=== PATIENT | female | born 1955 | race African-American/Black ===

== ENCOUNTER → 2017-01-09 | Outpatient (CLI) | payer BC | LOC: WI 11:18 | PROVIDERS: ATTEND Registered Nurse General Practice | DX: Z12.31 Encounter for screening mammogram for malignant neoplasm of breast (principal) | CPT/HCPCS: 77067; G0202 ==

== ENCOUNTER → 2018-01-10 | Outpatient (CLI) | payer BC ==
--- NOTE | 2018-01-10 10:39 | WOMENS IMAGING REPORT ---
EXAM DESCRIPTION: BILAT SCREENING MAMMO W/CAD COMPLETED DATE/TIME: 01/10/2018 10:03 am REASON FOR STUDY: ROUTINE SCREENING;Z12.31 Z12.31 ENCNTR SCREEN MAMMOGRAM FOR MALIGNANT NEOPLASM OF HENRIQUE COMPARISON: 01/09/2017 and 01/06/2016. TECHNIQUE: Standard craniocaudal and mediolateral oblique views of each breast recorded using digita l acquisition. LIMITATIONS: None. FINDINGS: Findings present which are benign by mammographic criteria. No suspicious masses, calcifi cations or architectural distortion. Pertinent benign findings: Stable benign calcifications. Read with the assistance of CAD. .[facility] - R2 Cenova Version 1.3 .[facility] Imaging - R2 Cenova Version 1.3 .[facility] Imaging - R2 Cenova Version 2.4 .[facility] [place] R2 Cenova Version 2.4 .[facility] - R2 Shipfitter Apprentice Version 9.2 Benign mammographic findings may include one or more of the following: Smooth masses, popcorn/rim/co arse calcifications, asymmetries, post-procedure changes, and lesions with long-standing stability. IMPRESSION: BENIGN MAMMOGRAPHIC FINDINGS. BIRADS 2 BREAST DENSITY: b. There are scattered areas of fibroglandular density. BIRAD: 2 BENIGN FINDING(S) RECOMMENDATION: ROUTINE SCREENING COMMENT: The patient has been notified of the results by letter per SA requirements. Additional no tification policies are in place for contacting patient with suspicious or incomplete findings. Quality ID #[id number]: The [employer] recommends an annual screening mammogram for women aged 40 years or over. This facility utilizes a reminder system to ensure that all patients receive reminder letters, and/or direct phone calls for appointments. This includes reminders for routine scr eening mammograms, diagnostic mammograms, or other Breast Imaging Interventions when appropriate. Th is patient will be placed in the appropriate reminder system. The [employer] (ACR) has developed recommendations for screening MRI of the breast s in certain patient populations, to be used in conjunction with mammography. Breast MRI surveillanc e may be appropriate for women with more than 20% lifetime risk of developing breast cancer as deter mined by genetic testing, significant family history of the disease, or history of mantle radiation f or Hodgkins Disease. ACR Practice Guidelines 2008. TECHNICAL DOCUMENTATION: FINDING NUMBER: (1) ASSESSMENT: (1) JOB ID: [id number] [employer]- All Rights Reserved Reading location - IP/workstation name: [email or web address]
== END ==
LOC: WI 09:20
PROVIDERS: ATTEND Physician Assistant Medical
DX: Z12.31 Encounter for screening mammogram for malignant neoplasm of breast (principal)
CPT/HCPCS: 77067

== ENCOUNTER 2018-04-24 21:16 | Emergency (ER) | payer BC ==
[2018-04-24] MEDS ORDERED: HYDROCODONE/ACETAMINOPHEN 5-325 MG TABLET PO ONE (22:30)
--- NOTE | 2018-04-24 22:31 | ER Document Report ---
ED Medical Screen (RME) - General Chief Complaint: Low Back Pain Stated Complaint: LOWER BACK PAIN Time Seen by Provider: 04/24/18 22:29 Mode of Arrival: Ambulatory Information source: Patient Notes: Patient presents complaining of left flank pain that started yesterday. Patient denies any injury to her back. Patient denies any cough, urinary symptoms or fever. Patient does complain of some generalized abdominal soreness that started today. hx: Hypertension, hyperlipidemia, prediabetic, cholecystectomy I have greeted and performed a rapid initial assessment of this patient. A comprehensive ED assessment and evaluation of the patient, analysis of test results and completion of the medical decision making process will be conducted by additional ED providers. TRAVEL OUTSIDE OF THE [place] IN LAST 30 DAYS: No - Related Data Allergies/Adverse Reactions: No Known Allergies Allergy (Verified 01/17/13 18:45) Past Medical History - Past Medical History Cardiac Medical History: Reports: Hx Hypertension Renal/ Medical History: Denies: Hx Peritoneal Dialysis Past Surgical History: Reports: Hx Cholecystectomy - Immunizations Hx Diphtheria, Pertussis, Tetanus Vaccination: Yes Physical Exam - Vital signs Vitals: Temp Pulse Resp BP Pulse Ox 98.9 F 93 20 137/85 H 97 04/24/18 21:29 04/24/18 21:29 04/24/18 21:29 04/24/18 21:29 04/24/18 21:29 - Back Back: CVA tenderness - Left Course - Vital Signs Vital signs: Temp Pulse Resp BP Pulse Ox 98.9 F 93 20 137/85 H 97 04/24/18 21:29 04/24/18 21:29 04/24/18 21:29 04/24/18 21:29 04/24/18 21:29 Doctor's Discharge - Discharge Referrals: SERGIO HAYNES PA-C [Primary Care Provider] - Follow up as needed
[2018-04-24 23:06] LABS: ABSOLUTE EOSINOPHILS # (AUTO) 0.1 10^3/uL (0.0-0.6); ABSOLUTE MONOCYTES (AUTO) 0.6 10^3/uL (0.1-1.4); ABSOLUTE NEUT (AUTO) 3.7 10^3/uL (1.7-8.2); APPEARANCE,URINE CLEAR; BASOPHILS % (AUTO) 0.4 % (0-2); BILIRUBIN,URINE NEGATIVE (NEGATIVE); COLOR,URINE STRAW; EOSINOPHILS % (AUTO) 1.9 % (0-6); GLUCOSE, URINE NEGATIVE (NEGATIVE); HEMATOCRIT 35.7 % (36.0-47.0); HEMOGLOBIN 11.8 g/dL (12.0-15.5); KETONES,URINE NEGATIVE (NEGATIVE); LEUKOCYTE ESTERASE,URINE NEGATIVE (NEGATIVE); LYMPHOCYTES % (AUTO) 31.1 % (13-45); MEAN CORPUSCULAR HEMOGLOBIN 26.7 pg (27.0-33.4); MEAN CORPUSCULAR HGB CONC 32.9 g/dL (32.0-36.0); MEAN CORPUSCULAR VOLUME 81 fl (80-97); NITRITE,URINE NEGATIVE (NEGATIVE); PLATELET COUNT 276 10^3/uL (150-450); PROTEIN,URINE NEGATIVE (NEGATIVE); RED BLOOD COUNT 4.41 10^6/uL (3.72-5.28); RED CELL DISTRIBUTION WIDTH 15.9 % (11.5-14.0); SEGMENTED NEUTROPHILS % (AUTO) 57.6 % (42-78); TOTAL CELLS COUNTED % (AUTO) 100 %; URINE SPECIFIC GRAVITY 1.003; UROBILINOGEN,URINE NEGATIVE mg/dL (<2.0); WHITE BLOOD COUNT 6.4 10^3/uL (4.0-10.5)
--- NOTE | 2018-04-24 23:09 | ER Document Report ---
ED General - General Chief Complaint: Low Back Pain Stated Complaint: LOWER BACK PAIN Time Seen by Provider: 04/24/18 22:29 Mode of Arrival: Ambulatory Information source: Patient Notes: Patient is a 62-year-old female who presents with chief complaint of left flank pain that started yesterday. Patient denies any fever, chills, nausea, vomiting or diarrhea. Patient denies any urinary symptoms such as frequency, urgency or dysuria. Patient reports past medical history of hypertension, hyperlipidemia and states that she was prediabetic. Patient reports that she did have a urinary tract infection in November and that she was asymptomatic, it was found during a routine health exam. TRAVEL OUTSIDE OF THE [place] IN LAST 30 DAYS: No - Related Data Allergies/Adverse Reactions: No Known Allergies Allergy (Verified 01/17/13 18:45) Past Medical History - General Information source: Patient - Social History Smoking Status: Never Smoker Frequency of alcohol use: None Drug Abuse: None Lives with: Family Family History: Reviewed & Not Pertinent Patient has suicidal ideation: No Patient has homicidal ideation: No - Past Medical History Cardiac Medical History: Reports: Hx Hypercholesterolemia, Hx Hypertension Renal/ Medical History: Denies: Hx Peritoneal Dialysis Past Surgical History: Reports: Hx Cholecystectomy - Immunizations Hx Diphtheria, Pertussis, Tetanus Vaccination: Yes Review of Systems - Review of Systems Constitutional: No symptoms reported EENT: No symptoms reported Cardiovascular: No symptoms reported Respiratory: No symptoms reported Gastrointestinal: No symptoms reported Genitourinary: No symptoms reported Female Genitourinary: No symptoms reported Musculoskeletal: Back pain Skin: No symptoms reported Hematologic/Lymphatic: No symptoms reported Neurological/Psychological: No symptoms reported Physical Exam - Vital signs Vitals: Temp Pulse Resp BP Pulse Ox 98.9 F 93 20 137/85 H 97 04/24/18 21:29 04/24/18 21:29 04/24/18 21:29 04/24/18 21:29 04/24/18 21:29 - Notes Notes: PHYSICAL EXAMINATION: GENERAL: Well-appearing, well-nourished and in no acute distress. HEAD: Atraumatic, normocephalic. EYES: Pupils equal round and reactive to light, extraocular movements intact, conjunctiva are normal. ENT: Nares patent, oropharynx clear without exudates. Moist mucous membranes. NECK: Normal range of motion, supple without lymphadenopathy LUNGS: Breath sounds clear to auscultation bilaterally and equal. No wheezes rales or rhonchi. HEART: Regular rate and rhythm without murmurs ABDOMEN: Soft, nontender, nondistended abdomen. No guarding, no rebound. No masses appreciated. Female : +Left CVA tenderness. Musculoskeletal: Normal range of motion, no pitting or edema. No cyanosis. NEUROLOGICAL: Cranial nerves grossly intact. Normal speech, normal gait. Normal sensory, motor exams PSYCH: Normal mood, normal affect. SKIN: Warm, Dry, normal turgor, no rashes or lesions noted. Course - Re-evaluation Re-evalutation: 62-year-old female patient presenting with complaints of left flank pain 1 day. Patient reports that she does not have any other associated symptoms nor does she remember injuring herself. But patient does report that she does water aerobics almost daily. We will draw CBC, comprehensive and perform urinalysis to evaluate for pyelonephritis. Patient is without tachycardia and is normotensive. CBC, comprehensive metabolic panel and urinalysis are all unremarkable. There is no rash noted to the area of pain on patient's left flank. Patient reports a reduction of pain after administration of hydrocodone. I feel that this is likely a muscle strain, patient states she has had a history of muscle strain in the past and this does feel similar. Will treat with pain medication as well as anti-inflammatories. Did discuss with patient the possibility of development of shingles as the pain is on the left flank and does not cross the midline however there is no rash at this time. Patient will present to her primary care provider if she develops a rash with the pain. Patient understands the plan of care and is agreeable to same. - Vital Signs Vital signs: Temp Pulse Resp BP Pulse Ox 98.9 F 93 20 137/85 H 97 04/24/18 21:29 04/24/18 21:29 04/24/18 21:29 04/24/18 21:29 04/24/18 21:29 - Laboratory Result Diagrams: 04/24/18 22:40 04/24/18 22:40 Laboratory results interpreted by me: 04/24/18 04/24/18 22:40 22:40 Hgb 11.8 L Hct 35.7 L MCH 26.7 L RDW 15.9 H Calcium 10.5 H Discharge - Discharge Clinical Impression: Musculoskeletal strain Back pain Qualifiers: Back pain location: thoracic back pain Chronicity: acute Back pain laterality: left Qualified Code(s): M54.6 - Pain in thoracic spine Condition: Stable Disposition: HOME, SELF-CARE Additional Instructions: Muscle Strain You have strained a muscle -- torn the fibers within the muscle. This often occurs with strenuous exertion, or during an injury that suddenly stretches the muscle. The seriousness of a strain varies. Some strains heal within days, others cause problems for months. X-rays cannot show a muscle strain. X-rays are taken only if symptoms suggest that a fracture could be present. The usual treatment of a muscle strain is rest and ice packs. Sometimes, a sling, splint, or crutches may be necessary to rest the muscle. The muscle can be used again once pain subsides. Severe strains require a special exercise and stretching program to prevent permanent stiffness and disability. Your doctor will advise you if this will be necessary. Call the doctor immediately if pain or swelling becomes severe, or if numbness or discoloration develop. Muscle Relaxers Muscle relaxing medications are usually prescribed for acute muscle spasm or injury to the neck and back. They are often combined with antiinflammatory pain medication for increased relief. You may stop the muscle relaxer when the pain and stiffness have improved. Start the medication again if spasms recur. Muscle relaxers may cause drowsiness, especially with the first dose. Do not operate machinery or drive while under the effects of the medication. Most muscle relaxers last up to 24 hours. Do not combine the medication with alcohol. Oral Narcotic Medication You have been given a prescription for pain control. This medication is a narcotic. It's best taken with food, as nausea can result if taken on an empty stomach. Don't operate machinery or drive within six hours of taking this medication. Do not combine this medicine with alcohol, or with any medication which can cause sedation (such as cold tablets or sleeping pills) unless you get permission from the physician. Narcotics tend to cause constipation. If possible, drink plenty of fluids and eat a diet high in fiber and fruits. Please take the muscle relaxers as prescribed. Please use the hydrocodone, take one half tablet every 4-6 hours as needed for the pain, do not drive or drink alcohol while taking this medication. Please return to the emergency department if you develop worsening pain, a rash, you develop a fever, urinary symptoms. Please follow-up with Dr. Haynes as well as per your normal schedule. Prescriptions: Methocarbamol [Robaxin 750 mg Tablet] 750 mg PO ASDIR PRN #30 tablet PRN Reason: Referrals: SERGIO HAYNES PA-C [Primary Care Provider] - Follow up as needed
[2018-04-24 23:13] LABS: ALANINE AMINOTRANSFERASE 25 U/L (9-52); ALBUMIN 4.4 g/dL (3.5-5.0); ALKALINE PHOSPHATASE 111 U/L (38-126); ANION GAP 12 (5-19); ASPARTATE AMINO TRANSFERASE 15 U/L (14-36); BILIRUBIN,DIRECT 0.3 mg/dL (0.0-0.4); BILIRUBIN,TOTAL 0.4 mg/dL (0.2-1.3); BLOOD UREA NITROGEN 15 mg/dL (7-20); CALCIUM 10.5 mg/dL (8.4-10.2); CARBON DIOXIDE 29 mmol/L (22-30); CHLORIDE 103 mmol/L (98-107); GLUCOSE 100 mg/dL (75-110); POTASSIUM 4.2 mmol/L (3.6-5.0); SODIUM 143.6 mmol/L (137-145); TOTAL PROTEIN 7.6 g/dL (6.3-8.2)
[2018-04-24] MEDS ORDERED: HYDROCODONE/ACETAMINOPHEN 5-325 MG (6 TAB/ER DISP) PO PRN (23:51)
[2018-04-24] MEDS ORDERED: METHOCARBAMOL 750 MG TABLET PO ONE (23:51)
[2018-04-25 01:48] VITALS: BP 144/82
== END 2018-04-25 01:00 | disposition home or self-care (01) ==
LOC: ER 21:16
DX: S29.012A Strain of muscle and tendon of back wall of thorax, initial encounter (principal); M54.5 Low back pain; M54.6 Pain in thoracic spine; R10.9 Unspecified abdominal pain; X58.XXXA Exposure to other specified factors, initial encounter; I10 Essential (primary) hypertension
CPT/HCPCS: 99283; 36415; 85025; 80053; 81001; J3490

== ENCOUNTER → 2019-01-13 | Outpatient (CLI) | payer BC, MEDICARE ==
--- NOTE | 2019-01-13 10:47 | WOMENS IMAGING REPORT ---
EXAM DESCRIPTION: BILAT SCREENING MAMMO W/CAD COMPLETED DATE/TIME: 01/13/2019 9:55 am REASON FOR STUDY: ROUTINE BILATERAL SCREENING;Z12.31 Z12.31 ENCNTR SCREEN MAMMOGRAM FOR MALIGNANT N EOPLASM OF HENRIQUE COMPARISON: [id number] TECHNIQUE: Standard craniocaudal and mediolateral oblique views of each breast recorded using Sicuboa l acquisition. LIMITATIONS: None. FINDINGS: No masses, calcifications or architectural distortion. No areas of suspicion. Read with the assistance of CAD. .[facility] - R2 Cenova Version 1.3 .[facility] Imaging - R2 Cenova Version 2.1 .[facility] Imaging - R2 Cenova Version 2.4 .[facility] [place] R2 Cenova Version 2.4 .[facility] - R2 [employer] Machine Operator Version 9.2 IMPRESSION: NORMAL MAMMOGRAM. BIRADS 1. BREAST DENSITY: b. There are scattered areas of fibroglandular density. BIRAD: 1 NEGATIVE RECOMMENDATION: ROUTINE SCREENING COMMENT: The patient has been notified of the results by letter per MQSA requirements. Additional no tification policies are in place for contacting patient with suspicious or incomplete findings. Quality ID #[id number]: The [employer] recommends an annual screening mammogram for women aged 40 years or over. This facility utilizes a reminder system to ensure that all patients receive reminder letters, and/or direct phone calls for appointments. This includes reminders for routine scr eening mammograms, diagnostic mammograms, or other Breast Imaging Interventions when appropriate. Th is patient will be placed in the appropriate reminder system. The [employer] (ACR) has developed recommendations for screening MRI of the breast s in certain patient populations, to be used in conjunction with mammography. Breast MRI surveillanc e may be appropriate for women with more than 20% lifetime risk of developing breast cancer as deter mined by genetic testing, significant family history of the disease, or history of mantle radiation f or Hodgkins Disease. ACR Practice Guidelines 2008. TECHNICAL DOCUMENTATION: FINDING NUMBER: (1) ASSESSMENT: (1) JOB ID: [id number] [employer]- All Rights Reserved Reading location - IP/workstation name: [email or web address]
== END ==
LOC: WI 09:31
PROVIDERS: ATTEND Physician Assistant Medical
DX: Z12.31 Encounter for screening mammogram for malignant neoplasm of breast (principal)
CPT/HCPCS: 77067

== ENCOUNTER 2019-08-21 11:19 | Inpatient (IN) | payer MEDICARE ==
[2019-08-21] MEDS ORDERED: NORMAL SALINE 1000 ML 1,000 ML IV ONE (11:33)
[2019-08-21] MEDS ORDERED: DILTIAZEM HCL INJ 25 MG/5 ML VIAL IV ONE ×2 (11:34→11:45)
--- NOTE | 2019-08-21 11:38 | ER Document Report ---
ED Cardiac - General Stated Complaint: CHEST PAIN Time Seen by Provider: 08/21/19 11:24 Primary Care Provider: SERGIO HAYNES PA-C [Primary Care Provider] - Follow up as needed Mode of Arrival: Medic Information source: Patient, Emergency Med Personnel, [facility] Records, Outside Facility Records Notes: This 63-year-old female patient comes emergency room complaining of shortness of breath and heart racing for the past 1 week. She went to see her primary care provider today and was found to be in atrial fibrillation with rapid ventricular response with a rate of about 170. She was sent to the emergency room by EMS. Patient states she has felt a little fatigued and tired the last few days. She has not had any chest pain. TRAVEL OUTSIDE OF THE [place] IN LAST 30 DAYS: No - Related Data Allergies/Adverse Reactions: No Known Allergies Allergy (Verified 08/21/19 11:25) Past Medical History - General Information source: Patient, Emergency Med Personnel, [facility] Records, Outside Facility Records - Social History Smoking Status: Never Smoker Cigarette use (# per day): No Chew tobacco use (# tins/day): No Smoking Education Provided: No Frequency of alcohol use: None Drug Abuse: None Occupation: Retired Lives with: Family Family History: Reviewed & Not Pertinent - Past Medical History Cardiac Medical History: Reports: Hx Hypercholesterolemia, Hx Hypertension Endocrine Medical History: Reports: Hx Diabetes Mellitus Type 2 Past Surgical History: Reports: Hx Cholecystectomy - Immunizations Hx Diphtheria, Pertussis, Tetanus Vaccination: Yes Review of Systems - Review of Systems Constitutional: See HPI, Other - Feeling tired EENT: No symptoms reported Cardiovascular: See HPI, Heart racing Respiratory: See HPI, Short of breath Gastrointestinal: No symptoms reported Genitourinary: No symptoms reported Female Genitourinary: Post menopausal Musculoskeletal: No symptoms reported Skin: No symptoms reported Hematologic/Lymphatic: No symptoms reported Neurological/Psychological: No symptoms reported Physical Exam - Vital signs Vitals: Pulse Ox 100 08/21/19 11:26 Interpretation: Tachycardic - General General appearance: Appears well, Alert In distress: None - HEENT Head: Normocephalic, Atraumatic Eyes: Normal Pupils: PERRL Neck: Normal, Supple - Respiratory Respiratory status: No respiratory distress Chest status: Nontender Breath sounds: Normal Chest palpation: Normal - Cardiovascular Rhythm: Regular, Tachycardia - Rate of 170 Heart sounds: Normal auscultation Murmur: No - Abdominal Inspection: Obese Bowel sounds: Normal Tenderness: Nontender - Back Back: Normal - Extremities General upper extremity: Normal inspection General lower extremity: Edema - Trace edema to the lower extremities - Neurological Neuro grossly intact: Yes - Psychological Associated symptoms: Normal affect, Normal mood - Skin Skin Temperature: Warm Skin Moisture: Dry Skin Color: Normal Course - Re-evaluation Re-evalutation: 08/21/19 12:54 Twelve-lead came with the patient from the office looked like atrial fibrillation with may be some atrial flutter. The twelve-lead done here was read by the machine as superventricular tachycardia, however to me it appears that is most likely atrial flutter. Her rate is not responding to Cardizem. I will try adenosine bolus to slow the rate and better identify what the rhythm is. - Vital Signs Vital signs: Temp Pulse Resp BP Pulse Ox 97.7 F 19 127/63 H 98 08/21/19 11:46 08/21/19 17:47 08/21/19 17:47 08/21/19 17:47 - Laboratory Result Diagrams: 08/21/19 11:45 08/21/19 11:45 Laboratory results interpreted by me: 08/21/19 08/21/19 08/21/19 11:45 11:45 11:45 Hgb 10.9 L Hct 33.9 L MCV 78 L MCH 25.1 L RDW 16.3 H D-Dimer 1.52 H Potassium 3.5 L Alkaline Phosphatase 155 H NT-Pro-B Natriuret Pep TSH Free T4 Free T3 pg/mL Urine Protein Ur Leukocyte Esterase 08/21/19 08/21/19 08/21/19 11:45 11:45 11:45 Hgb Hct MCV MCH RDW D-Dimer Potassium Alkaline Phosphatase NT-Pro-B Natriuret Pep 1920 H TSH < 0.01 L Free T4 3.79 H Free T3 pg/mL 10.20 H Urine Protein Ur Leukocyte Esterase 08/21/19 17:04 Hgb Hct MCV MCH RDW D-Dimer Potassium Alkaline Phosphatase NT-Pro-B Natriuret Pep TSH Free T4 Free T3 pg/mL Urine Protein 30 H Ur Leukocyte Esterase TRACE H - Diagnostic Test Radiology reviewed: Image reviewed, Reports reviewed - Chest x-ray shows cardiomegaly without pulmonary edema. - EKG Interpretation by Me EKG shows normal: [place], Intervals. abnormal: QRS Complexes - Abnormal R wave progression, ST-T Waves - Borderline anterior T abnormalities Rate: Tachycardia Rhythm: MAT When compared to previous EKG there are: Changes noted - Consults Dr. Pop Time consulted: 17:15 Consulted provider: will come to ER Critical Care Note - Critical Care Note Total time excluding time spent on procedures (mins): 40 Discharge - Discharge Clinical Impression: Multifocal atrial tachycardia, Hyperthyroidism Condition: Good Disposition: ADMITTED INPATIENT Admitting Provider: Dr. Jensen Unit Admitted: ICU Referrals: SERGIO HAYNES PA-C [Primary Care Provider] - Follow up as needed
[2019-08-21] MEDS ORDERED: DILTIAZEM HCL/D5W 125 MG/125 ML RTUINJ IV PRN (11:46)
[2019-08-21 11:56] LABS: ABSOLUTE BASOPHILS # (AUTO) 0.1 10^3/uL (0.0-0.2); ABSOLUTE LYMPHOCYTES (AUTO) 1.4 10^3/uL (0.5-4.7); ABSOLUTE MONOCYTES (AUTO) 0.5 10^3/uL (0.1-1.4); ABSOLUTE NEUT (AUTO) 4.2 10^3/uL (1.7-8.2); BASOPHILS % (AUTO) 0.8 % (0-2); EOSINOPHILS % (AUTO) 0.8 % (0-6); HEMATOCRIT 33.9 % (36.0-47.0); HEMOGLOBIN 10.9 g/dL (12.0-15.5); LYMPHOCYTES % (AUTO) 21.8 % (13-45); MEAN CORPUSCULAR HEMOGLOBIN 25.1 pg (27.0-33.4); MEAN CORPUSCULAR HGB CONC 32.2 g/dL (32.0-36.0); MEAN CORPUSCULAR VOLUME 78 fl (80-97); MONOCYTES % (AUTO) 8.3 % (3-13); PLATELET COUNT 278 10^3/uL (150-450); RED BLOOD COUNT 4.35 10^6/uL (3.72-5.28); RED CELL DISTRIBUTION WIDTH 16.3 % (11.5-14.0); SEGMENTED NEUTROPHILS % (AUTO) 68.3 % (42-78); TOTAL CELLS COUNTED % (AUTO) 100 %; WHITE BLOOD COUNT 6.2 10^3/uL (4.0-10.5)
[2019-08-21 12:03] LABS: INTERNATIONAL RATION (INR) 1.12; PROTHROMBIN TIME 14.5 SEC (11.4-15.4)
[2019-08-21 12:06] LABS: D-DIMER 1.52 ug/mL (0.00-0.50)
[2019-08-21 12:19] LABS: ALBUMIN 3.9 g/dL (3.5-5.0); ALKALINE PHOSPHATASE 155 U/L (38-126); ANION GAP 9 (5-19); ASPARTATE AMINO TRANSFERASE 27 U/L (14-36); BILIRUBIN,DIRECT 0.1 mg/dL (0.0-0.4); BILIRUBIN,TOTAL 0.6 mg/dL (0.2-1.3); BLOOD UREA NITROGEN 17 mg/dL (7-20); CALCIUM 10.1 mg/dL (8.4-10.2); CARBON DIOXIDE 26 mmol/L (22-30); CHLORIDE 107 mmol/L (98-107); CREATINE KINASE 70 U/L (30-135); GLUCOSE 107 mg/dL (75-110); POTASSIUM 3.5 mmol/L (3.6-5.0)
[2019-08-21 12:32] LABS: NT PRO BNP 1920 pg/mL (5-900)
[2019-08-21 12:34] LABS: TROPONIN I < 0.012 ng/mL
--- NOTE | 2019-08-21 12:38 | RADIOLOGY REPORT (SQ) ---
EXAM DESCRIPTION: CHEST SINGLE VIEW COMPLETED DATE/TIME: 08/21/2019 12:21 pm REASON FOR STUDY: New onset A. fib with RVR COMPARISON: 01/18/2013 EXAM PARAMETERS: NUMBER OF VIEWS: One view. TECHNIQUE: Single frontal radiographic view of the chest acquired. RADIATION DOSE: NA LIMITATIONS: None. FINDINGS: LUNGS AND PLEURA: No opacities, masses or pneumothorax. No pleural effusion. MEDIASTINUM AND HILAR STRUCTURES: No masses. Contour normal. HEART AND VASCULAR STRUCTURES: Cardiomegaly. No pulmonary edema. BONES: No acute findings. HARDWARE: None in the chest. OTHER: No other significant finding. IMPRESSION: Cardiomegaly without pulmonary edema. TECHNICAL DOCUMENTATION: JOB ID: [id number] [employer]- All Rights Reserved Reading location - IP/workstation name: [email or web address]
[2019-08-21] MEDS ORDERED: ADENOSINE INJ/PF 6 MG/2 ML SDV IV ONE ×2 (12:54→13:23)
[2019-08-21] MEDS ORDERED: RINGERS SOLUTION,LACTATED 1,000 ML IV ONE (15:01)
[2019-08-21 16:53] LABS: FREE T3 10.2 pg/mL (2.77-5.27); FREE T4 (FREE THYROXINE) 3.79 ng/dL (0.78-2.19)
[2019-08-21 17:16] LABS: APPEARANCE,URINE SLIGHTLY-CLOUDY; BILIRUBIN,URINE NEGATIVE (NEGATIVE); COLOR,URINE YELLOW; GLUCOSE, URINE NEGATIVE (NEGATIVE); KETONES,URINE NEGATIVE (NEGATIVE); LEUKOCYTE ESTERASE,URINE TRACE (NEGATIVE); NITRITE,URINE NEGATIVE (NEGATIVE); PROTEIN,URINE 30 mg/dL (NEGATIVE); UROBILINOGEN,URINE NEGATIVE mg/dL (<2.0)
[2019-08-21] MEDS: ESMOLOL HCL/SOD CL 2,500 MG/250 ML RTUINJ IV PRN ×3 (18:44→23:12)
[2019-08-21] MEDS ORDERED: HEPARIN SOD (PORCINE) 1,000 UNIT/ML 10 ML VIAL IV ONE (19:00)
[2019-08-21 19:07] LABS: PHOSPHORUS 4.1 mg/dL (2.5-4.5)
[2019-08-21 19:22] LABS: URINE AMPHETAMINES SCREEN NEGATIVE; URINE BARBITURATES SCREEN NEGATIVE; URINE BENZODIAZEPINES SCREEN NEGATIVE; URINE COCAINE SCREEN NEGATIVE; URINE MARIJUANA (THC) SCREEN NEGATIVE; URINE METHADONE SCREEN NEGATIVE; URINE PHENCYCLIDINE SCREEN NEGATIVE
[2019-08-21 19:41] LABS: FREE T3 7.88 pg/mL (2.77-5.27); FREE T4 (FREE THYROXINE) 3.42 ng/dL (0.78-2.19)
--- NOTE | 2019-08-21 19:42 | CRITICAL CARE ADMISSION REPORT ---
HPI Date:: 08/21/19 Time:: 18:00 Reason for ICU Reason:: Uncontrolled tachycardia with atrial fibrillation, elevated thyroid hormone. HPI: 63 yo black female with history of T2DM, HTN, Obesity presented to her PCP's office with dyspnea and palpitations. Found to be in rapid atrial fibrillation and sent to ED. ED confirmed and also suspected MAT. Minimal improvement with diltiazem. Bp not significantly elevated. Appeared recalcitrant to CCB IV. Called by hospitalist staff because she appeared to have thyroid induced tachycardia. Originally appeared to be in an S VT which did not respond to adenosine except to show some underlying atrial flutter and a slight reduction in heart rate. Personally evaluate the patient in the emergency room. She had just returned f rom the bathroom and was quite dyspneic. Improved with rest and bed however she remained tachycardic with heart rates as high as 200 in my presence. She states she is only felt ill in the last week. She denies any fevers or chills. She has no heat or cold intolerance. Had loose bowel movements last week however has not had any excessive diarrhea. She has had no tremors or anxiety. Denies chest pain with this. Absolutely denies any exogenous exposure to thyroid medications. She has no pets with thyroid medications and has no family members who have thyroid medications. He has had no skin changes. Not noticed any swelling of her neck nor changes in her eyes. There is no family history of thyroid disease. Had no demonstrable weight loss and in fact endorses some weight gain. He has had no swelling of her extremities. No hair changes no skin changes. She denies any polyuria or polydipsia. Is not been hypertensive in the emergency room. She denies any abdominal pain this time but last week had some mild discomfort. No dysuria. History obtained from:: Patient - Diagnosis/Plan (1) Atrial fibrillation with tachycardic ventricular rate Is this a current diagnosis for this admission?: Yes Plan: Start esmolol IV, start heparin drip. Please see thyroid section below (2) Atrial fibrillation, new onset Is this a current diagnosis for this admission?: Yes (3) Thyroid condition Is this a current diagnosis for this admission?: Yes Plan: Patient has undetectable TSH with elevation in free T4 and significant elevation in free T3. This raises a suspicion of exogenous thyroid use however patient is absolutely sure that she has not been exposed to this nor is taking any. Physical examination and history do not fit any stigmata for thyrotoxicosis and she certainly does not meet any criteria for thyroid storm. Exhibits no tremulousness has had no weight loss. CT scan does show abnormal thyroid enlargement which extends into the thoracic cavity. There is some heterogeneous changes and we are awaiting the official report. I have ordered esmolol to con trol the heart rate and should this be related to the thyroid will also be effective. In the meantime we will remeasure thyroid hormones to assure validity and if they are elevated treat her with methimazole, SS K, and bile acid sequestrant. Will obtain ultrasound of her thyroid. I have sent thyr oglobulin antibodies, peroxidase antibodies as well as lactic acid. (4) Dyspnea Qualifiers: Dyspnea type: dyspnea on exertion Qualified Code(s): R06.09 - Other forms of dyspnea Is this a current diagnosis for this admission?: Yes Plan: Appears to be related to her tachycardia and atrial fibrillation. Ch I do not know why okay Est x-ray does not show any evidence of failure CT scan is bereft of any unusual pathology. I do not appreciate any thrombotic junction on CT s can as well. The shortness of breath appears to improve with the reduction in heart rate and this may represent a component of high-output cardiac failure especially with a pro BNP elevated. Some mild interstitial changes but not significant on CT scan. (5) Type 2 diabetes mellitus treated without insulin Is this a current diagnosis for this admission?: Yes Plan: We will monitor her glucose. If this is a thyroid dysfunction truly she will need steroid therapy. This will be somewhat complicated for her diabetes with glucose elevation. (6) Obesity, Class II, BMI 35-39.9 Is this a current diagnosis for this admission?: Yes (7) Microcytic hypochromic anemia Is this a current diagnosis for this admission?: Yes Plan: Have ordered iron studies and hemoglobin electrophoresis to evaluate for thalassemia and hemoglobinopathies. In addition have ordered B12. Past Medical History Cardiac Medical History: Reports: Hyperlipidema, Hypertension Denies: Atrial Fibrillation, Congestive Heart Failure, Coronary Artery Disease, DVT, Myocardial Infarction, Peripheral Vascular Disease, Pulmonary Embolism, Heart Murmur Pulmonary Medical History: Reports: None Denies: Asthma, Bronchitis, Chronic Obstructive Pulmonary Disease (COPD), Intubation, Pneumonia, Respiratory Failure, Sleep Apnea, Tuberculosis EENT Medical History: Reports: None Neurological Medical History: Reports: None Endocrine Medical History: Reports: Diabetes Mellitus Type 2 - Non-insulin requiring Renal/ Medical History: Reports: None Denies: Chronic Kidney Disease, Nephrolithiasis Malignancy Medical History: Reports: None GI Medical History: Reports: None Musculoskeltal Medical History: Reports: None Denies: Arthritis Skin Medical History: Reports: None Psychiatric Medical History: Reports: None Denies: Alcohol Dependency, Attention Deficit Hyperactivity Disorder, Bipolar Disorder Traumatic Medical History: Reports: None Hematology: Reports: None Denies: Anemia Infectious Medical History: Reports: None Past Surgical History Past Surgical History: Reports: Cholecystectomy Social/Family History - Social History Lives with: Family Smoking Status: Never Smoker Frequency of Alcohol Use: None Hx Recreational Drug Use: No Drugs: None Hx Prescription Drug Abuse: No - Family History Family History: No thyroid disease - Medication/Allergies Home Medications: Aspirin [Ecotrin 81 mg EC Tablet] 81 mg PO DAILY 08/21/19 Atorvastatin Calcium [Lipitor 10 mg Tablet] 10 mg PO QHS 08/21/19 Losartan/Hydrochlorothiazide [Losartan-Hctz 50-12.5 mg Tab] 1 each PO QAM 08/21/19 Metformin HCl [Metformin HCl ER] 500 mg PO BID 08/21/19 Allergies/Adverse Reactions: No Known Allergies Allergy (Verified 08/21/19 11:25) Review of Systems Constitutional: PRESENT: as per HPI, weight gain. ABSENT: fever(s), headache(s), night sweats, weakness, weight loss Eyes: PRESENT: as per HPI. ABSENT: visual disturbances Ears: ABSENT: hearing changes Nose, Mouth, and Throat: PRESENT: as per HPI Cardiovascular: PRESENT: as per HPI, dyspnea on exertion, palpitations. ABSENT: chest pain, edema, orthropnea Respiratory: PRESENT: as per HPI, dyspnea. ABSENT: cough, hemoptysis, sputum Gastrointestinal: PRESENT: as per HPI, diarrhea - Some mild frequent bowel movements last week. None active now. ABSENT: abdominal pain, bloating, coffee ground emesis, constipation, dysphagia, heartburn, hematemesis, hematochezia, melena, nausea, vomiting, other Genitourinary: PRESENT: as per HPI. ABSENT: difficulty urinating, dysuria, hematuria Musculoskeletal: PRESENT: as per HPI. ABSENT: back pain, joint swelling, muscle weakness Integumentary: PRESENT: as per HPI. ABSENT: diaphoresis, erythema, lesions, pruritus, rash Neurological: PRESENT: as per HPI. ABSENT: abnormal gait, abnormal movements, abnormal speech, focal weakness, frequent falls, lack of coordination, memory loss, numbness, paresthesias, restless legs, syncope, tingling, tremor(s) Psychiatric: PRESENT: as per HPI. ABSENT: anxiety, depression Endocrine: PRESENT: as per HPI. ABSENT: cold intolerance, flushing, heat intolerance, polydipsia, polyphagia, polyuria Hematologic/Lymphatic: ABSENT: as per HPI, easy bleeding, easy bruising Physical Exam Vital Signs: Temp Pulse Resp BP Pulse Ox 97.7 F 33 H 116/93 H 98 08/21/19 11:46 08/21/19 19:06 08/21/19 19:06 08/21/19 19:06 Intake & Output 08/20/19 08/21/19 08/22/19 06:59 06:59 06:59 Intake Total 2103 Balance 2103 Weight 120.8 kg Weight/Height Weight 120.8 kg Height 5 ft 4 in General appearance: PRESENT: no acute distress, cooperative, morbidly obese Exam: Pleasant, nontoxic 63-year-old white female who is in slight respiratory distress; alert and oriented x3 Head exam: PRESENT: atraumatic, normocephalic Eye exam: PRESENT: conjunctiva pink, EOMI, PERRLA, other - No exophthalmous. ABSENT: conjunctival injection, conjunctiva pale, nystagmus, periorbital swelling, scleral icterus Ear exam: PRESENT: normal external ear exam Mouth exam: PRESENT: dry mucosa, neck supple, tongue midline Teeth exam: ABSENT: edentulous Neck exam: PRESENT: full ROM, other - Has enlarged vein across right thyroid lobe. No bruits or venous shouflle.. ABSENT: carotid bruit, JVD, meningismus, tenderness, thyromegaly, tracheal deviation, tracheostomy Respiratory exam: PRESENT: clear to auscultation randa, tachypnea. ABSENT: accessory muscle use, crackles, retraction, rhonchi, stridor, wheezes Cardiovascular exam: PRESENT: irregular rhythm, +S1, +S2, tachycardia. ABSENT: gallop, rubs, systolic murmur Pulses: PRESENT: normal carotid pulses, +1 pedal pulses bilateral Vascular exam: PRESENT: normal capillary refill GI/Abdominal exam: PRESENT: normal bowel sounds, soft. ABSENT: ascites, diminished bowel sounds, distended, firm, guarding, hyperactive bowel sounds, hypoactive bowel sounds, mass, rebound, rigid, tenderness Rectal exam: PRESENT: deferred Extremities exam: ABSENT: joint swelling, pedal edema, tenderness Musculoskeletal exam: PRESENT: ambulatory, normal inspection. ABSENT: deformity, dislocation, tenderness Neurological exam: PRESENT: alert, awake, oriented to person, oriented to place, oriented to time, oriented to situation, CN II-XII grossly intact. ABSENT: motor sensory deficit, aphasic Psychiatric exam: PRESENT: appropriate affect. ABSENT: agitated, anxious Focused psych exam: ABSENT: euphoric, paranoid, pressured speech, psychomotor agitation, restlessness Skin exam: PRESENT: intact, normal color, warm. ABSENT: cyanosis, dry, erythema, mottled, pallor, petechiae, rash, urticaria, vesicles Laboratory/Radiographs Laboratory Results: 08/21/19 11:45 08/21/19 11:45 08/21/19 08/21/19 08/21/19 11:45 11:45 11:45 WBC 6.2 RBC 4.35 Hgb 10.9 L Hct 33.9 L MCV 78 L MCH 25.1 L MCHC 32.2 RDW 16.3 H Plt Count 278 Seg Neutrophils % 68.3 Sodium 142.0 Potassium 3.5 L Chloride 107 Carbon Dioxide 26 Anion Gap 9 BUN 17 Creatinine 0.84 Est GFR ( Amer) > 60 Glucose 107 Lactic Acid Calcium 10.1 Phosphorus Magnesium 2.0 Total Bilirubin 0.6 GGT AST 27 Alkaline Phosphatase 155 H Ammonia Total Protein 7.0 Albumin 3.9 TSH < 0.01 L Free T4 Free T3 pg/mL Urine Color Urine Appearance Urine pH Ur Specific [place] Urine Protein Urine Glucose (UA) Urine Ketones Urine Blood Urine Nitrite Ur Leukocyte Esterase Urine WBC (Auto) Urine RBC (Auto) 08/21/19 08/21/19 08/21/19 11:45 11:45 17:04 WBC RBC Hgb Hct MCV MCH MCHC RDW Plt Count Seg Neutrophils % Sodium Potassium Chloride Carbon Dioxide Anion Gap BUN Creatinine Est GFR ( Amer) Glucose Lactic Acid Calcium Phosphorus Magnesium Total Bilirubin GGT 58 AST Alkaline Phosphatase Ammonia Total Protein Albumin TSH Free T4 3.79 H Free T3 pg/mL 10.20 H Urine Color YELLOW Urine Appearance SLIGHTLY-CLOUDY Urine pH 5.0 Ur Specific [place] 1.040 Urine Protein 30 H Urine Glucose (UA) NEGATIVE Urine Ketones NEGATIVE Urine Blood NEGATIVE Urine Nitrite NEGATIVE Ur Leukocyte Esterase TRACE H Urine WBC (Auto) 6 Urine RBC (Auto) 6 08/21/19 08/21/19 08/21/19 18:20 18:20 18:24 WBC RBC Hgb Hct MCV MCH MCHC RDW Plt Count Seg Neutrophils % Sodium Potassium Chloride Carbon Dioxide Anion Gap BUN Creatinine Est GFR ( Amer) Glucose Lactic Acid 1.9 Calcium Phosphorus 4.1 Magnesium 2.0 Total Bilirubin GGT AST Alkaline Phosphatase Ammonia 11.2 Total Protein Albumin TSH Free T4 Free T3 pg/mL Urine Color Urine Appearance Urine pH Ur Specific [place] Urine Protein Urine Glucose (UA) Urine Ketones Urine Blood Urine Nitrite Ur Leukocyte Esterase Urine WBC (Auto) Urine RBC (Auto) 08/21/19 08/21/19 08/21/19 11:45 11:45 18:24 Creatine Kinase 70 70 Troponin I < 0.012 NT-Pro-B Natriuret Pep 1920 H Impressions: Chest X-Ray 08/21/19 11:32 IMPRESSION: Cardiomegaly without pulmonary edema. EKG: Multiple done. Afib, possible aflutter Critical Time Critical Time (minutes): 65 -: The care of a critically ill patient is dynamic. This note represents a static moment in the admission process. orders and treatments may be given simultaneously and urgently, and time is not financial foundations representative of the treatment process. This patient requires Critical Care secondary to life threatening organ or limb dysfunction. Without the need for Critical Care services, the patient is at risk for increased mortality and morbidity.
[2019-08-21 19:57] LABS: THYROID STIMULATING HORMONE < 0.01 uIU/mL (0.47-4.68)
--- NOTE | 2019-08-21 20:20 | EKG REPORT ---
SEVERITY:- ABNORMAL ECG - SUPRAVENTRICULAR TACHYCARDIA VENTRICULAR PREMATURE COMPLEX ABNRM R PROG, CONSIDER ASMI OR LEAD PLACEMENT BORDERLINE T ABNORMALITIES, ANTERIOR LEADS : Confirmed by: Amanda Diggs MD 21-Aug-2019 20:19:15
[2019-08-21] MEDS: HEPARIN SOD (PORCINE) 1,000 UNIT/ML 10 ML VIAL IV PRN (21:10)
[2019-08-21] MEDS: HEPARIN SODIUM,PORCINE/D5W 25,000 UNIT/250 ML RTUINJ IV PRN (21:27)
[2019-08-21] MEDS ORDERED: ALBUMIN HUMAN 5% INJ 25 GM/500 ML BOTTLE IV ONE (22:30)
[2019-08-21] MEDS: RINGERS SOLUTION,LACTATED 1,000 ML IV PRN (22:44)
[2019-08-21] MEDS ORDERED: ALBUMIN HUMAN 500 ML IV ONE (22:45)
[2019-08-21] MEDS: METHIMAZOLE 5 MG TABLET PO SCH (22:55)
[2019-08-22] MEDS ORDERED: ESMOLOL HCL/SOD CL 2,500 MG/250 ML RTUINJ IV ONE (01:45)
[2019-08-22] MEDS: ESMOLOL HCL/SOD CL 2,500 MG/250 ML RTUINJ IV PRN ×4 (01:48→12:10)
[2019-08-22 04:34] LABS: ABSOLUTE LYMPHOCYTES (AUTO) 1.5 10^3/uL (0.5-4.7); ABSOLUTE MONOCYTES (AUTO) 0.7 10^3/uL (0.1-1.4); ABSOLUTE NEUT (AUTO) 4.7 10^3/uL (1.7-8.2); ABSOLUTE RETICS # 0.093 10^6/uL (0.028-0.122); BASOPHILS % (AUTO) 0.5 % (0-2); EOSINOPHILS % (AUTO) 0.5 % (0-6); HEMOGLOBIN 8.9 g/dL (12.0-15.5); LYMPHOCYTES % (AUTO) 21.2 % (13-45); MEAN CORPUSCULAR VOLUME 78 fl (80-97); MONOCYTES % (AUTO) 9.6 % (3-13); PLATELET COUNT 240 10^3/uL (150-450); RED BLOOD COUNT 3.58 10^6/uL (3.72-5.28); RETICULOCYTE COUNT (AUTO) 2.59 % (0.66-2.85); SEGMENTED NEUTROPHILS % (AUTO) 68.2 % (42-78); TOTAL CELLS COUNTED % (AUTO) 100 %; WHITE BLOOD COUNT 6.9 10^3/uL (4.0-10.5)
[2019-08-22 04:45] LABS: ALBUMIN 3.6 g/dL (3.5-5.0); ALKALINE PHOSPHATASE 144 U/L (38-126); ANION GAP 11 (5-19); ASPARTATE AMINO TRANSFERASE 47 U/L (14-36); BILIRUBIN,DIRECT 0.2 mg/dL (0.0-0.4); BILIRUBIN,TOTAL 0.7 mg/dL (0.2-1.3); BLOOD UREA NITROGEN 19 mg/dL (7-20); CALCIUM 9.5 mg/dL (8.4-10.2); CARBON DIOXIDE 22 mmol/L (22-30); CHLORIDE 108 mmol/L (98-107); GLUCOSE 117 mg/dL (75-110); IRON(TIBC) 25.7 ug/dL (37-170); POTASSIUM 4.1 mmol/L (3.6-5.0); TOTAL PROTEIN 6.5 g/dL (6.3-8.2)
[2019-08-22] MEDS: HEPARIN SOD (PORCINE) 1,000 UNIT/ML 10 ML VIAL IV PRN (04:52)
[2019-08-22] MEDS: METHIMAZOLE 5 MG TABLET PO SCH ×4 (05:57→21:38)
[2019-08-22] MEDS: RINGERS SOLUTION,LACTATED 1,000 ML IV PRN ×3 (06:51→21:37)
[2019-08-22] MEDS ORDERED: INFLUENZA QUAD (6MOS+) 2019-20 VAC 0.5 ML SYR IM ONE (09:09)
[2019-08-22] MEDS ORDERED: FUROSEMIDE INJ/PF 20 MG/2 ML SDV IV ONE (11:00)
--- NOTE | 2019-08-22 11:03 | RADIOLOGY REPORT (SQ) ---
EXAM DESCRIPTION: KUB/ABDOMEN (SINGLE VIEW) COMPLETED DATE/TIME: 08/22/2019 10:46 am REASON FOR STUDY: abdomen pain COMPARISON: None. NUMBER OF VIEWS: One view. TECHNIQUE: Supine radiographic image of the abdomen acquired. LIMITATIONS: None. FINDINGS: BOWEL GAS PATTERN: Normal bowel gas pattern. No dilated loops. CALCIFICATIONS: No suspicious calcifications. SOFT TISSUES: No gross mass or suggestion of organomegaly. HARDWARE: None in the abdomen. BONES: No acute fracture. No worrisome bone lesions. OTHER: No other significant finding. IMPRESSION: NO RADIOGRAPHIC EVIDENCE FOR ACUTE ABDOMINAL DISEASE. TECHNICAL DOCUMENTATION: JOB ID: [id number] [employer]- All Rights Reserved Reading location - IP/workstation name: [email or web address]
[2019-08-22] MEDS: PROPRANOLOL HCL 20 MG TABLET PO SCH ×2 (12:19→17:27)
[2019-08-22 13:47] LABS: APPEARANCE,URINE SLIGHTLY-CLOUDY; BILIRUBIN,URINE NEGATIVE (NEGATIVE); GLUCOSE, URINE NEGATIVE (NEGATIVE); KETONES,URINE NEGATIVE (NEGATIVE); LEUKOCYTE ESTERASE,URINE MODERATE (NEGATIVE); NITRITE,URINE NEGATIVE (NEGATIVE); PROTEIN,URINE 100 mg/dL (NEGATIVE); URINE SPECIFIC GRAVITY 1.054
[2019-08-22 13:49] LABS: COLOR,URINE DARK YELLOW
--- NOTE | 2019-08-22 13:57 | RADIOLOGY REPORT (SQ) ---
EXAM DESCRIPTION: CTA CHEST COMPLETED DATE/TIME: 08/21/2019 2:42 pm REASON FOR STUDY: New onset A. fib with RVR, elevated d-dimer COMPARISON: None. TECHNIQUE: CT scan of the chest performed using helical scanning technique with dynamic intravenous contrast injection. Images reviewed with lung, soft tissue and bone windows. Reconstructed coronal and sagittal MPR images reviewed. Additional 3 dimensional post-processing performed to develop Maximal Intensity Projection images (AR P). All images stored on PACS. All CT scanners at this facility use dose modulation, iterative reconstruction, and/or weight based d osing when appropriate to reduce radiation dose to as low as reasonably achievable (ALARA). [facility]: Dose Right [facility]: CareDose [facility]: Dose Right [facility]: Teradose 4D [facility]: WineDemon CONTRAST TYPE AND DOSE: 73 cc Isovue 370- low osmolar. Contrast bolus optimized for the pulmonary arteries. Not diagnostic for the aorta. RENAL FUNCTION: GFR > 60. RADIATION DOSE: . LIMITATIONS: Motion. FINDINGS: LUNGS AND PLEURA: No masses, infiltrates, or pneumothorax. No pleural effusions or pleura l calcifications. AORTA AND GREAT VESSELS: No aneurysm. Contrast bolus not optimized for the aorta. HEART: No pericardial effusion. Cardiomegaly. PULMONARY ARTERIES: No emboli visualized in the main pulmonary arteries or the segmental branches. HILAR AND MEDIASTINAL STRUCTURES: No identified masses or abnormal nodes. HARDWARE: None in the chest. UPPER ABDOMEN: No significant findings. Limited exam. THYROID AND OTHER SOFT TISSUES: No masses. No adenopathy. BONES: No acute or significant finding. 3D MIPS: Confirm above findings. OTHER: No other significant finding. IMPRESSION: No PE. No acute findings. COMMENT: Quality ID # [id number]: Final reports with documentation of one or more dose reduction techniques (e.g., Automated exposure control, adjustment of the mA and/or kV according to patient size, use of iterative reconstruction technique) TECHNICAL DOCUMENTATION: JOB ID: [id number] [employer]- All Rights Reserved Reading location - IP/workstation name: [email or web address]
[2019-08-22] MEDS: HEPARIN SODIUM,PORCINE/D5W 25,000 UNIT/250 ML RTUINJ IV PRN (15:09)
--- NOTE | 2019-08-22 15:44 | PDOC PROGRESS REPORT ---
Subjective Progress Note for:: 08/22/19 Subjective:: Patient's heart rate has still been variable but on average, less than 110. Any degree of activity raises her heart rate. At hypotension last evening with the esmolol and was given albumin. This improved her blood pressure. Currently is sitting upright with a variable heart rate that appears to be MAT. Review of the EKGs shows that there does not appear to be any atrial fibrillation and her heparin has been discontinued. She discloses abdominal discomfort. There is no nausea with this. It is ill described and feels like an ache. Is not associated with any nausea or vomiting. There are no provocative or palliative factors. She is remained afebrile and certainly is not hyperthermic. She feels hungry. No headache no visual changes. Her shortness of breath has improved as her heart rate has declined. She does disclose that she often feels difficulty in her throat. I personally reviewed the CT scan of her chest partial images show possible goi ter. I discussed this with radiology and they have a firmness. We have ordered more definitive soft tissue studies of the neck and will add CT of the abdomen and pelvis. Reason For Visit: THYROTOXICOSIS Physical Exam Vital Signs: Temp Pulse Resp BP Pulse Ox 97.7 F 18 108/62 100 08/21/19 11:46 08/21/19 19:57 08/21/19 19:57 08/21/19 19:57 Intake & Output 08/21/19 08/22/19 08/23/19 06:59 06:59 06:59 Intake Total 4148 Balance 4148 Weight 120.8 kg Physical Exam: Nontoxic 63-year-old female no acute distress awake alert and oriented x3; nonintubated General appearance: PRESENT: no acute distress, cooperative, obese Head exam: PRESENT: atraumatic, normocephalic Eye exam: PRESENT: conjunctiva pink, EOMI, PERRLA, other - No exophthalmus. ABSENT: conjunctival injection, conjunctiva pale, nystagmus, periorbital swelling, scleral icterus Mouth exam: PRESENT: moist, neck supple Neck exam: PRESENT: thyromegaly - Enlarged with visible palpable venous engorgement., other - Left, lateral, soft-tissue mass.. ABSENT: carotid bruit, JVD, lymphadenopathy Respiratory exam: PRESENT: clear to auscultation randa. ABSENT: accessory muscle use, chest wall tenderness, crackles, prolonged expiratory phas, rales, retraction, rhonchi, tachypnea, unlabored, wheezes Cardiovascular exam: PRESENT: irregular rhythm, +S1, +S2 Additional comments: Patient is intermittently tachycardic especially with exertion. Pulses: PRESENT: +1 pedal pulses bilateral Vascular exam: PRESENT: normal capillary refill GI/Abdominal exam: PRESENT: normal bowel sounds, soft. ABSENT: ascites, diminished bowel sounds, distended, firm, guarding, hyperactive bowel sounds, hypoactive bowel sounds, mass, Farley's sign, organolmegaly, rebound, rigid, tenderness Rectal exam: PRESENT: deferred Gentrourinary exam: ABSENT: indwelling catheter Extremities exam: ABSENT: joint swelling, pedal edema Musculoskeletal exam: PRESENT: normal inspection. ABSENT: deformity, dislocation Neurological exam: PRESENT: alert, awake, oriented to person, oriented to place, oriented to time, oriented to situation, CN II-XII grossly intact. ABSENT: motor sensory deficit Psychiatric exam: PRESENT: appropriate affect Focused psych exam: ABSENT: pressured speech, psychomotor agitation, restlessness Skin exam: PRESENT: intact, normal color. ABSENT: cyanosis, erythema, mottled, pallor, petechiae, rash, urticaria, vesicles Results Laboratory Results: 08/22/19 03:52 08/22/19 03:52 08/21/19 08/21/19 08/21/19 11:45 11:45 11:45 WBC 6.2 RBC 4.35 Hgb 10.9 L Hct 33.9 L MCV 78 L MCH 25.1 L MCHC 32.2 RDW 16.3 H Plt Count 278 Seg Neutrophils % 68.3 Retic Count (auto) Sodium 142.0 Potassium 3.5 L Chloride 107 Carbon Dioxide 26 Anion Gap 9 BUN 17 Creatinine 0.84 Est GFR ( Amer) > 60 Glucose 107 Lactic Acid Calcium 10.1 Phosphorus Magnesium 2.0 Iron TIBC % Saturation Ferritin Total Bilirubin 0.6 GGT AST 27 Alkaline Phosphatase 155 H Ammonia Total Protein 7.0 Albumin 3.9 Vitamin B12 Folate TSH < 0.01 L Free T4 Free T3 pg/mL Urine Color Urine Appearance Urine pH Ur Specific [place] Urine Protein Urine Glucose (UA) Urine Ketones Urine Blood Urine Nitrite Ur Leukocyte Esterase Urine WBC (Auto) Urine RBC (Auto) 1008/21/19 08/21/19 11:45 11:45 17:04 WBC RBC Hgb Hct MCV MCH MCHC RDW Plt Count Seg Neutrophils % Retic Count (auto) Sodium Potassium Chloride Carbon Dioxide Anion Gap BUN Creatinine Est GFR ( Amer) Glucose Lactic Acid Calcium Phosphorus Magnesium Iron TIBC % Saturation Ferritin Total Bilirubin GGT 58 AST Alkaline Phosphatase Ammonia Total Protein Albumin Vitamin B12 Folate TSH Free T4 3.79 H Free T3 pg/mL 10.20 H Urine Color YELLOW Urine Appearance SLIGHTLY-CLOUDY Urine pH 5.0 Ur Specific [place] 1.040 Urine Protein 30 H Urine Glucose (UA) NEGATIVE Urine Ketones NEGATIVE Urine Blood NEGATIVE Urine Nitrite NEGATIVE Ur Leukocyte Esterase TRACE H Urine WBC (Auto) 6 Urine RBC (Auto) 6 08/21/19 08/21/19 08/21/19 18:20 18:20 18:24 WBC RBC Hgb Hct MCV MCH MCHC RDW Plt Count Seg Neutrophils % Retic Count (auto) Sodium Potassium Chloride Carbon Dioxide Anion Gap BUN Creatinine Est GFR ( Amer) Glucose Lactic Acid 1.9 Calcium Phosphorus Magnesium Iron TIBC % Saturation Ferritin Total Bilirubin GGT AST Alkaline Phosphatase Ammonia 11.2 Total Protein Albumin Vitamin B12 Folate TSH < 0.01 L Free T4 3.42 H Free T3 pg/mL 7.88 H Urine Color Urine Appearance Urine pH Ur Specific [place] Urine Protein Urine Glucose (UA) Urine Ketones Urine Blood Urine Nitrite Ur Leukocyte Esterase Urine WBC (Auto) Urine RBC (Auto) 08/21/19 08/22/19 08/22/19 18:24 03:52 03:52 WBC 6.9 RBC 3.58 L Hgb 8.9 L Hct 28.0 L MCV 78 L MCH 25.0 L MCHC 32.0 RDW 16.0 H Plt Count 240 Seg Neutrophils % 68.2 Retic Count (auto) 2.59 Sodium 141.1 Potassium 4.1 Chloride 108 H Carbon Dioxide 22 Anion Gap 11 BUN 19 Creatinine 1.06 Est GFR ( Amer) > 60 Glucose 117 H Lactic Acid Calcium 9.5 Phosphorus 4.1 Magnesium 2.0 Iron 25.7 L TIBC 356 % Saturation 7 Ferritin 26.50 Total Bilirubin 0.7 GGT AST 47 H Alkaline Phosphatase 144 H Ammonia Total Protein 6.5 Albumin 3.6 Vitamin B12 409.0 Folate 17.00 TSH Free T4 Free T3 pg/mL Urine Color Urine Appearance Urine pH Ur Specific [place] Urine Protein Urine Glucose (UA) Urine Ketones Urine Blood Urine Nitrite Ur Leukocyte Esterase Urine WBC (Auto) Urine RBC (Auto) 08/21/19 08/21/19 08/21/19 11:45 11:45 18:24 Creatine Kinase 70 70 Troponin I < 0.012 NT-Pro-B Natriuret Pep 1920 H Impressions: Chest X-Ray 08/21/19 11:32 IMPRESSION: Cardiomegaly without pulmonary edema. Status: Image reviewed by me - Enlarged Assessment & Plan - Diagnosis (1) Multifocal atrial tachycardia Is this a current diagnosis for this admission?: Yes (2) Thyroid condition Is this a current diagnosis for this admission?: Yes (3) Dyspnea Qualifiers: Dyspnea type: dyspnea on exertion Qualified Code(s): R06.09 - Other forms of dyspnea Is this a current diagnosis for this admission?: Yes (4) Type 2 diabetes mellitus treated without insulin Is this a current diagnosis for this admission?: Yes (5) Obesity, Class II, BMI 35-39.9 Is this a current diagnosis for this admission?: Yes (6) Microcytic hypochromic anemia Is this a current diagnosis for this admission?: Yes (8) Abdominal pain Qualifiers: Abdominal location: epigastric Qualified Code(s): R10.13 - Epigastric pain Is this a current diagnosis for this admission?: Yes (9) Mass in neck Is this a current diagnosis for this admission?: Yes Plan: Left, lateral - Time Time Spent with patient: 35 or more minutes Total Critical Time (Minutes): 45 Level of Care: ICU Medications reviewed and adjusted accordingly: Yes Anticipated discharge: [facility] - Inpatient Certification Medical Necessity: Significant Comorbidiites Make Outpatient Treatment Too Risky, Need For IV Fluids, Need for Neurological Checks, Risk of Complication if Not Cared For in Hospital - Plan Summary Plan Summary: 08.22.19: Patient's heart rate is under better control but still recalcitrant without IV therapy. I have started propranolol. We will also continue the methimazole. She has a complex and weak presentation. I have reached out to [facility] to discuss with their endocrinology team. CAT scan done of her chest did reveal thyroid changes with some tracheal affect (partially) area she also has a soft tissue mass on the left neck. Patient appears to have MAT and not atrial fibrillation. [place] with cardiology and will discontinue the heparin. We will continue propranolol and increase dosing as tolerated. Was slightly dehydrated and was given volume. I am concerned that she has a goitrous enlargement of her thyroid and may need surgery. Her airway is not at risk but could potentially become that way. We will continue the methimazole and await endocrine assistance. Patient seen in multidisciplinary rounds. Care of in ICU patient is ongoing and dynamic. This note represents a static representation of ongoing care in the last 24 hours. Was given completed and entered via computer are not always reflective of actual time done. Medical power of commercial litigation attorney is: Daughter Patient requires ICU care secondary to persistent MAT and dyspnea
--- NOTE | 2019-08-22 16:50 | Progress Note ---
Provider Note Provider Note: Discussed the case and care with [facility]. Them aware of our concern for goiter. They are in agreement this is not a thyroid storm it is an unusual presentation for thyrotoxicosis. Their only recommendation was to increase the methimazole to 20 mg twice daily from 10 mg 3 times daily. We are awaiting patient's CT scan of the neck and ultrasound of the neck as well. The ICU as long as she has tachycardia and is on esmolol. Critical care time 15 minutes
--- NOTE | 2019-08-22 16:51 | RADIOLOGY REPORT (SQ) ---
EXAM DESCRIPTION: U/S THYROID/SFT TISS HD NECK COMPLETED DATE/TIME: 08/22/2019 3:54 pm REASON FOR STUDY: Thyrotoxicosis COMPARISON: CT of the chest from 08/21/2019 TECHNIQUE: Dynamic and static amor-scale images acquired of the thyroid gland. Selected additional c olor/power Doppler images recorded. All images stored to PACS. LIMITATIONS: None. FINDINGS: RIGHT LOBE: The right lobe of the thyroid gland is heterogeneous and it measures approxima tely 4.3 x 2.3 x 2.7 cm. There are several heterogeneous nodules in the right thyroid lobe with the largest measuring 1.4 x 1.3 x 1.3 cm. LEFT LOBE: The left lobe of the thyroid gland is heterogeneous and it measures 4.1 x 2.3 x 2.4 cm. T here is a solid isoechoic nodule with ill-defined margins in the midportion of the thyroid gland that measures 1 x 0.8 x 0.2 cm. ISTHMUS: The isthmus of the thyroid gland measures 5.5 mm in AP diameter. OTHER: No other finding. IMPRESSION: Findings as above consistent with a goiter. The dominant nodule is located in the poste rior aspect of the right thyroid lobe and it measures 1.4 x 1.3 x 1.3 cm. The nodule is heterogeneou s (either a TR3 or TR4) and based on its size (< 1.5 cm) a follow-up ultrasound in 12 months is recom mended. TECHNICAL DOCUMENTATION: JOB ID: [id number] [employer]- All Rights Reserved Reading location - IP/workstation name: [email or web address]
[2019-08-22] MEDS ORDERED: METOPROLOL TARTRATE PF/INJ 5 MG/5 ML SDV IV ONE (17:15)
--- NOTE | 2019-08-22 19:14 | EKG REPORT ---
SEVERITY:- ABNORMAL ECG - MULTIPLE ATRIAL PREMATURE COMPLEXES LEFT AXIS DEVIATION BORDERLINE R WAVE PROGRESSION, ANTERIOR LEADS BORDERLINE T ABNORMALITIES, ANT-LAT LEADS WANDERING ATRIAL PACEMAKER (CHAOTIC ATRIAL MECHANISM) : Confirmed by: Amanda Diggs MD 22-Aug-2019 19:13:13
[2019-08-22] MEDS: HEPARIN SOD (PORCINE) 5,000 UNIT/ML 1 ML VIAL SUBCUT SCH (21:37)
--- NOTE | 2019-08-22 21:52 | RADIOLOGY REPORT (SQ) ---
EXAM DESCRIPTION: [facility]: CT ABDOMEN PELVIS WITHOUT IV CONTRAST CLINICAL HISTORY: 63 years Female; abdominal pain, thyrotoxicosis TECHNIQUE: CT of the abdomen and pelvis without contrast. All CT scans at this facility use dose modulation, iterative reconstruction, and/or weight based dosing when appropriate to reduce radiation dose to as low as reasonably achievable. COMPARISON: None. FINDINGS: Heart is at least somewhat enlarged, although incompletely visualized. Minimal dependent atelectasis in the right lower lobe. Abdomen: Liver: 19 cm long. There is a trace amount of fluid in Morison's pouch. Gallbladder: Surgically absent Pancreas:Within normal limits Spleen:Within normal limits Right kidney: Residual contrast in the collecting system and ureter. Left kidney: 5.7 cm low-density upper pole cyst. 2.4 cm lower pole low-density cyst. No hydronephrosis. There is residual IV contrast in the collecting system and ureter. Cannot evaluate for renal or ureteral calculi due to the residual contrast. Adrenal glands:Within normal limits Vascular structures:Within normal limits (although limited evaluation on noncontrast exam). Pelvis: Small bowel:No significant distention. Appendix:Within normal limits Colon:No distention or acute pericolonic edema. Oral contrast is seen down to the splenic flexure. There is a small amount of fluid in the paracolic gutters bilaterally. Minimal fluid in the dependent portion of the pelvis. No free air. Bones: No acute bone findings. Bladder: Hyperdense, consistent with residual contrast Uterus: Enlarged, with several coarse calcifications, typical for uterine fibroids. No adnexal enlargement. There is mild generalized soft tissue edema. Note that evaluation of the bowel and solid organs is somewhat limited due to lack of intravenous contrast. IMPRESSION: 1. Small amount of free fluid and mild generalized soft tissue edema. 2. No bowel obstruction or perforation 3. Previous cholecystectomy
--- NOTE | 2019-08-22 21:54 | RADIOLOGY REPORT (SQ) ---
EXAM DESCRIPTION: CT NECK CHEST WITHOUT IV CONTRAST COMPLETED DATE/TME: 08/22/2019 00:00 CLINICAL HISTORY: 63 years, Female, thyrotoxicosis COMPARISON: Prior CT chest dated 08/21/2019 TECHNIQUE: Noncontrast CT of the neck was performed. Coronal and sagittal reformations were created. Images stored on PACS. All CT scanners at this facility use dose modulation, iterative reconstruction, and/or weight based dosing when appropriate to reduce radiation dose to as low as reasonably achievable (ALARA). [facility]: Dose Right [facility]: CareDose [facility]: Dose Right [facility]: Teradose 4D [facility]: Giftxoxo LIMITATIONS: None. FINDINGS: Limited evaluation of the chest reveals no suspicious finding. The thyroid gland appears diffusely heterogenous in attenuation containing multiple nodules with suspected extension into the mediastinum, better appreciated on the previous CT chest dated 08/21/2019 as well as the thyroid ultrasound performed earlier the same day. This multinodular goiter appears to deviate the trachea towards the right, especially at the level of the thoracic inlet. Incidental note is made of an aberrant right subclavian artery. Calcifications are noted about the thoracic aortic arch. The hypopharynx, oropharynx, and nasopharynx show no suspicious abnormality. The bilateral parotid and submandibular glands appear normal. Globes and orbits show no acute abnormality. Mild rounded opacity is noted about the left maxillary antrum, indicating a mucous retention cyst or inflammatory polyp. Incidental note is made of torus mandibularis. Visualized portions of the brain parenchyma show no suspicious gross abnormality. Calcifications are evident about the bilateral carotid bulbs. No suspicious deep cervical lymphadenopathy is clearly identified although assessment is somewhat limited by lack of intravenous contrast. Assessment of the cervical spine reveals mild multilevel cervical spondylosis, designated by intervertebral disc space narrowing, hypertrophic endplate spurring, and facet hypertrophy. IMPRESSION: Findings suggest multinodular goiter, better assessed on the previous CT chest dated 08/21/2019 as well as the recent thyroid ultrasound. The goiter appears to descend into the mediastinum with deviation of the trachea towards the right at the level of the thoracic inlet. This could be completely confirmed with a nuclear medicine thyroid uptake and scan. Suggest confirmation with nuclear medicine thyroid uptake and scan. TECHNICAL DOCUMENTATION: Quality ID # [id number]: Final reports with documentation of one or more dose reduction techniques (e.g., Automated exposure control, adjustment of the mA and/or kV according to patient size, use of iterative reconstruction technique) copyright 2010 [employer]- All Rights Reserved
[2019-08-23] MEDS: PROPRANOLOL HCL 20 MG TABLET PO SCH ×4 (00:31→17:12)
[2019-08-23] MEDS: HEPARIN SOD (PORCINE) 5,000 UNIT/ML 1 ML VIAL SUBCUT SCH ×3 (05:14→22:39)
[2019-08-23] MEDS ORDERED: (PENDING PHARMACY ID) (Metformin Hcl [Metformin Hcl Er] 500 MG) PO SCH (10:00)
[2019-08-23] MEDS: METOPROLOL TARTRATE PF/INJ 5 MG/5 ML SDV IV PRN ×2 (10:07→15:07)
[2019-08-23] MEDS: ASPIRIN 81 MG TABLET, ENT COATED PO SCH (10:17)
[2019-08-23] MEDS: METHIMAZOLE 5 MG TABLET PO SCH ×2 (10:17→22:39)
--- NOTE | 2019-08-23 10:23 | PDOC PROGRESS REPORT ---
Subjective Progress Note for:: 08/23/19 Subjective:: Patient still feel SOB with exertion. Reason For Visit: THYROTOXICOSIS Physical Exam Vital Signs: Temp Pulse Resp BP Pulse Ox 97.7 F 88 25 H 131/99 H 100 08/23/19 08:00 08/23/19 08:00 08/23/19 08:00 08/23/19 08:00 08/23/19 08:00 Intake & Output 08/22/19 08/23/19 08/24/19 06:59 06:59 06:59 Intake Total 4148 3866 240 Output Total 400 Balance 4148 3466 240 Weight 122.1 kg 126.9 kg General appearance: PRESENT: no acute distress, well-developed, well-nourished Head exam: PRESENT: atraumatic, normocephalic Eye exam: PRESENT: conjunctiva pink, EOMI, PERRLA. ABSENT: scleral icterus Ear exam: PRESENT: normal external ear exam Mouth exam: PRESENT: moist, tongue midline Respiratory exam: PRESENT: clear to auscultation randa, unlabored Cardiovascular exam: PRESENT: irregular rhythm, tachycardia Vascular exam: PRESENT: normal capillary refill GI/Abdominal exam: PRESENT: normal bowel sounds, soft. ABSENT: distended, guarding, mass, organolmegaly, rebound, tenderness Rectal exam: PRESENT: deferred Extremities exam: PRESENT: full ROM Musculoskeletal exam: PRESENT: full ROM Neurological exam: PRESENT: alert, awake, oriented to person, oriented to place, oriented to time, oriented to situation, CN II-XII grossly intact. ABSENT: motor sensory deficit Skin exam: PRESENT: normal color Results Laboratory Results: 08/22/19 03:52 08/22/19 03:52 08/22/19 12:33 Urine Color DARK YELLOW Urine Appearance SLIGHTLY-CLOUDY Urine pH 5.0 Ur Specific [place] 1.054 Urine Protein 100 H Urine Glucose (UA) NEGATIVE Urine Ketones NEGATIVE Urine Blood NEGATIVE Urine Nitrite NEGATIVE Ur Leukocyte Esterase MODERATE H Urine WBC (Auto) 14 Urine RBC (Auto) 7 08/21/19 08/21/19 08/21/19 11:45 11:45 18:24 Creatine Kinase 70 70 Troponin I < 0.012 NT-Pro-B Natriuret Pep 1920 H Impressions: Chest X-Ray 08/21/19 11:32 IMPRESSION: Cardiomegaly without pulmonary edema. Chest/Abdomen CTA 08/21/19 12:37 IMPRESSION: No PE. No acute findings. Abdomen/Pelvis CT 08/22/19 00:00 IMPRESSION: 1. Small amount of free fluid and mild generalized soft tissue edema. 2. No bowel obstruction or perforation 3. Previous cholecystectomy [facility] X-Ray 08/22/19 00:00 IMPRESSION: NO RADIOGRAPHIC EVIDENCE FOR ACUTE ABDOMINAL DISEASE. Soft Tissue Neck CT 08/22/19 00:00 IMPRESSION: Findings suggest multinodular goiter, better assessed on the previous CT chest dated 08/21/2019 as well as the recent thyroid ultrasound. The goiter appears to descend into the mediastinum with deviation of the trachea towards the right at the level of the thoracic inlet. This could be completely confirmed with a nuclear medicine thyroid uptake and scan. Suggest confirmation with nuclear medicine thyroid uptake and scan. TECHNICAL DOCUMENTATION: Quality ID # [id number]: Final reports with documentation of one or more dose reduction techniques (e.g., Automated exposure control, adjustment of the mA and/or kV according to patient size, use of iterative reconstruction technique) copyright 2011 [employer]- All Rights Reserved Thyroid Ultrasound 08/22/19 00:00 IMPRESSION: Findings as above consistent with a goiter. The dominant nodule is located in the posterior aspect of the right thyroid lobe and it measures 1.4 x 1.3 x 1.3 cm. The nodule is heterogeneous (either a TR3 or TR4) and based on its size (< 1.5 cm) a follow-up ultrasound in 12 months is recommended. Assessment & Plan - Diagnosis (1) Atrial fibrillation Qualifiers: Atrial fibrillation type: paroxysmal Qualified Code(s): I48.0 - Paroxysmal atrial fibrillation Is this a current diagnosis for this admission?: Yes Plan: Her atrial fibrillation is very paroxismal. Mostly in ST secondary to thyrotoxicosis. This islikely the cause of her SOB. Ct does not show marked compromise of trachea although there is some. Will increase propranolol for now. (2) Goiter, dyshormonogenic Is this a current diagnosis for this admission?: Yes Plan: Continue methimazole, final treatment or even surgery later. (3) Hyperthyroidism Is this a current diagnosis for this admission?: Yes Plan: As above. Decrease and stop IV meds. (4) Type 2 diabetes mellitus treated without insulin Is this a current diagnosis for this admission?: Yes Plan: Well controlled - Time Time Spent with patient: 35 or more minutes Total Critical Time (Minutes): 35 Level of Care: ICU Medications reviewed and adjusted accordingly: Yes Anticipated discharge: Home Within: within 72 hours - Inpatient Certification Based on my medical assessment, after consideration of the patient's comorbidi ties, presenting symptoms, or acuity I expect that the services needed warrant INPATIENT care.: Yes I certify that my determination is in accordance with my understanding of Venessa guan's requirements for reasonable and necessary INPATIENT services [42 CFR 412.3e].: Yes Medical Necessity: Failure to Improve With Outpatient Therapy, Need Close Monitoring Due to Risk of Patient Decompensation, Need For Continuous Telemetry Monitoring
[2019-08-23] MEDS: RINGERS SOLUTION,LACTATED 1,000 ML IV PRN (11:20)
--- NOTE | 2019-08-23 13:09 | EKG REPORT ---
SEVERITY:- ABNORMAL ECG - SINUS TACHYCARDIA PAIRED VENTRICULAR PREMATURE COMPLEXES BORDERLINE LEFT AXIS DEVIATION PROBABLE ANTEROSEPTAL INFARCT, AGE INDETERM : Confirmed by: Amanda Diggs MD 23-Aug-2019 13:09:10
[2019-08-23] MEDS ORDERED: DILTIAZEM HCL INJ 25 MG/5 ML VIAL IV ONE (17:54)
[2019-08-23] MEDS ORDERED: DILTIAZEM HCL INJ 25 MG/5 ML VIAL ONE (17:57)
--- NOTE | 2019-08-23 21:30 | EKG REPORT ---
SEVERITY:- ABNORMAL ECG - SUPRAVENTRICULAR TACHYCARDIA LEFT AXIS DEVIATION BORDERLINE T ABNORMALITIES, ANT-LAT LEADS : Confirmed by: Amanda Diggs MD 23-Aug-2019 21:29:48
[2019-08-23] MEDS: ATORVASTATIN CALCIUM 10 MG TABLET PO SCH (22:39)
[2019-08-23] MEDS: DILTIAZEM HCL INJ 25 MG/5 ML VIAL IV PRN (22:42)
[2019-08-24] MEDS: PROPRANOLOL HCL 20 MG TABLET PO SCH ×4 (01:54→17:13)
[2019-08-24] MEDS: DILTIAZEM HCL INJ 25 MG/5 ML VIAL IV PRN ×4 (03:25→22:20)
[2019-08-24] MEDS: HEPARIN SOD (PORCINE) 5,000 UNIT/ML 1 ML VIAL SUBCUT SCH ×3 (06:19→22:21)
[2019-08-24] MEDS: ASPIRIN 81 MG TABLET, ENT COATED PO SCH (09:06)
[2019-08-24] MEDS: METHIMAZOLE 5 MG TABLET PO SCH ×2 (09:07→22:20)
[2019-08-24 11:45] LABS: THYROID PEROXIDASE (TPO) AB <6 IU/mL (0-34)
[2019-08-24 11:49] LABS: THYROXINE BINDING GLOBULIN 9 ug/mL (13-39)
--- NOTE | 2019-08-24 14:37 | PDOC PROGRESS REPORT ---
Subjective Progress Note for:: 08/24/19 Subjective:: No adverse events overnight. She is comfortable. She was started on some propranolol and rate is controlled for the most part but she intermittently has bursts where her heart rate goes up in the 140s. Reason For Visit: THYROTOXICOSIS Physical Exam Vital Signs: Temp Pulse Resp BP Pulse Ox 97.7 F 115 H 21 H 100/55 L 100 08/24/19 03:34 08/24/19 03:34 08/24/19 03:34 08/24/19 03:34 08/24/19 03:34 Intake & Output 08/23/19 08/24/19 08/25/19 06:59 06:59 06:59 Intake Total 3866 2662 Output Total 400 350 Balance 3466 2312 Weight 126.9 kg 127.4 kg General appearance: PRESENT: no acute distress, cooperative, disheveled, morbidly obese Neck exam: PRESENT: thyromegaly. ABSENT: tenderness Respiratory exam: PRESENT: clear to auscultation randa, symmetrical, unlabored. ABSENT: accessory muscle use, chest wall tenderness, crackles, prolonged expiratory phas, rhonchi, tachypnea, wheezes Cardiovascular exam: PRESENT: irregular rhythm Pulses: PRESENT: normal carotid pulses Vascular exam: PRESENT: normal capillary refill GI/Abdominal exam: PRESENT: normal bowel sounds, soft. ABSENT: distended, guarding, rebound, tenderness Extremities exam: ABSENT: clubbing, pedal edema Musculoskeletal exam: PRESENT: normal inspection. ABSENT: deformity Psychiatric exam: PRESENT: appropriate affect, normal mood Skin exam: PRESENT: dry, warm Results Laboratory Results: 08/22/19 03:52 08/22/19 03:52 08/21/19 18:24 T4-Binding Globulin 9 L 08/21/19 18:24 Blood Blood Culture (PCR) - Final 08/21/19 18:24 Blood Blood Culture - Final Micrococcus Species 08/21/19 17:40 Clean Catch Midstream Urine Culture - Final Mixed Urogenital Bridget 08/21/19 08/21/19 08/21/19 11:45 11:45 18:24 Creatine Kinase 70 70 Troponin I < 0.012 NT-Pro-B Natriuret Pep 1920 H Impressions: Chest X-Ray 08/21/19 11:32 IMPRESSION: Cardiomegaly without pulmonary edema. Chest/Abdomen CTA 08/21/19 12:37 IMPRESSION: No PE. No acute findings. Abdomen/Pelvis CT 08/22/19 00:00 IMPRESSION: 1. Small amount of free fluid and mild generalized soft tissue edema. 2. No bowel obstruction or perforation 3. Previous cholecystectomy KUB X-Ray 08/22/19 00:00 IMPRESSION: NO RADIOGRAPHIC EVIDENCE FOR ACUTE ABDOMINAL DISEASE. Soft Tissue Neck CT 08/22/19 00:00 IMPRESSION: Findings suggest multinodular goiter, better assessed on the previous CT chest dated 08/21/2019 as well as the recent thyroid ultrasound. The goiter appears to descend into the mediastinum with deviation of the trachea towards the right at the level of the thoracic inlet. This could be completely confirmed with a nuclear medicine thyroid uptake and scan. Suggest confirmation with nuclear medicine thyroid uptake and scan. TECHNICAL DOCUMENTATION: Quality ID # 436: Final reports with documentation of one or more dose reduction techniques (e.g., Automated exposure control, adjustment of the mA and/or kV according to patient size, use of iterative reconstruction technique) copyright 2011 [employer]- All Rights Reserved Thyroid Ultrasound 08/22/19 00:00 IMPRESSION: Findings as above consistent with a goiter. The dominant nodule is located in the posterior aspect of the right thyroid lobe and it measures 1.4 x 1.3 x 1.3 cm. The nodule is heterogeneous (either a TR3 or TR4) and based on its size (< 1.5 cm) a follow-up ultrasound in 12 months is recommended. Assessment and Plan - Diagnosis (1) Atrial fibrillation Qualifiers: Atrial fibrillation type: paroxysmal Qualified Code(s): I48.0 - Paroxysmal atrial fibrillation Is this a current diagnosis for this admission?: Yes Plan: She been put on propranolol and for the most part her rate is controlled (2) Goiter, dyshormonogenic Is this a current diagnosis for this admission?: Yes Plan: Radioactive iodine thyroid uptake scan has been ordered to help us determine the type this is (3) Hyperthyroidism Is this a current diagnosis for this admission?: Yes Plan: She is been started on Tapazole - Time Time Spent with patient: 15-24 minutes
[2019-08-24] MEDS: ATORVASTATIN CALCIUM 10 MG TABLET PO SCH (22:20)
[2019-08-25] MEDS: PROPRANOLOL HCL 20 MG TABLET PO SCH ×5 (01:04→23:39)
[2019-08-25] MEDS: HEPARIN SOD (PORCINE) 5,000 UNIT/ML 1 ML VIAL SUBCUT SCH ×3 (05:56→22:07)
[2019-08-25] MEDS: ASPIRIN 81 MG TABLET, ENT COATED PO SCH (09:48)
[2019-08-25] MEDS: METHIMAZOLE 5 MG TABLET PO SCH ×2 (09:48→22:06)
[2019-08-25 11:10] LABS: FREE T3 6.09 pg/mL (2.77-5.27); FREE T4 (FREE THYROXINE) 2.91 ng/dL (0.78-2.19)
[2019-08-25 15:36] LABS: FOLATE HEMOLYSATE 469.1 ng/mL (Not Estab.); HGB A2 2.1 % (1.8-3.2); HGB SOLUBILITY RESULT Negative (Negative)
--- NOTE | 2019-08-25 16:28 | PDOC PROGRESS REPORT ---
Subjective Progress Note for:: 08/25/19 Subjective:: No adverse events overnight. No new complaints. Her heart rate still gets fairly labile but is not quite as bad as it was. She did, however, have heart rate shoot up into the 140s a little earlier while I was on the floor and was watching her telemetry. Reason For Visit: THYROTOXICOSIS Physical Exam Vital Signs: Temp Pulse Resp BP Pulse Ox 97.3 F 82 20 111/69 97 08/25/19 04:09 08/25/19 14:00 08/25/19 04:09 08/25/19 04:09 08/25/19 14:46 Intake & Output 08/24/19 08/25/19 08/26/19 06:59 06:59 06:59 Intake Total 2662 702 840 Output Total 350 400 Balance 2312 302 840 Weight 127.4 kg 127 kg General appearance: PRESENT: no acute distress, cooperative, disheveled, morbidly obese Neck exam: PRESENT: thyromegaly. ABSENT: tenderness Respiratory exam: PRESENT: clear to auscultation randa, symmetrical, unlabored. ABSENT: accessory muscle use, chest wall tenderness, crackles, prolonged expiratory phas, rhonchi, tachypnea, wheezes Cardiovascular exam: PRESENT: Mostly sinus rhythm on telemetry with occasional runs of tachycardia Pulses: PRESENT: normal carotid pulses Vascular exam: PRESENT: normal capillary refill GI/Abdominal exam: PRESENT: normal bowel sounds, soft. ABSENT: distended, guarding, rebound, tenderness Extremities exam: ABSENT: clubbing, pedal edema Musculoskeletal exam: PRESENT: normal inspection. ABSENT: deformity Psychiatric exam: PRESENT: appropriate affect, normal mood Skin exam: PRESENT: dry, warm Results Laboratory Results: 08/22/19 03:52 08/22/19 03:52 08/25/19 09:58 Free T4 2.91 H Free T3 pg/mL 6.09 H 08/21/19 08/21/19 08/21/19 11:45 11:45 18:24 Creatine Kinase 70 70 Troponin I < 0.012 NT-Pro-B Natriuret Pep 1920 H Impressions: Chest X-Ray 08/21/19 11:32 IMPRESSION: Cardiomegaly without pulmonary edema. Chest/Abdomen CTA 08/21/19 12:37 IMPRESSION: No PE. No acute findings. Abdomen/Pelvis CT 08/22/19 00:00 IMPRESSION: 1. Small amount of free fluid and mild generalized soft tissue edema. 2. No bowel obstruction or perforation 3. Previous cholecystectomy KUB X-Ray 08/22/19: IMPRESSION: NO RADIOGRAPHIC EVIDENCE FOR ACUTE ABDOMINAL DISEASE. Soft Tissue Neck CT 08/22/19:00 IMPRESSION: Findings suggest multinodular goiter, better assessed on the previous CT chest dated 08/21/2019 as well as the recent thyroid ultrasound. The goiter appears to descend into the mediastinum with deviation of the trachea towards the right at the level of the thoracic inlet. This could be completely confirmed with a nuclear medicine thyroid uptake and scan. Suggest confirmation with nuclear medicine thyroid uptake and scan. TECHNICAL DOCUMENTATION: Quality ID # 436: Final reports with documentation of one or more dose reduction techniques (e.g., Automated exposure control, adjustment of the mA and/or kV according to patient size, use of iterative reconstruction technique) copyright 2011 [employer]- All Rights Reserved Thyroid Ultrasound 08/22/19: IMPRESSION: Findings as above consistent with a goiter. The dominant nodule is located in the posterior aspect of the right thyroid lobe and it measures 1.4 x 1.3 x 1.3 cm. The nodule is heterogeneous (either a TR3 or TR4) and based on i ts size (< 1.5 cm) a follow-up ultrasound in 12 months is recommended. Assessment and Plan - Diagnosis (1) Atrial fibrillation Qualifiers: Atrial fibrillation type: paroxysmal Qualified Code(s): I48.0 - Paroxysmal atrial fibrillation Is this a current diagnosis for this admission?: Yes Plan: She been put on propranolol and for the most part her rate is controlled, we are awaiting a little bit more consistent heart rate before we send her home. (2) Goiter, dyshormonogenic Is this a current diagnosis for this admission?: Yes Plan: Radioactive iodine thyroid uptake scan has been ordered to help us determine the type this is (3) Hyperthyroidism Is this a current diagnosis for this admission?: Yes Plan: She is been started on Tapazole, which is having good effect. Her T3 and T4 are both trending down. Heart rate seems a bit less labile and overall control is better. - Time Time Spent with patient: 15-24 minutes
[2019-08-25] MEDS: ATORVASTATIN CALCIUM 10 MG TABLET PO SCH (22:06)
[2019-08-26] MEDS: PROPRANOLOL HCL 20 MG TABLET PO SCH ×4 (05:42→23:38)
[2019-08-26] MEDS: HEPARIN SOD (PORCINE) 5,000 UNIT/ML 1 ML VIAL SUBCUT SCH ×3 (05:46→22:16)
[2019-08-26 07:10] LABS: THYROID STIM IMMUNOGLOBULIN 0.37 IU/L (0.00-0.55)
--- NOTE | 2019-08-26 07:59 | PDOC PROGRESS REPORT ---
Subjective Progress Note for:: 08/26/19 Subjective:: 08/26/2019-no complaints exam Reason For Visit: THYROTOXICOSIS Physical Exam Vital Signs: Temp Pulse Resp BP Pulse Ox 98.3 F 88 18 120/69 99 08/26/19 03:10 08/26/19 03:10 08/26/19 03:10 08/26/19 03:10 08/26/19 03:10 Intake & Output 08/25/19 08/26/19 08/27/19 06:59 06:59 06:59 Intake Total 702 840 Output Total 400 Balance 302 840 Weight 127 kg 127 kg General appearance: PRESENT: no acute distress, well-developed, well-nourished Neck exam: ABSENT: carotid bruit, JVD, lymphadenopathy, thyromegaly Respiratory exam: PRESENT: clear to auscultation randa. ABSENT: rales, rhonchi, wheezes Cardiovascular exam: PRESENT: RRR. ABSENT: diastolic murmur, rubs, systolic murmur Pulses: PRESENT: +1 pedal pulses bilateral Vascular exam: PRESENT: normal capillary refill GI/Abdominal exam: PRESENT: normal bowel sounds, soft. ABSENT: distended, guarding, mass, organolmegaly, rebound, tenderness Extremities exam: PRESENT: full ROM. ABSENT: calf tenderness, clubbing, pedal edema Neurological exam: PRESENT: alert, awake, oriented to person, oriented to place, oriented to time, oriented to situation, CN II-XII grossly intact. ABSENT: motor sensory deficit Psychiatric exam: PRESENT: appropriate affect, normal mood. ABSENT: homicidal ideation, suicidal ideation Skin exam: PRESENT: dry, intact, warm. ABSENT: cyanosis, rash Results Laboratory Results: 08/22/19 03:52 08/22/19 03:52 08/21/19 08/25/19 18:24 09:58 Free T4 2.91 H Free T3 pg/mL 6.09 H TSH Immunoglobulin 0.37 08/21/19 08/21/19 08/21/19 11:45 11:45 18:24 Creatine Kinase 70 70 Troponin I < 0.012 NT-Pro-B Natriuret Pep 1920 H Impressions: Chest X-Ray 08/21/19 11:32 IMPRESSION: Cardiomegaly without pulmonary edema. Chest/Abdomen CTA 08/21/19 12:37 IMPRESSION: No PE. No acute findings. Abdomen/Pelvis CT 08/22/19 00:00 IMPRESSION: 1. Small amount of free fluid and mild generalized soft tissue edema. 2. No bowel obstruction or perforation 3. Previous cholecystectomy KUB X-Ray 08/22/19 00:00 IMPRESSION: NO RADIOGRAPHIC EVIDENCE FOR ACUTE ABDOMINAL DISEASE. Soft Tissue Neck CT 08/22/19 00:00 IMPRESSION: Findings suggest multinodular goiter, better assessed on the previous CT chest dated 08/21/2019 as well as the recent thyroid ultrasound. The goiter appears to descend into the mediastinum with deviation of the trachea towards the right at the level of the thoracic inlet. This could be completely confirmed with a nuclear medicine thyroid uptake and scan. Suggest confirmation with nuclear medicine thyroid uptake and scan. TECHNICAL DOCUMENTATION: Quality ID # 436: Final reports with documentation of one or more dose reduction techniques (e.g., Automated exposure control, adjustment of the mA and/or kV according to patient size, use of iterative reconstruction technique) copyright 2011 [employer]- All Rights Reserved Thyroid Ultrasound 08/22/19 00:00 IMPRESSION: Findings as above consistent with a goiter. The dominant nodule is located in the posterior aspect of the right thyroid lobe and it measures 1.4 x 1.3 x 1.3 cm. The nodule is heterogeneous (either a TR3 or TR4) and based on its size (< 1.5 cm) a follow-up ultrasound in 12 months is recommended. Assessment and Plan - Diagnosis (1) Atrial fibrillation Qualifiers: Atrial fibrillation type: paroxysmal Qualified Code(s): I48.0 - Paroxysmal atrial fibrillation Is this a current diagnosis for this admission?: Yes Plan: She been put on propranolol and for the most part her rate is controlled, we are awaiting a little bit more consistent heart rate before we send her home. 08/26/2019-in sinus rhythm at this time. Continues on beta-blockers continue to follow (2) Goiter, dyshormonogenic Is this a current diagnosis for this admission?: Yes Plan: Radioactive iodine thyroid uptake scan has been ordered to help us determine the type this is 08/26/2019-radioactive iodine thyroid uptake scan has been ordered. Patient remains on methimazole and beta-blockers. We will continue follow (3) Hyperthyroidism Is this a current diagnosis for this admission?: Yes Plan: She is been started on Tapazole, which is having good effect. Her T3 and T4 are both trending down. Heart rate seems a bit less labile and overall control is better. 08/26/2019-continue on Tapazole and beta-blockers. - Time Time Spent with patient: 15-24 minutes - Inpatient Certification Based on my medical assessment, after consideration of the patient's comorbidities, presenting symptoms, or acuity I expect that the services needed warrant INPATIENT care.: Yes I certify that my determination is in accordance with my understanding of Medicare's requirements for reasonable and necessary INPATIENT services [42 CFR 412.3e].: Yes Medical Necessity: Significant Comorbidiites Make Outpatient Treatment Too Risky, Need Close Monitoring Due to Risk of Patient Decompensation
[2019-08-26] MEDS: ASPIRIN 81 MG TABLET, ENT COATED PO SCH (09:46)
[2019-08-26] MEDS: METHIMAZOLE 5 MG TABLET PO SCH ×2 (09:47→22:16)
--- NOTE | 2019-08-26 13:58 | EKG REPORT ---
SEVERITY:- ABNORMAL ECG - SINUS TACHYCARDIA WITH IRREGULAR RATE [id number] DUE TO PACS BORDERLINE LEFT AXIS DEVIATION CONSIDER ANTERIOR INFARCT NONSPECIFIC T ABNORMALITIES, ANT-LAT LEADS : Confirmed by: Ronni Navarrete MD 26-Aug-2019 13:57:54
[2019-08-26] MEDS: METFORMIN HCL 500 MG TABLET PO SCH (17:32)
[2019-08-26] MEDS: ATORVASTATIN CALCIUM 10 MG TABLET PO SCH (22:16)
[2019-08-27] MEDS: PROPRANOLOL HCL 20 MG TABLET PO SCH ×2 (06:22→13:36)
[2019-08-27] MEDS: HEPARIN SOD (PORCINE) 5,000 UNIT/ML 1 ML VIAL SUBCUT SCH ×3 (06:24→21:23)
[2019-08-27] MEDS: METFORMIN HCL 500 MG TABLET PO SCH ×2 (08:55→16:37)
[2019-08-27] MEDS: METHIMAZOLE 5 MG TABLET PO SCH ×2 (08:59→21:24)
[2019-08-27] MEDS: ASPIRIN 81 MG TABLET, ENT COATED PO SCH (08:59)
--- NOTE | 2019-08-27 10:05 | PDOC PROGRESS REPORT ---
Subjective Progress Note for:: 08/27/19 Subjective:: 08/26/2019-no complaints exam 08/27/2019-weakness Reason For Visit: THYROTOXICOSIS Physical Exam Vital Signs: Temp Pulse Resp BP Pulse Ox 97.6 F 79 18 109/79 99 08/27/19 03:28 08/27/19 07:00 08/27/19 03:28 08/27/19 03:28 08/27/19 03:28 Intake & Output 08/26/19 08/27/19 08/28/19 06:59 06:59 06:59 Intake Total 840 720 Balance 840 720 Weight 127 kg 127 kg General appearance: PRESENT: no acute distress, well-developed, well-nourished Neck exam: ABSENT: carotid bruit, JVD, lymphadenopathy, thyromegaly Respiratory exam: PRESENT: clear to auscultation randa. ABSENT: rales, rhonchi, wheezes Cardiovascular exam: PRESENT: RRR. ABSENT: diastolic murmur, rubs, systolic murmur Pulses: PRESENT: normal dorsalis pedis pul GI/Abdominal exam: PRESENT: normal bowel sounds, soft. ABSENT: distended, guarding, mass, organolmegaly, rebound, tenderness Extremities exam: PRESENT: full ROM. ABSENT: calf tenderness, clubbing, pedal edema Neurological exam: PRESENT: alert, awake, oriented to person, oriented to place, oriented to time, oriented to situation, CN II-XII grossly intact. ABSENT: motor sensory deficit Psychiatric exam: PRESENT: appropriate affect, normal mood. ABSENT: homicidal ideation, suicidal ideation Skin exam: PRESENT: dry, intact, warm. ABSENT: cyanosis, rash Results Laboratory Results: 08/22/19 03:52 08/22/19 03:52 08/21/19 19:25 Blood Blood Culture - Final NO GROWTH IN 5 DAYS 08/21/19 08/21/19 08/21/19 11:45 11:45 18:24 Creatine Kinase 70 70 Troponin I < 0.012 NT-Pro-B Natriuret Pep 1920 H Impressions: Chest X-Ray 08/21/19 11:32 IMPRESSION: Cardiomegaly without pulmonary edema. Chest/Abdomen CTA 08/21/19 12:37 IMPRESSION: No PE. No acute findings. Abdomen/Pelvis CT 08/22/19 00:00 IMPRESSION: 1. Small amount of free fluid and mild generalized soft tissue edema. 2. No bowel obstruction or perforation 3. Previous cholecystectomy KUB X-Ray 08/22/19 00:00 IMPRESSION: NO RADIOGRAPHIC EVIDENCE FOR ACUTE ABDOMINAL DISEASE. Soft Tissue Neck CT 08/22/19 00:00 IMPRESSION: Findings suggest multinodular goiter, better assessed on the previous CT chest dated 08/21/2019 as well as the recent thyroid ultrasound. The goiter appears to descend into the mediastinum with deviation of the trachea towards the right at the level of the thoracic inlet. This could be completely confirmed with a nuclear medicine thyroid uptake and scan. Suggest confirmation with nuclear medicine thyroid uptake and scan. TECHNICAL DOCUMENTATION: Quality ID # [id number]: Final reports with documentation of one or more dose reduction techniques (e.g., Automated exposure control, adjustment of the mA and/or kV according to patient size, use of iterative reconstruction technique) copyright 2011 [employer]- All Rights Reserved Thyroid Ultrasound 08/22/19 00:00 IMPRESSION: Findings as above consistent with a goiter. The dominant nodule is located in the posterior aspect of the right thyroid lobe and it measures 1.4 x 1.3 x 1.3 cm. The nodule is heterogeneous (either a TR3 or TR4) and based on its size (< 1.5 cm) a follow-up ultrasound in 12 months is recommended. Assessment and Plan - Diagnosis (1) Atrial fibrillation Qualifiers: Atrial fibrillation type: paroxysmal Qualified Code(s): I48.0 - Paroxysmal atrial fibrillation Is this a current diagnosis for this admission?: Yes Plan: She been put on propranolol and for the most part her rate is controlled, we are awaiting a little bit more consistent heart rate before we send her home. 08/26/2019-in sinus rhythm at this time. Continues on beta-blockers continue to follow -remains in sinus rhythm this time. Patient continues on beta- blockers. (2) Goiter, dyshormonogenic Is this a current diagnosis for this admission?: Yes Plan: Radioactive iodine thyroid uptake scan has been ordered to help us determine the type this is 08/26/2019-radioactive iodine thyroid uptake scan has been ordered. Patient remains on methimazole and beta-blockers. We will continue follow 08/27/2019-thyroid ultrasound confirms goiter. Patient will be discharged home tomorrow with endocrinology follow-up for continuing methimazole and beta- blockers. Once omeprazole or beta-blockers are DC'd patient has thyroid storm. Will leave to expertise of endocrinology for follow-up and treatment. (3) Hyperthyroidism Is this a current diagnosis for this admission?: Yes Plan: She is been started on Tapazole, which is having good effect. Her T3 and T4 are both trending down. Heart rate seems a bit less labile and overall control is better. 08/26/2019-continue on Tapazole and beta-blockers. 08/27/2019-continue Tapazole beta-blockers - Time Time Spent with patient: 15-24 minutes - Inpatient Certification Medical Necessity: Significant Comorbidiites Make Outpatient Treatment Too Risky, Need Close Monitoring Due to Risk of Patient Decompensation
[2019-08-27] MEDS ORDERED: PROPRANOLOL HCL 40 MG TABLET PO SCH (18:00)
[2019-08-27] MEDS: ATORVASTATIN CALCIUM 10 MG TABLET PO SCH (21:24)
[2019-08-27] MEDS: PROPRANOLOL HCL 40 MG TABLET PO SCH (23:15)
[2019-08-28] MEDS: HEPARIN SOD (PORCINE) 5,000 UNIT/ML 1 ML VIAL SUBCUT SCH (05:16)
[2019-08-28] MEDS: PROPRANOLOL HCL 40 MG TABLET PO SCH ×2 (05:16→12:11)
[2019-08-28] MEDS: METFORMIN HCL 500 MG TABLET PO SCH (08:52)
--- NOTE | 2019-08-28 09:36 | PDOC DISCHARGE SUMMARY ---
Impression - Admit/DC Date/PCP Admission Date/Primary Care Provider: 08/21/19 18:23 SERGIO HAYNES PA-C Discharge Date: 08/28/19 - Discharge Diagnosis (1) Atrial fibrillation Is this a current diagnosis for this admission?: Yes (2) Goiter, dyshormonogenic Is this a current diagnosis for this admission?: Yes (3) Hyperthyroidism Is this a current diagnosis for this admission?: Yes (4) Dyspnea Is this a current diagnosis for this admission?: Yes (5) Type 2 diabetes mellitus treated without insulin Is this a current diagnosis for this admission?: Yes (6) Obesity, Class II, BMI 35-39.9 Is this a current diagnosis for this admission?: Yes (7) Microcytic hypochromic anemia Is this a current diagnosis for this admission?: Yes - Additional Information Resuscitation Status: Full Code Discharge Diet: As Tolerated Discharge Activity: Activity As Tolerated Referrals: SERGIO HAYNES PA-C [Primary Care Provider] - 08/28/19 2:00 pm Prescriptions: Propranolol HCl [Inderal 40 Mg Tablet] 80 mg PO BID #60 tablet Methimazole [Tapazole] 10 mg PO BID #60 tablet Home Medications: Aspirin [Ecotrin 81 mg EC Tablet] 81 mg PO DAILY 08/21/19 Atorvastatin Calcium [Lipitor 10 mg Tablet] 10 mg PO QHS 08/21/19 Losartan/Hydrochlorothiazide [Losartan-Hctz 50-12.5 mg Tab] 1 each PO QAM 08/21/19 Metformin HCl [Metformin HCl ER] 500 mg PO BID 08/21/19 Methimazole [Tapazole] 10 mg PO BID #60 tablet 08/28/19 Propranolol HCl [Inderal 40 Mg Tablet] 80 mg PO BID #60 tablet 08/28/19 History of Present Illiness History of Present Illness: TERE BEAN is a 63 year old female presented from her primary care physician's office with dyspnea and palpitations. Patient was found to be in rapid atrial fibrillation with RVR and sent to the ED. Hospital Course Hospital Course: Patient with a history of type 2 diabetes most, hypertension, obesity presented from primary care office with dyspnea and palpitation. Patient was found to be in rapid A. fib with RVR and had minimal improvement with diltiazem. Patient was admitted initially to the ICU for rate control. She had no other symptomology including no fevers or chills, no heat or cold intolerance. Patient did have loose bowel movements last week however had not had any excessive diarrhea. No tremors or anxiety. Patient was treated throughout her hospital stay with Tapazole and propanolol. Patient also had a CT of her thyroid that showed a goiter and will recommend 12-month follow-up. I will have patient set up to see endocrinology, ENT and her primary care practitioner. Patient will continue on Tapazole and propranolol for symptomology. Patient will return to the ER she has any further problems. Patient agrees with plan of care. Physical Exam Vital Signs: Temp Pulse Resp BP Pulse Ox 97.4 F 77 18 137/78 H 99 08/28/19 08:23 08/28/19 08:23 08/28/19 08:23 08/28/19 08:23 08/28/19 08:23 Intake & Output 08/27/19 08/28/19 08/29/19 06:59 06:59 06:59 Intake Total 720 360 Output Total 1250 Balance 720 -890 Weight 127 kg 131.4 kg General appearance: PRESENT: no acute distress, well-developed, well-nourished Head exam: PRESENT: atraumatic, normocephalic Eye exam: PRESENT: conjunctiva pink, EOMI, PERRLA. ABSENT: scleral icterus Ear exam: PRESENT: normal external ear exam Mouth exam: PRESENT: moist, tongue midline Neck exam: ABSENT: carotid bruit, JVD, lymphadenopathy, thyromegaly Respiratory exam: PRESENT: clear to auscultation randa. ABSENT: rales, rhonchi, wheezes Cardiovascular exam: PRESENT: RRR. ABSENT: diastolic murmur, rubs, systolic murmur Pulses: PRESENT: normal dorsalis pedis pul Vascular exam: PRESENT: normal capillary refill GI/Abdominal exam: PRESENT: normal bowel sounds, soft. ABSENT: distended, guarding, mass, organolmegaly, rebound, tenderness Rectal exam: PRESENT: deferred Extremities exam: PRESENT: full ROM. ABSENT: calf tenderness, clubbing, pedal edema Neurological exam: PRESENT: alert, awake, oriented to person, oriented to place, oriented to time, oriented to situation, CN II-XII grossly intact. ABSENT: motor sensory deficit Psychiatric exam: PRESENT: appropriate affect, normal mood. ABSENT: homicidal ideation, suicidal ideation Skin exam: PRESENT: dry, intact, warm. ABSENT: cyanosis, rash Results Laboratory Results: WBC 6.9 10^3/uL (4.0-10.5) 08/22/19 03:52 RBC 3.58 10^6/uL (3.72-5.28) L 08/22/19 03:52 Hgb 8.9 g/dL (12.0-15.5) L 08/22/19 03:52 Hct 28.0 % (36.0-47.0) L 08/22/19 03:52 MCV 78 fl (80-97) L 08/22/19 03:52 MCH 25.0 pg (27.0-33.4) L 08/22/19 03:52 MCHC 32.0 g/dL (32.0-36.0) 08/22/19 03:52 RDW 16.0 % (11.5-14.0) H 08/22/19 03:52 Plt Count 240 10^3/uL (150-450) 08/22/19 03:52 Lymph % (Auto) 21.2 % (13-45) 08/22/19 03:52 Cotton % (Auto) 9.6 % (3-13) 08/22/19 03:52 Eos % (Auto) 0.5 % (0-6) 08/22/19 03:52 Baso % (Auto) 0.5 % (0-2) 08/22/19 03:52 Reticulocyte # 0.093 10^6/uL (0.028-0.122) 08/22/19 03:52 Absolute Neuts (auto) 4.7 10^3/uL (1.7-8.2) 08/22/19 03:52 Absolute Lymphs (auto) 1.5 10^3/uL (0.5-4.7) 08/22/19 03:52 Absolute Monos (auto) 0.7 10^3/uL (0.1-1.4) 08/22/19 03:52 Absolute Eos (auto) 0.0 10^3/uL (0.0-0.6) 08/22/19 03:52 Absolute Basos (auto) 0.0 10^3/uL (0.0-0.2) 08/22/19 03:52 Seg Neutrophils % 68.2 % (42-78) 08/22/19 03:52 Retic Count (auto) 2.59 % (0.66-2.85) 08/22/19 03:52 Hemoglobin A 97.9 % (96.4-98.8) 08/22/19 06:35 Hemoglobin A2 2.1 % (1.8-3.2) 08/22/19 06:35 Hemoglobin C 0.0 % (0.0) 08/22/19 06:35 Hemoglobin F () 0.0 % (0.0-2.0) 08/22/19 06:35 Hemoglobin S 0.0 % (0.0) 08/22/19 06:35 Variant Hemoglobin 0.0 % (0.0) 08/22/19 06:35 Hgb ELP Interp Comment (.) 08/22/19 06:35 Hemoglobin Solubility Negative (Negative) 08/22/19 06:35 PT 14.5 SEC (11.4-15.4) 08/21/19 11:45 INR 1.12 08/21/19 11:45 APTT 76.1 SEC (23.5-35.8) H D 08/22/19 08:53 D-Dimer 1.52 ug/mL (0.00-0.50) H 08/21/19 11:45 Sodium 141.1 mmol/L (137-145) 08/22/19 03:52 Potassium 4.1 mmol/L (3.6-5.0) 08/22/19 03:52 Chloride 108 mmol/L (98-107) H 08/22/19 03:52 Carbon Dioxide 22 mmol/L (22-30) 08/22/19 03:52 Anion Gap 11 (5-19) 08/22/19 03:52 BUN 19 mg/dL (7-20) 08/22/19 03:52 Creatinine 1.06 mg/dL (0.52-1.25) 08/22/19 03:52 Est GFR ( Amer) > 60 (>60) 08/22/19 03:52 Est GFR (MDRD) Non-Af 52 (>60) L 08/22/19 03:52 Glucose 117 mg/dL (75-110) H 08/22/19 03:52 Hemoglobin A1c % 6.5 % (4.7-6.0) H 08/21/19 11:45 Lactic Acid 1.9 mmol/L (0.7-2.1) 08/21/19 18:20 Calcium 9.5 mg/dL (8.4-10.2) 08/22/19 03:52 Phosphorus 4.1 mg/dL (2.5-4.5) 08/21/19 18:24 Magnesium 2.0 mg/dL (1.6-2.3) 08/21/19 18:24 Iron 25.7 ug/dL (37-170) L 08/22/19 03:52 TIBC 356 ug/dL (250-450) 08/22/19 03:52 % Saturation 7 % 08/22/19 03:52 Ferritin 26.50 ng/mL (11.1-264.0) 08/22/19 03:52 Total Bilirubin 0.7 mg/dL (0.2-1.3) 08/22/19 03:52 Direct Bilirubin 0.2 mg/dL (0.0-0.4) 08/22/19 03:52 Neonat Total Bilirubin Not Reportable 08/22/19 03:52 Neonat Direct Bilirubin Not Reportable 08/22/19 03:52 Neonat Indirect Bili Not Reportable 08/22/19 03:52 GGT 58 U/L (8-78) 08/21/19 11:45 AST 47 U/L (14-36) H 08/22/19 03:52 ALT 52 U/L (<35) 08/22/19 03:52 Alkaline Phosphatase 144 U/L (38-126) H 08/22/19 03:52 Ammonia 11.2 umol/L (9-33) 08/21/19 18:20 Creatine Kinase 70 U/L (30-135) 08/21/19 18:24 Troponin I < 0.012 ng/mL 08/21/19 11:45 NT-Pro-B Natriuret Pep 1920 pg/mL (5-900) H 08/21/19 11:45 Total Protein 6.5 g/dL (6.3-8.2) 08/22/19 03:52 Albumin 3.6 g/dL (3.5-5.0) 08/22/19 03:52 Vitamin B12 409.0 pg/mL (239-931) 08/22/19 03:52 Folate 17.00 ng/mL (>2.76) 08/22/19 03:52 Folate Hemolysate 469.1 ng/mL (Not Estab.) 08/22/19 06:35 RBC Folate 1681 ng/mL (>498) 08/22/19 06:35 Hematocrit 27.9 % (34.0-46.6) L 08/22/19 06:35 TSH < 0.01 uIU/mL (0.47-4.68) L 08/21/19 18:24 Free T4 2.91 ng/dL (0.78-2.19) H 08/25/19 09:58 Free T3 pg/mL 6.09 pg/mL (2.77-5.27) H 08/25/19 09:58 T4-Binding Globulin 9 ug/mL (13-39) L 08/21/19 18:24 TSH Immunoglobulin 0.37 IU/L (0.00-0.55) 08/21/19 18:24 Urine Color DARK YELLOW 08/22/19 12:33 Urine Appearance SLIGHTLY-CLOUDY 08/22/19 12:33 Urine pH 5.0 (5.0-9.0) 08/22/19 12:[address] [place] 1.054 08/22/19 12:33 Urine Protein 100 mg/dL (NEGATIVE) H 08/22/19 12:33 Urine Glucose (UA) NEGATIVE mg/dL (NEGATIVE) 08/22/19 12:33 Urine Ketones NEGATIVE mg/dL (NEGATIVE) 08/22/19 12:33 Urine Blood NEGATIVE (NEGATIVE) 08/22/19 12:33 Urine Nitrite NEGATIVE (NEGATIVE) 08/22/19 12:33 Urine Bilirubin NEGATIVE (NEGATIVE) 08/22/19 12:33 Urine Urobilinogen 2.0 mg/dL (<2.0) H 08/22/19 12:33 Ur Leukocyte Esterase MODERATE (NEGATIVE) H 08/22/19 12:33 Urine WBC (Auto) 14 /HPF 08/22/19 12:33 Urine RBC (Auto) 7 /HPF 08/22/19 12:33 U Hyaline Cast (Auto) 8 /LPF 08/22/19 12:33 Urine Bacteria (Auto) TRACE /HPF 08/22/19 12:33 Squamous Epi Cells Auto 11 /HPF 08/22/19 12:33 Urine Mucus (Auto) RARE /LPF 08/22/19 12:33 Urine Ascorbic Acid NEGATIVE (NEGATIVE) 08/22/19 12:33 Urine Opiates Screen NEGATIVE 08/21/19 17:40 Urine Methadone Screen NEGATIVE 08/21/19 17:40 Ur Barbiturates Screen NEGATIVE 08/21/19 17:40 Ur Phencyclidine Scrn NEGATIVE 08/21/19 17:40 Ur Amphetamines Screen NEGATIVE 08/21/19 17:40 U Benzodiazepines Scrn NEGATIVE 08/21/19 17:40 Urine Cocaine Screen NEGATIVE 08/21/19 17:40 U Marijuana (THC) Screen NEGATIVE 08/21/19 17:40 Thyroglobulin Antibody <1.0 IU/mL (0.0-0.9) 08/21/19 11:45 Thyroid Peroxidase Ab <6 IU/mL (0-34) 08/21/19 18:24 08/21/19 11:45 Troponin I < 0.012 NT-Pro-B Natriuret Pep 1920 H Impressions: Chest X-Ray 08/21/19 11:32 IMPRESSION: Cardiomegaly without pulmonary edema. Chest/Abdomen CTA 08/21/19 12:37 IMPRESSION: No PE. No acute findings. Abdomen/Pelvis CT 08/22/19 00:00 IMPRESSION: 1. Small amount of free fluid and mild generalized soft tissue edema. 2. No bowel obstruction or perforation 3. Previous cholecystectomy KUB X-Ray 08/22/19 00:00 IMPRESSION: NO RADIOGRAPHIC EVIDENCE FOR ACUTE ABDOMINAL DISEASE. Soft Tissue Neck CT 08/22/19 00:00 IMPRESSION: Findings suggest multinodular goiter, better assessed on the previous CT chest dated 08/21/2019 as well as the recent thyroid ultrasound. The goiter appears to descend into the mediastinum with deviation of the trachea towards the right at the level of the thoracic inlet. This could be completely confirmed with a nuclear medicine thyroid uptake and scan. Suggest confirmation with nuclear medicine thyroid uptake and scan. TECHNICAL DOCUMENTATION: Quality ID # 436: Final reports with documentation of one or more dose reduction techniques (e.g., Automated exposure control, adjustment of the mA and/or kV according to patient size, use of iterative reconstruction technique) copyright 2011 [employer]- All Rights Reserved Thyroid Ultrasound 08/22/19 00:00 IMPRESSION: Findings as above consistent with a goiter. The dominant nodule is located in the posterior aspect of the right thyroid lobe and it measures 1.4 x 1.3 x 1.3 cm. The nodule is heterogeneous (either a TR3 or TR4) and based on its size (< 1.5 cm) a follow-up ultrasound in 12 months is recommended. Plan Time Spent: Greater than 30 Minutes Stroke Is this a Stroke Patient?: No Acute Heart Failure - Is this a Heart Failure Patient?: No
[2019-08-28] MEDS: METHIMAZOLE 5 MG TABLET PO SCH (09:47)
[2019-08-28] MEDS: ASPIRIN 81 MG TABLET, ENT COATED PO SCH (09:48)
[2019-08-28 09:50] LABS: ABSOLUTE EOSINOPHILS # (AUTO) 0.1 10^3/uL (0.0-0.6); ABSOLUTE LYMPHOCYTES (AUTO) 1.6 10^3/uL (0.5-4.7); ABSOLUTE MONOCYTES (AUTO) 0.8 10^3/uL (0.1-1.4); ABSOLUTE NEUT (AUTO) 4.7 10^3/uL (1.7-8.2); BASOPHILS % (AUTO) 0.7 % (0-2); EOSINOPHILS % (AUTO) 1.6 % (0-6); HEMATOCRIT 30.6 % (36.0-47.0); LYMPHOCYTES % (AUTO) 21.5 % (13-45); MEAN CORPUSCULAR HEMOGLOBIN 25.3 pg (27.0-33.4); MEAN CORPUSCULAR HGB CONC 32.6 g/dL (32.0-36.0); MEAN CORPUSCULAR VOLUME 78 fl (80-97); PLATELET COUNT 266 10^3/uL (150-450); RED BLOOD COUNT 3.94 10^6/uL (3.72-5.28); SEGMENTED NEUTROPHILS % (AUTO) 65.2 % (42-78); TOTAL CELLS COUNTED % (AUTO) 100 %; WHITE BLOOD COUNT 7.3 10^3/uL (4.0-10.5)
[2019-08-28 10:16] LABS: ANION GAP 10 (5-19); BLOOD UREA NITROGEN 16 mg/dL (7-20); CALCIUM 10.1 mg/dL (8.4-10.2); CARBON DIOXIDE 26 mmol/L (22-30); CHLORIDE 105 mmol/L (98-107); GLUCOSE 170 mg/dL (75-110); POTASSIUM 4.3 mmol/L (3.6-5.0)
[2019-08-28 12:29] VITALS: BP 121/76
== END 2019-08-28 13:14 | disposition home or self-care (01) | DRG 309 ==
LOC: ER 11:19 → EH 18:23 → ICU 20:32 → 3N 08-23 23:30
PROVIDERS: ADMIT Internal Medicine Critical Care Medicine; ATTEND Internal Medicine Critical Care Medicine
DX: I48.0 Paroxysmal atrial fibrillation (principal); Z68.42 Body mass index [BMI] 45.0-49.9, adult; E07.1 Dyshormogenetic goiter; E66.9 Obesity, unspecified; D50.9 Iron deficiency anemia, unspecified; E86.0 Dehydration; E11.9 Type 2 diabetes mellitus without complications; E78.5 Hyperlipidemia, unspecified; I10 Essential (primary) hypertension; E05.90 Thyrotoxicosis, unspecified without thyrotoxic crisis or storm; R10.13 Epigastric pain; Z90.49 Acquired absence of other specified parts of digestive tract; Z79.82 Long term (current) use of aspirin; Z79.899 Other long term (current) drug therapy
CPT/HCPCS: 36415; 70490; 71045; 71275; 74018; 74176; 76536; 80048; 80053; 80307; 81001; 82140; 82550; 82607; 82728; 82746; 82747; 82977; 83020; 83036; 83519; 83540; 83550; 83605; 83735; 83880; 84100; 84439; 84442; 84443; 84481; 84484; 85025; 85045; 85379; 85610; 85730; 86376; 86800; 87040; 87077; 87086; 87150; 93005; 93010; 96365; 96366; 96375; 96376; 99291; J0153; J1644; J1940; J3490; J7030; J7120; P9041

== ENCOUNTER → 2020-01-19 | Outpatient (CLI) | payer MEDICARE ==
--- NOTE | 2020-01-19 09:16 | WOMENS IMAGING REPORT ---
EXAM DESCRIPTION: BILAT SCREENING MAMMO W/CAD COMPLETED DATE/TIME: 01/19/2020 8:41 am REASON FOR STUDY: Z12.31 SCREENING MAMMO Z12.31 ENCNTR SCREEN MAMMOGRAM FOR MALIGNANT NEOPLASM OF B RE COMPARISON: 2016 to 2018 EXAM PARAMETERS: Standard craniocaudal and mediolateral oblique views of each breast recorded using digital acquisition. Read with the assistance of CAD. .[facility] [employer] Version 9.2 LIMITATIONS: None. FINDINGS: No suspicious masses, suspicious calcifications or architectural distortion. No areas of c oncern. IMPRESSION: NEGATIVE MAMMOGRAM. BIRADS 1 BREAST DENSITY: b. There are scattered areas of fibroglandular density. BIRAD: ASSESSMENT: 1 NEGATIVE RECOMMENDATION: ROUTINE SCREENING COMMENT: The patient has been notified of the results by letter per [place] requirements. Additional no tification policies are in place for contacting patient with suspicious or incomplete findings. Quality ID #225: The [employer] recommends an annual screening mammogram for women aged 40 years or over. This facility utilizes a reminder system to ensure that all patients receive reminder letters, and/or direct phone calls for appointments. This includes reminders for routine scr eening mammograms, diagnostic mammograms, or other Breast Imaging Interventions when appropriate. Th is patient will be placed in the appropriate reminder system. TECHNICAL DOCUMENTATION: FINDING NUMBER: (1) ASSESSMENT: (1) JOB ID: [id number] 2010 [employer]- All Rights Reserved Reading location - IP/workstation name: [email or web address]
== END ==
LOC: WI 08:10
PROVIDERS: ATTEND Nurse Practitioner Family
DX: Z12.31 Encounter for screening mammogram for malignant neoplasm of breast (principal)
CPT/HCPCS: 77067

== ENCOUNTER 2020-09-07 10:16 | Inpatient (IN) | payer MEDICARE ==
[2020-09-07] MEDS ORDERED: METOPROLOL TARTRATE PF/INJ 5 MG/5 ML SDV IV ONE ×3 (10:28→12:08)
[2020-09-07 10:52] LABS: ABSOLUTE LYMPHOCYTES (AUTO) 2.1 10^3/uL (0.5-4.7); ABSOLUTE MONOCYTES (AUTO) 0.7 10^3/uL (0.1-1.4); ABSOLUTE NEUT (AUTO) 3.6 10^3/uL (1.7-8.2); BASOPHILS % (AUTO) 0.3 % (0-2); EOSINOPHILS % (AUTO) 0.4 % (0-6); HEMATOCRIT 34.4 % (36.0-47.0); HEMOGLOBIN 11.6 g/dL (12.0-15.5); MEAN CORPUSCULAR HEMOGLOBIN 26.3 pg (27.0-33.4); MEAN CORPUSCULAR HGB CONC 33.8 g/dL (32.0-36.0); MEAN CORPUSCULAR VOLUME 78 fl (80-97); MONOCYTES % (AUTO) 11.2 % (3-13); PLATELET COUNT 303 10^3/uL (150-450); RED BLOOD COUNT 4.42 10^6/uL (3.72-5.28); RED CELL DISTRIBUTION WIDTH 15.4 % (11.5-14.0); SEGMENTED NEUTROPHILS % (AUTO) 55.1 % (42-78); TOTAL CELLS COUNTED % (AUTO) 100 %; WHITE BLOOD COUNT 6.5 10^3/uL (4.0-10.5)
[2020-09-07 11:12] LABS: ALBUMIN 3.8 g/dL (3.5-5.0); ALKALINE PHOSPHATASE 157 U/L (38-126); ANION GAP 12 (5-19); ASPARTATE AMINO TRANSFERASE 36 U/L (14-36); BILIRUBIN,DIRECT 0.2 mg/dL (0.0-0.4); BILIRUBIN,TOTAL 0.6 mg/dL (0.2-1.3); BLOOD UREA NITROGEN 18 mg/dL (7-20); CALCIUM 11.6 mg/dL (8.4-10.2); CARBON DIOXIDE 24 mmol/L (22-30); CHLORIDE 105 mmol/L (98-107); GLUCOSE 119 mg/dL (75-110); POTASSIUM 3.3 mmol/L (3.6-5.0); TOTAL PROTEIN 6.9 g/dL (6.3-8.2)
[2020-09-07] MEDS ORDERED: METHIMAZOLE 5 MG TABLET PO ONE (12:01)
--- NOTE | 2020-09-07 12:20 | ER Document Report ---
ED General - General Chief Complaint: Irregular Pulse Stated Complaint: HEART RATE ISSUES Time Seen by Provider: 09/07/20 10:28 Primary Care Provider: SCARLETT VERDUGO FNP-C [Primary Care Provider] - Follow up as needed Mode of Arrival: Medic Information source: Patient TRAVEL OUTSIDE OF THE [place] IN LAST 30 DAYS: No - HPI Notes: Patient presents with palpitations and shortness of breath. Patient states she has a history of hyperthyroidism. She states that her medications for hyperthyroidism were discontinued approximately 1 month ago secondary to "being better". She states she noticed starting yesterday that she was more short of breath. She went to urgent care today and was diagnosed with A. fib with rapid ventricular response. The ambulance crew loaded her with Cardizem and brought her to the emergency department. Upon arrival she states she still has some shortness of breath and some right-sided chest pain but does feel significantly better. The chest pain is mild and crampy in nature. Is located in the right lateral chest. Worse with movement and better with rest. No significant radiation of the pain - Related Data Allergies/Adverse Reactions: No Known Allergies Allergy (Verified 08/21/19 11:25) Past Medical History - General Information source: Patient - Social History Smoking Status: Never Smoker Frequency of alcohol use: None Drug Abuse: None Family History: Reviewed & Not Pertinent - Past Medical History Cardiac Medical History: Reports: Hx Hypercholesterolemia, Hx Hypertension Denies: Hx Atrial Fibrillation, Hx Congestive Heart Failure, Hx Coronary Artery Disease, Hx DVT, Hx Heart Attack, Hx Peripheral Vascular Disease, Hx Pulmonary Embolism, Hx Heart Murmur Pulmonary Medical History: Denies: Hx Asthma, Hx Bronchitis, Hx COPD, Hx Pneumonia, Hx Intubation, Hx Respiratory Failure, Hx Sleep Apnea, Hx Tuberculosis Endocrine Medical History: Reports: Hx Diabetes Mellitus Type 2 - Non-insulin requiring Musculoskeletal Medical History: Denies Hx Arthritis Psychiatric Medical History: Denies: Hx Attention Deficit Hyperactivity Disorder, Hx Bipolar Disorder Past Surgical History: Reports: Hx Cholecystectomy - Immunizations Hx Diphtheria, Pertussis, Tetanus Vaccination: Yes Review of Systems - Review of Systems Constitutional: denies: Chills, Fever Cardiovascular: Palpitations. denies: Chest pain Respiratory: Short of breath. denies: Cough -: Yes All other systems reviewed and negative Physical Exam - Vital signs Vitals: Pulse Ox 99 09/07/20 10:24 Interpretation: Normal - General General appearance: Appears well, Alert - HEENT Head: Normocephalic, Atraumatic Eyes: Normal Pupils: PERRL - Respiratory Respiratory status: No respiratory distress Chest status: Nontender Breath sounds: Decreased air movement Chest palpation: Normal - Cardiovascular Rhythm: Irregularly irregular, Tachycardia Heart sounds: Normal auscultation Murmur: No - Abdominal Inspection: Normal Distension: No distension Bowel sounds: Normal Tenderness: Nontender Organomegaly: No organomegaly - Back Back: Normal, Nontender - Extremities General upper extremity: Normal inspection, Nontender, Normal color, Normal ROM, Normal temperature General lower extremity: Normal inspection, Nontender, Normal color, Normal ROM, Normal temperature, Normal weight bearing. No: Jaycee's sign - Neurological Neuro grossly intact: Yes Cognition: Normal Orientation: AAOx4 Joanna Coma Scale Eye Opening: Spontaneous Joanna Coma Scale Verbal: Oriented [place] Coma Scale Motor: Obeys Commands Joanna Coma Scale Total: 15 Speech: Normal Motor strength normal: LUE, RUE, LLE, RLE Sensory: Normal - Psychological Associated symptoms: Normal affect, Normal mood - Skin Skin Temperature: Warm Skin Moisture: Dry Skin Color: Normal Course - Re-evaluation Re-evalutation: 09/07/20 12:17 Patient presents with A. fib with rapid ventricular response. It appears to be secondary to patient's hyperthyroidism. She was recently stopped on her hyperthyroid medications. I did call and speak with the patient's cafeteria helper who recommends that we give the patient beta-blockers and Tapazole. These have been administered. Patient has had a stable blood pressure throughout. Symptomatically patient states she feels much better. Patient's heart rate is still mildly elevated at 550. Beta-blockers will continue to be pushed. Laboratories are otherwise unremarkable at this time. - Vital Signs Vital signs: Temp Pulse Resp BP Pulse Ox 98.1 F 27 H 137/82 H 96 09/07/20 10:36 09/07/20 11:31 09/07/20 10:36 09/07/20 11:31 - Laboratory Result Diagrams: 09/07/20 10:29 09/07/20 10:29 Laboratory results interpreted by me: 09/07/20 09/07/20 09/07/20 10:29 10:29 10:29 Hgb 11.6 L Hct 34.4 L MCV 78 L MCH 26.3 L RDW 15.4 H Potassium 3.3 L Glucose 119 H Calcium 11.6 H ALT 62 H Alkaline Phosphatase 157 H TSH < 0.01 L - Diagnostic Test Radiology reviewed: Image reviewed, Reports reviewed - EKG Interpretation by Me Rate: Tachycardia - 182 Rhythm: A.Fib [place]/QRS: Left axis deviation Critical Care Note - Critical Care Note Total time excluding time spent on procedures (mins): 55 Comments: Approximate 55 minutes of critical care time were spent on this patient with hyperthyroidism, and A. fib with rapid ventricular response. Discharge - Discharge Clinical Impression: Hyperthyroidism, Atrial fibrillation with rapid ventricular response Dyspnea Qualifiers: Dyspnea type: other forms of dyspnea Qualified Code(s): R06.09 - Other forms of dyspnea Condition: Serious Disposition: ADMITTED INPATIENT Admitting Provider: Kiesha (Hospitalist) Unit Admitted: Telemetry Referrals: SCARLETT VERDUGO FNP-C [Primary Care Provider] - Follow up as needed
--- NOTE | 2020-09-07 12:51 | RADIOLOGY REPORT (SQ) ---
EXAM DESCRIPTION: CHEST SINGLE VIEW IMAGES COMPLETED DATE/TIME: 09/07/2020 12:40 pm REASON FOR STUDY: sob COMPARISON: 08/21/2019 EXAM PARAMETERS: NUMBER OF VIEWS: One view. TECHNIQUE: Single frontal radiographic view of the chest acquired. RADIATION DOSE: NA LIMITATIONS: None. FINDINGS: LUNGS AND PLEURA: No opacities, masses or pneumothorax. No pleural effusion. MEDIASTINUM AND HILAR STRUCTURES: No masses. Contour normal. HEART AND VASCULAR STRUCTURES: Heart normal in size. Normal vasculature. BONES: No acute findings. HARDWARE: None in the chest. OTHER: No other significant finding. IMPRESSION: NO ACUTE RADIOGRAPHIC FINDING IN THE CHEST. TECHNICAL DOCUMENTATION: JOB ID: [id number] 2010 [employer]- All Rights Reserved Reading location - IP/workstation name: [email or web address]
--- NOTE | 2020-09-07 13:54 | PDOC H&P ---
History of Present Illness Admission Date/PCP: 09/07/20 13:03 SCARLETT VERDUGO, C[facility] History of Present Illness: TERE BEAN is a 64 year old female with a history of toxic multinodular goiter, hyperlipidemia, and mxb-[id number] diabetes mellitus who was taken off of her propranolol and methimazole in March of this year by her mail delivery supervisor, because she was told she was doing better. She said that she has not been having any problems since then. She said the last few weeks she has had a couple of episodes where she could feel her heart going fast but it seemed to let up on its own. She said she has some her of her propranolol leftover and she can take it from time to time if she felt like her heart was going too fast. She said this time her heart started going fast and did not feel like it was going to stop on its own. She went to her doctor's office because of her heart rate and she said they did an EKG and called EMS to come get her because her heart rate was so fast. EKG that they did in the ER showed a heart rate of 182. She came in on a Cardizem drip and I do not think it was controlling her heart rate very well. She has been getting some as needed pushes of very low-dose metoprolol in the ER. She says she feels okay as long as she is at rest. When she gets up to go to the bathroom, she gets short of breath. She does not have any chest pain. No fevers. No recent illnesses. Other than her propranolol and methimazole being discontinued back in March, she has had no recent medication changes. Past Medical History Cardiac Medical History: Reports: Hyperlipidema, Hypertension Denies: Atrial Fibrillation, Congestive Heart Failure, Coronary Artery Disease, DVT, Myocardial Infarction, Peripheral Vascular Disease, Pulmonary Embolism, Heart Murmur Pulmonary Medical History: Denies: Asthma, Bronchitis, Chronic Obstructive Pulmonary Disease (COPD), Intubation, Pneumonia, Respiratory Failure, Sleep Apnea, Tuberculosis Endocrine Medical History: Reports: Diabetes Mellitus Type 2 - Non-insulin requiring Musculoskeltal Medical History: Denies: Arthritis Psychiatric Medical History: Denies: Attention Deficit Hyperactivity Disorder, Bipolar Disorder Hematology: Denies: Anemia Past Surgical History Past Surgical History: Reports: Cholecystectomy Social History Smoking Status: Never Smoker Frequency of Alcohol Use: None Hx Recreational Drug Use: No Drugs: None Hx Prescription Drug Abuse: No Family History Family History: Reviewed & Not Pertinent, DM, Hyperlipidemia, Hypertension Parental Family History Reviewed: Yes Children Family History Reviewed: Yes Sibling(s) Family History Reviewed.: Yes Medication/Allergy Home Medications: Aspirin [Ecotrin 81 mg EC Tablet] 81 mg PO DAILY 08/21/19 Atorvastatin Calcium [Lipitor 10 mg Tablet] 10 mg PO QHS 08/21/19 Losartan/Hydrochlorothiazide [Losartan-Hctz 50-12.5 mg Tab] 1 each PO QAM 08/21/19 Metformin HCl [Metformin HCl ER] 500 mg PO BID 08/21/19 Methimazole [Tapazole] 10 mg PO BID #60 tablet 08/28/19 Propranolol HCl [Inderal 40 Mg Tablet] 80 mg PO BID #60 tablet 08/28/19 Allergies/Adverse Reactions: No Known Allergies Allergy (Verified 08/21/19 11:25) Review of Systems All systems: reviewed and no additional remarkable complaints except as stated - All systems were reviewed and were negative except as noted in the HPI Physical Exam Vital Signs: Temp Pulse Resp BP Pulse Ox 98.1 F 28 H 110/90 H 100 09/07/20 10:36 09/07/20 12:48 09/07/20 12:48 09/07/20 12:48 Intake & Output 09/06/20 09/07/20 09/08/20 06:59 06:59 06:59 Weight 107.501 kg General appearance: PRESENT: no acute distress, cooperative, disheveled, morbidly obese Head exam: PRESENT: atraumatic, normocephalic Eye exam: PRESENT: EOMI, PERRLA. ABSENT: conjunctival injection, nystagmus, scleral icterus Ear exam: PRESENT: normal external ear exam Mouth exam: PRESENT: moist, neck supple Neck exam: PRESENT: full ROM. ABSENT: carotid bruit, JVD, lymphadenopathy, m eningismus, tenderness, thyromegaly Respiratory exam: PRESENT: clear to auscultation randa, symmetrical, unlabored. ABSENT: accessory muscle use, chest wall tenderness, crackles, prolonged expiratory phas, rhonchi, tachypnea, wheezes Cardiovascular exam: PRESENT: +S1, +S2, tachycardia Pulses: PRESENT: normal carotid pulses Vascular exam: PRESENT: normal capillary refill GI/Abdominal exam: PRESENT: normal bowel sounds, soft. ABSENT: distended, guarding, rebound, tenderness Extremities exam: ABSENT: clubbing, pedal edema Musculoskeletal exam: PRESENT: normal inspection. ABSENT: deformity Neurological exam: PRESENT: alert, awake, oriented to person, oriented to place, oriented to time, oriented to situation, CN II-XII grossly intact. ABSENT: motor sensory deficit Psychiatric exam: PRESENT: appropriate affect, normal mood Skin exam: PRESENT: dry, warm Results Laboratory Results: 09/07/20 10:29 09/07/20 10:29 09/07/20 09/07/20 09/07/20 10: 10: 10:29 WBC 6.5 RBC 4.42 Hgb 11.6 L Hct 34.4 L MCV 78 L MCH 26.3 L MCHC 33.8 RDW 15.4 H Plt Count 303 Seg Neutrophils % 55.1 Sodium 141.0 Potassium 3.3 L Chloride 105 Carbon Dioxide 24 Anion Gap 12 BUN 18 Creatinine 0.70 Est GFR ( Amer) > 60 Glucose 119 H Calcium 11.6 H Total Bilirubin 0.6 AST 36 Alkaline Phosphatase 157 H Total Protein 6.9 Albumin 3.8 TSH < 0.01 L 09/07/20 10:29 Troponin I < 0.012 Impressions: Chest X-Ray 09/07/20 12:10 IMPRESSION: NO ACUTE RADIOGRAPHIC FINDING IN THE CHEST. Assessment and Plan - Diagnosis (1) Toxic multinodular goiter Is this a current diagnosis for this admission?: Yes (2) Atrial fibrillation with rapid ventricular response Is this a current diagnosis for this admission?: Yes (3) Dyspnea Qualifiers: Dyspnea type: dyspnea on exertion Qualified Code(s): R06.09 - Other forms of dyspnea Is this a current diagnosis for this admission?: Yes (4) Hyperthyroidism Is this a current diagnosis for this admission?: Yes (5) Obesity, Class II, BMI 35-39.9 Is this a current diagnosis for this admission?: Yes (6) Type 2 diabetes mellitus treated without insulin Is this a current diagnosis for this admission?: Yes - Plan Summary Summary: I am going to restart her propranolol and her methimazole. We will start her propranolol to 80 mg twice a day and her Tapazole 10 mg 3 times a day. We will check her free T4 and lipids. We will resume her home medications for her chronic conditions. If we are unable to get her heart rate under control, she would probably be best served by an esmolol drip instead of a Cardizem drip. Hopefully she will respond that will not come to that. Her heart rate is high a nd I am hoping that we can slow it down a little bit and repeat an EKG to see what her actual underlying rhythm is. The rate of 182 on her EKG makes it difficult to see her true underlying rhythm, but she did respond a little bit to the very small doses of metoprolol she got in the ER, so I am hopeful that the propranolol will be effective. - Time Time Spent with patient: 35 or more minutes Anticipated Discharge Disposition: Home, Self Care Anticipated Discharge Timeframe: Undetermined - Inpatient Certification Based on my medical assessment, after consideration of the patient's comorbidities, presenting symptoms, or acuity I expect that the services needed warrant INPATIENT care.: Yes I certify that my determination is in accordance with my understanding of Medicare's requirements for reasonable and necessary INPATIENT services [42 CFR 412.3e].: Yes Medical Necessity: Significant Comorbidiites Make Outpatient Treatment Too Risky, Need Close Monitoring Due to Risk of Patient Decompensation, Need For Continuous Telemetry Monitoring, Risk of Complication if Not Cared For in Hospital
[2020-09-07] MEDS: PROPRANOLOL HCL 40 MG TABLET PO SCH ×2 (15:34→21:07)
[2020-09-07] MEDS: METHIMAZOLE 5 MG TABLET PO SCH ×2 (15:36→21:04)
[2020-09-07] MEDS: HEPARIN SOD (PORCINE) 5,000 UNIT/ML 1 ML VIAL SUBCUT SCH ×2 (15:37→21:05)
--- NOTE | 2020-09-07 17:51 | EKG REPORT ---
SEVERITY:- ABNORMAL ECG - ATRIAL FIBRILLATION WITH RAPID V-RATE BORDERLINE LEFT AXIS DEVIATION NONSPECIFIC T ABNORMALITIES, LATERAL LEADS : Confirmed by: Michel Noonan 07-Sep-2020 17:50:58
[2020-09-07] MEDS: ACETAMINOPHEN 325 MG TABLET PO PRN (18:43)
[2020-09-08] MEDS: ONDANSETRON HCL INJ/PF 4 MG/2 ML SDV IV PRN ×3 (04:48→18:52)
[2020-09-08] MEDS: ACETAMINOPHEN 325 MG TABLET PO PRN (04:53)
[2020-09-08 05:10] LABS: HEMATOCRIT 34.8 % (36.0-47.0); HEMOGLOBIN 11.7 g/dL (12.0-15.5); MEAN CORPUSCULAR HEMOGLOBIN 26.2 pg (27.0-33.4); MEAN CORPUSCULAR HGB CONC 33.6 g/dL (32.0-36.0); MEAN CORPUSCULAR VOLUME 78 fl (80-97); PLATELET COUNT 334 10^3/uL (150-450); RED BLOOD COUNT 4.47 10^6/uL (3.72-5.28); RED CELL DISTRIBUTION WIDTH 15.8 % (11.5-14.0); WHITE BLOOD COUNT 7.4 10^3/uL (4.0-10.5)
[2020-09-08] MEDS ORDERED: HEPARIN SOD (PORCINE) 1,000 UNIT/ML 10 ML VIAL IV ONE (05:36)
[2020-09-08 05:42] LABS: ANION GAP 14 (5-19); BLOOD UREA NITROGEN 29 mg/dL (7-20); CALCIUM 11.1 mg/dL (8.4-10.2); CARBON DIOXIDE 20 mmol/L (22-30); CHLORIDE 104 mmol/L (98-107); CHOLESTEROL 138.12 mg/dL (0-200); GLUCOSE 152 mg/dL (75-110); POTASSIUM 3.8 mmol/L (3.6-5.0); TRIGLYCERIDES 147 mg/dL (<150)
[2020-09-08 05:52] LABS: DIRECT LDL 77 mg/dL (<100)
[2020-09-08] MEDS ORDERED: METOPROLOL TARTRATE PF/INJ 5 MG/5 ML SDV IV ONE ×4 (06:35→14:30)
[2020-09-08] MEDS: METHIMAZOLE 5 MG TABLET PO SCH ×2 (06:53→17:22)
[2020-09-08 08:27] LABS: ABSOLUTE LYMPHOCYTES (AUTO) 1.4 10^3/uL (0.5-4.7); ABSOLUTE MONOCYTES (AUTO) 0.6 10^3/uL (0.1-1.4); ABSOLUTE NEUT (AUTO) 5.1 10^3/uL (1.7-8.2); BASOPHILS % (AUTO) 0.5 % (0-2); EOSINOPHILS % (AUTO) 0.2 % (0-6); HEMATOCRIT 33.4 % (36.0-47.0); HEMOGLOBIN 11.5 g/dL (12.0-15.5); LYMPHOCYTES % (AUTO) 19.7 % (13-45); MEAN CORPUSCULAR HEMOGLOBIN 26.5 pg (27.0-33.4); MEAN CORPUSCULAR HGB CONC 34.4 g/dL (32.0-36.0); MEAN CORPUSCULAR VOLUME 77 fl (80-97); PLATELET COUNT 308 10^3/uL (150-450); RED BLOOD COUNT 4.33 10^6/uL (3.72-5.28); RED CELL DISTRIBUTION WIDTH 15.6 % (11.5-14.0); SEGMENTED NEUTROPHILS % (AUTO) 71.6 % (42-78); TOTAL CELLS COUNTED % (AUTO) 100 %; WHITE BLOOD COUNT 7.1 10^3/uL (4.0-10.5)
[2020-09-08] MEDS ORDERED: HEPARIN SOD (PORCINE) 1,000 UNIT/ML 10 ML VIAL IV PRN (08:38)
[2020-09-08 08:44] LABS: INTERNATIONAL RATION (INR) 1.08; PROTHROMBIN TIME 14.2 SEC (11.4-15.4)
[2020-09-08] MEDS: PROPRANOLOL HCL 40 MG TABLET PO SCH ×3 (09:17→21:26)
[2020-09-08] MEDS: MULTIVITAMIN TABLET PO SCH (09:17)
[2020-09-08] MEDS: ASPIRIN 81 MG TABLET, ENT COATED PO SCH (09:17)
[2020-09-08] MEDS ORDERED: (PENDING PHARMACY ID) (Methimazole [Tapazole] 10 MG) PO SCH ×2 (10:00)
[2020-09-08] MEDS ORDERED: ESMOLOL HCL/SOD CL 2,500 MG/250 ML RTUINJ IV ONE (16:28)
[2020-09-08] MEDS ORDERED: ESMOLOL HCL INJ/PF 100 MG/10 ML SDV IV ONE (16:47)
[2020-09-08] MEDS: ESMOLOL 2500 MG/NS 250 ML IV PRN ×3 (17:20→22:20)
--- NOTE | 2020-09-08 17:57 | CRITICAL CARE ADMISSION REPORT ---
HPI Date:: 09/08/20 Time:: 17:15 Reason for ICU Reason:: Tachycardia, likely related to hypothyroidism. Admission Date/Time & PCP: Admission Date/Time: 09/07/20 13:03 Primary Care Provider: ROYCE MORA HPI: 64-year-old female with history of toxic multinodular goiter, diabetes and hyperlipidemia. She was taken off of her propranolol and methimazole in March of this year and was being evaluated for possible surgical intervention but did not get her CT scan evaluation. Over the past few weeks, she states that she has had a couple of episodes of feeling her heart race. She, on occasion took her leftover propranolol which she states has helped in the past however, this time it did not resolve. She saw her primary care doctor who sent her to the ER via EMS with a heart rate of 182. She initially presented on a Cardizem drip with no resolution and tachycardia. She was admitted to the medicine service yesterday and restarted on her propranolol and methimazole. This morning, due to ongoing tachycardia, she was transferred to the intensive care unit. Despite multiple doses of metoprolol, her tachycardia has not resolved and we are starting an esmolol drip. Patient has remained in stable condition and has been hemodynamically stable despite her tachycardia. No chest pain noted. History obtained from:: Patient and medical record. - Diagnosis/Plan (1) Atrial fibrillation with rapid ventricular response Is this a current diagnosis for this admission?: Yes Plan: Esmolol has been loaded and drip started. We will titrate to effect. Given her history of intermittent tachycardia, I do not believe this is new onset atrial fibrillation and therefore although she is treated with DVT prophylaxis, no heparin drip is indicated at this time. (2) Hyperthyroidism Is this a current diagnosis for this admission?: Yes Plan: Upon further review with patient, I have learned that her hyperthyroidism has not known to have been resolved and she was being referred to an ENT doctor for possible surgical resolution. Dr. Cassidy ([phone]) is her outpatient ENT doctor and has recommended a CT scan of her neck to evaluate both her multinodular goiter as well as a local abscess which he believes has been expanding. We will obtain a CT of her neck to evaluate further. Continue methimazole. (3) Toxic multinodular goiter Is this a current diagnosis for this admission?: Yes Plan: Evaluate via CT scan. Multinodular goiter most likely cause of her acute on chronic tachycardia. Continue esmolol and methimazole as above. Past Medical History Cardiac Medical History: Reports: Hyperlipidema, Hypertension Denies: Atrial Fibrillation, Congestive Heart Failure, Coronary Artery Disease, DVT, Myocardial Infarction, Peripheral Vascular Disease, Pulmonary Embolism, Heart Murmur Pulmonary Medical History: Denies: Asthma, Bronchitis, Chronic Obstructive Pulmonary Disease (COPD), Intubation, Pneumonia, Respiratory Failure, Sleep Apnea, Tuberculosis Endocrine Medical History: Reports: Diabetes Mellitus Type 2 - Non-insulin requiring, Hyperthyroidism Musculoskeltal Medical History: Denies: Arthritis Psychiatric Medical History: Denies: Attention Deficit Hyperactivity Disorder, Bipolar Disorder, Depressi on Hematology: Denies: Anemia Past Surgical History Past Surgical History: Reports: Cholecystectomy Social/Family History - Social History Smoking Status: Never Smoker Frequency of Alcohol Use: None Hx Recreational Drug Use: No Drugs: None Hx Prescription Drug Abuse: No - Medication/Allergies Home Medications: Aspirin [Ecotrin 81 mg EC Tablet] 81 mg PO DAILY 08/21/19 Atorvastatin Calcium [Lipitor 10 mg Tablet] 10 mg PO QHS 08/21/19 Losartan/Hydrochlorothiazide [Losartan-Hctz 50-12.5 mg Tab] 1 tab PO QAM 08/21/19 Metformin HCl [Metformin HCl ER] 500 mg PO BID 08/21/19 Methimazole [Tapazole] 10 mg PO BID #60 tablet 08/28/19 Propranolol HCl [Inderal 40 Mg Tablet] 80 mg PO BID #60 tablet 08/28/19 Multivitamin [Multiple Vitamins] 1 tab PO DAILY 09/07/20 Allergies/Adverse Reactions: No Known Allergies Allergy (Verified 08/21/19 11:25) Review of Systems Cardiovascular: PRESENT: as per HPI, dyspnea on exertion, palpitations. ABSENT: chest pain Gastrointestinal: PRESENT: other - Mild abdominal discomfort.. ABSENT: nausea, vomiting Musculoskeletal: ABSENT: deformity, muscle weakness Endocrine: PRESENT: as per HPI - Patient's complaints are enlarged associated with her tachycardia including palpitations, dyspnea on exertion and mild abdominal pain. Physical Exam Vital Signs: Temp Pulse Resp BP Pulse Ox 97.4 F 147 H 18 98/70 L 100 09/08/20 10:00 09/08/20 07:00 09/08/20 05:05 09/08/20 05:05 09/08/20 05:05 Intake & Output 09/07/20 09/08/20 09/09/20 06:59 06:59 06:59 Intake Total 50 200 Output Total 300 Balance 50 -100 Weight 108.4 kg Weight/Height Weight 108.4 kg Height 5 ft 5 in General appearance: PRESENT: no acute distress, cooperative, well-developed, well-nourished Head exam: PRESENT: atraumatic, normocephalic Eye exam: PRESENT: EOMI, PERRLA Ear exam: PRESENT: normal external ear exam Mouth exam: PRESENT: tongue midline Throat exam: ABSENT: post pharyngeal erythema, tonsillar erythema, tonsillar exudate, tonsillogmegaly Neck exam: PRESENT: full ROM, thyromegaly, other - Left-sided abscess. ABSENT: carotid bruit, JVD, tenderness Respiratory exam: PRESENT: clear to auscultation randa. ABSENT: accessory muscle use, rales, rhonchi, tachypnea, wheezes Cardiovascular exam: PRESENT: irregular rhythm, tachycardia Pulses: PRESENT: normal carotid pulses, normal radial pulses, normal femoral pulses, +2 pedal pulses bilateral Vascular exam: PRESENT: normal capillary refill GI/Abdominal exam: PRESENT: normal bowel sounds, soft. ABSENT: ascites, distended, tenderness Extremities exam: PRESENT: full ROM. ABSENT: joint swelling, pedal edema Musculoskeletal exam: PRESENT: full ROM, normal inspection. ABSENT: tenderness Neurological exam: PRESENT: alert, altered, awake, oriented to person, oriented to place, oriented to time, oriented to situation, CN II-XII grossly intact Psychiatric exam: PRESENT: appropriate affect. ABSENT: agitated, anxious Skin exam: PRESENT: normal color, warm Laboratory/Radiographs Laboratory Results: 09/08/20 08:16 09/08/20 04:53 09/08/20 09/08/20 09/08/20 04:53 04:53 08:16 WBC 7.4 7.1 RBC 4.47 4.33 Hgb 11.7 L 11.5 L Hct 34.8 L 33.4 L MCV 78 L 77 L MCH 26.2 L 26.5 L MCHC 33.6 34.4 RDW 15.8 H 15.6 H Plt Count 334 308 Seg Neutrophils % 71.6 Sodium 137.5 Potassium 3.8 Chloride 104 Carbon Dioxide 20 L Anion Gap 14 BUN 29 H Creatinine 1.06 Est GFR ( Amer) > 60 Glucose 152 H Calcium 11.1 H Triglycerides 147 Cholesterol 138.12 LDL Cholesterol Direct 77 VLDL Cholesterol 29.0 HDL Cholesterol 32 L 09/07/20 09/08/20 10:29 05:17 Troponin I < 0.012 < 0.012 Impressions: Chest X-Ray 09/07/20 12:10 IMPRESSION: NO ACUTE RADIOGRAPHIC FINDING IN THE CHEST. All labs, radiographs, diagnostic studies and EKGs were personally reviewed: Yes In addition, reports of radiographic and diagnostic studies were read: Yes Critical Time Critical Time (minutes): 65 -: The care of a critically ill patient is dynamic. This note represents a static moment in the admission process. Orders and treatments may be given simultaneously and urgently, and time is not in store marketing representative of the treatment process. This patient requires Critical Care secondary to life threatening organ or limb dysfunction. Without Critical Care services, the patient is at risk for increased mortality and morbidity.
--- NOTE | 2020-09-08 18:07 | EKG REPORT ---
SEVERITY:- ABNORMAL ECG - ATRIAL FIBRILLATION, V-RATE 110-181 BORDERLINE LEFT AXIS DEVIATION : Confirmed by: Michel Noonan 08-Sep-2020 18:06:47
[2020-09-08] MEDS: ATENOLOL 50 MG TABLET PO SCH (21:25)
[2020-09-08] MEDS: ATORVASTATIN CALCIUM 10 MG TABLET PO SCH (21:25)
--- NOTE | 2020-09-09 00:04 | CDI QUERY ---
CDI Query CDI Review: We are seeking further clarification of documentation to reflect the severity of illness of your patient. Documented in the Critical Care Admission Notes: Atrial fibrillation with rapid ventricular response Is this a current diagnosis for this admission?: Yes Plan: Esmolol has been loaded and drip started. We will titrate to effect. Given her history of intermittent tachycardia, I do not believe this is new onset atrial fibrillation and therefore although she is treated with DVT prophylaxis, no heparin drip is indicated at this time. Based on your medical judgement, can you further clarify in the Progress Notes if the Atrial Fibrillation can be further specified: Persistent Atrial fibrillation Chronic (Permanent) Atrial fibrillation Other Unable to determine Thank you for your consideration. AKBAR Carmona RN Clinical Water Maintenance Supervisor Physician Advisor [email or web address]
[2020-09-09 04:25] LABS: HEMATOCRIT 34.5 % (36.0-47.0); HEMOGLOBIN 11.2 g/dL (12.0-15.5); MEAN CORPUSCULAR HEMOGLOBIN 25.5 pg (27.0-33.4); MEAN CORPUSCULAR HGB CONC 32.5 g/dL (32.0-36.0); MEAN CORPUSCULAR VOLUME 78 fl (80-97); PLATELET COUNT 306 10^3/uL (150-450); RED BLOOD COUNT 4.39 10^6/uL (3.72-5.28); RED CELL DISTRIBUTION WIDTH 16.2 % (11.5-14.0); WHITE BLOOD COUNT 10.7 10^3/uL (4.0-10.5)
[2020-09-09 04:38] LABS: ANION GAP 15 (5-19); BLOOD UREA NITROGEN 35 mg/dL (7-20); CALCIUM 10.7 mg/dL (8.4-10.2); CARBON DIOXIDE 21 mmol/L (22-30); CHLORIDE 102 mmol/L (98-107); GLUCOSE 154 mg/dL (75-110); POTASSIUM 4.1 mmol/L (3.6-5.0)
[2020-09-09] MEDS: METHIMAZOLE 5 MG TABLET PO SCH ×3 (05:51→21:08)
[2020-09-09] MEDS: PROPRANOLOL HCL 40 MG TABLET PO SCH ×2 (10:36→21:10)
[2020-09-09] MEDS: ASPIRIN 81 MG TABLET, ENT COATED PO SCH (10:36)
[2020-09-09] MEDS: MULTIVITAMIN TABLET PO SCH (10:36)
[2020-09-09] MEDS: ATENOLOL 50 MG TABLET PO SCH ×2 (10:37→21:08)
--- NOTE | 2020-09-09 14:47 | PDOC CRITICAL CARE PROG REPORT ---
General Date:: 09/09/20 ICU Day:: 1 Hospital Day:: 2 Resuscitation Status: Full Code Events in the past 12 to 24 Hours:: 09/09/2020: Patient remains tachycardic despite esmolol, metoprolol, propranolol and atenolol. We have consulted cardiology for further instruction. I have reached out and left a message for her ENT doctor, Dr. Curiel. CT scan of her neck is pending. Review of systems relevant to events:: ICU day: 1 Neuro: Patient is awake and alert with no neurologic deficits. Pulmonary: Patient is breathing comfortably. Breath sounds are clear to auscultation. No pulmonary issues at this time. Cardiovascular: Atrial fibrillation with rapid ventricular response which has now been chronic. Multiple beta-blockers have been initiated with no resolution. We are reaching out to cardiology for further suggestions. Tachycardia is likely secondary to her toxic multinodular goiter which has also been chronic. We have reached out to her ENT doctor and we are obtaining a CT of her neck to further evaluate. Heme: CBC is normal. No acute hematology issues. Renal: BUN/creatinine are within normal limits. Creatinine is mildly elevated this morning. Continue to follow closely. Gastrointestinal: Patient does complain of mild abdominal pain which seems worse when she is more tachycardic. Continue Zofran as needed for nausea. Diet: Patient can tolerate a regular diet. ID: No signs of active infection. Barriers to discharge from ICU: Switch Operators Supervisor tachycardia. Patient will need a closer evaluation of her toxic multinodular goiter. CT scan pending. Reason for ICU Addmission:: Tachycardia, likely related to hypothyroidism. - Medications: Medications reviewed and adjusted accordingly: Yes Physical Exam Vital Signs: Temp Pulse Resp BP Pulse Ox 98.4 F 166 H 32 H 91/66 L 100 09/09/20 14:00 09/09/20 10:00 09/09/20 14:00 09/09/20 13:50 09/09/20 14:00 Intake & Output 09/08/20 09/09/20 09/10/20 06:59 06:59 06:59 Intake Total 50 876 Output Total 300 Balance 50 576 Weight 108.4 kg 109 kg Weight/Height Weight 109 kg Height 5 ft 5 in General appearance: PRESENT: no acute distress, cooperative, well-developed Head exam: PRESENT: atraumatic, normocephalic Eye exam: PRESENT: EOMI, PERRLA Ear exam: PRESENT: normal external ear exam Mouth exam: PRESENT: dry mucosa, neck supple, tongue midline Throat exam: ABSENT: post pharyngeal erythema, tonsillar erythema, tonsillar exudate Neck exam: PRESENT: other - Nodular goiter, apparent abscess on her left. Respiratory exam: PRESENT: clear to auscultation randa, unlabored. ABSENT: accessory muscle use, rhonchi, tachypnea, wheezes Cardiovascular exam: PRESENT: irregular rhythm, tachycardia Pulses: PRESENT: normal carotid pulses, normal radial pulses, +1 pedal pulses bilateral Vascular exam: PRESENT: normal capillary refill GI/Abdominal exam: PRESENT: normal bowel sounds, soft, tenderness Extremities exam: PRESENT: full ROM. ABSENT: joint swelling, pedal edema Musculoskeletal exam: PRESENT: ambulatory, full ROM, normal inspection Neurological exam: PRESENT: alert, awake, oriented to person, oriented to place, oriented to time, oriented to situation Psychiatric exam: PRESENT: appropriate affect Skin exam: PRESENT: intact, normal color. ABSENT: skin tears Laboratory/Radiographs Laboratory Results: 09/09/20 03:55 09/09/20 03:55 09/09/20 09/09/20 03:55 03:55 WBC 10.7 H RBC 4.39 Hgb 11.2 L Hct 34.5 L MCV 78 L MCH 25.5 L MCHC 32.5 RDW 16.2 H Plt Count 306 Sodium 137.5 Potassium 4.1 Chloride 102 Carbon Dioxide 21 L Anion Gap 15 BUN 35 H Creatinine 1.29 H Est GFR ( Amer) 50 L Glucose 154 H Calcium 10.7 H 09/07/20 09/08/20 10:29 05:17 Troponin I < 0.012 < 0.012 Impressions: Chest X-Ray 09/07/20 12:10 IMPRESSION: NO ACUTE RADIOGRAPHIC FINDING IN THE CHEST. All labs, radiographs, diagnostic studies and EKGs were personally reviewed: Yes In addition, reports of radiographic and diagnostic studies were read: Yes Assessment and Plan - Diagnosis (1) Atrial fibrillation with rapid ventricular response Is this a current diagnosis for this admission?: Yes Plan: Atrial fibrillation with RVR, chronic. 1. Consult cardiology 2. Right multiple efforts with varying beta-blockers, patient has had no resolution in her tachycardia. We will consider starting amiodarone drip. (2) Hyperthyroidism Is this a current diagnosis for this admission?: Yes (3) Toxic multinodular goiter Is this a current diagnosis for this admission?: Yes Plan: CT scan of her neck is pending. We will follow-up with ENT to discuss possible surgical intervention. Critical Time Critical Time (minutes): 45 Level of Care: ICU Anticipated discharge: Home Anticipated DC Timeframe: within 36 hours -: 1. The care of a critical patient is a dynamic process. This note is a rental representative synopsis but static in nature. The timeframe for treatments given in order is not necessarily the actual time these treatments may have been done. 2. This patient requires critical care secondary to ongoing requirements for therapy not offered or safe outside the critical care environment. Transfer to a lower level of care will result in altered life or limb morbidity and mortality. 3. Multidisciplinary rounds completed. 4. ABCDE bundle addressed.
--- NOTE | 2020-09-09 15:28 | RADIOLOGY REPORT (SQ) ---
EXAM DESCRIPTION: CT SOFT TISSUE NECK WITH IMAGES COMPLETED DATE/TIME: 09/09/2020 2:54 pm REASON FOR STUDY: Toxic Multinodular Goiter/ Abscess COMPARISON: 08/22/2019 TECHNIQUE: Post IV contrasted scanning from skull base through lung apices with review of bone, soft tissue and lung windows. Reconstructed coronal and sagittal MPR images reviewed. All images stored on PACS. All CT scanners at this facility use dose modulation, iterative reconstruction, and/or weight based d osing when appropriate to reduce radiation dose to as low as reasonably achievable (ALARA). [facility]: Dose Right [facility]: CareDose [facility]: Dose Right [facility]: Teradose 4D [facility]: [employer] computer CONTRAST TYPE AND DOSE: contrast/concentration: Isovue 350.00 mmol/ml; Total Contrast Delivered: 75. 0 ml; Total Saline Delivered: 55.0 ml RENAL FUNCTION: GFR > 60. RADIATION DOSE: . LIMITATIONS: None. FINDINGS: SKULL BASE: Intact. MAJOR SALIVARY GLANDS: No solid or cystic masses. No inflammatory changes. LYMPHADENOPATHY: No adenopathy. MUCOSAL MASSES OR ASYMMETRY: No mucosal masses or asymmetry. LARYNX/CORDS: No abnormal findings. VASCULAR STRUCTURES: The major vessels are patent. LUNG APICES: Clear. BONES: Intact. THYROID: Stable enlarged gland containing multiple nodules including left substernal. PARANASAL SINUSES: Small polyp left maxillary sinus. OTHER: No other significant finding. IMPRESSION: Stable multinodular goiter. No abscess. TECHNICAL DOCUMENTATION: JOB ID: [id number] Quality ID # [id number]: Final reports with documentation of one or more dose reduction techniques (e.g., Au tomated exposure control, adjustment of the mA and/or kV according to patient size, use of iterative reconstruction technique) 2010 [employer]- All Rights Reserved Reading location - IP/workstation name: [email or web address]
[2020-09-09] MEDS ORDERED: DIGOXIN INJ 0.5 MG/2 ML AMPULE IV ONE (16:01)
[2020-09-09 16:22] LABS: APPEARANCE,URINE SLIGHTLY-CLOUDY; BILIRUBIN,URINE NEGATIVE (NEGATIVE); COLOR,URINE YELLOW; GLUCOSE, URINE NEGATIVE (NEGATIVE); KETONES,URINE NEGATIVE (NEGATIVE); LEUKOCYTE ESTERASE,URINE MODERATE (NEGATIVE); NITRITE,URINE NEGATIVE (NEGATIVE); PROTEIN,URINE 100 mg/dL (NEGATIVE); URINE SPECIFIC GRAVITY 1.027; UROBILINOGEN,URINE NEGATIVE mg/dL (<2.0)
[2020-09-09] MEDS ORDERED: ESMOLOL HCL/SOD CL 2,500 MG/250 ML RTUINJ IV PRN (16:51)
[2020-09-09] MEDS: ATORVASTATIN CALCIUM 10 MG TABLET PO SCH (21:08)
[2020-09-09] MEDS: HEPARIN SOD (PORCINE) 5,000 UNIT/ML 1 ML VIAL SUBCUT SCH (21:14)
[2020-09-10 04:49] LABS: HEMATOCRIT 32.6 % (36.0-47.0); HEMOGLOBIN 10.7 g/dL (12.0-15.5); MEAN CORPUSCULAR HEMOGLOBIN 25.4 pg (27.0-33.4); MEAN CORPUSCULAR HGB CONC 32.8 g/dL (32.0-36.0); MEAN CORPUSCULAR VOLUME 77 fl (80-97); PLATELET COUNT 282 10^3/uL (150-450); RED BLOOD COUNT 4.21 10^6/uL (3.72-5.28); WHITE BLOOD COUNT 19.3 10^3/uL (4.0-10.5)
[2020-09-10 05:17] LABS: ANION GAP 13 (5-19); BLOOD UREA NITROGEN 39 mg/dL (7-20); CALCIUM 10.5 mg/dL (8.4-10.2); CARBON DIOXIDE 21 mmol/L (22-30); CHLORIDE 102 mmol/L (98-107); GLUCOSE 122 mg/dL (75-110); POTASSIUM 3.9 mmol/L (3.6-5.0)
[2020-09-10] MEDS: METHIMAZOLE 5 MG TABLET PO SCH ×3 (05:26→21:19)
[2020-09-10 06:21] LABS: APPEARANCE,URINE SLIGHTLY-CLOUDY; BILIRUBIN,URINE SMALL (NEGATIVE); COLOR,URINE AMBER; GLUCOSE, URINE NEGATIVE (NEGATIVE); KETONES,URINE NEGATIVE (NEGATIVE); LEUKOCYTE ESTERASE,URINE MODERATE (NEGATIVE); NITRITE,URINE NEGATIVE (NEGATIVE); PROTEIN,URINE 100 mg/dL (NEGATIVE)
[2020-09-10] MEDS: CEFTRIAXONE 2 GM/D5W RTU 2 GM/50 ML RTUPB IV SCH (06:41)
[2020-09-10] MEDS: PROPRANOLOL HCL 40 MG TABLET PO SCH ×2 (10:42→21:20)
[2020-09-10] MEDS: HEPARIN SOD (PORCINE) 5,000 UNIT/ML 1 ML VIAL SUBCUT SCH (10:43)
[2020-09-10] MEDS: MULTIVITAMIN TABLET PO SCH (10:43)
[2020-09-10] MEDS: ATENOLOL 50 MG TABLET PO SCH ×2 (10:43→21:21)
[2020-09-10] MEDS: ASPIRIN 81 MG TABLET, ENT COATED PO SCH (10:43)
[2020-09-10] MEDS ORDERED: METOPROLOL TARTRATE PF/INJ 5 MG/5 ML SDV IV ONE ×2 (11:00→11:01)
--- NOTE | 2020-09-10 12:03 | PDOC CONSULTATION ---
Consultation Consult Date: 09/10/20 Attending physician:: HUGO CABAN Provider Consulted: CELESTINE RUBIO Consult reason:: Atrial fibrillation with rapid ventricular response History of Present Illness Admission Date/PCP: 09/07/20 13:03 ROYCE MORA Patient complains of: Fatigue History of Present Illness: TERE BEAN is a 64 year old female With the following active problems 1. Multinodular goiter 2. Diabetes mellitus 3. Dyslipidemia 4. Atrial fibrillation 64-year-old lady with known toxic multinodular goiter, hyperlipidemia and [id number] diabetes mellitus had been on suppressive therapy with beta-shweta and methimazole for hyperthyroidism. Apparently these medications were stopped. In the doctor's office she was found to be in atrial fibrillation rapid ventricular rate and although she was asymptomatic she was brought into the hospital. She has been tried on AV terrence blockers including calcium channel blockers and beta-blockers without success. At the time of my evaluation patient does not endorse any symptoms whatsoever. Past medical history includes hypertension and dyslipidemia as well as diabetes mellitus Multinodular goiter is also reported. Prior surgeries include cholecystectomy No tobacco alcohol or drug use No familial illnesses. The diabetes mellitus hypertension and dyslipidemia are reported in the family. Past Medical History Cardiac Medical History: Reports: Hyperlipidema, Hypertension Denies: Atrial Fibrillation, Congestive Heart Failure, Coronary Artery Disease, DVT, Myocardial Infarction, Peripheral Vascular Disease, Pulmonary Embolism, Heart Murmur Pulmonary Medical History: Denies: Asthma, Bronchitis, Chronic Obstructive Pulmonary Disease (COPD), Intubation, Pneumonia, Respiratory Failure, Sleep Apnea, Tuberculosis Endocrine Medical History: Reports: Diabetes Mellitus Type 2 - Non-insulin requiring, Hyperthyroidism Musculoskeltal Medical History: Denies: Arthritis Psychiatric Medical History: Denies: Attention Deficit Hyperactivity Disorder, Bipolar Disorder, Depression Hematology: Denies: Anemia Past Surgical History Past Surgical History: Reports: Cholecystectomy Social History Smoking Status: Never Smoker Frequency of Alcohol Use: None Hx Recreational Drug Use: No Drugs: None Hx Prescription Drug Abuse: No - Advance Directive Resuscitation Status: Full Code Family History Family History: Reviewed & Not Pertinent, DM, Hyperlipidemia, Hypertension Parental Family History Reviewed: Yes - No familial illnesses Children Family History Reviewed: NA Sibling(s) Family History Reviewed.: NA Medication/Allergy Home Medications: Aspirin [Ecotrin 81 mg EC Tablet] 81 mg PO DAILY 08/21/19 Atorvastatin Calcium [Lipitor 10 mg Tablet] 10 mg PO QHS 08/21/19 Losartan/Hydrochlorothiazide [Losartan-Hctz 50-12.5 mg Tab] 1 tab PO QAM 08/21/19 Metformin HCl [Metformin HCl ER] 500 mg PO BID 08/21/19 Methimazole [Tapazole] 10 mg PO BID #60 tablet 08/28/19 Propranolol HCl [Inderal 40 Mg Tablet] 80 mg PO BID #60 tablet 08/28/19 Multivitamin [Multiple Vitamins] 1 tab PO DAILY 09/07/20 Allergies/Adverse Reactions: No Known Allergies Allergy (Verified 08/21/19 11:25) Review of Systems Constitutional: PRESENT: as per HPI Eyes: PRESENT: as per HPI Cardiovascular: ABSENT: as per HPI, chest pain, dyspnea on exertion, edema, orthropnea, palpitations, other Respiratory: ABSENT: as per HPI, cough, dyspnea, hemoptysis, sputum, other Endocrine: PRESENT: as per HPI Physical Exam Vital Signs: Temp Pulse Resp BP Pulse Ox 99.0 F 161 H 31 H 105/74 99 09/10/20 08:00 09/10/20 10:00 09/10/20 10:00 09/10/20 10:00 09/10/20 10:00 Intake & Output 09/09/20 09/10/20 09/11/20 06:59 06:59 06:59 Intake Total 876 490 50 Output Total 300 400 0 Balance 576 90 50 Weight 109 kg 107.9 kg General appearance: PRESENT: no acute distress, cooperative, obese, well- developed, well-nourished Head exam: PRESENT: atraumatic, normocephalic Eye exam: PRESENT: conjunctiva pink, EOMI Mouth exam: PRESENT: moist Neck exam: PRESENT: thyromegaly Respiratory exam: PRESENT: clear to auscultation randa, symmetrical, unlabored Cardiovascular exam: PRESENT: irregular rhythm, +S1, +S2, systolic murmur Pulses: PRESENT: normal radial pulses GI/Abdominal exam: PRESENT: soft Rectal exam: PRESENT: deferred Neurological exam: PRESENT: alert, awake, oriented to person, oriented to place, oriented to time, oriented to situation Psychiatric exam: PRESENT: appropriate affect Skin exam: PRESENT: dry, intact, normal color Results Laboratory Results: 09/10/20 04:24 09/10/20 04:24 09/09/20 09/10/20 09/10/20 14:49 04:24 04:24 WBC 19.3 H RBC 4.21 Hgb 10.7 L Hct 32.6 L MCV 77 L MCH 25.4 L MCHC 32.8 RDW 16.0 H Plt Count 282 Sodium 135.9 L Potassium 3.9 Chloride 102 Carbon Dioxide 21 L Anion Gap 13 BUN 39 H Creatinine 1.29 H Est GFR ( Amer) 50 L Glucose 122 H Calcium 10.5 H Urine Color YELLOW Urine Appearance SLIGHTLY-CLOUDY Urine pH 5.0 Ur Specific [place] 1.027 Urine Protein 100 H Urine Glucose (UA) NEGATIVE Urine Ketones NEGATIVE Urine Blood SMALL H Urine Nitrite NEGATIVE Ur Leukocyte Esterase MODERATE H Urine WBC (Auto) 10 Urine RBC (Auto) 1 09/10/20 05:45 WBC RBC Hgb Hct MCV MCH MCHC RDW Plt Count Sodium Potassium Chloride Carbon Dioxide Anion Gap BUN Creatinine Est GFR ( Amer) Glucose Calcium Urine Color MARCUS Urine Appearance SLIGHTLY-CLOUDY Urine pH 5.0 Ur Specific [place] 1.050 Urine Protein 100 H Urine Glucose (UA) NEGATIVE Urine Ketones NEGATIVE Urine Blood LARGE H Urine Nitrite NEGATIVE Ur Leukocyte Esterase MODERATE H Urine WBC (Auto) 51 Urine RBC (Auto) 7 09/07/20 09/08/20 10:29 05:17 Troponin I < 0.012 < 0.012 EKG Comments: Telemetry shows A. fib with rapid ventricular response 150 to 160 bpm.Twelve- lead EKG 09/08/2020. 5:24 AM. A. fib with rapid ventricular response 141 bpm Twelve-lead EKG 01/17/2013 Sinus tachycardia 100 bpm, left atrial abnormality Cardiac troponin negative x2 Creatinine is 1.29 TSH is less than 0.01 Free T4 is 5.02 Impressions: Chest X-Ray 09/07/20 12:10 IMPRESSION: NO ACUTE RADIOGRAPHIC FINDING IN THE CHEST. Soft Tissue Neck CT 09/09/20 00:00 IMPRESSION: Stable multinodular goiter. No abscess. Assessment & Plan - Diagnosis (1) Atrial fibrillation with rapid ventricular response Is this a current diagnosis for this admission?: Yes Plan: Atrial fibrillation with rapid ventricular response. Difficult to treat es pecially with ongoing thyroid hyperactivity This needs to be addressed. In the interim only rate control measures are possible including use of beta- blockers and calcium channel blockers. This is limited on account of low blood pressure. Would recommend initiating saline bolus to bring up the blood pressure a little bit Would recommend intravenous digoxin use for additional AV terrence blockade toge ther with oral as well as intravenous beta-shweta or calcium channel shweta. Apparently esmolol was used which was not very effective. Would still recommend oral propranolol together with aliquots of metoprolol in small doses 2.5 mg to 5 mg every 3-4 hours as tolerated with attention to blood pressure. I suspect the combination of beta-blockers and digoxin may help. Given risk factors for stroke would recommend systemic anticoagulation with enoxaparin anticipating that she may need surgery. She does have risk factors for stroke including diabetes mellitus female sex. (2) Hyperthyroidism Is this a current diagnosis for this admission?: Yes Plan: ENT consultation has been requested Meanwhile propranolol and methimazole to be used Would consider endocrinology input and possibly use of Solu-Medrol as well as benzodiazepines.
--- NOTE | 2020-09-10 12:57 | PDOC CONSULTATION ---
Consultation Consult Date: 09/10/20 Provider Consulted: ART IZAGUIRRE History of Present Illness Admission Date/PCP: 09/07/20 13:03 ROYCE MORA History of Present Illness: Asked to evaluate this 64-year-old female with hyperthyroidism and multinodular goiter. Patient was admitted for tachycardia secondary to her hyperthyroidism. Her lab values at admission revealed a TSH of less than 0.01 and free T4 of 5.[address] scan of the neck was performed which revealed a large multinodular goiter with substernal extension. There was deviation of the trachea secondary to the goiter. Patient is currently on methimazole, but continues to have the tachycardia. Patient is followed by connie Gooden ndocrinologist in [place]. Asked to evaluate for a total thyroidectomy. Past Medical History Cardiac Medical History: Reports: Hyperlipidema, Hypertension Denies: Atrial Fibrillation, Congestive Heart Failure, Coronary Artery Disease, DVT, Myocardial Infarction, Peripheral Vascular Disease, Pulmonary Embolism, Heart Murmur Pulmonary Medical History: Denies: Asthma, Bronchitis, Chronic Obstructive Pulmonary Disease (COPD), In tubation, Pneumonia, Respiratory Failure, Sleep Apnea, Tuberculosis Endocrine Medical History: Reports: Diabetes Mellitus Type 2 - Non-insulin requiring, Hyperthyroidism Musculoskeltal Medical History: Denies: Arthritis Psychiatric Medical History: Denies: Attention Deficit Hyperactivity Disorder, Bipolar Disorder, Depr ession Hematology: Denies: Anemia Past Surgical History Past Surgical History: Reports: Cholecystectomy Social History Smoking Status: Never Smoker Frequency of Alcohol Use: None Hx Recreational Drug Use: No Drugs: None Hx Prescription Drug Abuse: No - Advance Directive Resuscitation Status: Full Code Family History Family History: Reviewed & Not Pertinent, DM, Hyperlipidemia, Hypertension Parental Family History Reviewed: No Children Family History Reviewed: No Sibling(s) Family History Reviewed.: No Medication/Allergy Home Medications: Aspirin [Ecotrin 81 mg EC Tablet] 81 mg PO DAILY 08/21/19 Atorvastatin Calcium [Lipitor 10 mg Tablet] 10 mg PO QHS 08/21/19 Losartan/Hydrochlorothiazide [Losartan-Hctz 50-12.5 mg Tab] 1 tab PO QAM 08/21/19 Metformin HCl [Metformin HCl ER] 500 mg PO BID 08/21/19 Methimazole [Tapazole] 10 mg PO BID #60 tablet 08/28/19 Propranolol HCl [Inderal 40 Mg Tablet] 80 mg PO BID #60 tablet 08/28/19 Multivitamin [Multiple Vitamins] 1 tab PO DAILY 09/07/20 Allergies/Adverse Reactions: No Known Allergies Allergy (Verified 08/21/19 11:25) Review of Systems Constitutional: ABSENT: as per HPI, anorexia, chills, fatigue, fever(s), headache(s), night sweats, weakness, weight gain, weight loss, other Cardiovascular: PRESENT: as per HPI Respiratory: ABSENT: as per HPI, cough, dyspnea, hemoptysis, sputum, other Physical Exam Vital Signs: Temp Pulse Resp BP Pulse Ox 99.0 F 161 H 31 H 93/59 L 100 09/10/20 10:00 09/10/20 10:00 09/10/20 12:22 09/10/20 12:22 09/10/20 12:21 Intake & Output 09/09/20 09/10/20 09/11/20 06:59 06:59 06:59 Intake Total 876 490 50 Output Total 300 400 0 Balance 576 90 50 Weight 109 kg 107.9 kg Exam: Neck: A large multinodular goiter with a prominent nodule in the isthmus. Oral cavity oropharynx: Normal Mouth exam: PRESENT: moist, tongue midline Throat exam: ABSENT: post pharyngeal erythema, tonsillar erythema, tonsillar exudate, tonsillogmegaly, other Respiratory exam: PRESENT: clear to auscultation randa. ABSENT: rales, rhonchi, wheezes Cardiovascular exam: PRESENT: tachycardia Results Laboratory Results: 09/10/20 04:24 09/10/20 04:24 09/09/20 09/10/20 09/10/20 14:49 04:24 04:24 WBC 19.3 H RBC 4.21 Hgb 10.7 L Hct 32.6 L MCV 77 L MCH 25.4 L MCHC 32.8 RDW 16.0 H Plt Count 282 Sodium 135.9 L Potassium 3.9 Chloride 102 Carbon Dioxide 21 L Anion Gap 13 BUN 39 H Creatinine 1.29 H Est GFR ( Amer) 50 L Glucose 122 H Calcium 10.5 H Urine Color YELLOW Urine Appearance SLIGHTLY-CLOUDY Urine pH 5.0 Ur Specific [place] 1.027 Urine Protein 100 H Urine Glucose (UA) NEGATIVE Urine Ketones NEGATIVE Urine Blood SMALL H Urine Nitrite NEGATIVE Ur Leukocyte Esterase MODERATE H Urine WBC (Auto) 10 Urine RBC (Auto) 1 09/10/20 05:45 WBC RBC Hgb Hct MCV MCH MCHC RDW Plt Count Sodium Potassium Chloride Carbon Dioxide Anion Gap BUN Creatinine Est GFR ( Amer) Glucose Calcium Urine Color MARCUS Urine Appearance SLIGHTLY-CLOUDY Urine pH 5.0 Ur Specific [place] 1.050 Urine Protein 100 H Urine Glucose (UA) NEGATIVE Urine Ketones NEGATIVE Urine Blood LARGE H Urine Nitrite NEGATIVE Ur Leukocyte Esterase MODERATE H Urine WBC (Auto) 51 Urine RBC (Auto) 7 09/07/20 09/08/20 10:29 05:17 Troponin I < 0.012 < 0.012 Impressions: Chest X-Ray 09/07/20 12:10 IMPRESSION: NO ACUTE RADIOGRAPHIC FINDING IN THE CHEST. Soft Tissue Neck CT 09/09/20 00:00 IMPRESSION: Stable multinodular goiter. No abscess. Assessment & Plan - Diagnosis (1) Atrial fibrillation with rapid ventricular response Is this a current diagnosis for this admission?: Yes (2) Hyperthyroidism Is this a current diagnosis for this admission?: Yes Plan: 1. The diagnosis and treatment plan were discussed with the patient and the ICU staff. 2. Recommend endocrinology consultation for management of the hyperthyroid crisis. 3. High risk for surgery at this time secondary to the hyperthyroid crisis. Concern for thyroid storm during surgery. 4. If unable to manage the patient's hyperthyroid crisis at this facility, recommend transfer to a tertiary care center. (3) Toxic multinodular goiter Is this a current diagnosis for this admission?: Yes Plan: Consider surgery once the hyperthyroid crisis has resolved and patient is stable and cleared for surgery. - Time Time Spent: 30 to 50 Minutes
[2020-09-10] MEDS ORDERED: HEPARIN SOD (PORCINE) 1,000 UNIT/ML 10 ML VIAL IV ONE (19:40)
--- NOTE | 2020-09-10 19:48 | PDOC CRITICAL CARE PROG REPORT ---
General Date:: 09/10/20 ICU Day:: 2 Hospital Day:: 3 Resuscitation Status: Full Code Events in the past 12 to 24 Hours:: 09/09/2020: Patient remains tachycardic despite esmolol, metoprolol, propranolol and atenolol. We have consulted cardiology for further instruction. I have reached out and left a message for her ENT doctor, Dr. Curiel. CT scan of her neck is pending. 09/10/2020: Patient comfortable today however despite esmolol drip, propranolol, atenolol and metoprolol, she still remains tachycardic. Consult from Dr. La, cardiology and from ENT appreciated today. Please see their respective notes for detail. I also reached out to the patient's airways operations specialist who recommended not transferring her. He stated that we were doing what was appropriate for her and suggested adding hydrocortisone 40 mg twice daily x4 days. Review of systems relevant to events:: ICU day: 2 Neuro: Patient is awake and alert with no neurologic deficits. Pulmonary: Patient is breathing comfortably. Breath sounds are clear to auscultation. No pulmonary issues at this time. Cardiovascular: Atrial fibrillation with rapid ventricular response which has now been chronic. Multiple beta-blockers have been initiated with no resolution. Consult with Dr. La appreciated. Please see note for detail. He recommends adding digoxin to help treat her tachycardia in combination with her beta-blockers. He also recommends systemic anticoagulation. Due to her elevated creatinine level, we will start a heparin drip. Tachycardia is secondary to her toxic multinodular goiter which has also been chronic. We have reached out to her ENT doctor who recommended a hospital transfer for access to endocrinology. I reached out to her airways operations specialist in order to begin the transfer process. The airways operations specialist said that we were doing the right thing here and that he had little more to add. He further said that a transfer would not be appropriate and that with some time on beta- blockers her tachycardia would subside. Heme: CBC is normal. No acute hematology issues. Renal: BUN/creatinine are within normal limits. Creatinine is mildly elevated this morning. Continue to follow closely. Gastrointestinal: Patient does complain of mild abdominal pain which seems worse when she is more tachycardic. Continue Zofran as needed for nausea. Diet: Patient can tolerate a regular diet. ID: No signs of active infection. Barriers to discharge from ICU: Persistent tachycardia. We will attempt steroids and digoxin as an adjunct therapy. Reason for ICU Addmission:: Tachycardia, likely related to hypothyroidism. - Medications: Medications reviewed and adjusted accordingly: Yes Physical Exam Vital Signs: Temp Pulse Resp BP Pulse Ox 97.7 F 72 37 H 107/63 100 09/10/20 16:00 09/10/20 18:00 09/10/20 18:22 09/10/20 18:22 09/10/20 18:22 Intake & Output 09/09/20 09/10/20 09/11/20 06:59 06:59 06:59 Intake Total 876 490 50 Output Total 300 400 200 Balance 576 90 -150 Weight 109 kg 107.9 kg Weight/Height Weight 107.9 kg Height 5 ft 5 in General appearance: PRESENT: no acute distress, well-developed Head exam: PRESENT: atraumatic, normocephalic Eye exam: PRESENT: EOMI, PERRLA Ear exam: PRESENT: normal external ear exam Mouth exam: PRESENT: dry mucosa Neck exam: PRESENT: full ROM, thyromegaly. ABSENT: carotid bruit, JVD Respiratory exam: PRESENT: clear to auscultation randa. ABSENT: accessory muscle use, rales, rhonchi, stridor, wheezes Cardiovascular exam: PRESENT: irregular rhythm, tachycardia Pulses: PRESENT: normal carotid pulses, normal radial pulses, normal femoral pulses Vascular exam: PRESENT: normal capillary refill GI/Abdominal exam: PRESENT: soft. ABSENT: tenderness Extremities exam: PRESENT: full ROM. ABSENT: calf tenderness, joint swelling Musculoskeletal exam: PRESENT: full ROM, normal inspection. ABSENT: tenderness Neurological exam: PRESENT: alert, altered, awake, oriented to person, oriented to place, oriented to time, oriented to situation, CN II-XII grossly intact Psychiatric exam: PRESENT: normal mood Skin exam: PRESENT: intact. ABSENT: skin tears Laboratory/Radiographs Laboratory Results: 09/10/20 04:24 09/10/20 04:24 09/10/20 09/10/20 09/10/20 04:24 04:24 05:45 WBC 19.3 H RBC 4.21 Hgb 10.7 L Hct 32.6 L MCV 77 L MCH 25.4 L MCHC 32.8 RDW 16.0 H Plt Count 282 Sodium 135.9 L Potassium 3.9 Chloride 102 Carbon Dioxide 21 L Anion Gap 13 BUN 39 H Creatinine 1.29 H Est GFR ( Amer) 50 L Glucose 122 H Calcium 10.5 H Urine Color MARCUS Urine Appearance SLIGHTLY-CLOUDY Urine pH 5.0 Ur Specific [place] 1.050 Urine Protein 100 H Urine Glucose (UA) NEGATIVE Urine Ketones NEGATIVE Urine Blood LARGE H Urine Nitrite NEGATIVE Ur Leukocyte Esterase MODERATE H Urine WBC (Auto) 51 Urine RBC (Auto) 7 09/07/20 09/08/20 10:29 05:17 Troponin I < 0.012 < 0.012 Impressions: Chest X-Ray 09/07/20 12:10 IMPRESSION: NO ACUTE RADIOGRAPHIC FINDING IN THE CHEST. Soft Tissue Neck CT 09/09/20 00:00 IMPRESSION: Stable multinodular goiter. No abscess. All labs, radiographs, diagnostic studies and EKGs were personally reviewed: Yes In addition, reports of radiographic and diagnostic studies were read: Yes Assessment and Plan - Diagnosis (1) Atrial fibrillation with rapid ventricular response Is this a current diagnosis for this admission?: Yes Plan: Atrial fibrillation with RVR, chronic. 1. Allergy consult appreciated 2. We will start digoxin as per cardiology, we will also start heparin for anticoagulation. (2) Hyperthyroidism Is this a current diagnosis for this admission?: Yes Plan: I have reached out to her airways operations specialist today who recommended beginning steroids. Continue methimazole We will continue beta-blockade and methimazole. (3) Toxic multinodular goiter Is this a current diagnosis for this admission?: Yes Plan: ENT recommended endocrinology consult which is not available at this hospital. I spoke with her airways operations specialist who advised that we were doing the right thing for her and that transfer was not necessary. We will continue methimazole, beta -blockade and steroids. Critical Time Critical Time (minutes): 68 Level of Care: ICU Anticipated discharge: Home Anticipated DC Timeframe: within 36 hours -: 1. The care of a critical patient is a dynamic process. This note is a admissions representative synopsis but static in nature. The timeframe for treatments given in order is not necessarily the actual time these treatments may have been done. 2. This patient requires critical care secondary to ongoing requirements for therapy not offered or safe outside the critical care environment. Transfer to a lower level of care will result in altered life or limb morbidity and mortality. 3. Multidisciplinary rounds completed. 4. ABCDE bundle addressed.
[2020-09-10 20:15] LABS: HEMATOCRIT 32.4 % (36.0-47.0); HEMOGLOBIN 10.6 g/dL (12.0-15.5); MEAN CORPUSCULAR HEMOGLOBIN 25.5 pg (27.0-33.4); MEAN CORPUSCULAR HGB CONC 32.7 g/dL (32.0-36.0); MEAN CORPUSCULAR VOLUME 78 fl (80-97); PLATELET COUNT 278 10^3/uL (150-450); RED BLOOD COUNT 4.15 10^6/uL (3.72-5.28); RED CELL DISTRIBUTION WIDTH 16.1 % (11.5-14.0); WHITE BLOOD COUNT 17.8 10^3/uL (4.0-10.5)
[2020-09-10 20:37] LABS: ABSOLUTE MONOCYTES # (MANUAL) 1.6 10^3/uL (0.1-1.4); BASOPHILS % (MANUAL) 0 % (0-2); EOSINOPHILS % (MANUAL) 0 % (0-6); LYMPHOCYTES % (MANUAL) 17 % (13-45); MONOCYTES % (MANUAL) 9 % (3-13); SEGMENTED NEUTROPHILS % (MAN) 74 % (42-78); TOTAL CELLS COUNTED 100
[2020-09-10 20:38] LABS: ANISOCYTOSIS 1+; HYPERSEGMENTED NEUTROPHILS PRESENT
[2020-09-10 20:41] LABS: PLATELET COMMENT ADEQUATE
[2020-09-10 20:43] LABS: OVALOCYTES SLIGHT; PLATELET CLUMPS PRESENT
[2020-09-10 20:45] LABS: INTERNATIONAL RATION (INR) 1.27; PROTHROMBIN TIME 16.1 SEC (11.4-15.4)
[2020-09-10] MEDS: ATORVASTATIN CALCIUM 10 MG TABLET PO SCH (21:20)
[2020-09-10] MEDS: HEPARIN SODIUM,PORCINE/D5W 25,000 UNIT/250 ML RTUINJ IV PRN (21:33)
[2020-09-11 04:30] LABS: HEMATOCRIT 31.9 % (36.0-47.0); HEMOGLOBIN 10.5 g/dL (12.0-15.5); MEAN CORPUSCULAR HEMOGLOBIN 25.5 pg (27.0-33.4); MEAN CORPUSCULAR HGB CONC 32.9 g/dL (32.0-36.0); MEAN CORPUSCULAR VOLUME 77 fl (80-97); PLATELET COUNT 282 10^3/uL (150-450); RED BLOOD COUNT 4.12 10^6/uL (3.72-5.28); RED CELL DISTRIBUTION WIDTH 15.9 % (11.5-14.0); WHITE BLOOD COUNT 16.1 10^3/uL (4.0-10.5)
[2020-09-11 04:31] LABS: ABSOLUTE LYMPHOCYTES# (MANUAL) 3.1 10^3/uL (0.5-4.7); ABSOLUTE MONOCYTES # (MANUAL) 1.8 10^3/uL (0.1-1.4); BASOPHILS % (MANUAL) 0 % (0-2); EOSINOPHILS % (MANUAL) 1 % (0-6); LYMPHOCYTES % (MANUAL) 19 % (13-45); MONOCYTES % (MANUAL) 11 % (3-13); SEGMENTED NEUTROPHILS % (MAN) 69 % (42-78); TOTAL CELLS COUNTED 100
[2020-09-11 04:32] LABS: ANISOCYTOSIS SLIGHT; HYPOCHROMASIA SLIGHT; PLATELET CLUMPS PRESENT; PLATELET COMMENT ADEQUATE; POLYCHROMASIA SLIGHT
[2020-09-11] MEDS: HEPARIN SOD (PORCINE) 1,000 UNIT/ML 10 ML VIAL IV PRN ×2 (05:38→13:40)
[2020-09-11] MEDS: METHIMAZOLE 5 MG TABLET PO SCH ×3 (05:41→21:20)
[2020-09-11] MEDS: ASPIRIN 81 MG TABLET, ENT COATED PO SCH (09:30)
[2020-09-11] MEDS: MULTIVITAMIN TABLET PO SCH (09:30)
[2020-09-11] MEDS: CEFTRIAXONE 2 GM/D5W RTU 2 GM/50 ML RTUPB IV SCH (09:31)
[2020-09-11] MEDS: PROPRANOLOL HCL 40 MG TABLET PO SCH ×2 (09:53→21:20)
[2020-09-11] MEDS: ATENOLOL 50 MG TABLET PO SCH ×2 (10:11→21:20)
--- NOTE | 2020-09-11 11:32 | PDOC PROGRESS REPORT ---
Subjective Date:: 09/11/20 Subjective:: Patient was seen and examined. She is very pleasant. No complaints today. She is sitting up in a chair. Telemetry shows atrial fibrillation rapid ventricular response at about 150 to 160 bpm. Blood pressure is low normal with systolic at 87 mmHg. ENT consultation has been performed. ENT are of the opinion that the patient cannot be operated until atrial fibrillation is adequately controlled in terms of his rate. Reason For Visit: HYPERTHYROIDISM,TACHYCARDIA Physical Exam Vital Signs: Temp Pulse Resp BP Pulse Ox 97.8 F 173 H 28 H 95/66 L 100 09/11/20 08:53 09/11/20 09:01 09/11/20 10:00 09/11/20 09:48 09/11/20 10:00 Intake & Output 09/10/20 09/11/20 09/12/20 06:59 06:59 06:59 Intake Total 490 130 100 Output Total 400 400 300 Balance 90 -270 -200 Weight 107.9 kg 112.5 kg General appearance: PRESENT: cooperative, well-developed Head exam: PRESENT: atraumatic, normocephalic Eye exam: PRESENT: EOMI Neck exam: PRESENT: thyromegaly Respiratory exam: PRESENT: clear to auscultation randa, symmetrical Cardiovascular exam: PRESENT: irregular rhythm, +S1 Pulses: PRESENT: normal radial pulses GI/Abdominal exam: PRESENT: soft Rectal exam: PRESENT: deferred Neurological exam: PRESENT: alert, awake, oriented to person, oriented to place, oriented to time, oriented to situation Psychiatric exam: PRESENT: appropriate affect Skin exam: PRESENT: dry, intact Results Laboratory Results: 09/11/20 03:46 09/10/20 04:24 09/10/20 09/11/20 20:00 03:46 WBC 17.8 H 16.1 H RBC 4.15 4.12 Hgb 10.6 L 10.5 L Hct 32.4 L 31.9 L MCV 78 L 77 L MCH 25.5 L 25.5 L MCHC 32.7 32.9 RDW 16.1 H 15.9 H Plt Count 278 282 Seg Neutrophils % Not Reportable Not Reportable 09/07/20 09/08/20 10:29 05:17 Troponin I < 0.012 < 0.012 Impressions: Chest X-Ray 09/07/20 12:10 IMPRESSION: NO ACUTE RADIOGRAPHIC FINDING IN THE CHEST. Soft Tissue Neck CT 09/09/20 00:00 IMPRESSION: Stable multinodular goiter. No abscess. Assessment & Plan - Diagnosis (1) Atrial fibrillation with rapid ventricular response Is this a current diagnosis for this admission?: Yes Plan: Atrial fibrillation rapid ventricular response This is in response to hypothyroid crisis I doubt atrial fibrillation can be adequately treated or controlled in the current context Patient has had none satisfactory response to rate control measures. Nevertheless would persist with intravenous beta-shweta as well as intravenous digoxin for better rate control. I doubt that the rate can be adequately optimized without addressing the thyroid situation. Because of age and sex she has risk factors for stroke and systemic anticoagulation would be ideal -parental is preferred. (2) Hyperthyroidism Is this a current diagnosis for this admission?: Yes Plan: Endocrinology input. Beta-blockade Steroids Antithyroid medications
[2020-09-11] MEDS: HEPARIN SODIUM,PORCINE/D5W 25,000 UNIT/250 ML RTUINJ IV PRN (15:57)
--- NOTE | 2020-09-11 16:15 | PDOC CRITICAL CARE PROG REPORT ---
General Date:: 09/11/20 ICU Day:: 3 Hospital Day:: 4 Resuscitation Status: Full Code Events in the past 12 to 24 Hours:: 09/09/2020: Patient remains tachycardic despite esmolol, metoprolol, propranolol and atenolol. We have consulted cardiology for further instruction. I have reached out and left a message for her ENT doctor, Dr. Curiel. CT scan of her neck is pending. 09/10/2020: Patient comfortable today however despite esmolol drip, propranolol, atenolol and metoprolol, she still remains tachycardic. Consult from Dr. La, cardiology and from ENT appreciated today. Please see their respective notes for detail. I also reached out to the patient's supervisor sunglasses who recommended not transferring her. He stated that we were doing what was appropriate for her and suggested adding hydrocortisone 40 mg twice daily x4 days. 09/11/20: Surgical consult placed. Patient remains comfortable however still tachycardic. Review of systems relevant to events:: ICU day: 3 Neuro: Patient is awake and alert with no neurologic deficits. Pulmonary: Patient is breathing comfortably. Breath sounds are clear to auscultation. No pulmonary issues at this time. Cardiovascular: Atrial fibrillation with rapid ventricular response which has now been chronic. Multiple beta-blockers have been initiated with no resolution. Consult with Dr. La appreciated. Please see note for detail. Digoxin started as per cardiology recommendations. Surgical consult placed. Heme: CBC is normal. No acute hematology issues. Renal: BUN/creatinine are within normal limits. Creatinine is mildly elevated this morning. Continue to follow closely. Gastrointestinal: Patient does complain of mild abdominal pain which seems worse when she is more tachycardic. Continue Zofran as needed for nausea. Diet: Patient can tolerate a regular diet. ID: No signs of active infection. Barriers to discharge from ICU: Persistent tachycardia. Reason for ICU Addmission:: Tachycardia, likely related to hypothyroidism. - Medications: Medications reviewed and adjusted accordingly: Yes Physical Exam Vital Signs: Temp Pulse Resp BP Pulse Ox 97.8 F 154 H 28 H 81/67 L 100 09/11/20 12:00 09/11/20 14:00 09/11/20 14:46 09/11/20 14:46 09/11/20 14:46 Intake & Output 09/10/20 09/11/2009/12/20 06:59 06:59 06:59 Intake Total 490 130 215 Output Total 400 400 300 Balance 90 -270 -85 Weight 107.9 kg 112.5 kg Weight/Height Weight 112.5 kg Height 5 ft 5 in General appearance: PRESENT: no acute distress Head exam: PRESENT: atraumatic, normocephalic Eye exam: PRESENT: EOMI, PERRLA Ear exam: PRESENT: normal external ear exam Mouth exam: PRESENT: moist Neck exam: PRESENT: full ROM, thyromegaly. ABSENT: JVD Respiratory exam: PRESENT: clear to auscultation randa, unlabored. ABSENT: accessory muscle use, rales, rhonchi, tachypnea, wheezes Cardiovascular exam: PRESENT: irregular rhythm, tachycardia Pulses: PRESENT: normal carotid pulses, normal radial pulses, normal dorsalis pedis pul Vascular exam: PRESENT: normal capillary refill GI/Abdominal exam: PRESENT: normal bowel sounds, soft. ABSENT: tenderness Extremities exam: PRESENT: full ROM. ABSENT: pedal edema Musculoskeletal exam: PRESENT: full ROM, normal inspection Neurological exam: PRESENT: alert, altered, awake, oriented to person, oriented to place, oriented to time, oriented to situation, CN II-XII grossly intact Psychiatric exam: PRESENT: appropriate affect Skin exam: PRESENT: intact, normal color, warm Laboratory/Radiographs Laboratory Results: 09/11/20 03:46 09/10/20 04:24 09/10/20 09/11/20 20:00 03:46 WBC 17.8 H 16.1 H RBC 4.15 4.12 Hgb 10.6 L 10.5 L Hct 32.4 L 31.9 L MCV 78 L 77 L MCH 25.5 L 25.5 L MCHC 32.7 32.9 RDW 16.1 H 15.9 H Plt Count 278 282 Seg Neutrophils % Not Reportable Not Reportable 09/07/20 09/08/20 10:29 05:17 Troponin I < 0.012 < 0.012 Impressions: Chest X-Ray 09/07/20 12:10 IMPRESSION: NO ACUTE RADIOGRAPHIC FINDING IN THE CHEST. Soft Tissue Neck CT 09/09/20 00:00 IMPRESSION: Stable multinodular goiter. No abscess. All labs, radiographs, diagnostic studies and EKGs were personally reviewed: Yes In addition, reports of radiographic and diagnostic studies were read: Yes Assessment and Plan - Diagnosis (1) Atrial fibrillation with rapid ventricular response Is this a current diagnosis for this admission?: Yes Plan: Atrial fibrillation with RVR, chronic. 1. Cardiology consult appreciated 2. Digoxin and heparin started as per cardiology recommendations.. (2) Hyperthyroidism Is this a current diagnosis for this admission?: Yes Plan: I have reached out to her supervisor sunglasses today who recommended beginning steroids. Continue methimazole We will continue beta-blockade and methimazole. We will also add steroids today. (3) Toxic multinodular goiter Is this a current diagnosis for this admission?: Yes Plan: Continue methimazole Surgery consulted. Initiate steroids. Critical Time Critical Time (minutes): 40 Level of Care: ICU Anticipated discharge: Home Anticipated DC Timeframe: within 48 hours -: 1. The care of a critical patient is a dynamic process. This note is a automobile sales representative synopsis but static in nature. The timeframe for treatments given in order is not necessarily the actual time these treatments may have been done. 2. This patient requires critical care secondary to ongoing requirements for therapy not offered or safe outside the critical care environment. Transfer to a lower level of care will result in altered life or limb morbidity and mortality. 3. Multidisciplinary rounds completed. 4. ABCDE bundle addressed.
[2020-09-11] MEDS: DIGOXIN 0.05 MG/ML SOLN 60 ML PO SCH (17:54)
[2020-09-11] MEDS ORDERED: HYDROCORTISONE 10 MG TABLET ONE ×2 (18:14→18:15)
[2020-09-11] MEDS: HYDROCORTISONE 10 MG TABLET PO SCH (18:22)
[2020-09-11] MEDS: ATORVASTATIN CALCIUM 10 MG TABLET PO SCH (21:20)
[2020-09-12] MEDS ORDERED: HEPARIN SODIUM,PORCINE/D5W 25,000 UNIT/250 ML RTUINJ IV ONE (03:20)
[2020-09-12] MEDS: METHIMAZOLE 5 MG TABLET PO SCH ×3 (05:43→21:18)
[2020-09-12] MEDS: HEPARIN SODIUM,PORCINE/D5W 25,000 UNIT/250 ML RTUINJ IV PRN ×2 (05:44→18:24)
[2020-09-12] MEDS: MULTIVITAMIN TABLET PO SCH (09:15)
[2020-09-12] MEDS: PROPRANOLOL HCL 40 MG TABLET PO SCH ×2 (09:15→21:10)
[2020-09-12] MEDS: HYDROCORTISONE 10 MG TABLET PO SCH ×2 (09:16→18:06)
[2020-09-12] MEDS: ASPIRIN 81 MG TABLET, ENT COATED PO SCH (09:16)
[2020-09-12] MEDS: ATENOLOL 50 MG TABLET PO SCH ×2 (09:16→21:18)
[2020-09-12] MEDS: CEFTRIAXONE 2 GM/D5W RTU 2 GM/50 ML RTUPB IV SCH (09:17)
[2020-09-12] MEDS: DIGOXIN 0.05 MG/ML SOLN 60 ML PO SCH (09:18)
--- NOTE | 2020-09-12 17:11 | PDOC CRITICAL CARE PROG REPORT ---
General Date:: 09/12/20 ICU Day:: 4 Hospital Day:: 5 Resuscitation Status: Full Code Events in the past 12 to 24 Hours:: Still with uncontrolled but asymptomatic RVR Review of systems relevant to events:: CV, Endocrine Reason for ICU Addmission:: Uncontrolled atrial fibrillattion. Tachycardia, likely related to hypothyroidism. - Medications: Medications reviewed and adjusted accordingly: Yes Vasopressors:: None Sedation:: None Physical Exam Vital Signs: Temp Pulse Resp BP Pulse Ox 97.9 F 149 H 29 H 98/66 L 97 09/12/20 16:00 09/12/20 16:00 09/12/20 16:00 09/12/20 16:00 09/12/20 16:00 Intake & Output 09/11/20 09/12/20 09/13/20 06:59 06:59 06:59 Intake Total 130 1118 350 Output Total 400 1250 450 Balance -270 -132 -100 Weight 112.5 kg 112.4 kg Weight/Height Weight 112.4 kg Height 5 ft 5 in General appearance: PRESENT: no acute distress, cooperative Head exam: PRESENT: atraumatic, normocephalic Eye exam: PRESENT: conjunctiva pink, EOMI, PERRLA. ABSENT: scleral icterus Ear exam: PRESENT: normal external ear exam Mouth exam: PRESENT: moist, tongue midline Neck exam: PRESENT: thyromegaly Respiratory exam: PRESENT: clear to auscultation randa. ABSENT: rales, rhonchi, wheezes Cardiovascular exam: PRESENT: irregular rhythm, tachycardia GI/Abdominal exam: PRESENT: normal bowel sounds, soft. ABSENT: distended, guarding, mass, organolmegaly, rebound, tenderness Rectal exam: PRESENT: deferred Extremities exam: PRESENT: full ROM. ABSENT: calf tenderness, clubbing, pedal edema Musculoskeletal exam: PRESENT: normal inspection Neurological exam: PRESENT: alert, awake, oriented to person, oriented to place, oriented to time, oriented to situation, CN II-XII grossly intact. ABSENT: motor sensory deficit Psychiatric exam: PRESENT: appropriate affect, normal mood. ABSENT: homicidal ideation, suicidal ideation Laboratory/Radiographs Laboratory Results: 09/11/20 03:46 09/10/20 04:24 09/07/20 09/08/20 10:29 05:17 Troponin I < 0.012 < 0.012 Impressions: Chest X-Ray 09/07/20 12:10 IMPRESSION: NO ACUTE RADIOGRAPHIC FINDING IN THE CHEST. Soft Tissue Neck CT 09/09/20 00:00 IMPRESSION: Stable multinodular goiter. No abscess. EKG: Atrial fibrillation between 140-160 beats/minute. All labs, radiographs, diagnostic studies and EKGs were personally reviewed: Yes In addition, reports of radiographic and diagnostic studies were read: Yes Assessment and Plan - Diagnosis (1) Atrial fibrillation with rapid ventricular response Is this a current diagnosis for this admission?: Yes Plan: We have tried multiple beta blockers and have had no success. Consultation with Dr. La and phone advice fro Dr. Lao suggests she be seen by a surgeon for surgical removal of goiter. Also on steroids and methimizole (2) Hyperthyroidism Is this a current diagnosis for this admission?: Yes Plan: As above, need thyroidectomy (3) Toxic multinodular goiter Is this a current diagnosis for this admission?: Yes Plan: As above (4) Type 2 diabetes mellitus treated without insulin Is this a current diagnosis for this admission?: Yes Plan: Controlled Plan Summary: Keep in ICU because of her HR. Dr Winters to see in AM. Critical Time Critical Time (minutes): 35 Level of Care: ICU Anticipated discharge: Home Anticipated DC Timeframe: Other -: 1. The care of a critical patient is a dynamic process. This note is a fulfillment representative synopsis but static in nature. The timeframe for treatments given in order is not necessarily the actual time these treatments may have been done. 2. This patient requires critical care secondary to ongoing requirements for therapy not offered or safe outside the critical care environment. Transfer to a lower level of care will result in altered life or limb morbidity and mortality. 3. Multidisciplinary rounds completed. 4. ABCDE bundle addressed.
[2020-09-12] MEDS: ATORVASTATIN CALCIUM 10 MG TABLET PO SCH (21:18)
[2020-09-13] MEDS: METHIMAZOLE 5 MG TABLET PO SCH ×3 (05:15→21:32)
[2020-09-13] MEDS ORDERED: HEPARIN SODIUM,PORCINE/D5W 25,000 UNIT/250 ML RTUINJ IV ONE (06:16)
[2020-09-13] MEDS: HEPARIN SODIUM,PORCINE/D5W 25,000 UNIT/250 ML RTUINJ IV PRN ×2 (06:50→20:38)
[2020-09-13] MEDS: HEPARIN SOD (PORCINE) 1,000 UNIT/ML 10 ML VIAL IV PRN (08:16)
[2020-09-13 08:56] LABS: APPEARANCE,URINE CLEAR; BILIRUBIN,URINE NEGATIVE (NEGATIVE); COLOR,URINE YELLOW; GLUCOSE, URINE NEGATIVE (NEGATIVE); KETONES,URINE NEGATIVE (NEGATIVE); LEUKOCYTE ESTERASE,URINE NEGATIVE (NEGATIVE); NITRITE,URINE NEGATIVE (NEGATIVE); PROTEIN,URINE NEGATIVE (NEGATIVE); URINE SPECIFIC GRAVITY 1.011; UROBILINOGEN,URINE NEGATIVE mg/dL (<2.0)
[2020-09-13] MEDS: ASPIRIN 81 MG TABLET, ENT COATED PO SCH (09:42)
[2020-09-13] MEDS: CEFTRIAXONE 2 GM/D5W RTU 2 GM/50 ML RTUPB IV SCH (09:43)
[2020-09-13] MEDS: ATENOLOL 50 MG TABLET PO SCH ×2 (09:43→21:32)
[2020-09-13] MEDS: PROPRANOLOL HCL 40 MG TABLET PO SCH ×2 (09:43→21:32)
[2020-09-13] MEDS: DIGOXIN 0.05 MG/ML SOLN 60 ML PO SCH (09:43)
[2020-09-13] MEDS: HYDROCORTISONE 10 MG TABLET PO SCH ×2 (09:43→18:13)
[2020-09-13] MEDS: MULTIVITAMIN TABLET PO SCH (09:43)
[2020-09-13] MEDS: ATORVASTATIN CALCIUM 10 MG TABLET PO SCH (21:32)
[2020-09-14] MEDS: METHIMAZOLE 5 MG TABLET PO SCH ×4 (05:31→23:34)
[2020-09-14 09:19] LABS: HEMATOCRIT 32.3 % (36.0-47.0); HEMOGLOBIN 10.6 g/dL (12.0-15.5); MEAN CORPUSCULAR HEMOGLOBIN 25.6 pg (27.0-33.4); MEAN CORPUSCULAR HGB CONC 32.8 g/dL (32.0-36.0); MEAN CORPUSCULAR VOLUME 78 fl (80-97); PLATELET COUNT 309 10^3/uL (150-450); RED BLOOD COUNT 4.13 10^6/uL (3.72-5.28); WHITE BLOOD COUNT 11.6 10^3/uL (4.0-10.5)
[2020-09-14] MEDS: HEPARIN SODIUM,PORCINE/D5W 25,000 UNIT/250 ML RTUINJ IV PRN (09:47)
[2020-09-14] MEDS: MULTIVITAMIN TABLET PO SCH (09:49)
[2020-09-14] MEDS: ATENOLOL 50 MG TABLET PO SCH ×2 (09:49→21:23)
[2020-09-14] MEDS: ASPIRIN 81 MG TABLET, ENT COATED PO SCH (09:49)
[2020-09-14] MEDS: DIGOXIN 0.05 MG/ML SOLN 60 ML PO SCH (09:50)
[2020-09-14 09:57] LABS: ANION GAP 8 (5-19); BLOOD UREA NITROGEN 40 mg/dL (7-20); CALCIUM 9.8 mg/dL (8.4-10.2); CARBON DIOXIDE 27 mmol/L (22-30); CHLORIDE 103 mmol/L (98-107); GLUCOSE 121 mg/dL (75-110); POTASSIUM 3.2 mmol/L (3.6-5.0)
[2020-09-14] MEDS ORDERED: POTASSIUM CHLORIDE 10 MEQ TABLET.ER PO ONE (12:22)
--- NOTE | 2020-09-14 12:30 | PDOC CRITICAL CARE PROG REPORT ---
General Date:: 09/14/20 ICU Day:: 6 Hospital Day:: 7 Resuscitation Status: Full Code Events in the past 12 to 24 Hours:: Still with uncontrolled but asymptomatic RVR 09/14 The patient had a heart rate in the 120-130 range yesterday. It is the same situation today. The patient feels fine otherwise. it appears that surgery is reluctant to operate on the patieny given her still rapid heart rate. they are concerned that manipulation of the gland can lead to dangerous circumstances during or perioperatively. Reason for ICU Addmission:: Uncontrolled atrial fibrillattion. Tachycardia, likely related to hypothyroidism. Physical Exam Vital Signs: Temp Pulse Resp BP Pulse Ox 97.7 F 118 H 25 H 107/87 H 100 09/14/20 10:00 09/14/20 10:00 09/14/20 10:09 09/14/20 10:09 09/14/20 10:09 Intake & Output 09/13/20 09/14/20 09/15/20 06:59 06:59 06:59 Intake Total 824 400 81 Output Total 1450 1450 200 Balance -626 -1050 -119 Weight 114.6 kg 113 kg Weight/Height Weight 113 kg Height 5 ft 5 in Laboratory/Radiographs Laboratory Results: 09/14/20 08:58 09/14/20 08:58 09/14/20 09/14/20 08:58 08:58 WBC 11.6 H RBC 4.13 Hgb 10.6 L Hct 32.3 L MCV 78 L MCH 25.6 L MCHC 32.8 RDW 16.0 H Plt Count 309 Sodium 138.1 Potassium 3.2 L Chloride 103 Carbon Dioxide 27 Anion Gap 8 BUN 40 H Creatinine 1.14 Est GFR ( Amer) 58 L Glucose 121 H Calcium 9.8 Magnesium 2.5 H 09/07/20 09/08/20 10:29 05:17 Troponin I < 0.012 < 0.012 Impressions: Chest X-Ray 09/07/20 12:10 IMPRESSION: NO ACUTE RADIOGRAPHIC FINDING IN THE CHEST. Soft Tissue Neck CT 09/09/20 00:00 IMPRESSION: Stable multinodular goiter. No abscess. Assessment and Plan - Diagnosis (1) Atrial fibrillation with rapid ventricular response Is this a current diagnosis for this admission?: Yes Plan: We have tried multiple beta blockers and have had no success. Consultation with Dr. La and phone advice fro Dr. Lao suggests she be seen by a surgeon for surgical removal of goiter. Also on steroids and methimizole. 09/14 The patient is running heart rates of about 110-130. She is fairly asym ptomatic. I have increased her dose of Inderal. She remains on digoxin and atenolol as well. (2) Hyperthyroidism Is this a current diagnosis for this admission?: Yes Plan: As above, need thyroidectomy. 09/14 Surgery as noted does not want to operate until thepatient's sympathetic output is controlled including her heart rate. I discussed the issue briefly with Dr Alfred this AM. I have increased her dose of methimazole to 80mg a day and Inderal to a totla of 240mg a day. Critical Time Critical Time (minutes): 30 Level of Care: ICU -: 1. The care of a critical patient is a dynamic process. This note is a agency sales representative synopsis but static in nature. The timeframe for treatments given in order is not necessarily the actual time these treatments may have been done. 2. This patient requires critical care secondary to ongoing requirements for therapy not offered or safe outside the critical care environment. Transfer to a lower level of care will result in altered life or limb morbidity and mortality. 3. Multidisciplinary rounds completed. 4. ABCDE bundle addressed.
[2020-09-14] MEDS: PROPRANOLOL HCL 40 MG TABLET PO SCH ×2 (13:52→21:21)
[2020-09-14] MEDS: HYDROCORTISONE 10 MG TABLET PO SCH (21:22)
[2020-09-14] MEDS: ATORVASTATIN CALCIUM 10 MG TABLET PO SCH (21:23)
[2020-09-15] MEDS: HEPARIN SODIUM,PORCINE/D5W 25,000 UNIT/250 ML RTUINJ IV PRN ×2 (01:46→14:45)
[2020-09-15] MEDS: PROPRANOLOL HCL 40 MG TABLET PO SCH ×3 (05:38→21:09)
[2020-09-15] MEDS: METHIMAZOLE 5 MG TABLET PO SCH ×3 (05:38→18:09)
[2020-09-15 08:09] LABS: APPEARANCE,URINE SLIGHTLY-CLOUDY; BILIRUBIN,URINE NEGATIVE (NEGATIVE); COLOR,URINE YELLOW; GLUCOSE, URINE NEGATIVE (NEGATIVE); KETONES,URINE NEGATIVE (NEGATIVE); LEUKOCYTE ESTERASE,URINE NEGATIVE (NEGATIVE); NITRITE,URINE NEGATIVE (NEGATIVE); PROTEIN,URINE NEGATIVE (NEGATIVE); UROBILINOGEN,URINE NEGATIVE mg/dL (<2.0)
--- NOTE | 2020-09-15 09:13 | Durable Medical Equipment ---
Patient Information Patient Information: Name: TERE Rowe BEAN Age:65 Address:[address] [place] [address] Ordering Provider KOBE LANCASTER RN Home Oxygen - Oxygen Order Oxygen Order: Nasal Cannula Oxygen settings: 2l - O2 Saturation O2 Sats on Room Air at rest (%): 83 O2 Sats on O2 at rest (%): 94 O2 sats ambulation without O2 (%): 88 O2 sats ambulation with O2 (%): 80 O2 (liters): 2
[2020-09-15] MEDS: ATENOLOL 50 MG TABLET PO SCH (10:33)
[2020-09-15] MEDS: MULTIVITAMIN TABLET PO SCH (10:34)
[2020-09-15] MEDS: ASPIRIN 81 MG TABLET, ENT COATED PO SCH (10:34)
[2020-09-15] MEDS: DIGOXIN 0.05 MG/ML SOLN 60 ML PO SCH (10:35)
[2020-09-15 11:03] LABS: ANION GAP 9 (5-19); BLOOD UREA NITROGEN 29 mg/dL (7-20); CALCIUM 9.8 mg/dL (8.4-10.2); CARBON DIOXIDE 26 mmol/L (22-30); CHLORIDE 105 mmol/L (98-107); GLUCOSE 98 mg/dL (75-110); POTASSIUM 3.9 mmol/L (3.6-5.0)
[2020-09-15] MEDS ORDERED: DIGOXIN INJ 0.5 MG/2 ML AMPULE ONE (11:11)
[2020-09-15] MEDS: DIGOXIN INJ 0.5 MG/2 ML AMPULE IV SCH (11:22)
--- NOTE | 2020-09-15 16:29 | PDOC CRITICAL CARE PROG REPORT ---
General Date:: 09/04/20 ICU Day:: 7 Ventilator Day:: 8 Hospital Day:: 8 Resuscitation Status: Full Code Events in the past 12 to 24 Hours:: Still with uncontrolled but asymptomatic RVR 09/14 The patient had a heart rate in the 120-130 range yesterday. It is the same situation today. The patient feels fine otherwise. it appears that surgery is reluctant to operate on the patient given her still rapid heart rate. They are concerned that manipulation of the gland can lead to dangerous circumstances during or perioperatively. 09/15 The patient is feeling relatively well. Her heart rate is Atrial fib 110-125. I spoke to Dr Argueta covering for Dr. La I told him I bleieved thepatient may be a good candidated for cardioversionnow that she has been on antithyroid meds and high dose Beta blockers for several d ays. The patient meme amaroenn anticoagulated with heparin as well. He says he will see the patient tomporrow in follow-up. After that hopefuly we can arrange [place] with cardoversion. I explained this to the patient and she appears to be ok with this plan and i answered her questions. Reason for ICU Addmission:: Uncontrolled atrial fibrillattion. Tachycardia, likely related to hypothyroidism. Physical Exam Vital Signs: Temp Pulse Resp BP Pulse Ox 97.7 F 103 H 29 H 118/82 100 09/15/20 12:00 09/15/20 12:00 09/15/20 14:19 09/15/20 14:19 09/15/20 14:19 Intake & Output 09/14/20 09/15/20 09/16/20 06:59 06:59 06:59 Intake Total 400 1311 217 Output Total 1450 1300 0 Balance -1050 11 217 Weight 113 kg 112.8 kg Weight/Height Weight 112.8 kg Height 5 ft 5 in Laboratory/Radiographs Laboratory Results: 09/14/20 08:58 09/15/20 10:05 09/15/20 09/15/20 05:40 10:05 Sodium 140.2 Potassium 3.9 Chloride 105 Carbon Dioxide 26 Anion Gap 9 BUN 29 H Creatinine 1.01 Est GFR ( Amer) > 60 Glucose 98 Calcium 9.8 Magnesium 2.6 H Urine Color YELLOW Urine Appearance SLIGHTLY-CLOUDY Urine pH 6.0 Ur Specific [place] 1.010 Urine Protein NEGATIVE Urine Glucose (UA) NEGATIVE Urine Ketones NEGATIVE Urine Blood LARGE H Urine Nitrite NEGATIVE Ur Leukocyte Esterase NEGATIVE Urine WBC (Auto) 3 Urine RBC (Auto) 31 09/07/20 09/08/20 10:29 05:17 Troponin I < 0.012 < 0.012 Impressions: Chest X-Ray 09/07/20 12:10 IMPRESSION: NO ACUTE RADIOGRAPHIC FINDING IN THE CHEST. Soft Tissue Neck CT 09/09/20 00:00 IMPRESSION: Stable multinodular goiter. No abscess. Assessment and Plan - Diagnosis (1) Atrial fibrillation with rapid ventricular response Is this a current diagnosis for this admission?: Yes Plan: We have tried multiple beta blockers and have had no success. Consultation with Dr. La and phone advice fro Dr. Lao suggests she be seen by a surgeon for surgical removal of goiter. Also on steroids and methimizole. 09/14 The patient is running heart rates of about 110-130. She is fairly as ymptomatic. I have increased her dose of Inderal. She remains on digoxin and atenolol as well. 09/15 To have cardioology reassesss patienjt. Likely to need endoscopic US and cardioversion perhaps as soon as tomorrow. Dr Barber does not beleieve the hyperthyroid state after all her medication should be a major impediment t successful cardioversion. (2) Hyperthyroidism Is this a current diagnosis for this admission?: Yes Plan: As above, need thyroidectomy. 09/14 Surgery as noted does not want to operate until thepatient's sympathetic output is controlled including her heart rate. I discussed the issue briefly with Dr Alfred this AM. I have increased her dose of methimazole to 80mg a day and Inderal to a totla of 240mg a day. 09/15 last T4 just over 5. Will repat levels in several days. I increased dose of Methimazole yesterday to 20mg 4x a day. Critical Time Critical Time (minutes): 30 Level of Care: ICU -: 1. The care of a critical patient is a dynamic process. This note is a call center representative synopsis but static in nature. The timeframe for treatments given in order is not necessarily the actual time these treatments may have been done. 2. This patient requires critical care secondary to ongoing requirements for therapy not offered or safe outside the critical care environment. Transfer to a lower level of care will result in altered life or limb morbidity and mortality. 3. Multidisciplinary rounds completed. 4. ABCDE bundle addressed.
[2020-09-15] MEDS: HYDROCORTISONE 10 MG TABLET PO SCH (21:09)
[2020-09-15] MEDS: ATORVASTATIN CALCIUM 10 MG TABLET PO SCH (21:10)
[2020-09-16] MEDS: METHIMAZOLE 5 MG TABLET PO SCH ×3 (00:28→12:32)
[2020-09-16] MEDS: PROPRANOLOL HCL 40 MG TABLET PO SCH (07:00)
--- NOTE | 2020-09-16 07:37 | PDOC CONSULTATION ---
Consultation Consult Date: 09/16/20 Attending physician:: JONNY RAO Provider Consulted: GARRY PALMA Consult reason:: Rapid a-fib History of Present Illness Admission Date/PCP: 09/07/20 13:03 ROYCE MORA History of Present Illness: TERE BEAN is a 65 year old female with history of obesity, type 2 diabetes, paroxysmal atrial fibrillation, hypertension, hyperlipidemia, hypothyroidism who is reconsulted to our service for further recommendations regarding her atrial fibrillation with rapid ventricular response. A review of her chart demonstrates that she was admitted to this facility on 08/21/2019 with a similar presentation when she came to the emergency room with complaints of palpitations. At that time she was found to be in rapid atrial fibrillation which was difficult to control. At that time she was found to have a suppressed TSH and elevated free T4 and T3. Her case was eventually consulted to endocrinology and cardiology at [facility] and thyroid storm was ruled out. Her heart rate became controlled and eventually she was discharged. She had been doing well until March this year when, per chart review, her outpatient carver hand discontinued methimazole and propranolol at which time she began having palpitations a few weeks later. She presented to our facility on 09/07/2020 with palpitations and rapid heart rates. In the emergency room she was found to be in rapid atrial fibrillation with heart rates close to 200 bpm. She was eventually admitted to the intensive care unit where her heart rate had been very resistant to different AV terrence agents. She was restarted on methimazole and eventually was placed on propranolol and digoxin with improvement in her tachycardia. She has remained hemodynamically stable throughout her stay in the intensive care unit. This morning she denies chest pain, shortness of breath, COOK, PND, orthopnea. She also denies any prior history of coronary artery disease or ischemic heart disease. She is currently on a heparin drip. Physical exam on 09/16/2020: GENERAL: Obese. Pleasant and conversational. Oriented x3 with normal mood. Not in acute distress. Well groomed and well developed. HEENT: Normocephalic, atraumatic. Pupils equal. Sclerae anicteric. Oropharynx moist. NECK: No JVD. No carotid bruits. LUNGS: Clear to auscultation bilaterally. Normal respiratory effort without the use of accessory muscles or intercostal retractions. CARDIOVASCULAR: Mildly tachycardic, irregularly irregular rate and rhythm, no murmurs, rubs, or gallops. PMI not displaced. ABDOMEN: No masses or tenderness to palpation. No bruit. No splenomegaly or hepatomegaly. No abdominal aorta bruit noted. EXTREMITIES: 1+ pitting edema bilaterally, no cyanosis, no clubbing. +2 pulses femoral and pedal pulses bilaterally. SKIN: No lesions or rashes. MUSCULOSKELETAL: No chest tenderness to palpation. NEUROLOGIC: Nonfocal. No gross sensory or motor deficits bilateral upper or lower extremities. Past Medical History Cardiac Medical History: Reports: Hyperlipidema, Hypertension Denies: Atrial Fibrillation, Congestive Heart Failure, Coronary Artery Disease, DVT, Myocardial Infarction, Peripheral Vascular Disease, Pulmonary Embolism, Heart Murmur Pulmonary Medical History: Denies: Asthma, Bronchitis, Chronic Obstructive Pulmonary Disease (COPD), Intubation, Pneumonia, Respiratory Failure, Sleep Apnea, Tuberculosis Endocrine Medical History: Reports: Diabetes Mellitus Type 2 - Non-insulin requiring, Hyperthyroidism Musculoskeltal Medical History: Denies: Arthritis Psychiatric Medical History: Denies: Attention Deficit Hyperactivity Disorder, Bipolar Disorder, Depression Hematology: Denies: Anemia Past Surgical History Past Surgical History: Reports: Cholecystectomy Social History Smoking Status: Never Smoker Frequency of Alcohol Use: None Hx Recreational Drug Use: No Drugs: None Hx Prescription Drug Abuse: No - Advance Directive Resuscitation Status: Full Code Family History Family History: Reviewed & Not Pertinent, DM, Hyperlipidemia, Hypertension Parental Family History Reviewed: Yes Children Family History Reviewed: Yes Sibling(s) Family History Reviewed.: Yes Medication/Allergy Home Medications: Aspirin [Ecotrin 81 mg EC Tablet] 81 mg PO DAILY 08/21/19 Atorvastatin Calcium [Lipitor 10 mg Tablet] 10 mg PO QHS 08/21/19 Losartan/Hydrochlorothiazide [Losartan-Hctz 50-12.5 mg Tab] 1 tab PO QAM 08/21/19 Metformin HCl [Metformin HCl ER] 500 mg PO BID 08/21/19 Methimazole [Tapazole] 10 mg PO BID #60 tablet 08/28/19 Propranolol HCl [Inderal 40 Mg Tablet] 80 mg PO BID #60 tablet 08/28/19 Multivitamin [Multiple Vitamins] 1 tab PO DAILY 09/07/20 Allergies/Adverse Reactions: No Known Allergies Allergy (Verified 08/21/19 11:25) Physical Exam Vital Signs: Temp Pulse Resp BP Pulse Ox 98 F 102 H 18 120/62 100 09/16/20 03:44 09/15/20 20:44 09/16/20 06:02 09/16/20 06:01 09/16/20 06:02 Intake & Output 09/15/20 09/16/20 09/17/20 06:59 06:59 06:59 Intake Total 1311 281 Output Total 1300 1050 Balance 11 -769 Weight 112.8 kg 114.2 kg Results Laboratory Results: 09/14/20 08:58 09/15/20 10:05 09/15/20 09/15/20 05:40 10:05 Sodium 140.2 Potassium 3.9 Chloride 105 Carbon Dioxide 26 Anion Gap 9 BUN 29 H Creatinine 1.01 Est GFR ( Amer) > 60 Glucose 98 Calcium 9.8 Magnesium 2.6 H Urine Color YELLOW Urine Appearance SLIGHTLY-CLOUDY Urine pH 6.0 Ur Specific [place] 1.010 Urine Protein NEGATIVE Urine Glucose (UA) NEGATIVE Urine Ketones NEGATIVE Urine Blood LARGE H Urine Nitrite NEGATIVE Ur Leukocyte Esterase NEGATIVE Urine WBC (Auto) 3 Urine RBC (Auto) 31 09/07/20 09/08/20 10:29 05:17 Troponin I < 0.012 < 0.012 Impressions: Chest X-Ray 09/07/20 12:10 IMPRESSION: NO ACUTE RADIOGRAPHIC FINDING IN THE CHEST. Soft Tissue Neck CT 09/09/20 00:00 IMPRESSION: Stable multinodular goiter. No abscess. 09/14/20 08:58 09/15/20 10:05 MCV 78 fl (80-97) L 09/14/20 08:58 MCH 25.6 pg (27.0-33.4) L 09/14/20 08:58 MCHC 32.8 g/dL (32.0-36.0) 09/14/20 08:58 RDW 16.0 % (11.5-14.0) H 09/14/20 08:58 Seg Neutrophils % Not Reportable 09/11/20 03:46 Chloride 105 mmol/L (98-107) 09/15/20 10:05 Carbon Dioxide 26 mmol/L (22-30) 09/15/20 10:05 Anion Gap 9 (5-19) 09/15/20 10:05 Est GFR ( Amer) > 60 (>60) 09/15/20 10:05 Glucose 98 mg/dL (75-110) 09/15/20 10:05 Calcium 9.8 mg/dL (8.4-10.2) 09/15/20 10:05 Magnesium 2.6 mg/dL (1.6-2.3) H 09/15/20 10:05 Total Bilirubin 0.6 mg/dL (0.2-1.3) 09/07/20 10:29 AST 36 U/L (14-36) 09/07/20 10:29 Alkaline Phosphatase 157 U/L (38-126) H 09/07/20 10:29 Total Protein 6.9 g/dL (6.3-8.2) 09/07/20 10:29 Albumin 3.8 g/dL (3.5-5.0) 09/07/20 10:29 Triglycerides 147 mg/dL (<150) 09/08/20 04:53 Cholesterol 138.12 mg/dL (0-200) 09/08/20 04:53 LDL Cholesterol Direct 77 mg/dL (<100) 09/08/20 04:53 VLDL Cholesterol 29.0 mg/dL (10-31) 09/08/20 04:53 HDL Cholesterol 32 mg/dL (>40) L 09/08/20 04:53 TSH < 0.01 uIU/mL (0.47-4.68) L 09/07/20 10:29 Free T4 5.02 ng/dL (0.78-2.19) H 09/07/20 10:29 Urine Color YELLOW 09/15/20 05:40 Urine Appearance SLIGHTLY-CLOUDY 09/15/20 05:40 Urine pH 6.0 (5.0-9.0) 09/15/20 05:40 Ur Specific [place] 1.010 09/15/20 05:40 Urine Protein NEGATIVE mg/dL (NEGATIVE) 09/15/20 05:40 Urine Glucose (UA) NEGATIVE mg/dL (NEGATIVE) 09/15/20 05:40 Urine Ketones NEGATIVE mg/dL (NEGATIVE) 09/15/20 05:40 Urine Blood LARGE (NEGATIVE) H 09/15/20 05:40 Urine Nitrite NEGATIVE (NEGATIVE) 09/15/20 05:40 Ur Leukocyte Esterase NEGATIVE (NEGATIVE) 09/15/20 05:40 Urine WBC (Auto) 3 /HPF 09/15/20 05:40 Urine RBC (Auto) 31 /HPF 09/15/20 05:40 09/07/20 09/08/20 10:29 05:17 Troponin I < 0.012 < 0.012 Current Medication List Generic Name Dose Route Start Last Admin Trade Name Pauly PRN Reason Stop Dose Admin Acetaminophen 650 mg 09/07/20 18:27 09/08/20 04:53 Tylenol 325 Mg Tablet PO 10/07/20 18:26 650 mg Q4HP PRN Administration FOR PAIN Aspirin 81 mg 09/08/20 10:00 09/15/20 10:34 Ecotrin 81 Mg Ec Tablet PO 10/08/20 09:59 81 mg DAILY RIC Administration Atorvastatin Calcium 10 mg 09/08/20 22:00 09/15/20 21:10 Lipitor 10 Mg Tablet PO 10/08/20 21:59 10 mg QHS RIC Administration Digoxin 0.375 mg 09/15/20 11:15 09/15/20 11:22 Digoxin Inj 0.5 Mg/2 Ml Ampule IV 10/15/20 11:14 0.375 mg DAILY RIC Administration Heparin Sodium (Porcine) 0 - 12,000 unit 09/10/20 22:40 09/13/20 08:16 Heparin Inj 1,000 Unit/Ml 10 Ml Vial IV 10/10/20 22:39 4,000 units .BOLUS PER PROTOCOL PRN Administration RESPOND TO aPTT VALUE Protocol Hydrocortisone 40 mg 09/14/20 22:00 09/15/20 21:09 Hydrocortisone 10 Mg Tablet PO 10/14/20 21:59 40 mg QHS RIC Administration Heparin Sodium/Dextrose 25,000 unit in 250 mls @ 0 mls/hr 09/10/20 19:40 09/15/20 19:00 Heparin Rtu 25,000 Unit/250 Ml D5w Premix IV 10/10/20 19:39 17.26 mls/hr CONTINUOUS PRN 17.26 mls/hr THIS MED IS NOT "PRN" Titration Protocol Titrate Methimazole 20 mg 09/14/20 12:00 09/16/20 07:00 Methimazole 5 Mg Tablet PO 10/14/20 11:59 20 mg Q6 RIC Administration Multivitamins 1 tab 09/08/20 10:00 09/15/20 10:34 Tab-A-Piotr (Multiple Vitamin) Tablet PO 10/08/20 09:59 1 tab DAILY RIC Administration Ondansetron HCl 4 mg 09/07/20 13:15 09/08/20 18:52 Zofran Inj/Pf 4 Mg/2 Ml Sdv IV 10/07/20 13:14 4 mg Q4HP PRN Administration FOR NAUSEA/VOMITING Propranolol HCl 80 mg 09/14/20 14:00 09/16/20 07:00 Propranolol Hcl 40 Mg Tablet PO 10/14/20 13:59 80 mg Q8 RIC Administration Discontinued Medications Generic Name Dose Route Start Last Admin Trade Name Freq PRN Reason Stop Dose Admin Atenolol 100 mg 09/08/20 22:00 09/15/20 10:33 Atenolol 50 Mg Tablet PO 10/08/20 21:59 100 mg Q12 RIC Administration Digoxin 0.25 mg 09/09/20 16:01 09/09/20 16:47 Lanoxin Inj 0.5 Mg/2 Ml Ampule IV 09/09/20 16:02 Not Given NOW ONE Digoxin 0.25 mg 09/11/20 17:00 09/15/20 10:35 Digoxin 0.05 Mg/Ml Soln 60 Ml PO 10/11/20 16:59 Not Given DAILY RIC Digoxin 0.125 mg 09/16/20 10:00 Digoxin Inj 0.5 Mg/2 Ml Ampule IV 10/16/20 09:59 DAILY [facility] Digoxin Confirm 09/15/20 11:11 09/15/20 11:22 Digoxin Inj 0.5 Mg/2 Ml Ampule Administered 09/15/20 11:12 Not Given Dose 0.5 mg .ROUTE .STK-MED ONE Esmolol HCl Confirm 09/08/20 16:47 09/08/20 17:19 Brevibloc Inj/Pf 100 Mg/10 Ml Sdv Administered 09/08/20 16:48 Not Given Dose 100 mg IV .STK-MED ONE Heparin Sodium (Porcine) 5,000 unit 09/07/20 14:00 09/07/20 21:05 Heparin Inj 5,000 Units/Ml 1 Ml Vial SUBCUT 10/07/20 13:59 5,000 unit Q8 RIC Administration Heparin Sodium (Porcine) 4,000 unit 09/08/20 05:36 09/08/20 11:27 Heparin Inj 1,000 Unit/Ml 10 Ml Vial IV 09/08/20 05:37 4,000 unit NOW ONE Administration Heparin Sodium (Porcine) 0 - 12,000 unit 09/08/20 08:38 Heparin Inj 1,000 Unit/Ml 10 Ml Vial IV 10/08/20 08:37 .BOLUS PER PROTOCOL PRN RESPOND TO aPTT VALUE Protocol Heparin Sodium (Porcine) 5,000 unit 09/09/20 22:00 09/10/20 10:43 Heparin Inj 5,000 Units/Ml 1 Ml Vial SUBCUT 10/09/20 21:59 5,000 unit Q12 RIC Administration Heparin Sodium (Porcine) 4,000 unit 09/10/20 19:40 09/10/20 21:18 Heparin Inj 1,000 Unit/Ml 10 Ml Vial IV 09/10/20 19:41 4,000 units NOW ONE Administration Hydrocortisone 40 mg 09/11/20 18:00 09/13/20 18:13 Hydrocortisone 10 Mg Tablet PO 09/17/20 17:59 40 mg BID RIC Administration Hydrocortisone Confirm 09/11/20 18:14 09/11/20 18:22 Cortef 10 Mg Tablet Administered 09/11/20 18:15 Not Given Dose 10 mg .ROUTE .STK-MED ONE Hydrocortisone Confirm 09/11/20 18:15 09/11/20 18:22 Cortef 10 Mg Tablet Administered 09/11/20 18:16 Not Given Dose 10 mg .ROUTE .STK-MED ONE Esmolol HCl Confirm 09/08/20 16:28 09/08/20 17:50 Brevibloc Rtu 2500 Mg/250 Ml Nacl Premix Bag Administered 09/08/20 16:29 Not Given Dose 2,500 mg in 250 mls @ ud IV .STK-MED ONE Esmolol HCl 2,500 mg in 250 mls @ 0 mls/hr 09/08/20 17:25 09/08/20 22:58 Brevibloc Rtu 2500 Mg/250 Ml Nacl Premix Bag IV 10/08/20 17:24 0 mcg/kg/min CONTINUOUS PRN 0 mls/hr THIS MED IS NOT "PRN" Titration Protocol Titrate Esmolol HCl 2,500 mg in 250 mls @ 0 mls/hr 09/09/20 16:51 09/09/20 21:00 Brevibloc Rtu 2500 Mg/250 Ml Nacl Premix Bag IV 10/09/20 16:50 Infused CONTINUOUS PRN Titration THIS MED IS NOT "PRN" Protocol Titrate Ceftriaxone Sodium/Dextrose 2 gm in 50 mls @ 100 mls/hr 09/10/20 07:01 09/13/20 09:43 Rocephin Rtu 2 Gm/D5w 50 Ml Premix Bag IV 09/17/20 07:00 100 mls/hr DAILY RIC 100 mls/hr Administration Heparin Sodium/Dextrose Confirm 09/12/20 03:20 09/12/20 05:43 Heparin Rtu 25,000 Unit/250 Ml D5w Premix Administered 09/12/20 03:21 Not Given Dose 25,000 unit in 250 mls @ ud IV .STK-MED ONE Heparin Sodium/Dextrose Confirm 09/13/20 06:16 09/13/20 06:48 Heparin Rtu 25,000 Unit/250 Ml D5w Premix Administered 09/13/20 06:17 Not Given Dose 25,000 unit in 250 mls @ ud IV .STK-MED ONE Methimazole 10 mg 09/07/20 12:01 09/07/20 12:48 Tapazole 5 Mg Tablet PO 09/07/20 12:02 10 mg NOW ONE Administration Methimazole 10 mg 09/07/20 15:00 09/08/20 06:53 Tapazole 5 Mg Tablet PO 10/07/20 14:59 10 mg Q8 RIC Administration Methimazole 10 mg 09/08/20 18:00 09/09/20 05:51 Tapazole 5 Mg Tablet PO 10/08/20 17:59 10 mg Q12A RIC Administration Methimazole 20 mg 09/09/20 17:00 09/14/20 05:31 Methimazole 5 Mg Tablet PO 10/09/20 16:59 20 mg Q8 RIC Administration Metoprolol Tartrate 2.5 mg 09/07/20 10:28 09/07/20 10:42 Lopressor Inj/Pf 5 Mg/5 Ml Sdv IV 09/07/20 10:29 2.5 mg NOW ONE Administration Metoprolol Tartrate 2.5 mg 09/07/20 10:51 09/07/20 11:10 Lopressor Inj/Pf 5 Mg/5 Ml Sdv IV 09/07/20 10:52 2.5 mg NOW ONE Administration Metoprolol Tartrate 2.5 mg 09/07/20 12:08 09/07/20 12:49 Lopressor Inj/Pf 5 Mg/5 Ml Sdv IV 09/07/20 12:09 2.5 mg NOW ONE Administration Metoprolol Tartrate 5 mg 09/08/20 06:35 09/08/20 06:38 Lopressor Inj/Pf 5 Mg/5 Ml Sdv IV 09/08/20 06:36 5 mg NOW ONE Administration Metoprolol Tartrate Confirm 09/08/20 06:38 09/08/20 08:12 Lopressor Inj/Pf 5 Mg/5 Ml Sdv Administered 09/08/20 06:39 Not Given Dose 5 mg IV .STK-MED ONE Metoprolol Tartrate Confirm 09/08/20 13:02 09/08/20 13:15 Lopressor Inj/Pf 5 Mg/5 Ml Sdv Administered 09/08/20 13:03 5 mg Dose Administration 5 mg IV .STK-MED ONE Metoprolol Tartrate 5 mg 09/08/20 14:30 09/08/20 15:22 Lopressor Inj/Pf 5 Mg/5 Ml Sdv IV 09/08/20 14:31 5 mg NOW ONE Administration Metoprolol Tartrate Confirm 09/10/20 11:01 09/10/20 11:05 Lopressor Inj/Pf 5 Mg/5 Ml Sdv Administered 09/10/20 11:02 Not Given Dose 5 mg IV .STK-MED ONE Metoprolol Tartrate 5 mg 09/10/20 11:00 09/10/20 11:05 Lopressor Inj/Pf 5 Mg/5 Ml Sdv IV 09/10/20 11:01 5 mg NOW ONE Administration Patient Own Medication 10 mg 09/08/20 10:00 Methimazole [Tapazole] PO 10/08/20 09:59 BID RIC Potassium Chloride 40 meq 09/14/20 12:22 09/14/20 12:39 Potassium Chloride 10 Meq Tablet.Er PO 09/14/20 12:23 40 meq NOW ONE Administration Propranolol HCl 80 mg 09/07/20 14:00 09/08/20 09:17 Inderal 40 Mg Tablet PO 10/07/20 13:59 80 mg Q12 RIC Administration Propranolol HCl 80 mg 09/08/20 10:00 09/13/20 21:32 Propranolol Hcl 40 Mg Tablet PO 10/08/20 09:59 80 mg Q12 RIC Administration Assessment & Plan - Diagnosis (1) Atrial fibrillation with rapid ventricular response Is this a current diagnosis for this admission?: Yes Plan: 65-year-old female with prior history of paroxysmal atrial fibrillation that was initially diagnosed in 08/21/2019 when she presented to this facility with signs of hyperthyroidism and in rapid atrial fibrillation. She represented to this facility on 09/07/2019 with similar complaints of palpitations and racing heart. She had been treated with AV terrence agents as well as her thyroid medications were restarted however she continues to be in rapid atrial fibrillation although improved. At this time her heart rate continues to be be tween 110 and 120 bpm even laying down in bed and this has been completely attributed to her thyroid disease. I am not 100% convinced that her thyroid issue is the only delivery driver of her atrial fibrillation although it is certainly contributing to it. She does have medical risk factors for atrial fibrillation even in the absence of hyperthyroidism therefore her rapid atrial fibrillation may just be concomitant with her hyperthyroidism even though I believe her hyperthyroidism is also contributing and not completely isolated from her dysrhythmia. I do not believe that the patient is in thyroid storm and her free T4 is actually lower than her initial presentation in 2019. In the end, her A. fib continues to be uncontrolled and her clinical needs have exceeded the capabilities of this facility as she would likely require [facility] guided cardioversion along with initiation of antiarrhythmic therapy concomitantly with the treatment of her hyperthyroidism therefore I discussed the case with Dr. Alexy diaz, interrelated special education teacher at [facility] as well as Dr. Grant, carver hand with [facility] who both agree with my plan. I have discussed this plan with the patient this morning and she would like to speak with her daughter before making a final decision. Of note, I do not see a cardiovascular indication for the patient to remain in intensive care unit and, barring any other issues, she can be transferred to the IMCU/telemetry unit. In the meantime we will continue with her current management until the patient makes a final decision as to whether or not she would like to be transferred for further management. (2) Hyperthyroidism Is this a current diagnosis for this admission?: Yes Plan: Continue with current medical management for now.
[2020-09-16] MEDS: HEPARIN SODIUM,PORCINE/D5W 25,000 UNIT/250 ML RTUINJ IV PRN (08:44)
[2020-09-16] MEDS ORDERED: DIGOXIN INJ 0.5 MG/2 ML AMPULE IV SCH (10:00)
--- NOTE | 2020-09-16 11:08 | PDOC PROGRESS REPORT ---
Subjective Date:: 09/16/20 Subjective:: The patient feels fine No chest pain or shortness of breath Vitals stable Reason For Visit: HYPERTHYROIDISM,TACHYCARDIA Physical Exam Vital Signs: Temp Pulse Resp BP Pulse Ox 98.1 F 109 H 24 H 128/94 H 100 09/16/20 08:00 09/16/20 09:27 09/16/20 09:23 09/16/20 09:23 09/16/20 09:23 Intake & Output 09/15/20 09/16/20 09/17/20 06:59 06:59 06:59 Intake Total 1311 467 Output Total 1300 1050 0 Balance 11 -583 0 Weight 112.8 kg 114.2 kg 114.2 kg Results Laboratory Results: 09/14/20 08:58 09/15/20 10:05 09/15/20 10:05 Sodium 140.2 Potassium 3.9 Chloride 105 Carbon Dioxide 26 Anion Gap 9 BUN 29 H Creatinine 1.01 Est GFR ( Amer) > 60 Glucose 98 Calcium 9.8 Magnesium 2.6 H 09/07/20 09/08/20 10:29 05:17 Troponin I < 0.012 < 0.012 Impressions: Chest X-Ray 09/07/20 12:10 IMPRESSION: NO ACUTE RADIOGRAPHIC FINDING IN THE CHEST. Soft Tissue Neck CT 09/09/20 00:00 IMPRESSION: Stable multinodular goiter. No abscess. Assessment & Plan - Diagnosis (1) Atrial fibrillation with rapid ventricular response Is this a current diagnosis for this admission?: Yes Plan: 65-year-old female with prior history of paroxysmal atrial fibrillation that was initially diagnosed in 08/21/2019 when she presented to this facility with signs of hyperthyroidism and in rapid atrial fibrillation. She represented to this facility on 09/07/2019 with similar complaints of palpitations and racing heart. She had been treated with AV terrence agents as well as her thyroid medications were restarted however she continues to be in rapid atrial fibrillation although improved. At this time her heart rate continues to be between 110 and 120 bpm even laying down in bed and this has been completely attributed to her thyroid disease. I am not 100% convinced that her thyroid issue is the only trash truck driver of her atrial fibrillation although it is certainly contributing to it. She does have medical risk factors for atrial fibrillation even in the absence of hyperthyroidism therefore her rapid atrial fibrillation may just be concomitant with her hyperthyroidism even though I believe her hyperthyroidism is also contributing and not completely isolated from her dysrhythmia. I do not believe that the patient is in thyroid storm and her free T4 is actually lower than her initial presentation in 2019. In the end, her A. fib continues to be uncontrolled and her clinical needs have exceeded the capabilities of this facility as she would likely require [facility] guided cardioversion along with initiation of antiarrhythmic therapy concomitantly with the treatment of her hyperthyroidism therefore I discussed the case with Dr. June, glass block installer at [facility] as well as Dr. Grant, placement coordinator with [facility] physicians who both agree with my plan. I have discussed this plan with the patient this morning and she would like to speak with her daughter before making a final decision. Of note, I do not see a cardiovascular indication for the patient to remain in intensive care unit and, barring any other issues, she can be transferred to the IMCU/telemetry unit. In the meantime we will continue with her current management until the patient m akes a final decision as to whether or not she would like to be transferred for further management. 09/16 As noted above i had Dr. Argueta see thepatient. he discussed the situation with colleagues at [facility]. We are planning to transfer the patient there so she coulfd have [facility]ORE and simultaneous cardiversion. I have explained this to thepatient and she appears ok with theplan as outlined. (2) Hyperthyroidism Is this a current diagnosis for this admission?: Yes Plan: Continue with current medical management for now. 09/16 2 days ago i ncreased her Inderal and her methimazole. i blieve her hypetthyroid sx are presently well controlled. I am hopful that she can be successfully cardioverted at this time. Following discharge shw will touch base with her placement coordinator to seek thyroid ablation with [facility] vs surgery. - Time Time Spent with patient: 15-24 minutes Level of Care: TELE
--- NOTE | 2020-09-16 12:24 | PDOC TRANSFER SUMMARY ---
General Admission Date/PCP: 09/07/20 13:03 SCARLETT VERDUGO, HYDRAULIC BOOM OPERATOR-C Resuscitation Status: Full Code - Transfer Diagnosis (1) Atrial fibrillation with rapid ventricular response Is this a current diagnosis for this admission?: Yes Diagnosis Summary: The patient presented 09/07 with dizziness and rapid heart rate of 180-200. She was in a new rapid Atrial fib. The patient was discovered to be in thyroid storm. TSH was unmeasurable and free t4 was just over 5. the patient has beeen on many chronotropic drugs. has been very diffcult to control her hear rate. At present it is 100-115. We consulted cardiology and they recommended internal cardioversion at this time Dr Argueta apparently discussed thecase with Drs. Grant ( endocrine) and Slade (EP) [facility]. The oatient has been hemodynamically stable for several days now. (2) Hyperthyroidism Is this a current diagnosis for this admission?: Yes Diagnosis Summary: The patient has a long history of thyroid disease. Had been under the care of an rack loader who tolsd thepatient to stop her medication many months ago. She presented with rapid Atrial finb to out hospital on 09/07. FreeT4 was just over 5. The patient is on major dose of Methimazole presently ( 20mg q 6h). She feels well at this time. - Transfer Medications Home Medications: Aspirin [Ecotrin 81 mg EC Tablet] 81 mg PO DAILY 08/21/19 Atorvastatin Calcium [Lipitor 10 mg Tablet] 10 mg PO QHS 08/21/19 Losartan/Hydrochlorothiazide [Losartan-Hctz 50-12.5 mg Tab] 1 tab PO QAM 08/21/19 Metformin HCl [Metformin HCl ER] 500 mg PO BID 08/21/19 Multivitamin [Multiple Vitamins] 1 tab PO DAILY 09/07/20 Transfer Medications: Current Medications Acetaminophen (Tylenol 325 Mg Tablet) 650 mg PO Q4HP PRN PRN Reason: FOR PAIN Stop: 10/07/20 18:26 Last Admin: 09/08/20 04:53 Dose: 650 mg Documented by: Aspirin (Ecotrin 81 Mg Ec Tablet) 81 mg PO DAILY RIC Stop: 10/08/20 09:59 Last Admin: 09/15/20 10:34 Dose: 81 mg Documented by: Atorvastatin Calcium (Lipitor 10 Mg Tablet) 10 mg PO QHS RIC Stop: 12/11/20 21:59 Last Admin: 09/15/20 21:10 Dose: 10 mg Documented by: Digoxin (Digoxin Inj 0.5 Mg/2 Ml Ampule) 0.375 mg IV DAILY RIC Stop: 10/15/20 11:14 Last Admin: 09/15/20 11:22 Dose: 0.375 mg Documented by: Heparin Sodium (Porcine) (Heparin Inj 1,000 Unit/Ml 10 Ml Vial) 0 - 12,000 unit IV .BOLUS PER PROTOCOL PRN; Protocol PRN Reason: RESPOND TO aPTT VALUE Stop: 10/10/20 22:39 Last Admin: 09/13/20 08:16 Dose: 4,000 units Documented by: Hydrocortisone (Hydrocortisone 10 Mg Tablet) 40 mg PO QHS RIC Stop: 10/14/20 21:59 Last Admin: 09/15/20 21:09 Dose: 40 mg Documented by: Heparin Sodium/Dextrose (Heparin Rtu 25,000 Unit/250 Ml D5w Premix) 25,000 unit in 250 mls @ 0 mls/hr IV CONTINUOUS PRN; Protocol PRN Reason: THIS MED IS NOT "PRN" Stop: 10/10/20 19:39 Last Admin: 09/16/20 08:44 Dose: 17.26 mls/hr, 17.26 mls/hr Documented by: Methimazole (Methimazole 5 Mg Tablet) 20 mg PO Q6 RIC Stop: 10/14/20 11:59 Last Admin: 09/16/20 07:00 Dose: 20 mg Documented by: Multivitamins (Tab-A-Piotr (Multiple Vitamin) Tablet) 1 tab PO DAILY RIC Stop: 10/08/20 09:59 Last Admin: 09/15/20 10:34 Dose: 1 tab Documented by: Ondansetron HCl (Zofran Inj/Pf 4 Mg/2 Ml Sdv) 4 mg IV Q4HP PRN PRN Reason: FOR NAUSEA/VOMITING Stop: 10/07/20 13:14 Last Admin: 09/08/20 18:52 Dose: 4 mg Documented by: Propranolol HCl (Propranolol Hcl 40 Mg Tablet) 80 mg PO Q8 RIC Stop: 10/14/20 13:59 Last Admin: 09/16/20 07:00 Dose: 80 mg Documented by: - Allergies Allergies/Adverse Reactions: No Known Allergies Allergy (Verified 08/21/19 11:25) Hospital Course Hospital Course: It was intially difficult cointrolling her heart rate. At various times in the first few days the patient was onIV Cardizemand Esmolol. She is presently onpo Inderal 80mg q 8h. Her hear rate is 100-115. She otherwise feels quite well. Physical Exam Vital Signs: Temp Pulse Resp BP Pulse Ox 98.1 F 109 H 24 H 128/94 H 100 09/16/20 08:00 09/16/20 09:27 09/16/20 09:23 09/16/20 09:23 09/16/20 09:23 Intake & Output 09/15/20 09/16/20 09/17/20 06:59 06:59 06:59 Intake Total 1311 467 Output Total 1300 1050 0 Balance 11 -583 0 Weight 112.8 kg 114.2 kg 114.2 kg General appearance: PRESENT: no acute distress, well-developed, well-nourished Head exam: PRESENT: atraumatic, normocephalic Eye exam: PRESENT: conjunctiva pink, EOMI, PERRLA. ABSENT: scleral icterus Ear exam: PRESENT: normal external ear exam Mouth exam: PRESENT: moist, tongue midline Neck exam: ABSENT: carotid bruit, JVD, lymphadenopathy, thyromegaly Respiratory exam: PRESENT: clear to auscultation randa. ABSENT: rales, rhonchi, wheezes Cardiovascular exam: PRESENT: RRR. ABSENT: diastolic murmur, rubs, systolic murmur Pulses: PRESENT: normal dorsalis pedis pul Vascular exam: PRESENT: normal capillary refill GI/Abdominal exam: PRESENT: normal bowel sounds, soft. ABSENT: distended, guarding, mass, organolmegaly, rebound, tenderness Rectal exam: PRESENT: deferred Extremities exam: PRESENT: full ROM. ABSENT: calf tenderness, clubbing, pedal edema Neurological exam: PRESENT: alert, awake, oriented to person, oriented to place, oriented to time, oriented to situation, CN II-XII grossly intact. ABSENT: motor sensory deficit Psychiatric exam: PRESENT: appropriate affect, normal mood. ABSENT: homicidal ideation, suicidal ideation Skin exam: PRESENT: dry, intact, warm. ABSENT: cyanosis, rash Results Laboratory Results: 09/14/20 08:58 09/15/20 10:05 09/07/20 09/08/20 10:29 05:17 Troponin I < 0.012 < 0.012 Impressions: Chest X-Ray 09/07/20 12:10 IMPRESSION: NO ACUTE RADIOGRAPHIC FINDING IN THE CHEST. Soft Tissue Neck CT 09/09/20 00:00 IMPRESSION: Stable multinodular goiter. No abscess.
[2020-09-16] MEDS: MULTIVITAMIN TABLET PO SCH (12:32)
[2020-09-16] MEDS: ASPIRIN 81 MG TABLET, ENT COATED PO SCH (12:32)
[2020-09-16] MEDS: DIGOXIN INJ 0.5 MG/2 ML AMPULE IV SCH (12:33)
[2020-09-16 13:36] LABS: ARTERIAL BLOOD BASE EXCESS 1.6 mmol/L; ARTERIAL BLOOD FIO2 ROOM AIR; ARTERIAL BLOOD H2CO3 1.02 mmol/L (1.05-1.35); ARTERIAL BLOOD HCO3 24.8 mmol/L (20-24); ARTERIAL BLOOD O2 SATURATION 98.3 % (94-98); ARTERIAL BLOOD PCO2 33.9 mmHg (35-45); ARTERIAL BLOOD PH 7.48 (7.35-7.45); ARTERIAL BLOOD PO2 108.8 mmHg (80-100); ARTERIAL BLOOD TOTAL CO2 25.8 mmol/L (21-25)
[2020-09-16 16:47] VITALS: BP 127/75
== END 2020-09-16 18:40 | disposition short-term general hospital (02) | DRG 644 ==
LOC: ER 10:16 → EH 13:03 → 4N 14:40 → ICU 09-08 06:24 → 4N 09-16 10:01
PROVIDERS: ADMIT Anesthesiology; ATTEND Registered Nurse
DX: E05.20 Thyrotoxicosis with toxic multinodular goiter without thyrotoxic crisis or storm (principal); I48.11 Longstanding persistent atrial fibrillation; E11.9 Type 2 diabetes mellitus without complications; E66.9 Obesity, unspecified; I10 Essential (primary) hypertension; E78.5 Hyperlipidemia, unspecified; E78.00 Pure hypercholesterolemia, unspecified; Z79.82 Long term (current) use of aspirin; Z79.84 Long term (current) use of oral hypoglycemic drugs; Z79.899 Other long term (current) drug therapy
CPT/HCPCS: 36415; 36600; 70491; 71045; 80048; 80053; 80061; 80162; 81001; 82803; 83735; 84439; 84443; 84484; 85025; 85027; 85610; 85730; 93005; 93010; 96374; 96376; 99221; 99291; 0241U; C9803; J0696; J1160; J1644; J2405; J3490

== ENCOUNTER 2020-10-08 14:11 | Inpatient (IN) | payer MEDICARE ==
[2020-10-08 15:09] LABS: ABSOLUTE LYMPHOCYTES (AUTO) 1.4 10^3/uL (0.5-4.7); ABSOLUTE MONOCYTES (AUTO) 0.8 10^3/uL (0.1-1.4); ABSOLUTE NEUT (AUTO) 6.1 10^3/uL (1.7-8.2); BASOPHILS % (AUTO) 0.5 % (0-2); EOSINOPHILS % (AUTO) 0.1 % (0-6); HEMATOCRIT 34.2 % (36.0-47.0); HEMOGLOBIN 11.1 g/dL (12.0-15.5); LYMPHOCYTES % (AUTO) 16.8 % (13-45); MEAN CORPUSCULAR HEMOGLOBIN 26.2 pg (27.0-33.4); MEAN CORPUSCULAR HGB CONC 32.4 g/dL (32.0-36.0); MEAN CORPUSCULAR VOLUME 81 fl (80-97); MONOCYTES % (AUTO) 9.6 % (3-13); PLATELET COUNT 303 10^3/uL (150-450); RED BLOOD COUNT 4.24 10^6/uL (3.72-5.28); TOTAL CELLS COUNTED % (AUTO) 100 %; WHITE BLOOD COUNT 8.4 10^3/uL (4.0-10.5)
--- NOTE | 2020-10-08 15:24 | ER Document Report ---
ED Medical Screen (RME) - General Chief Complaint: Arrhythmia Stated Complaint: POSSIBLE AFIB-RVR Time Seen by Provider: 10/08/20 15:17 Mode of Arrival: Medic Information source: Patient Notes: 65-year-old female presented to ED [facility]. [facility] heart and noted that she was in A. fib so they did a EKG and sent her to the emergency room. She does have A. fib at this time. She states she has a history of A. fib the last time she saw the glass furnace operator was in February. She states she was not feeling like she does now and february. She states she has been feeling the irregularity for about 2 weeks but has not called her glass furnace operator. Denies any chest pain at this time. She denies any pain at this time. She states she feels tired all the time. She states when she gets up and walks around she does feel palpitations and flutters but not when she is laying down. Will order type and screen urine and transvaginal ultrasound for this vaginal bleeding. Patient is on Eliquis. Spoke with Dr pan she stated she would be to see the patient shortly I have greeted and performed a rapid initial assessment of this patient. A comprehensive ED assessment and evaluation of the patient, analysis of test results and completion of medical decision making process will be conducted by an additional ED providers. TRAVEL OUTSIDE OF THE [place] IN LAST 30 DAYS: No - Related Data Allergies/Adverse Reactions: No Known Allergies Allergy (Verified 08/21/19 11:25) Past Medical History - Social History Chew tobacco use (# tins/day): No Frequency of alcohol use: None Drug Abuse: None - Past Medical History Cardiac Medical History: Reports: Hx Hypercholesterolemia, Hx Hypertension Denies: Hx Atrial Fibrillation, Hx Congestive Heart Failure, Hx Coronary Artery Disease, Hx DVT, Hx Heart Attack, Hx Peripheral Vascular Disease, Hx Pulmonary Embolism, Hx Heart Murmur Pulmonary Medical History: Denies: Hx Asthma, Hx Bronchitis, Hx COPD, Hx Pneumonia, Hx Intubation, Hx Respiratory Failure, Hx Sleep Apnea, Hx Tuberculosis Endocrine Medical History: Reports: Hx Diabetes Mellitus Type 2 - Non-insulin requiring, Hx Hyperthyroidism Musculoskeltal Medical History: Denies Hx Arthritis Psychiatric Medical History: Denies: Hx Attention Deficit Hyperactivity Disorder, Hx Bipolar Disorder, Hx Depression Past Surgical History: Reports: Hx Cholecystectomy - Immunizations Hx Diphtheria, Pertussis, Tetanus Vaccination: Yes Physical Exam - Vital signs Vitals: Temp 97.5 F 10/08/20 14:12 Course - Vital Signs Vital signs: Temp Pulse Resp BP Pulse Ox 97.5 F 10/08/20 14:12 - Laboratory Results Result Diagrams: 10/08/20 14:57 10/08/20 14:57 Laboratory Results Interpreted: 10/08/20 14:57 Hgb 11.1 L Hct 34.2 L MCH 26.2 L RDW 20.0 H
[2020-10-08] MEDS ORDERED: NORMAL SALINE 1000 ML 1,000 ML IV ONE (15:33)
[2020-10-08 15:42] LABS: ALBUMIN 3.8 g/dL (3.5-5.0); ALKALINE PHOSPHATASE 186 U/L (38-126); ANION GAP 13 (5-19); ASPARTATE AMINO TRANSFERASE 88 U/L (14-36); BILIRUBIN,DIRECT 0.4 mg/dL (0.0-0.4); BILIRUBIN,TOTAL 0.9 mg/dL (0.2-1.3); BLOOD UREA NITROGEN 46 mg/dL (7-20); CARBON DIOXIDE 21 mmol/L (22-30); CHLORIDE 107 mmol/L (98-107); GLUCOSE 117 mg/dL (75-110); POTASSIUM 3.8 mmol/L (3.6-5.0)
[2020-10-08] MEDS ORDERED: RINGERS SOLUTION,LACTATED 1,000 ML IV ONE (15:47)
--- NOTE | 2020-10-08 15:49 | ER Document Report ---
ED Cardiac - General Chief Complaint: Arrhythmia Stated Complaint: POSSIBLE AFIB-RVR Time Seen by Provider: 10/08/20 15:17 Mode of Arrival: Medic TRAVEL OUTSIDE OF THE [place] IN LAST 30 DAYS: No - HPI Notes: Patient is a 65-year-old female with a past medical history of A. fib on Eliquis and metoprolol who presents with abnormal rhythm as well as vaginal bleeding. Patient states she began having vaginal spotting on October 05. She states it is bright red. Of note, patient was admitted to [place] on September 17 and had a cardioversion on September 18. The cardiology stated that she may be having A. fib due to her having a hyperactive thyroid. She is on medication but the family and consumer sciences teacher states she needs to get this fixed to help her A. fib. She was started on heparin in the hospital and was sent home on Eliquis. Patient states she had trouble getting the Eliquis prescription and started on October 06. She had already started spotting on October 05, however. Patient states she has been fatigued especially with walking for a couple of weeks. No chest pain. She has been taking her medication. Patient went to urgent care today and was found to have A. fib with RVR and was sent here via EMS. She states she went to urgent care for the spotting. - Related Data Allergies/Adverse Reactions: No Known Allergies Allergy (Verified 08/21/19 11:25) Past Medical History - General Information source: Patient - Social History Smoking Status: Never Smoker Chew tobacco use (# tins/day): No Frequency of alcohol use: None Drug Abuse: None Family History: Reviewed & Not Pertinent, DM, Hyperlipidemia, Hypertension Patient has homicidal ideation: No - Past Medical History Cardiac Medical History: Reports: Hx Hypercholesterolemia, Hx Hypertension Denies: Hx Atrial Fibrillation, Hx Congestive Heart Failure, Hx Coronary Artery Disease, Hx DVT, Hx Heart Attack, Hx Peripheral Vascular Disease, Hx Pulmonary Embolism, Hx Heart Murmur Pulmonary Medical History: Denies: Hx Asthma, Hx Bronchitis, Hx COPD, Hx Pneumonia, Hx Intubation, Hx Respiratory Failure, Hx Sleep Apnea, Hx Tuberculosis Endocrine Medical History: Reports: Hx Diabetes Mellitus Type 2 - Non-insulin requiring, Hx Hyperthyroidism Musculoskeletal Medical History: Denies Hx Arthritis Psychiatric Medical History: Denies: Hx Attention Deficit Hyperactivity Disorder, Hx Bipolar Disorder, Hx Depression Past Surgical History: Reports: Hx Cholecystectomy - Immunizations Hx Diphtheria, Pertussis, Tetanus Vaccination: Yes Review of Systems - Review of Systems Notes: CONSTITUTIONAL: No fever, fatigue or weight loss. SKIN: No rash. HENT: No congestion, ear pain, or sore throat. EYES: No recent vision problems or eye pain. ENDOCRINE: Positive for thyroid problems. CARDIOVASCULAR: No chest pain or edema. Positive for palpitations. RESPIRATORY: No cough, shortness of breath, congestion, or wheezing. GASTROINTESTINAL: No abdominal pain, nausea, vomiting, bloody stools or diarrhea. MUSCULOSKELETAL: No joint pain or swelling. NEUROLOGIC: No seizures. No headache, focal weakness or sensory changes. HEMATOLOGIC: Positive for vaginal spotting. PSYCHIATRIC: No depression or anxiety. Physical Exam - Vital signs Vitals: Temp 97.5 F 10/08/20 14:12 - General General appearance: Appears well Notes: VITAL SIGNS: Tachycardia. Normotensive. GENERAL: No acute distress, non-toxic appearance. HEAD: Normal with no signs of head trauma. EYES: Conjunctiva normal, no discharge. EARS: Hearing grossly intact. NOSE: Normal. NECK: Normal range of motion, no tenderness, supple, no lymphadenopathy, No adenopathy, no JVD. CHEST: Clear breath sounds bilaterally. CARDIAC: Atrial fibrillation with RVR. VASCULAR: +1 pedal edema to lower extremities. ABDOMEN: Normal and soft with no tenderness, no masses or pulsatile masses. MUSCULOSKELETAL: Good range of motion of all major joints. NEUROLOGICAL: Alert and oriented x 3. No focal sensory or strength deficits. Speech normal. Follows commands appropriately. PSYCHIATRIC: Normal Affect, judgement and mood. SKIN: Normal appearance with no rashes or lesions. Course - Re-evaluation Re-evalutation: 10/08/20 17:44 OB ultrasound was ordered. Patient came in by EMS on a Cardizem drip. She was also given a small bolus of fluids. I will give her Cardizem bolus and continue the drip. Patient has abnormal thyroid testing. I did discuss with the hospitalist for admission. Patient is doing better after Cardizem bolus. Her heart rate now is in the 110s. Her ultrasound does show endometrial thickening and fluid. I discussed with on- call OB, Dr. Ferrell, who recommended that patient follow-up outpatient. She took down her name and information. I informed patient of all the results. I discussed with the hospitalist. Patient will be admitted to the hospital. She is very agreeable to this plan. On reassessment, she continues to be in no acute distress. 10/08/20 21:09 10/09/20 01:40 - Vital Signs Vital signs: Temp Pulse Resp BP Pulse Ox 97.8 F 19 88/56 L 98 10/09/20 01:34 10/09/20 00:16 10/09/20 00:16 10/09/20 00:16 - Laboratory Results Result Diagrams: 10/08/20 14:57 10/08/20 14:57 Laboratory Results Interpreted: 10/08/20 10/08/20 10/08/20 14:57 14:57 14:57 Hgb 11.1 L Hct 34.2 L MCH 26.2 L RDW 20.0 H PT Carbon Dioxide 21 L BUN 46 H Creatinine 1.48 H Est GFR ( Amer) 43 L Est GFR (MDRD) Non-Af 35 L Glucose 117 H AST 88 H ALT 126 H Alkaline Phosphatase 186 H TSH < 0.01 L Free T4 3.13 H 10/08/20 14:57 Hgb Hct MCH RDW PT 23.4 H Carbon Dioxide BUN Creatinine Est GFR ( Amer) Est GFR (MDRD) Non-Af Glucose AST ALT Alkaline Phosphatase TSH Free T4 Critical Laboratory Results Reviewed: No Critical Results - Radiology Results Critical Radiology Results Reviewed: No Critical Results - EKG Interpretation by Me Rate: Tachycardia Rhythm: A.Fib [place]/QRS: Left axis deviation Additional EKG results interpreted by me: 10/08/20 16:31 Atrial fibrillation at a rate of 101. No acute ST changes. QTc 446. Artifact present. EKG is similar to previous. Critical Care Note - Critical Care Note Total time excluding time spent on procedures (mins): 45 Comments: Upon my evaluation, this patient had a high probability of imminent or life- threatening deterioration due to atrial fibrillation with RVR, which required my direct attention, intervention, and personal management. I have personally provided 45 minutes of critical care time. Time includes review of laboratory data, radiology results, discussion with consultants, and monitoring for potential decompensation. Interventions were performed as documented above. Discharge - Discharge Clinical Impression: Atrial fibrillation with RVR, Hyperthyroidism, Vaginal spotting Condition: Stable Disposition: ADMITTED INPATIENT Admitting Provider: Kiesha (Hospitalist) Unit Admitted: [facility]
[2020-10-08] MEDS ORDERED: DILTIAZEM HCL/D5W 125 MG/125 ML RTUINJ IV PRN (15:54)
[2020-10-08] MEDS ORDERED: DILTIAZEM HCL INJ 25 MG/5 ML VIAL IV ONE (16:54)
[2020-10-08 16:58] LABS: FREE T4 (FREE THYROXINE) 3.13 ng/dL (0.78-2.19)
[2020-10-08 17:13] LABS: THYROID STIMULATING HORMONE < 0.01 uIU/mL (0.47-4.68)
[2020-10-08 17:22] LABS: INTERNATIONAL RATION (INR) 2.08; PROTHROMBIN TIME 23.4 SEC (11.4-15.4)
--- NOTE | 2020-10-08 17:46 | RADIOLOGY REPORT (SQ) ---
EXAM DESCRIPTION: U/S NON-OB PELVIS TV W/O DOP IMAGES COMPLETED DATE/TIME: 10/08/2020 4:07 pm REASON FOR STUDY: Vaginal bleeding. 65-year-old postmenopausal female with vaginal bleeding. COMPARISON: CT abdomen and pelvis, 08/22/2029 flank. TECHNIQUE: Dynamic and static grayscale images acquired of the pelvis via transvaginal approach and recorded on PACS. Additional selected color Doppler and spectral images recorded. LIMITATIONS: Limited evaluation due to patient body habitus and discomfort. FINDINGS: UTERUS: Contour normal. No mass. ENDOMETRIAL STRIPE: Diffuse endometrial thickening. CERVIX: Multiple nabothian cysts. Normal cervical contour. RIGHT OVARY AND DOPPLER: Not visualized. LEFT OVARY AND DOPPLER: Not visualized. FREE FLUID: Moderate amount of free fluid in the posterior cul-de-sac. OTHER: No other significant finding. MEASUREMENTS: UTERUS: 10.4 x 6.8 x 5.9 cm ENDOMETRIAL STRIPE: 14 mm RIGHT OVARY: Not visualized. LEFT OVARY: Not visualized. IMPRESSION: 1. Moderate amount of fluid in the posterior pelvic cul-de-sac which may be infectious or inflammator y fluid. 2. Diffuse thickening of the endometrial lining. This may represent endometrial hyperplasia, however malignancy is not excluded. Direct visualization and sampling is recommended. TECHNICAL DOCUMENTATION: JOB ID: [id number] [employer]- All Rights Reserved Rev Reading location - IP/workstation name: [email or web address]
[2020-10-08] MEDS ORDERED: ONDANSETRON HCL INJ/PF 4 MG/2 ML SDV IV PRN (18:39)
[2020-10-08] MEDS ORDERED: ACETAMINOPHEN 325 MG TABLET PO PRN (18:39)
[2020-10-08] MEDS ORDERED: DEXTROSE 50%-WATER 25 GM/50 ML DISP.SYRIN IV PRN ×2 (18:42)
[2020-10-08] MEDS ORDERED: DEXTROSE 40% GEL 15 GM TUBE PO PRN ×2 (18:42)
[2020-10-08] MEDS ORDERED: GLUCAGON,HUMAN RECOMB 1 MG INJ IM PRN (18:42)
[2020-10-08] MEDS ORDERED: HYDROCORTISONE SOD SUCCINATE INJ/PF 100 MG/2 ML SDV IV ONE (18:45)
[2020-10-08] MEDS ORDERED: METHIMAZOLE 5 MG TABLET PO ONE (18:45)
[2020-10-08] MEDS ORDERED: PROPRANOLOL HCL 40 MG TABLET PO ONE (18:45)
--- NOTE | 2020-10-08 18:54 | PDOC H&P ---
History of Present Illness History of Present Illness: TERE BEAN is a 65 year old female with a history of a toxic multinodular goiter with associated hyperthyroidism who was recently treated here for a thyroid storm, atrial fibrillation, qgq-ovytqsl-zhpnhqthv diabetes mellitus, hyperlipidemia, hypertension, and obesity, who presents with persistent weakness and dyspnea with exertion. She also had a little bit of vaginal spotting. This lady has history of hyperthyroidism and follows up with an upholstery department supervisor in [place] named Dr. Jasso, and was admitted here about 1 month ago with thyroid storm because her upholstery department supervisor had taken her off of her Tapazole and beta- shweta. She had been off of it for several months and then wound up here and a thyroid storm. I am not sure why she was taken off of it. She is also not sure. At any rate, she wound up in the ICU on esmolol drip and wound up on large doses of beta-shweta and Tapazole to try to get her symptoms under control. She was transferred to [facility]. At some point, and I am not sure if this happened when she was transferred, she had a cardiac ablation for atrial fibrillation. She was told that it would not work if her hyperthyroidism was not addressed. When she was still in the ICU here, she had been seen by ENT but it seems that no follow-up was ever arranged for an outpatient basis. She says that ever since she went home from the ablation from [facility], she has had a lot of persistent weakness and dyspnea on exertion. She says she can feel her heart beating really fast whenever she puts her hand on her chest. She has an appointment with her upholstery department supervisor on Sunday, but was unable to wait until then to be seen. Transvaginal ultrasound was done in the ER, but I suspect her spotting is likely due to her persistent hyperthyroidism. She has been on propranolol 80 mg twice a day and Tapazole 20 mg twice a day at home. Her TSH was undetectable and her free T3 was greater than 3. She was started on a Cardizem drip, but it is not controlling her rate, which it would not be expected to do in this situation. Her heart rate remains in the 120s to 140s. She is very sweaty. Her blood pressure is acceptable. Past Medical History Cardiac Medical History: Reports: Hyperlipidema, Hypertension Denies: Atrial Fibrillation, Congestive Heart Failure, Coronary Artery Disease, DVT, Myocardial Infarction, Peripheral Vascular Disease, Pulmonary Embolism, Heart Murmur Pulmonary Medical History: Denies: Asthma, Bronchitis, Chronic Obstructive Pulmonary Disease (COPD), Intubation, Pneumonia, Respiratory Failure, Sleep Apnea, Tuberculosis Endocrine Medical History: Reports: Diabetes Mellitus Type 2 - Non-insulin requiring, Hyperthyroidism Musculoskeltal Medical History: Denies: Arthritis Psychiatric Medical History: Denies: Attention Deficit Hyperactivity Disorder, Bipolar Disorder, Depression Hematology: Denies: Anemia Past Surgical History Past Surgical History: Reports: Cholecystectomy Social History Smoking Status: Never Smoker Electronic Cigarette use?: No Frequency of Alcohol Use: None Hx Recreational Drug Use: No Drugs: None Hx Prescription Drug Abuse: No Family History Family History: Reviewed & Not Pertinent, DM, Hyperlipidemia, Hypertension Parental Family History Reviewed: Yes Children Family History Reviewed: Yes Sibling(s) Family History Reviewed.: Yes Medication/Allergy Home Medications: Aspirin [Ecotrin 81 mg EC Tablet] 81 mg PO DAILY 08/21/19 Atorvastatin Calcium [Lipitor 10 mg Tablet] 10 mg PO QHS 08/21/19 Losartan/Hydrochlorothiazide [Losartan-Hctz 50-12.5 mg Tab] 1 tab PO QAM 08/21/19 Metformin HCl [Metformin HCl ER] 500 mg PO BID 08/21/19 Methimazole [Tapazole] 10 mg PO BID #60 tablet 08/28/19 Propranolol HCl [Inderal 40 Mg Tablet] 80 mg PO BID #60 tablet 08/28/19 Multivitamin [Multiple Vitamins] 1 tab PO DAILY 09/07/20 Allergies/Adverse Reactions: No Known Allergies Allergy (Verified 08/21/19 11:25) Review of Systems All systems: reviewed and no additional remarkable complaints except as stated - all systems were reviewed and were negative except as noted in the HPI Physical Exam Vital Signs: Temp Pulse Resp BP Pulse Ox 97.5 F 26 H 111/90 H 98 10/08/20 14:28 10/08/20 17:01 10/08/20 17:01 10/08/20 16:03 General appearance: PRESENT: cooperative, disheveled, mild distress, obese, other - Sweaty Head exam: PRESENT: atraumatic, normocephalic Eye exam: PRESENT: EOMI, PERRLA, other - Exophthalmos. ABSENT: conjunctival i njection, nystagmus, scleral icterus Ear exam: PRESENT: normal external ear exam Mouth exam: PRESENT: dry mucosa, neck supple Throat exam: ABSENT: post pharyngeal erythema Neck exam: PRESENT: full ROM, thyromegaly. ABSENT: carotid bruit, JVD, lymphadenopathy, meningismus, tenderness Respiratory exam: PRESENT: clear to auscultation randa, symmetrical, tachypnea, unlabored. ABSENT: accessory muscle use, chest wall tenderness, crackles, prolonged expiratory phas, rhonchi, wheezes Cardiovascular exam: PRESENT: irregular rhythm, tachycardia Pulses: PRESENT: normal carotid pulses Vascular exam: PRESENT: normal capillary refill GI/Abdominal exam: PRESENT: normal bowel sounds, soft. ABSENT: distended, guarding, rebound, tenderness Extremities exam: ABSENT: clubbing, pedal edema Musculoskeletal exam: PRESENT: normal inspection. ABSENT: deformity Neurological exam: PRESENT: alert, awake, oriented to person, oriented to place, oriented to time, oriented to situation, CN II-XII grossly intact. ABSENT: motor sensory deficit Psychiatric exam: PRESENT: appropriate affect, normal mood Skin exam: PRESENT: dry, warm Results Laboratory Results: 10/08/20 14:57 10/08/20 14:57 10/08/20 10/08/20 10/08/20 14:57 14:57 14:57 WBC 8.4 RBC 4.24 Hgb 11.1 L Hct 34.2 L MCV 81 MCH 26.2 L MCHC 32.4 RDW 20.0 H Plt Count 303 Seg Neutrophils % 73.0 Sodium 140.7 Potassium 3.8 Chloride 107 Carbon Dioxide 21 L Anion Gap 13 BUN 46 H Creatinine 1.48 H Est GFR ( Amer) 43 L Glucose 117 H Calcium 10.0 Total Bilirubin 0.9 AST 88 H Alkaline Phosphatase 186 H Total Protein 7.0 Albumin 3.8 TSH < 0.01 L Free T4 3.13 H 10/08/20 14:57 Troponin I < 0.012 Impressions: Transvaginal US 10/08/20 15:24 IMPRESSION: 1. Moderate amount of fluid in the posterior pelvic cul-de-sac which may be infectious or inflammatory fluid. 2. Diffuse thickening of the endometrial lining. This may represent endometrial hyperplasia, however malignancy is not excluded. Direct visualization and sampling is recommended. Assessment and Plan - Diagnosis (1) Thyroid storm Qualifiers: Thyrotoxicosis type: with toxic multinodular goiter Qualified Code(s): E05.21 - Thyrotoxicosis with toxic multinodular goiter with thyrotoxic crisis or storm Is this a current diagnosis for this admission?: Yes (2) Atrial fibrillation with rapid ventricular response Is this a current diagnosis for this admission?: Yes (3) Vaginal spotting Is this a current diagnosis for this admission?: Yes (4) Obesity, Class II, BMI 35-39.9 Is this a current diagnosis for this admission?: Yes (5) Type 2 diabetes mellitus treated without insulin Is this a current diagnosis for this admission?: Yes - Plan Summary Summary: Her vaginal spotting in her atrial fibrillation or due to her thyroid storm. Neither of these problems will resolve until her circulating thyroid hormone levels dropped down. Cardizem will not help in this situation due to the nature of the force driving atrial fibrillation. I have discontinued the Cardizem drip. I have ordered propranolol 80 mg 4 times a day, Tapazole 20 mg 4 times a day, and hydrocortisone 100 mg 3 times a day in the hopes that it will help inhibit the conversion of T3-T4. If we cannot get her heart rate under control with this high dose of oral propranolol, she will have to be sent to the ICU for an esmolol drip. We were able to get her thyroid levels under better control on that dose of Tapazole, so hopefully we will be able to get her symptoms under control with it again. Once she is stable, she will need evaluation for surgery for her goiter. Because of the high levels of Tapazole needed, radioactive iodine ablation will be less likely to be effective. We will continue her Eliquis. We will put her on an insulin sliding scale as we anticipate that the hydrocortisone will make her blood sugars elevated. - Time Time Spent with patient: 35 or more minutes Anticipated Discharge Disposition: Unknown Anticipated Discharge Timeframe: Unknown
[2020-10-08] MEDS: INSULIN LISPRO 100 UNIT/ML 3 ML VIAL SUBCUT SCH (22:33)
--- NOTE | 2020-10-08 22:41 | Progress Note ---
Provider Note Provider Note: Initially the patient was treated with intravenous diltiazem, it did not controlled ventricular rate. The drip was discontinued and she was started on propranolol 80 mg every 6 hours by mouth. This is not controlling the ventricular rate, after about more than 2 hours taking the 80 mg propranolol her ventricular rate is around 140 to 150/min. Her systolic blood pressure around 110. She does not appear to be in any distress. Lungs clear to auscultation. Heart irregularly irregular, no gallop or murmur. The patient is thyrotoxic. My partner who knows this patient very well and who admitted her, recommended to start esmolol drip in case heart rate is not controlled with propranolol. I contacted the aviation consultant provider for the intensive care unit. He graciously accepted the patient for transfer to the intensive care unit.
--- NOTE | 2020-10-08 23:46 | Progress Note ---
Provider Note Provider Note: I was called regarding this patient and need for transfer to ICU due to her tachycardia secondary to her hyperhyroidism. The patient was admitted here last month (approx) for the same issue of tachycardia due to her hyperthyroidism which we were unable to control with medications and [facility] Upon my assessment of this patient she was alert oriented denied any chest pain or feeling of shortness of breath unless she was exerting herself. I discussed with Dr. Smith that I felt this patient would be better served transferred to a facility that offered field administrative assistant services. Dr. Smith states he would call [facility] for bed availability.The patient has just arrived to the ICU for observation.
[2020-10-08] MEDS ORDERED: ESMOLOL HCL/SOD CL 2,500 MG/250 ML RTUINJ IV PRN (23:48)
--- NOTE | 2020-10-09 00:06 | CRITICAL CARE ADMISSION REPORT ---
HPI Date:: 10/08/20 Time:: 23:50 Reason for ICU Reason:: tachycardia Admission Date/Time & PCP: Admission Date/Time: 10/08/20 19:19 Primary Care Provider: HPI: TERE BEAN is a 65 year old female with a history of a toxic multinodular goiter with associated hyperthyroidism who was recently treated here for a t hyroid storm, atrial fibrillation, jhq-ftokyey-mzigytqwj diabetes mellitus, hyperlipidemia, hypertension, and obesity, who presents with persistent weakness and dyspnea with exertion. She also had a little bit of vaginal spotting. This lady has history of hyperthyroidism and follows up with an electrician elevator maintenance in [place] named Dr. Jasso, and was admitted here about 1 month ago with thyroid storm because her electrician elevator maintenance had taken her off of her Tapazole and beta- shweta. She had been off of it for several months and then wound up here and a thyroid storm. I am not sure why she was taken off of it. She is also not sure. At any rate, she wound up in the ICU on esmolol drip and wound up on large doses of beta-shweta and Tapazole to try to get her symptoms under control. She was transferred to [facility]. At some point, and I am not sure if this happened when she was transferred, she had a cardiac ablation for atrial fibrillation. She was told that it would not work if her hyperthyroidism was not addressed. When she was still in the ICU here, she had been seen by ENT but it seems that no follow-up was ever arranged for an outpatient basis. She says that ever since she went home from the ablation from [facility], she has had a lot of persistent weakness and dyspnea on exertion. She says she can feel her heart beating really fast whenever she puts her hand on her chest. She has an appointment with her electrician elevator maintenance on Sunday, but was unable to wait until then to be seen. Transvaginal ultrasound was done in the ER, but I suspect her spotting is likely due to her persistent hyperthyroidism. She has been on propranolol 80 mg twice a day and Tapazole 20 mg twice a day at home. Her TSH was undetectable and her free T3 was greater than 3. She was started on a Cardizem drip, but it is not controlling her rate, which it would not be expected to do in this situation. Her heart rate remains in the 120s to 140s. She is very sweaty. Her blood pressure is acceptable. The hospitalist Dr. Smith called requesting transfer to ICU due to tachycardia secondary to hyperthyroidism and unable to control her rate with propanolol. The patient arrived in ICU and will sart her on esmolol however, previous admission patient was not able to tolerate due to hypotension and the medication was not effective at controlling her heart rate. The patient required transfer to tertiary care facility last admission for same problem. I discussed my concern for the same sequel of events with the hospitalist and requested that he transfer her to a tertiary care center for electrician elevator maintenance services. The patient will be monitored in ICU for now. - Diagnosis/Plan (1) Atrial fibrillation with rapid ventricular response Is this a current diagnosis for this admission?: Yes (2) Hyperthyroidism Is this a current diagnosis for this admission?: Yes (3) Thyroid storm Qualifiers: Thyrotoxicosis type: with toxic multinodular goiter Qualified Code(s): E05.21 - Thyrotoxicosis with toxic multinodular goiter with thyrotoxic crisis or storm Is this a current diagnosis for this admission?: Yes (4) Vaginal spotting Is this a current diagnosis for this admission?: Yes (5) Dyspnea Qualifiers: Dyspnea type: dyspnea on exertion Qualified Code(s): R06.09 - Other forms of dyspnea Is this a current diagnosis for this admission?: Yes (6) Goiter, dyshormonogenic Is this a current diagnosis for this admission?: Yes (7) Mass in neck Is this a current diagnosis for this admission?: Yes (9) Obesity, Class II, BMI 35-39.9 Is this a current diagnosis for this admission?: No (10) Type 2 diabetes mellitus treated without insulin Is this a current diagnosis for this admission?: No Past Medical History Cardiac Medical History: Reports: Atrial Fibrillation, Hyperlipidema, Hypertension Denies: Congestive Heart Failure, Coronary Artery Disease, DVT, Myocardial Infarction, Peripheral Vascular Disease, Pulmonary Embolism, Heart Murmur Cardiac History Note: atrial fibrillation with RVR secondary to Hyperthyroidism previous admission for smae transferred to [facility] required cardiac ablation and was told to follow up with electrician elevator maintenance or the ablation would not be effective and patient has not followed up Pulmonary Medical History: Denies: Asthma, Bronchitis, Chronic Obstructive Pulmonary Disease (COPD), Intubation, Pneumonia, Respiratory Failure, Sleep Apnea, Tuberculosis Neurological Medical History: Denies: Hemorrhagic CVA, Ischemic CVA, Migraine, Multiple Sclerosis, Seizures Endocrine Medical History: Reports: Diabetes Mellitus Type 2 - Non-insulin requiring, Hyperthyroidism Endocrine History Note: Hyperthyroidism Renal/ Medical History: Reports: None Malignancy Medical History: Reports: None GI Medical History: Denies: None, Cirrhosis, Crohn's Disease, Diverticulitis, Gastroesophageal Reflux Disease, Hepatitis, Hiatal Hernia, Peptic Ulcer Disease, Ulcerative Colitis, Other Musculoskeltal Medical History: Denies: Arthritis Skin Medical History: Denies: None, Eczema, Psoriasis, Other Psychiatric Medical History: Denies: Attention Deficit Hyperactivity Disorder, Bipolar Disorder, Depression Traumatic Medical History: Denies: None, Gunshot Wound, Pneumothorax, Stab Wound, Traumatic Brain Injury, Other Hematology: Reports: Anemia Past Surgical History Past Surgical History: Reports: Cholecystectomy, Other - cardiac ablation Social/Family History - Social History Lives with: Family Smoking Status: Never Smoker Frequency of Alcohol Use: None Hx Recreational Drug Use: No Drugs: None Hx Prescription Drug Abuse: No - Medication/Allergies Home Medications: Aspirin [Ecotrin 81 mg EC Tablet] 81 mg PO DAILY 08/21/19 Atorvastatin Calcium [Lipitor 10 mg Tablet] 10 mg PO QHS 08/21/19 Losartan/Hydrochlorothiazide [Losartan-Hctz 50-12.5 mg Tab] 1 tab PO QAM 08/21/19 Metformin HCl [Metformin HCl ER] 500 mg PO BID 08/21/19 Propranolol HCl [Inderal 40 Mg Tablet] 80 mg PO BID #60 tablet 08/28/19 Multivitamin [Multiple Vitamins] 1 tab PO DAILY 09/07/20 Apixaban [Eliquis 5 mg Tablet] 5 mg PO BID 10/08/20 Methimazole [Tapazole] 20 mg PO BID 10/08/20 Allergies/Adverse Reactions: No Known Allergies Allergy (Verified 08/21/19 11:25) Review of Systems Constitutional: PRESENT: fatigue Eyes: ABSENT: as per HPI, visual disturbances, other Nose, Mouth, and Throat: ABSENT: as per HPI, headache(s), mouth pain, sore throat, vertigo, other Breasts: ABSENT: as per HPI, other Cardiovascular: PRESENT: dyspnea on exertion Respiratory: PRESENT: dyspnea Gastrointestinal: PRESENT: abdominal pain. ABSENT: nausea, vomiting Musculoskeletal: PRESENT: back pain Neurological: ABSENT: as per HPI, abnormal gait, abnormal movements, abnormal speech, confusion, convulsions, dizziness, focal weakness, frequent falls, lack of coordination, memory loss, numbness, paresthesias, restless legs, syncope, tingling, tremor(s), vertigo, weakness, other Physical Exam Vital Signs: Temp Pulse Resp BP Pulse Ox 97.5 F 33 H 111/92 H 100 10/08/20 14:28 10/08/20 20:31 10/08/20 20:31 10/08/20 20:30 Intake & Output 10/07/20 10/08/20 10/09/20 06:59 06:59 06:59 Intake Total 15 Balance 15 Weight 111.7 kg Weight/Height Weight 111.7 kg Height 5 ft 5 in General appearance: PRESENT: no acute distress, obese, well-developed, well- nourished Head exam: PRESENT: atraumatic, normocephalic Eye exam: PRESENT: PERRLA Ear exam: PRESENT: normal external ear exam Teeth exam: ABSENT: dental caries, dental tenderness, edentulous, poor dentation, other Throat exam: ABSENT: post pharyngeal erythema, tonsillar erythema, tonsillar exudate, tonsillogmegaly, other Neck exam: PRESENT: thyromegaly Respiratory exam: PRESENT: clear to auscultation randa, tachypnea - only with exertion Cardiovascular exam: PRESENT: irregular rhythm, +S1, +S2, tachycardia Pulses: PRESENT: normal radial pulses, +2 pedal pulses bilateral Vascular exam: PRESENT: normal capillary refill GI/Abdominal exam: PRESENT: normal bowel sounds Rectal exam: PRESENT: deferred Extremities exam: PRESENT: full ROM Musculoskeletal exam: PRESENT: ambulatory, full ROM Neurological exam: PRESENT: alert, altered, awake, oriented to person, oriented to place, oriented to time, oriented to situation Psychiatric exam: PRESENT: appropriate affect Laboratory/Radiographs Laboratory Results: 10/08/20 14:57 10/08/20 14:57 10/08/20 10/08/20 10/08/20 14:57 14:57 14:57 WBC 8.4 RBC 4.24 Hgb 11.1 L Hct 34.2 L MCV 81 MCH 26.2 L MCHC 32.4 RDW 20.0 H Plt Count 303 Seg Neutrophils % 73.0 Sodium 140.7 Potassium 3.8 Chloride 107 Carbon Dioxide 21 L Anion Gap 13 BUN 46 H Creatinine 1.48 H Est GFR ( Amer) 43 L Glucose 117 H Calcium 10.0 Total Bilirubin 0.9 AST 88 H Alkaline Phosphatase 186 H Total Protein 7.0 Albumin 3.8 TSH < 0.01 L Free T4 3.13 H 10/08/20 14:57 Troponin I < 0.012 Impressions: Transvaginal US 10/08/20 15:24 IMPRESSION: 1. Moderate amount of fluid in the posterior pelvic cul-de-sac which may be infectious or inflammatory fluid. 2. Diffuse thickening of the endometrial lining. This may represent endometrial hyperplasia, however malignancy is not excluded. Direct visualization and sampling is recommended. All labs, radiographs, diagnostic studies and EKGs were personally reviewed: Yes In addition, reports of radiographic and diagnostic studies were read: Yes Critical Time Critical Time (minutes): 52 -: The care of a critically ill patient is dynamic. This note represents a static moment in the admission process. Orders and treatments may be given simultaneously and urgently, and time is not brewery representative of the treatment pr ocess. This patient requires Critical Care secondary to life threatening organ or limb dysfunction. Without Critical Care services, the patient is at risk for increased mortality and morbidity.
[2020-10-09] MEDS: METHIMAZOLE 5 MG TABLET PO SCH ×5 (01:08→21:18)
[2020-10-09] MEDS: PROPRANOLOL HCL 40 MG TABLET PO SCH ×3 (01:09→17:26)
[2020-10-09] MEDS: HYDROCORTISONE SOD SUCCINATE INJ/PF 100 MG/2 ML SDV IV SCH ×3 (01:30→17:25)
--- NOTE | 2020-10-09 01:41 | Progress Note ---
Provider Note Provider Note: Esomolol drip started per policy by nursing staff and patient had a drop in blood pressure to 73/36 and per nurse bolus was not given as per protocol.
[2020-10-09 04:26] LABS: HEMATOCRIT 31.3 % (36.0-47.0); HEMOGLOBIN 10.3 g/dL (12.0-15.5); MEAN CORPUSCULAR HEMOGLOBIN 26.6 pg (27.0-33.4); MEAN CORPUSCULAR VOLUME 81 fl (80-97); PLATELET COUNT 253 10^3/uL (150-450); RED BLOOD COUNT 3.87 10^6/uL (3.72-5.28); RED CELL DISTRIBUTION WIDTH 20.7 % (11.5-14.0); WHITE BLOOD COUNT 7.7 10^3/uL (4.0-10.5)
[2020-10-09 04:41] LABS: ALBUMIN 3.4 g/dL (3.5-5.0); ALKALINE PHOSPHATASE 182 U/L (38-126); ANION GAP 10 (5-19); ASPARTATE AMINO TRANSFERASE 86 U/L (14-36); BILIRUBIN,DIRECT 0.4 mg/dL (0.0-0.4); BILIRUBIN,TOTAL 0.7 mg/dL (0.2-1.3); BLOOD UREA NITROGEN 45 mg/dL (7-20); CALCIUM 9.8 mg/dL (8.4-10.2); CARBON DIOXIDE 24 mmol/L (22-30); CHLORIDE 106 mmol/L (98-107); GLUCOSE 136 mg/dL (75-110); POTASSIUM 3.3 mmol/L (3.6-5.0); TOTAL PROTEIN 6.3 g/dL (6.3-8.2)
[2020-10-09 04:54] LABS: FREE T3 3.87 pg/mL (2.77-5.27); FREE T4 (FREE THYROXINE) 2.88 ng/dL (0.78-2.19)
[2020-10-09] MEDS ORDERED: POTASSIUM CHLORIDE 20 MEQ PACKET PO ONE (05:07)
[2020-10-09] MEDS: INSULIN LISPRO 100 UNIT/ML 3 ML VIAL SUBCUT SCH ×4 (09:19→21:18)
[2020-10-09] MEDS: MULTIVITAMIN TABLET PO SCH (09:20)
[2020-10-09] MEDS: ASPIRIN 81 MG TABLET, ENT COATED PO SCH (09:23)
[2020-10-09] MEDS: APIXABAN 5 MG TABLET PO SCH ×2 (09:23→17:25)
[2020-10-09] MEDS ORDERED: PROPRANOLOL HCL 40 MG TABLET PO SCH (10:00)
[2020-10-09] MEDS ORDERED: METHIMAZOLE 5 MG TABLET PO SCH ×2 (10:00→12:00)
[2020-10-09] MEDS ORDERED: APIXABAN 5 MG TABLET PO SCH (10:00)
--- NOTE | 2020-10-09 15:02 | EKG REPORT ---
SEVERITY:- ABNORMAL ECG - ATRIAL FIBRILLATION LEFT AXIS DEVIATION NONSPECIFIC REPOL ABNORMALITY, LATERAL LEADS : Confirmed by: Michel Noonan 09-Oct-2020 15:02:14
[2020-10-09] MEDS: ATORVASTATIN CALCIUM 10 MG TABLET PO SCH (21:18)
[2020-10-09] MEDS ORDERED: RINGERS SOLUTION,LACTATED 500 ML IV ONE (23:26)
[2020-10-10] MEDS: HYDROCORTISONE SOD SUCCINATE INJ/PF 100 MG/2 ML SDV IV SCH ×3 (01:30→18:04)
[2020-10-10] MEDS: PROPRANOLOL HCL 40 MG TABLET PO SCH ×3 (05:28→18:05)
[2020-10-10 05:51] LABS: HEMATOCRIT 31.2 % (36.0-47.0); HEMOGLOBIN 10.3 g/dL (12.0-15.5); MEAN CORPUSCULAR HEMOGLOBIN 26.6 pg (27.0-33.4); MEAN CORPUSCULAR VOLUME 81 fl (80-97); PLATELET COUNT 244 10^3/uL (150-450); RED BLOOD COUNT 3.88 10^6/uL (3.72-5.28); RED CELL DISTRIBUTION WIDTH 20.5 % (11.5-14.0); WHITE BLOOD COUNT 8.8 10^3/uL (4.0-10.5)
[2020-10-10 06:11] LABS: ALBUMIN 3.4 g/dL (3.5-5.0); ALKALINE PHOSPHATASE 185 U/L (38-126); ANION GAP 13 (5-19); ASPARTATE AMINO TRANSFERASE 77 U/L (14-36); BILIRUBIN,DIRECT 0.4 mg/dL (0.0-0.4); BILIRUBIN,TOTAL 0.7 mg/dL (0.2-1.3); BLOOD UREA NITROGEN 54 mg/dL (7-20); CALCIUM 9.8 mg/dL (8.4-10.2); CARBON DIOXIDE 22 mmol/L (22-30); CHLORIDE 104 mmol/L (98-107); GLUCOSE 128 mg/dL (75-110); POTASSIUM 3.8 mmol/L (3.6-5.0); TOTAL PROTEIN 6.3 g/dL (6.3-8.2)
[2020-10-10 06:39] LABS: FREE T3 3.39 pg/mL (2.77-5.27); FREE T4 (FREE THYROXINE) 2.84 ng/dL (0.78-2.19)
[2020-10-10] MEDS: INSULIN LISPRO 100 UNIT/ML 3 ML VIAL SUBCUT SCH ×4 (08:34→21:31)
--- NOTE | 2020-10-10 11:24 | PDOC CRITICAL CARE PROG REPORT ---
General Date:: 10/10/20 ICU Day:: 2 Hospital Day:: 2 Resuscitation Status: Full Code Events in the past 12 to 24 Hours:: HR still 140-170 range. No effect from Tapazole yet. Esmolol dropped BP. Inderal increased Review of systems relevant to events:: Endocrine, CV. Reason for ICU Addmission:: tachycardia, thyrotoxicosis. - Medications: Medications reviewed and adjusted accordingly: Yes Vasopressors:: None Sedation:: None Physical Exam Vital Signs: Temp Pulse Resp BP Pulse Ox 97.6 F 160 H 27 H 86/69 L 97 10/10/20 09:49 10/10/20 10:00 10/10/20 10:00 10/10/20 10:00 10/10/20 10:00 Intake & Output 10/09/20 10/10/20 10/11/20 06:59 06:59 06:59 Intake Total 22 1280 Output Total 0 101 0 Balance 22 1179 0 Weight 113 kg 115.4 kg Weight/Height Weight 115.4 kg Height 5 ft 5 in General appearance: PRESENT: no acute distress, cooperative Head exam: PRESENT: atraumatic, normocephalic Eye exam: PRESENT: conjunctiva pink, EOMI, PERRLA. ABSENT: scleral icterus Ear exam: PRESENT: normal external ear exam Mouth exam: PRESENT: moist, tongue midline Neck exam: PRESENT: other - No real thyromegaly. Respiratory exam: PRESENT: clear to auscultation randa. ABSENT: rales, rhonchi, wheezes Cardiovascular exam: PRESENT: tachycardia GI/Abdominal exam: PRESENT: normal bowel sounds, soft. ABSENT: distended, guarding, mass, organolmegaly, rebound, tenderness Rectal exam: PRESENT: deferred Extremities exam: PRESENT: full ROM. ABSENT: calf tenderness, clubbing, pedal edema Neurological exam: PRESENT: alert, awake, oriented to person, oriented to place, oriented to time, oriented to situation, CN II-XII grossly intact. ABSENT: motor sensory deficit Psychiatric exam: PRESENT: appropriate affect, normal mood. ABSENT: homicidal ideation, suicidal ideation Skin exam: PRESENT: dry, intact, warm. ABSENT: cyanosis, rash Laboratory/Radiographs Laboratory Results: 10/10/20 05:32 10/10/20 05:32 10/10/20 10/10/20 10/10/20 05:32 05:32 05:32 WBC 8.8 RBC 3.88 Hgb 10.3 L Hct 31.2 L MCV 81 MCH 26.6 L MCHC 33.0 RDW 20.5 H Plt Count 244 Sodium 139.4 Potassium 3.8 Chloride 104 Carbon Dioxide 22 Anion Gap 13 BUN 54 H Creatinine 1.72 H Est GFR ( Amer) 36 L Glucose 128 H Calcium 9.8 Total Bilirubin 0.7 AST 77 H Alkaline Phosphatase 185 H Total Protein 6.3 Albumin 3.4 L Free T4 2.84 H Free T3 pg/mL 3.39 10/08/20 14:57 Troponin I < 0.012 Impressions: Transvaginal US 10/08/20 15:24 IMPRESSION: 1. Moderate amount of fluid in the posterior pelvic cul-de-sac which may be infectious or inflammatory fluid. 2. Diffuse thickening of the endometrial lining. This may represent endometrial hyperplasia, however malignancy is not excluded. Direct visualization and sampling is recommended. EKG: Afib with variable rate. All labs, radiographs, diagnostic studies and EKGs were personally reviewed: Yes In addition, reports of radiographic and diagnostic studies were read: Yes Assessment and Plan - Diagnosis (1) Atrial fibrillation with rapid ventricular response Is this a current diagnosis for this admission?: Yes Plan: Rate still 140-170. Inderal increased to 80mg QID. Will anticoagulate but how l [place] she has been in afib is not clear. (2) Hyperthyroidism Is this a current diagnosis for this admission?: Yes Plan: No response thus far from Tapazole. (3) Vaginal spotting Is this a current diagnosis for this admission?: Yes Plan: Transvaginal U/S suggestive of endomertrial hyperplasia. Follow up after thyroid disorder addressed. (4) Toxic multinodular goiter Is this a current diagnosis for this admission?: Yes Plan: The reason for her thyrotoxicosis. She may well need a thyroidectomy ideally done at a facility she can have access to an director of head start. (5) Type 2 diabetes mellitus treated without insulin Is this a current diagnosis for this admission?: Yes Plan: Controlled. (6) CALROS (acute kidney injury) Is this a current diagnosis for this admission?: Yes Plan: Baseline CR about 1.0. Currently 1.7. Likely due to RVR. More fluid may put her into CHF. Need to get HR down before more fluid. Plan Summary: I spoke to her director of head start Sunday. Dr. Patel [phone]. She has appt on Sunday at 10 AM. She gets too SOB and in too much joint pain to go-she wont. She has expressed frustration in not getting this resolved in a year. If she is not a candidate for transfer to [facility] where Dr. Patel is she will accept transfer to a facility that has both endocrine and ENT surgery to get this finally resolved. She would prefer [place] if possible. Critical Time Critical Time (minutes): 35 Level of Care: ICU Anticipated discharge: Home Anticipated DC Timeframe: Other -: 1. The care of a critical patient is a dynamic process. This note is a contact center representative synopsis but static in nature. The timeframe for treatments given in order is not necessarily the actual time these treatments may have been done. 2. This patient requires critical care secondary to ongoing requirements for therapy not offered or safe outside the critical care environment. Transfer to a lower level of care will result in altered life or limb morbidity and mortality. 3. Multidisciplinary rounds completed. 4. ABCDE bundle addressed.
[2020-10-10] MEDS: METHIMAZOLE 5 MG TABLET PO SCH ×4 (11:30→21:27)
[2020-10-10] MEDS: APIXABAN 5 MG TABLET PO SCH ×2 (11:30→18:05)
[2020-10-10] MEDS: MULTIVITAMIN TABLET PO SCH (11:30)
[2020-10-10] MEDS: ASPIRIN 81 MG TABLET, ENT COATED PO SCH (11:30)
[2020-10-10] MEDS: ATORVASTATIN CALCIUM 10 MG TABLET PO SCH (21:27)
[2020-10-11] MEDS: PROPRANOLOL HCL 40 MG TABLET PO SCH ×4 (00:21→17:11)
[2020-10-11] MEDS: HYDROCORTISONE SOD SUCCINATE INJ/PF 100 MG/2 ML SDV IV SCH ×3 (02:02→17:11)
[2020-10-11 04:22] LABS: HEMATOCRIT 33.6 % (36.0-47.0); HEMOGLOBIN 10.8 g/dL (12.0-15.5); MEAN CORPUSCULAR HEMOGLOBIN 25.9 pg (27.0-33.4); MEAN CORPUSCULAR HGB CONC 32.3 g/dL (32.0-36.0); MEAN CORPUSCULAR VOLUME 80 fl (80-97); PLATELET COUNT 263 10^3/uL (150-450); RED BLOOD COUNT 4.17 10^6/uL (3.72-5.28); WHITE BLOOD COUNT 9.7 10^3/uL (4.0-10.5)
[2020-10-11 04:38] LABS: ALBUMIN 3.5 g/dL (3.5-5.0); ALKALINE PHOSPHATASE 197 U/L (38-126); ANION GAP 13 (5-19); ASPARTATE AMINO TRANSFERASE 75 U/L (14-36); BILIRUBIN,DIRECT 0.4 mg/dL (0.0-0.4); BILIRUBIN,TOTAL 0.6 mg/dL (0.2-1.3); BLOOD UREA NITROGEN 68 mg/dL (7-20); CARBON DIOXIDE 22 mmol/L (22-30); CHLORIDE 104 mmol/L (98-107); GLUCOSE 131 mg/dL (75-110); POTASSIUM 3.9 mmol/L (3.6-5.0); TOTAL PROTEIN 6.4 g/dL (6.3-8.2)
[2020-10-11 04:55] LABS: FREE T3 3.5 pg/mL (2.77-5.27); FREE T4 (FREE THYROXINE) 2.68 ng/dL (0.78-2.19)
[2020-10-11] MEDS: INSULIN LISPRO 100 UNIT/ML 3 ML VIAL SUBCUT SCH ×4 (08:00→21:13)
[2020-10-11] MEDS: ASPIRIN 81 MG TABLET, ENT COATED PO SCH (10:33)
[2020-10-11] MEDS: APIXABAN 5 MG TABLET PO SCH ×2 (10:33→17:12)
[2020-10-11] MEDS: MULTIVITAMIN TABLET PO SCH (10:33)
[2020-10-11] MEDS: METHIMAZOLE 5 MG TABLET PO SCH ×4 (10:33→22:25)
[2020-10-11] MEDS: PANTOPRAZOLE SODIUM 40 MG TABLET.DR PO SCH (13:29)
[2020-10-11] MEDS ORDERED: DIGOXIN INJ 0.5 MG/2 ML AMPULE IV ONE ×2 (15:40→21:34)
[2020-10-11] MEDS ORDERED: ALBUMIN HUMAN 12.5 GM/50 ML RTUINJ IV SCH (15:45)
[2020-10-11] MEDS ORDERED: FUROSEMIDE INJ/PF 40 MG/4 ML SDV IV ONE (16:15)
--- NOTE | 2020-10-11 19:32 | PDOC CRITICAL CARE PROG REPORT ---
General Date:: 10/11/20 ICU Day:: 4 Hospital Day:: 4 Resuscitation Status: Full Code Events in the past 12 to 24 Hours:: HR still 140-170 range. No effect from Tapazole yet. Esmolol dropped BP. Inderal increased 10/01: Free T4 2.68. Out of bed to commode. Had telemedicine visit with her catalyst recovery operator today. 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 Continues to be in atrial fibrillation with rapid ventricular response. Currently, heart rate 150s to 160s. Review of systems relevant to events:: Endocrine, CV. Reason for ICU Addmission:: tachycardia, thyrotoxicosis. - Medications: Medications reviewed and adjusted accordingly: Yes Vasopressors:: None Physical Exam Vital Signs: Temp Pulse Resp BP Pulse Ox 97.8 F 154 H 29 H 115/71 100 10/11/20 10:00 10/11/20 10:00 10/11/20 12:00 10/11/20 10:20 10/11/20 12:00 Intake & Output 10/10/20 10/11/20 10/12/20 06:59 06:59 06:59 Intake Total 1280 200 250 Output Total 101 300 Balance 1179 -100 250 Weight 115.4 kg 114.7 kg Weight/Height Weight 114.7 kg Height 1.65 m General appearance: PRESENT: no acute distress, morbidly obese, well-developed, well-nourished Head exam: PRESENT: atraumatic, normocephalic Eye exam: PRESENT: conjunctiva pink, EOMI, PERRLA. ABSENT: scleral icterus Mouth exam: PRESENT: moist, tongue midline Neck exam: PRESENT: thyromegaly. ABSENT: carotid bruit, JVD, lymphadenopathy Respiratory exam: PRESENT: clear to auscultation randa. ABSENT: rales, rhonchi, wheezes Cardiovascular exam: PRESENT: irregular rhythm, tachycardia. ABSENT: diastolic murmur, rubs, systolic murmur Pulses: PRESENT: normal dorsalis pedis pul Vascular exam: PRESENT: normal capillary refill GI/Abdominal exam: PRESENT: normal bowel sounds, soft. ABSENT: distended, guarding, mass, organolmegaly, rebound, tenderness Extremities exam: PRESENT: full ROM. ABSENT: calf tenderness, clubbing, pedal edema Musculoskeletal exam: PRESENT: normal inspection. ABSENT: deformity Neurological exam: PRESENT: alert, awake, oriented to person, oriented to place, oriented to time, oriented to situation, CN II-XII grossly intact. ABSENT: motor sensory deficit Psychiatric exam: ABSENT: agitated, anxious Skin exam: PRESENT: dry, intact, warm. ABSENT: cyanosis, rash Laboratory/Radiographs Laboratory Results: 10/11/20 04:09 10/11/20 04:09 10/11/20 10/11/20 10/11/20 04:09 04:09 04:09 WBC 9.7 RBC 4.17 Hgb 10.8 L Hct 33.6 L MCV 80 MCH 25.9 L MCHC 32.3 RDW 21.0 H Plt Count 263 Sodium 139.0 Potassium 3.9 Chloride 104 Carbon Dioxide 22 Anion Gap 13 BUN 68 H Creatinine 2.01 H Est GFR ( Amer) 30 L Glucose 131 H Calcium 10.0 Total Bilirubin 0.6 AST 75 H Alkaline Phosphatase 197 H Total Protein 6.4 Albumin 3.5 Free T4 2.68 H Free T3 pg/mL 3.50 10/08/20 14:57 Troponin I < 0.012 Impressions: Transvaginal US 10/08/20 15:24 IMPRESSION: 1. Moderate amount of fluid in the posterior pelvic cul-de-sac which may be infectious or inflammatory fluid. 2. Diffuse thickening of the endometrial lining. This may represent endometrial hyperplasia, however malignancy is not excluded. Direct visualization and sampling is recommended. All labs, radiographs, diagnostic studies and EKGs were personally reviewed: Yes In addition, reports of radiographic and diagnostic studies were read: Yes Assessment and Plan - Diagnosis (1) Hyperthyroidism Is this a current diagnosis for this admission?: Yes Plan: * Continue Tapazole/Inderal. (2) Atrial fibrillation with rapid ventricular response Is this a current diagnosis for this admission?: Yes Plan: * Continue Inderal 80mg QID. * Trial of digoxin. * Continue anticoagulation. (3) CARLOS (acute kidney injury) Is this a current diagnosis for this admission?: Yes Plan: * Baseline creatinine ~ 1.0. * Monitor urine output. * Avoid nephrotoxic drugs. * Renal dosing of medications. 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 Critical Time Critical Time (minutes): 60 Level of Care: ICU -: 1. The care of a critical patient is a dynamic process. This note is a billing customer service representative synopsis but static in nature. The timeframe for treatments given in order is not necessarily the actual time these treatments may have been done. 2. This patient requires critical care secondary to ongoing requirements for therapy not offered or safe outside the critical care environment. Transfer to a lower level of care will result in altered life or limb morbidity and mortality. 3. Multidisciplinary rounds completed. 4. ABCDE bundle addressed.
[2020-10-11] MEDS: ATORVASTATIN CALCIUM 10 MG TABLET PO SCH (22:26)
[2020-10-11] MEDS ORDERED: DILTIAZEM HCL INJ 25 MG/5 ML VIAL ONE (23:21)
[2020-10-11] MEDS ORDERED: DILTIAZEM HCL INJ 25 MG/5 ML VIAL IV ONE (23:30)
[2020-10-12] MEDS: PROPRANOLOL HCL 40 MG TABLET PO SCH ×4 (00:38→21:25)
[2020-10-12] MEDS: HYDROCORTISONE SOD SUCCINATE INJ/PF 100 MG/2 ML SDV IV SCH ×3 (02:22→18:02)
[2020-10-12 05:26] LABS: ANION GAP 12 (5-19); BLOOD UREA NITROGEN 69 mg/dL (7-20); CALCIUM 9.7 mg/dL (8.4-10.2); CARBON DIOXIDE 23 mmol/L (22-30); CHLORIDE 104 mmol/L (98-107); GLUCOSE 136 mg/dL (75-110); PHOSPHORUS 3.7 mg/dL (2.5-4.5); POTASSIUM 3.6 mmol/L (3.6-5.0)
[2020-10-12 05:27] LABS: ALBUMIN 3.4 g/dL (3.5-5.0); ALKALINE PHOSPHATASE 204 U/L (38-126); ASPARTATE AMINO TRANSFERASE 51 U/L (14-36); BILIRUBIN,DIRECT 0.4 mg/dL (0.0-0.4); BILIRUBIN,TOTAL 0.6 mg/dL (0.2-1.3); TOTAL PROTEIN 6.2 g/dL (6.3-8.2)
[2020-10-12 06:09] LABS: FREE T3 2.46 pg/mL (2.77-5.27); FREE T4 (FREE THYROXINE) 2.61 ng/dL (0.78-2.19)
[2020-10-12] MEDS: PANTOPRAZOLE SODIUM 40 MG TABLET.DR PO SCH (06:39)
[2020-10-12 07:37] LABS: ABSOLUTE LYMPHOCYTES (AUTO) 1.2 10^3/uL (0.5-4.7); ABSOLUTE MONOCYTES (AUTO) 0.7 10^3/uL (0.1-1.4); ABSOLUTE NEUT (AUTO) 6.3 10^3/uL (1.7-8.2); BASOPHILS % (AUTO) 0.3 % (0-2); HEMOGLOBIN 10.9 g/dL (12.0-15.5); LYMPHOCYTES % (AUTO) 14.9 % (13-45); MEAN CORPUSCULAR HGB CONC 32.1 g/dL (32.0-36.0); MEAN CORPUSCULAR VOLUME 81 fl (80-97); MONOCYTES % (AUTO) 8.6 % (3-13); PLATELET COUNT 229 10^3/uL (150-450); RED BLOOD COUNT 4.21 10^6/uL (3.72-5.28); SEGMENTED NEUTROPHILS % (AUTO) 76.2 % (42-78); TOTAL CELLS COUNTED % (AUTO) 100 %; WHITE BLOOD COUNT 8.3 10^3/uL (4.0-10.5)
[2020-10-12] MEDS: INSULIN LISPRO 100 UNIT/ML 3 ML VIAL SUBCUT SCH ×4 (09:33→21:24)
[2020-10-12] MEDS: ASPIRIN 81 MG TABLET, ENT COATED PO SCH (09:34)
[2020-10-12] MEDS: APIXABAN 5 MG TABLET PO SCH ×2 (09:34→17:56)
[2020-10-12] MEDS: METHIMAZOLE 5 MG TABLET PO SCH ×4 (09:34→21:26)
[2020-10-12] MEDS: MULTIVITAMIN TABLET PO SCH (09:34)
[2020-10-12] MEDS: DILTIAZEM HCL 30 MG TABLET PO SCH ×3 (12:11→23:25)
--- NOTE | 2020-10-12 18:54 | PDOC CRITICAL CARE PROG REPORT ---
General Date:: 10/12/20 ICU Day:: 5 Hospital Day:: 5 Resuscitation Status: Full Code Events in the past 12 to 24 Hours:: HR still 140-170 range. No effect from Tapazole yet. Esmolol dropped BP. Inderal increased 10/11: Free T4 2.68. Out of bed to commode. Had telemedicine visit with her international project engineer today. 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 Continues to be in atrial fibrillation with rapid ventricular response. Currently, heart rate 150s to 160s. 10/12: Free T4 2.61. Sitting up at the side of the bed. Digoxin failed to provide effective rate control yesterday. Consequently, we started Cardizem. Started on Cardizem 30 mg p.o. every 6 hours in the interim for rate control. Heart rate 110s to 130, down from 150s to 160s. Patient reports that she has noticed significant improvement in exertional dyspnea with improved rate control. She is on methimazole 20 mg p.o. 4 times daily. She is also on propranolol 80 mg p.o. every 6 hours along with diltiazem 30 mg p.o. every 6 hours. Review of systems relevant to events:: Endocrine, CV. Reason for ICU Addmission:: tachycardia, thyrotoxicosis. - Medications: Medications reviewed and adjusted accordingly: Yes Vasopressors:: None Physical Exam Vital Signs: Temp Pulse Resp BP Pulse Ox 97.6 F 130 H 26 H 103/78 100 10/12/20 12:00 10/12/20 12:00 10/12/20 13:00 10/12/20 12:25 10/12/20 12:25 Intake & Output 10/11/20 10/12/20 10/13/20 06:59 06:59 06:59 Intake Total 200 370 60 Output Total 300 0 Balance -100 370 60 Weight 114.7 kg 118.4 kg Weight/Height Weight 118.4 kg Height 1.65 m General appearance: PRESENT: no acute distress, well-developed, well-nourished Head exam: PRESENT: atraumatic, normocephalic Eye exam: PRESENT: conjunctiva pink, EOMI, PERRLA. ABSENT: scleral icterus Mouth exam: PRESENT: moist, tongue midline Neck exam: ABSENT: carotid bruit, JVD, lymphadenopathy, thyromegaly Respiratory exam: PRESENT: clear to auscultation randa. ABSENT: rales, rhonchi, wheezes Cardiovascular exam: PRESENT: irregular rhythm, tachycardia. ABSENT: diastolic murmur, rubs, systolic murmur Pulses: PRESENT: normal dorsalis pedis pul GI/Abdominal exam: PRESENT: normal bowel sounds, soft. ABSENT: distended, guarding, mass, organolmegaly, rebound, tenderness Extremities exam: PRESENT: full ROM. ABSENT: calf tenderness, clubbing, pedal edema Musculoskeletal exam: PRESENT: normal inspection. ABSENT: deformity Neurological exam: PRESENT: alert, awake, oriented to person, oriented to place, oriented to time, oriented to situation, CN II-XII grossly intact. ABSENT: motor sensory deficit Psychiatric exam: ABSENT: agitated, anxious Skin exam: PRESENT: dry, intact, warm. ABSENT: cyanosis, rash Laboratory/Radiographs Laboratory Results: 10/12/20 04:29 10/12/20 04:29 10/12/20 10/12/20 10/12/20 04:29 04:29 04:29 WBC RBC Hgb Hct MCV MCH MCHC RDW Plt Count Seg Neutrophils % Sodium 138.9 Potassium 3.6 Chloride 104 Carbon Dioxide 23 Anion Gap 12 BUN 69 H Creatinine 1.75 H Est GFR ( Amer) 35 L Glucose 136 H Calcium 9.7 Phosphorus 3.7 Magnesium 2.5 H Total Bilirubin 0.6 AST 51 H Alkaline Phosphatase 204 H Total Protein 6.2 L Albumin 3.4 L Free T4 2.61 H Free T3 pg/mL 2.46 L 10/12/20 04:29 WBC 8.3 RBC 4.21 Hgb 10.9 L Hct 34.0 L MCV 81 MCH 26.0 L MCHC 32.1 RDW 21.0 H Plt Count 229 Seg Neutrophils % 76.2 Sodium Potassium Chloride Carbon Dioxide Anion Gap BUN Creatinine Est GFR ( Amer) Glucose Calcium Phosphorus Magnesium Total Bilirubin AST Alkaline Phosphatase Total Protein Albumin Free T4 Free T3 pg/mL 10/08/20 14:57 Troponin I < 0.012 Impressions: Transvaginal US 10/08/20 15:24 IMPRESSION: 1. Moderate amount of fluid in the posterior pelvic cul-de-sac which may be infectious or inflammatory fluid. 2. Diffuse thickening of the endometrial lining. This may represent endometrial hyperplasia, however malignancy is not excluded. Direct visualization and sampling is recommended. All labs, radiographs, diagnostic studies and EKGs were personally reviewed: Yes In addition, reports of radiographic and diagnostic studies were read: Yes Assessment and Plan - Diagnosis (1) Hyperthyroidism Is this a current diagnosis for this admission?: Yes Plan: * Continue Tapazole. * Decrease Inderal to 80 mg p.o. 3 times daily. * Check free T4 daily until euthyroid. 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 * Decrease Inderal, as indicated above. * Decrease Solu-Cortef 100 mg IV every 12 hours. (3) Atrial fibrillation with rapid ventricular response Is this a current diagnosis for this admission?: Yes Plan: * Decrease Inderal to 80 mg 3 times daily. * Cardizem 30 mg p.o. every 6 hours. * Continue anticoagulation. (4) CARLOS (acute kidney injury) Is this a current diagnosis for this admission?: Yes (5) Goiter, dyshormonogenic Is this a current diagnosis for this admission?: Yes (6) Type 2 diabetes mellitus treated without insulin Is this a current diagnosis for this admission?: Yes Plan: * Sliding scale insulin. Critical Time Critical Time (minutes): 45 Level of Care: ICU -: 1. The care of a critical patient is a dynamic process. This note is a in store marketing representative synopsis but static in nature. The timeframe for treatments given in order is not necessarily the actual time these treatments may have been done. 2. This patient requires critical care secondary to ongoing requirements for therapy not offered or safe outside the critical care environment. Transfer to a lower level of care will result in altered life or limb morbidity and mortality. 3. Multidisciplinary rounds completed. 4. ABCDE bundle addressed.
[2020-10-12] MEDS: ATORVASTATIN CALCIUM 10 MG TABLET PO SCH (21:25)
[2020-10-13 04:42] LABS: HEMATOCRIT 34.5 % (36.0-47.0); HEMOGLOBIN 11.2 g/dL (12.0-15.5); MEAN CORPUSCULAR HEMOGLOBIN 26.4 pg (27.0-33.4); MEAN CORPUSCULAR HGB CONC 32.5 g/dL (32.0-36.0); MEAN CORPUSCULAR VOLUME 81 fl (80-97); PLATELET COUNT 221 10^3/uL (150-450); RED BLOOD COUNT 4.25 10^6/uL (3.72-5.28); RED CELL DISTRIBUTION WIDTH 21.4 % (11.5-14.0)
[2020-10-13 05:21] LABS: ALBUMIN 3.2 g/dL (3.5-5.0); ALKALINE PHOSPHATASE 176 U/L (38-126); ASPARTATE AMINO TRANSFERASE 36 U/L (14-36); BILIRUBIN,DIRECT 0.4 mg/dL (0.0-0.4); BILIRUBIN,TOTAL 0.7 mg/dL (0.2-1.3); TOTAL PROTEIN 5.9 g/dL (6.3-8.2)
[2020-10-13] MEDS: PROPRANOLOL HCL 40 MG TABLET PO SCH ×3 (05:27→21:17)
[2020-10-13] MEDS: HYDROCORTISONE SOD SUCCINATE INJ/PF 100 MG/2 ML SDV IV SCH ×2 (05:27→18:02)
[2020-10-13] MEDS: PANTOPRAZOLE SODIUM 40 MG TABLET.DR PO SCH (05:27)
[2020-10-13] MEDS: DILTIAZEM HCL 30 MG TABLET PO SCH ×2 (05:27→12:26)
[2020-10-13 05:35] LABS: ANION GAP 7 (5-19); BLOOD UREA NITROGEN 56 mg/dL (7-20); CALCIUM 9.7 mg/dL (8.4-10.2); CARBON DIOXIDE 25 mmol/L (22-30); CHLORIDE 107 mmol/L (98-107); GLUCOSE 133 mg/dL (75-110); POTASSIUM 3.7 mmol/L (3.6-5.0)
[2020-10-13 05:38] LABS: FREE T3 2.56 pg/mL (2.77-5.27); FREE T4 (FREE THYROXINE) 2.35 ng/dL (0.78-2.19)
[2020-10-13] MEDS: INSULIN LISPRO 100 UNIT/ML 3 ML VIAL SUBCUT SCH ×4 (09:20→21:16)
[2020-10-13] MEDS: METHIMAZOLE 5 MG TABLET PO SCH ×4 (09:57→21:17)
[2020-10-13] MEDS: APIXABAN 5 MG TABLET PO SCH ×2 (09:58→18:02)
[2020-10-13] MEDS: ASPIRIN 81 MG TABLET, ENT COATED PO SCH (09:58)
[2020-10-13] MEDS: MULTIVITAMIN TABLET PO SCH (09:58)
--- NOTE | 2020-10-13 10:59 | PDOC CRITICAL CARE PROG REPORT ---
General Date:: 10/09/20 ICU Day:: 2 Hospital Day:: 2 Resuscitation Status: Full Code Events in the past 12 to 24 Hours:: HR still 140-170 range. No effect from Tapazole yet. Esmolol dropped BP. Inderal increased 10/11: Free T4 2.68. Out of bed to commode. Had telemedicine visit with her potato bucker today. 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 Continues to be in atrial fibrillation with rapid ventricular response. Currently, heart rate 150s to 160s. 10/12: Free T4 2.61. Sitting up at the side of the bed. Digoxin failed to provide effective rate control yesterday. Consequently, we started Cardizem. Started on Cardizem 30 mg p.o. every 6 hours in the interim for rate control. Heart rate 110s to 130, down from 150s to 160s. Patient reports that she has noticed significant improvement in exertional dyspnea with improved rate control. She is on methimazole 20 mg p.o. 4 times daily. She is also on propranolol 80 mg p.o. every 6 hours along with diltiazem 30 mg p.o. every 6 hours. 10/13: Free T4 2.35. Sitting up at the bedside. In good spirits. Cardizem. To be more effective in achieving rate control, so her propranolol was reduced to 80 mg p.o. every 8 hours. Added Cardizem 30 mg p.o. every 6 hours yesterday. Resting heart [place] [address]. Review of systems relevant to events:: Spoke to DR Patel today (Pt's potato bucker) to get an overall game plan for addressing this. Reason for ICU Addmission:: tachycardia, thyrotoxicosis SOB - Medications: Medications reviewed and adjusted accordingly: Yes Vasopressors:: None Sedation:: None Physical Exam Vital Signs: Temp Pulse Resp BP Pulse Ox 97.8 F 117 H 22 H 89/61 L 100 10/13/20 09:26 10/13/20 09:26 10/13/20 08:00 10/13/20 07:38 10/13/20 08:00 Intake & Output 12/15/20 12/16/20 12/17/20 06:59 06:59 06:59 Intake Total 370 260 Output Total 0 Balance 370 260 Weight 118.4 kg 118.6 kg Weight/Height Weight 118.6 kg Height 5 ft 5 in General appearance: PRESENT: no acute distress, cooperative, obese Head exam: PRESENT: atraumatic, normocephalic Eye exam: PRESENT: conjunctiva pink, EOMI, PERRLA. ABSENT: scleral icterus Ear exam: PRESENT: normal external ear exam Mouth exam: PRESENT: moist, tongue midline Neck exam: PRESENT: thyromegaly - Slight Respiratory exam: PRESENT: clear to auscultation randa. ABSENT: rales, rhonchi, wheezes Cardiovascular exam: PRESENT: RRR. ABSENT: diastolic murmur, rubs, systolic murmur GI/Abdominal exam: PRESENT: normal bowel sounds, soft. ABSENT: distended, guarding, mass, organolmegaly, rebound, tenderness Rectal exam: PRESENT: deferred Extremities exam: PRESENT: full ROM. ABSENT: calf tenderness, clubbing, pedal edema Musculoskeletal exam: PRESENT: normal inspection Neurological exam: PRESENT: alert, awake, oriented to person, oriented to place, oriented to time, oriented to situation, CN II-XII grossly intact. ABSENT: motor sensory deficit Psychiatric exam: PRESENT: appropriate affect, normal mood. ABSENT: homicidal ideation, suicidal ideation Skin exam: PRESENT: dry, intact, warm. ABSENT: cyanosis, rash Laboratory/Radiographs Laboratory Results: 10/13/20 04:35 10/13/20 04:35 10/13/20 10/13/20 10/13/20 04:35 04:35 04:35 WBC 9.0 RBC 4.25 Hgb 11.2 L Hct 34.5 L MCV 81 MCH 26.4 L MCHC 32.5 RDW 21.4 H Plt Count 221 Sodium 139.4 Potassium 3.7 Chloride 107 Carbon Dioxide 25 Anion Gap 7 BUN 56 H Creatinine 1.28 H Est GFR ( Amer) 50 L Glucose 133 H Calcium 9.7 Magnesium Cancelled 2.5 H Total Bilirubin 0.7 AST 36 Alkaline Phosphatase 176 H Total Protein 5.9 L Albumin 3.2 L Free T4 Free T3 pg/mL 10/13/20 04:35 WBC RBC Hgb Hct MCV MCH MCHC RDW Plt Count Sodium Potassium Chloride Carbon Dioxide Anion Gap BUN Creatinine Est GFR ( Amer) Glucose Calcium Magnesium Total Bilirubin AST Alkaline Phosphatase Total Protein Albumin Free T4 2.35 H Free T3 pg/mL 2.56 L 10/08/20 14:57 Troponin I < 0.012 Impressions: Transvaginal US 10/08/20 15:24 IMPRESSION: 1. Moderate amount of fluid in the posterior pelvic cul-de-sac which may be infectious or inflammatory fluid. 2. Diffuse thickening of the endometrial lining. This may represent endometrial hyperplasia, however malignancy is not excluded. Direct visualization and sampling is recommended. EKG: Atrial fib. RVR. All labs, radiographs, diagnostic studies and EKGs were personally reviewed: Yes In addition, reports of radiographic and diagnostic studies were read: Yes Assessment and Plan - Diagnosis (1) Atrial fibrillation with rapid ventricular response Is this a current diagnosis for this admission?: Yes Plan: This is a result of her thyrotoxicosis. Rate 140-170. Symptomatic with SOB and COOK, (2) Hyperthyroidism Is this a current diagnosis for this admission?: Yes Plan: Advised to increase propranolol, tapazole and seem him [place] 10/11. Patient agrees to a face time appointment. May need definitive surgery to eliminate this. Suggest transfer to where Dr. Patel is and patient agrees. (3) Vaginal spotting Is this a current diagnosis for this admission?: Yes Plan: Probable endometrial hyperplasis. May need biopsy but probably not while on Eliquis. (4) Toxic multinodular goiter Is this a current diagnosis for this admission?: Yes Plan: Same (5) Type 2 diabetes mellitus treated without insulin Is this a current diagnosis for this admission?: Yes Plan: Controlled. (6) CARLOS (acute kidney injury) Is this a current diagnosis for this admission?: Yes Plan: Mildly increased over baseline. Likely due to thyroid issue and dehydration. Should improve. Plan Summary: Keep in ICU today for HR pending facetime appt with Dr. Patel. Critical Time Critical Time (minutes): 35 Level of Care: ICU Anticipated discharge: Home Anticipated DC Timeframe: Other -: 1. The care of a critical patient is a dynamic process. This note is a shipping services sales representative synopsis but static in nature. The timeframe for treatments given in order is not necessarily the actual time these treatments may have been done. 2. This patient requires critical care secondary to ongoing requirements for therapy not offered or safe outside the critical care environment. Transfer to a lower level of care will result in altered life or limb morbidity and mortality. 3. Multidisciplinary rounds completed. 4. ABCDE bundle addressed.
[2020-10-13] MEDS ORDERED: DILTIAZEM HCL 30 MG TABLET PO ONE (14:19)
[2020-10-13] MEDS ORDERED: DILTIAZEM HCL 30 MG TABLET ONE (14:25)
[2020-10-13] MEDS ORDERED: DILTIAZEM HCL INJ 25 MG/5 ML VIAL IV ONE (15:30)
--- NOTE | 2020-10-13 17:19 | PDOC CRITICAL CARE PROG REPORT ---
General Date:: 10/13/20 Resuscitation Status: Full Code Events in the past 12 to 24 Hours:: HR still 140-170 range. No effect from Tapazole yet. Esmolol dropped BP. Inderal increased 10/11: Free T4 2.68. Out of bed to commode. Had telemedicine visit with her nut process helper today. 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 Continues to be in atrial fib rillation with rapid ventricular response. Currently, heart rate 150s to 160s. 10/12: Free T4 2.61. Sitting up at the side of the bed. Digoxin failed to provide effective rate control yesterday. Consequently, we started Cardizem. Started on Cardizem 30 mg p.o. every 6 hours in the interim for rate control. Heart rate 110s to 130, down from 150s to 160s. Patient reports that she has noticed significant improvement in exertional dyspnea with improved rate control. She is on methimazole 20 mg p.o. 4 times daily. She is also on propranolol 80 mg p.o. every 6 hours along with diltiazem 30 mg p.o. every 6 hours. 10/13: Free T4 2.35. Sitting up at the bedside. In good spirits. Cardizem. To be more effective in achieving rate control, so her propranolol was reduced to 80 mg p.o. every 8 hours. Added Cardizem 30 mg p.o. every 6 hours yesterday. Resting heart [place] [address]. Review of systems relevant to events:: Endocrine, CV. Reason for ICU Addmission:: tachycardia, thyrotoxicosis. - Medications: Medications reviewed and adjusted accordingly: Yes Vasopressors:: None Physical Exam Vital Signs: Temp Pulse Resp BP Pulse Ox 97.8 F 117 H 22 H 89/61 L 100 10/13/20 09:26 10/13/20 09:26 10/13/20 08:00 10/13/20 07:38 10/13/20 08:00 Intake & Output 10/12/20 10/13/20 10/14/20 06:59 06:59 06:59 Intake Total 370 260 Output Total 0 Balance 370 260 Weight 118.4 kg 118.6 kg Weight/Height Weight 118.6 kg Height 1.65 m General appearance: PRESENT: no acute distress, morbidly obese, well-developed, well-nourished Head exam: PRESENT: atraumatic, normocephalic Eye exam: PRESENT: conjunctiva pink, EOMI, PERRLA. ABSENT: scleral icterus Mouth exam: PRESENT: moist, tongue midline Neck exam: ABSENT: carotid bruit, JVD, lymphadenopathy, thyromegaly Respiratory exam: PRESENT: clear to auscultation randa. ABSENT: rales, rhonchi, wheezes Cardiovascular exam: PRESENT: irregular rhythm, tachycardia. ABSENT: diastolic murmur, rubs, systolic murmur Pulses: PRESENT: normal dorsalis pedis pul GI/Abdominal exam: PRESENT: normal bowel sounds, soft. ABSENT: distended, guarding, mass, organolmegaly, rebound, tenderness Extremities exam: PRESENT: full ROM. ABSENT: calf tenderness, clubbing, pedal edema Musculoskeletal exam: PRESENT: normal inspection. ABSENT: deformity Neurological exam: PRESENT: alert, awake, oriented to person, oriented to place, oriented to time, oriented to situation, CN II-XII grossly intact. ABSENT: motor sensory deficit Psychiatric exam: ABSENT: agitated, anxious Skin exam: PRESENT: dry, intact, warm. ABSENT: cyanosis, rash Laboratory/Radiographs Laboratory Results: 10/13/20 04:35 10/13/20 04:35 10/13/20 10/13/20 10/13/20 04:35 04:35 04:35 WBC 9.0 RBC 4.25 Hgb 11.2 L Hct 34.5 L MCV 81 MCH 26.4 L MCHC 32.5 RDW 21.4 H Plt Count 221 Sodium 139.4 Potassium 3.7 Chloride 107 Carbon Dioxide 25 Anion Gap 7 BUN 56 H Creatinine 1.28 H Est GFR ( Amer) 50 L Glucose 133 H Calcium 9.7 Magnesium Cancelled 2.5 H Total Bilirubin 0.7 AST 36 Alkaline Phosphatase 176 H Total Protein 5.9 L Albumin 3.2 L Free T4 Free T3 pg/mL 10/13/20 04:35 WBC RBC Hgb Hct MCV MCH MCHC RDW Plt Count Sodium Potassium Chloride Carbon Dioxide Anion Gap BUN Creatinine Est GFR ( Amer) Glucose Calcium Magnesium Total Bilirubin AST Alkaline Phosphatase Total Protein Albumin Free T4 2.35 H Free T3 pg/mL 2.56 L 12/11/20 14:57 Troponin I < 0.012 Impressions: Transvaginal US 10/08/20 15:24 IMPRESSION: 1. Moderate amount of fluid in the posterior pelvic cul-de-sac which may be infectious or inflammatory fluid. 2. Diffuse thickening of the endometrial lining. This may represent endometrial hyperplasia, however malignancy is not excluded. Direct visualization and sampling is recommended. All labs, radiographs, diagnostic studies and EKGs were personally reviewed: Yes In addition, reports of radiographic and diagnostic studies were read: Yes Assessment and Plan - Diagnosis (1) Hyperthyroidism Is this a current diagnosis for this admission?: Yes Plan: * Continue Tapazole. * Decrease Inderal to 40 mg p.o. 3 times daily. * Check free T4 daily until euthyroid. 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 * Decrease Inderal, as indicated above. * Decrease Solu-Cortef 100 mg IV every 12 hours. (3) Atrial fibrillation with rapid ventricular response Is this a current diagnosis for this admission?: Yes Plan: * Decrease Inderal to 40 mg 3 times daily. * Cardizem 30 mg p.o. every 6 hours for now. Uptitrate to maintain resting heart rate less than 110. * Continue anticoagulation. (4) CARLOS (acute kidney injury) Is this a current diagnosis for this admission?: Yes Plan: * Improving. Baseline creatinine ~ 1.0. * Monitor urine output. * Avoid nephrotoxic drugs. * Renal dosing of medications. (5) Goiter, dyshormonogenic Is this a current diagnosis for this admission?: Yes (6) Type 2 diabetes mellitus treated without insulin Is this a current diagnosis for this admission?: Yes Plan Summary: Okay to transfer to [facility] from pulmonary/critical care standpoint. Critical Time Critical Time (minutes): 45 Level of Care: ICU -: 1. The care of a critical patient is a dynamic process. This note is a b2b sales representative synopsis but static in nature. The timeframe for treatments given in order is not necessarily the actual time these treatments may have been done. 2. This patient requires critical care secondary to ongoing requirements for therapy not offered or safe outside the critical care environment. Transfer to a lower level of care will result in altered life or limb morbidity and mortality. 3. Multidisciplinary rounds completed. 4. ABCDE bundle addressed.
[2020-10-13] MEDS ORDERED: DILTIAZEM HCL 30 MG TABLET PO SCH (18:00)
[2020-10-13] MEDS: DILTIAZEM HCL 60 MG TABLET PO SCH ×2 (18:02→23:13)
[2020-10-13] MEDS: ATORVASTATIN CALCIUM 10 MG TABLET PO SCH (21:17)
[2020-10-14 05:06] LABS: ANION GAP 9 (5-19); BLOOD UREA NITROGEN 47 mg/dL (7-20); CALCIUM 9.8 mg/dL (8.4-10.2); CARBON DIOXIDE 26 mmol/L (22-30); CHLORIDE 105 mmol/L (98-107); GLUCOSE 145 mg/dL (75-110); PHOSPHORUS 2.9 mg/dL (2.5-4.5)
[2020-10-14 05:07] LABS: ALBUMIN 3.4 g/dL (3.5-5.0); ALKALINE PHOSPHATASE 176 U/L (38-126); ASPARTATE AMINO TRANSFERASE 38 U/L (14-36); BILIRUBIN,DIRECT 0.4 mg/dL (0.0-0.4); BILIRUBIN,TOTAL 0.6 mg/dL (0.2-1.3)
[2020-10-14 05:20] LABS: FREE T3 2.49 pg/mL (2.77-5.27); FREE T4 (FREE THYROXINE) 2.04 ng/dL (0.78-2.19)
[2020-10-14] MEDS: PANTOPRAZOLE SODIUM 40 MG TABLET.DR PO SCH (05:27)
[2020-10-14] MEDS: DILTIAZEM HCL 60 MG TABLET PO SCH ×3 (05:27→17:45)
[2020-10-14] MEDS: HYDROCORTISONE SOD SUCCINATE INJ/PF 100 MG/2 ML SDV IV SCH ×2 (05:27→17:38)
[2020-10-14] MEDS: PROPRANOLOL HCL 40 MG TABLET PO SCH ×3 (05:28→21:15)
[2020-10-14] MEDS: INSULIN LISPRO 100 UNIT/ML 3 ML VIAL SUBCUT SCH ×4 (08:14→21:18)
[2020-10-14] MEDS: METHIMAZOLE 5 MG TABLET PO SCH ×4 (10:39→21:12)
[2020-10-14] MEDS: MULTIVITAMIN TABLET PO SCH (10:39)
[2020-10-14] MEDS: ASPIRIN 81 MG TABLET, ENT COATED PO SCH (10:39)
[2020-10-14] MEDS: APIXABAN 5 MG TABLET PO SCH ×2 (10:39→17:38)
[2020-10-14] MEDS ORDERED: DILTIAZEM HCL 30 MG TABLET PO ONE (13:04)
[2020-10-14] MEDS ORDERED: DILTIAZEM HCL 30 MG TABLET ONE (13:04)
--- NOTE | 2020-10-14 15:43 | PDOC CRITICAL CARE PROG REPORT ---
General Date:: 10/14/20 ICU Day:: 7 Hospital Day:: 7 Resuscitation Status: Full Code Events in the past 12 to 24 Hours:: This 65-year-old obese -[place] female was admitted to [facility] on 10/08/2020 after presenting with a recurrent episode of thyroid storm. She was admitted to the ICU for atrial fibrillation with rapid ventricular response (as high as 180s). 10/11: Free T4 2.68. Out of bed to commode. Had telemedicine visit with her manager digital today. 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 Continues to be in atrial fibrillation with rapid ventricular response. Currently, heart rate 150s to 160s. 10/12: Free T4 2.61. Sitting up at the side of the bed. Digoxin failed to provide effective rate control yesterday. Consequently, we started Cardizem. Started on Cardizem 30 mg p.o. every 6 hours in the interim for rate control. Heart rate 110s to 130, down from 150s to 160s. Patient reports that she has noticed significant improvement in exertional dyspnea with improved rate control. She is on methimazole 20 mg p.o. 4 times daily. She is also on propranolol 80 mg p.o. every 6 hours along with diltiazem 30 mg p.o. every 6 hours. 10/13: Free T4 2.35. Sitting up at the bedside. In good spirits. Cardizem. To be more effective in achieving rate control, so her propranolol was reduced to 80 mg p.o. every 8 hours. Added Cardizem 30 mg p.o. every 6 hours yesterday. Resting heart [place] [address]. 10/14: Free T4 2.04. Sitting up in chair at bedside. In good spirits. Currently on Cardizem 60 mg p.o. every 6 hours, which has provided improvement in resting heart rate. Heart rate over the past 24 hours 55912. Review of systems relevant to events:: Endocrine, CV. Reason for ICU Addmission:: tachycardia, thyrotoxicosis. - Medications: Medications reviewed and adjusted accordingly: Yes Vasopressors:: None Physical Exam Vital Signs: Temp Pulse Resp BP Pulse Ox 97.7 F 103 H 24 H 112/68 100 10/14/20 12:00 10/14/20 10:00 10/14/20 12:00 10/14/20 11:27 10/14/20 12:00 Intake & Output 10/13/20 10/14/20 10/15/20 06:59 06:59 06:59 Intake Total 260 Output Total 0 Balance 260 0 Weight 118.6 kg 120.3 kg Weight/Height Weight 120.3 kg Height 1.65 m General appearance: PRESENT: no acute distress, well-developed, well-nourished Head exam: PRESENT: atraumatic, normocephalic Eye exam: PRESENT: conjunctiva pink, EOMI, PERRLA. ABSENT: scleral icterus Mouth exam: PRESENT: moist, tongue midline Neck exam: ABSENT: carotid bruit, JVD, lymphadenopathy, thyromegaly Respiratory exam: PRESENT: clear to auscultation randa. ABSENT: rales, rhonchi, wheezes Cardiovascular exam: PRESENT: irregular rhythm, tachycardia. ABSENT: diastolic murmur, rubs, systolic murmur Pulses: PRESENT: normal dorsalis pedis pul GI/Abdominal exam: PRESENT: normal bowel sounds, soft. ABSENT: distended, guarding, mass, organolmegaly, rebound, tenderness Extremities exam: PRESENT: full ROM. ABSENT: calf tenderness, clubbing, pedal edema Neurological exam: PRESENT: alert, awake, oriented to person, oriented to place, oriented to time, oriented to situation, CN II-XII grossly intact. ABSENT: motor sensory deficit Psychiatric exam: PRESENT: appropriate affect, normal mood. ABSENT: homicidal ideation, suicidal ideation Laboratory/Radiographs Laboratory Results: 10/13/20 04:35 10/14/20 04:22 10/14/20 10/14/20 10/14/20 04:22 04:22 04:22 Sodium 140.1 Potassium 4.0 Chloride 105 Carbon Dioxide 26 Anion Gap 9 BUN 47 H Creatinine 1.22 Est GFR ( Amer) 53 L Glucose 145 H Calcium 9.8 Phosphorus 2.9 Magnesium 2.5 H 2.5 H Total Bilirubin 0.6 AST 38 H Alkaline Phosphatase 176 H Total Protein 6.0 L Albumin 3.4 L Free T4 2.04 Free T3 pg/mL 2.49 L 10/08/20 14:57 Troponin I < 0.012 Impressions: Transvaginal US 10/08/20 15:24 IMPRESSION: 1. Moderate amount of fluid in the posterior pelvic cul-de-sac which may be infectious or inflammatory fluid. 2. Diffuse thickening of the endometrial lining. This may represent endometrial hyperplasia, however malignancy is not excluded. Direct visualization and sampling is recommended. All labs, radiographs, diagnostic studies and EKGs were personally reviewed: Yes In addition, reports of radiographic and diagnostic studies were read: Yes Assessment and Plan - Diagnosis (1) Hyperthyroidism Is this a current diagnosis for this admission?: Yes Plan: * Continue Tapazole. * Continue Inderal 40 mg p.o. 3 times daily. 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 * Continue Inderal. * Decrease Solu-Cortef 50 mg IV every 12 hours. (3) Atrial fibrillation with rapid ventricular response Is this a current diagnosis for this admission?: Yes Plan: * Continue Inderal 40 mg 3 times daily. * Increase Cardizem to 90 mg p.o. every 6 hours. * Continue anticoagulation. (4) CARLOS (acute kidney injury) Is this a current diagnosis for this admission?: Yes Plan: * Improving. Baseline creatinine ~ 1.0. * Monitor urine output. * Avoid nephrotoxic drugs. * Renal dosing of medications. (5) Goiter, dyshormonogenic Is this a current diagnosis for this admission?: Yes (6) Type 2 diabetes mellitus treated without insulin Is this a current diagnosis for this admission?: Yes Critical Time Critical Time (minutes): 45 Level of Care: ICU -: 1. The care of a critical patient is a dynamic process. This note is a housing management representative synopsis but static in nature. The timeframe for treatments given in order is not necessarily the actual time these treatments may have been done. 2. This patient requires critical care secondary to ongoing requirements for therapy not offered or safe outside the critical care environment. Transfer to a lower level of care will result in altered life or limb morbidity and mortality. 3. Multidisciplinary rounds completed. 4. ABCDE bundle addressed.
--- NOTE | 2020-10-14 16:00 | PDOC PROGRESS REPORT ---
Subjective Date:: 10/14/20 Subjective:: 65 year old female with a history of a toxic multinodular goiter with associated hyperthyroidism who was recently treated here for a thyroid storm, atrial fibrillation, ofk-iuzolgy-senwtcxhy diabetes mellitus, hyperlipidemia, hypertension, and obesity, who presents with persistent weakness and dyspnea with exertion. She also had a little bit of vaginal spotting. This lady has history of hyperthyroidism and follows up with an gang miner in [place] named Dr. Jasso, and was admitted here about 1 month ago with thyroid storm because her gang miner had taken her off of her Tapazole and beta-shweta. She had been off of it for several months and then wound up here and a thyroid storm. I am not sure why she was taken off of it. She is also not sure. At any rate, she wound up in the ICU on esmolol drip and wound up on large doses of beta-shweta and Tapazole to try to get her symptoms under control. She was transferred to [facility]. At some point, and I am not sure if this happened when she was transferred, she had a cardiac ablation for atrial fibrillation. She was told that it would not work if her hyperthyroidism was not addressed. When she was still in the ICU here, she had been seen by ENT but it seems that no follow-up was ever arranged for an outpatient basis. She says that ever since she went home from the ablation from [facility], she has had a lot of persistent weakness and dyspnea on exertion. She says she can feel her heart beating really fast whenever she puts her hand on her chest. She has an appointment with her gang miner on Sunday, but was unable to wait until then to be seen. Transvaginal ultrasound was done in the ER, but I suspect her spotting is likely due to her persistent hyperthyroidism. She has been on propranolol 80 mg twice a day and Tapazole 20 mg twice a day at home. Her TSH was undetectable and her free T3 was greater than 3. She was started on a Cardizem drip, but it is not controlling her rate, which it would not be expected to do in this situation. Her heart rate remains in the 120s to 140s. She is very sweaty. Her blood pressure is acceptable. 10/08/20-65 year old female with a history of a toxic multinodular goiter with associated hyperthyroidism who was recently treated here for a thyroid storm, atrial fibrillation, cpt-rgvgkne-krtmjvxhd diabetes mellitus, hyperlipidemia, hypertension, and obesity, who presents with persistent weakness and dyspnea with exertion. She also had a little bit of vaginal spotting. This lady has history of hyperthyroidism and follows up with an gang miner in [place] named Dr. Jasso, and was admitted here about 1 month ago with thyroid storm because her gang miner had taken her off of her Tapazole and beta-shweta. She had been off of it for several months and then wound up here and a thyroid storm. I am not sure why she was taken off of it. She is also not sure. At any rate, she wound up in the ICU on esmolol drip and wound up on large doses of beta-shweta and Tapazole to try to get her symptoms under control. She was transferred to [facility]. At some point, and I am not sure if this happened when she was transferred, she had a cardiac ablation for atrial fibrillation. She was told that it would not work if her hyperthyroidism was not addressed. When she was still in the ICU here, she had been seen by ENT but it seems that no follow-up was ever arranged for an outpatient basis. She says that ever since she went home from the ablation from [facility], she has had a lot of persistent weakness and dyspnea on exertion. She says she can feel her heart beating really fast whenever she puts her hand on her chest. She has an appointment with her gang miner on Sunday, but was unable to wait until then to be seen. Transvaginal ultrasound was done in the ER, but I suspect her spotting is likely due to her persistent hyperthyroidism. She has been on propranolol 80 mg twice a day and Tapazole 20 mg twice a day at home. Her TSH was undetectable and her free T3 was greater than 3. She was started on a Cardizem drip, but it is not controlling her rate, which it would not be ex pected to do in this situation. Her heart rate remains in the 120s to 140s. She is very sweaty. Her blood pressure is acceptable. The hospitalist Dr. Smith called requesting transfer to ICU due to tachycardia secondary to hyperthyroidism and unable to control her rate with propanolol. The patient arrived in ICU and will sart her on esmolol however, previous admission patient was not able to tolerate due to hypotension and the medication was not effective at controlling her heart rate. The patient required transfer to tertiary care facility last admission for same problem. I discussed my concern for the same sequel of events with the hospitalist and requested that he transfer her to a tertiary care center for gang miner services. The patient will be monitored in ICU for now. 20-HR still 140-170 range. No effect from Tapazole yet. Esmolol dropped BP. Inderal increased 10/11/20-HR still 140-170 range. No effect from Tapazole yet. Esmolol dropped BP. Inderal increased 10/01: Free T4 2.68. Out of bed to commode. Had telemedicine visit with her gang miner today. 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 Continues to be in atrial fibrillation with rapid ventricular response. Currently, heart rate 150s to 160s. 10/12/20-HR still 140-170 range. No effect from Tapazole yet. Esmolol dropped BP. Inderal increased 10/11: Free T4 2.68. Out of bed to commode. Had telemedicine visit with her gang miner today. 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 Continues to be in atrial fibrillation with rapid ventricular response. Currently, heart rate 150s to 160s. 10/12: Free T4 2.61. Sitting up at the side of the bed. Digoxin failed to provide effective rate control yesterday. Consequently, we started Cardizem. Started on Cardizem 30 mg p.o. every 6 hours in the interim for rate control. Heart rate 110s to 130, down from 150s to 160s. Patient reports that she has noticed significant improvement in exertional dyspnea with improved rate control. She is on methimazole 20 mg p.o. 4 times daily. She is also on propranolol 80 mg p.o. every 6 hours along with diltiazem 30 mg p.o. every 6 hours. 20-HR still 140-170 range. No effect from Tapazole yet. Esmolol dropped BP. Inderal increased 10/11: Free T4 2.68. Out of bed to commode. Had telemedicine visit with her gang miner today. 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 Continues to be in atrial fibrillation with rapid ventricular response. Currently, heart rate 150s to 160s. 10/12: Free T4 2.61. Sitting up at the side of the bed. Digoxin failed to pr ovide effective rate control yesterday. Consequently, we started Cardizem. Started on Cardizem 30 mg p.o. every 6 hours in the interim for rate control. Heart rate 110s to 130, down from 150s to 160s. Patient reports that she has noticed significant improvement in exertional dyspnea with improved rate control. She is on methimazole 20 mg p.o. 4 times daily. She is also on propranolol 80 mg p.o. every 6 hours along with diltiazem 30 mg p.o. every 6 hours. 10/13: Free T4 2.35. Sitting up at the bedside. In good spirits. Cardizem. To be more effective in achieving rate control, so her propranolol was reduced to 80 mg p.o. every 8 hours. Added Cardizem 30 mg p.o. every 6 hours yesterday. Resting heart rate seems to [place] in [place] 110[place]. [place] [address]. 65-year-old obese -[place] female was admitted to [facility] on 10/08/2020 after presenting with a recurrent episode of thyroid storm. She was admitted to the ICU for atrial fibrillation with rapid ventricul ar response (as high as 180s). 10/11: Free T4 2.68. Out of bed to [facility]. Had telemedicine visit with her gang miner today. 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 Continues to be in atrial fibrillation with rapid ventricular response. Currently, heart rate 150s to 160s. 10/12: Free T4 2.61. Sitting up at the side of the bed. Digoxin failed to provide effective rate control yesterday. Consequently, we started Cardizem. Started on Cardizem 30 mg p.o. every 6 hours in the interim for rate control. Heart rate 110s to 130, down from 150s to 160s. Patient reports that she has noticed significant improvement in exertional nitroglycerin. With improved rate control. She is on methimazole 20 mg p.o. 4 times daily. She is also on propranolol 80 mg p.o. every 6 hours along with diltiazem 30 mg p.o. every 6 hours. 10/13: Free T4 2.35. Sitting up at the bedside. In good spirits. Cardizem. To be more effective in achieving rate control, so her propranolol was reduced to 80 mg p.o. every 8 hours. Added Cardizem 30 mg p.o. every 6 hours yesterday. Resting heart rate [place] [address]. 10/14: Free T4 2.04. Sitting up in chair at bedside. In good spirits. Currently on Cardizem 60 mg p.o. every 6 hours, which has provided improvement in resting heart rate. Heart rate over the past 24 hours 35180. 10/14/20-patient is comfortably in the chair... Communicating well. Not in distress. Presently on Cardizem 60 mg p.o. every 6 hours. Heart rate is around 110. Plan is to move her to the medical floor today and to continue to monitor the heart rate, thyroid function tests and make arrangements for transfer to [place] tomorrow. Patient sees Dr. Pagan in [place]'s office phone number is [phone] as per the ICU attending physician recommendation is for the patient to go to [facility] for thyroidectomy. Admitted for several times with thyroid storm. Reason For Visit: AFIB WITH RVR,HYPERTHYROIDISM,VAGINAL SPOTTING Physical Exam Vital Signs: Temp Pulse Resp BP Pulse Ox 97.7 F 103 H 24 H 112/68 100 10/14/20 12:00 10/14/20 10:00 10/14/20 12:00 10/14/20 11:27 10/14/20 12:00 Intake & Output 10/13/20 10/14/20 10/15/20 06:59 06:59 06:59 Intake Total 260 Output Total 0 Balance 260 0 Weight 118.6 kg 120.3 kg General appearance: PRESENT: no acute distress, cooperative, well-developed Head exam: PRESENT: atraumatic Eye exam: PRESENT: PERRLA Mouth exam: PRESENT: moist, tongue midline Teeth exam: PRESENT: poor dentation Neck exam: ABSENT: carotid bruit, JVD, lymphadenopathy, thyromegaly Respiratory exam: PRESENT: decreased breath sounds Cardiovascular exam: PRESENT: tachycardia Pulses: PRESENT: normal dorsalis pedis pul GI/Abdominal exam: PRESENT: normal bowel sounds, soft. ABSENT: distended, guarding, mass, organolmegaly, rebound, tenderness Rectal exam: PRESENT: deferred Extremities exam: PRESENT: full ROM. ABSENT: calf tenderness, clubbing, pedal edema Neurological exam: PRESENT: alert, awake, oriented to person, oriented to place, oriented to time, oriented to situation, CN II-XII grossly intact. ABSENT: motor sensory deficit Psychiatric exam: PRESENT: appropriate affect, normal mood. ABSENT: homicidal ideation, suicidal ideation Results Laboratory Results: 10/13/20 04:35 10/14/20 04:22 10/14/20 10/14/20 10/14/20 04:22 04:22 04:22 Sodium 140.1 Potassium 4.0 Chloride 105 Carbon Dioxide 26 Anion Gap 9 BUN 47 H Creatinine 1.22 Est GFR ( Amer) 53 L Glucose 145 H Calcium 9.8 Phosphorus 2.9 Magnesium 2.5 H 2.5 H Total Bilirubin 0.6 AST 38 H Alkaline Phosphatase 176 H Total Protein 6.0 L Albumin 3.4 L Free T4 2.04 Free T3 pg/mL 2.49 L 10/08/20 14:57 Troponin I < 0.012 Impressions: Transvaginal US 10/08/20 15:24 IMPRESSION: 1. Moderate amount of fluid in the posterior pelvic cul-de-sac which may be infectious or inflammatory fluid. 2. Diffuse thickening of the endometrial lining. This may represent endometrial hyperplasia, however malignancy is not excluded. Direct visualization and sampling is recommended. Assessment and Plan - Diagnosis (1) Atrial fibrillation with rapid ventricular response Is this a current diagnosis for this admission?: Yes Plan: * Continue Inderal 40 mg 3 times daily. * Increase Cardizem to 90 mg p.o. every 6 hours. * Continue anticoagulation. * * * 10/14/2020-patient is on Eliquis, plan is to continue the present management. (2) Hyperthyroidism Is this a current diagnosis for this admission?: Yes Plan: * Continue Tapazole. * Continue Inderal 40 mg p.o. 3 times daily. 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 * Continue Inderal. * Decrease Solu-Cortef 50 mg IV every 12 hours. (4) CARLOS (acute kidney injury) Is this a current diagnosis for this admission?: Yes Plan: * Improving. Baseline creatinine ~ 1.0. * Monitor urine output. * Avoid nephrotoxic drugs. * Renal dosing of medications. (5) Goiter, dyshormonogenic Is this a current diagnosis for this admission?: Yes (6) Type 2 diabetes mellitus treated without insulin Is this a current diagnosis for this admission?: Yes Plan: Controlled. - Plan Summary Summary: Her vaginal spotting in her atrial fibrillation or due to her thyroid storm. Neither of these problems will resolve until her circulating thyroid hormone levels dropped down. Cardizem will not help in this situation due to the nature of the force driving atrial fibrillation. I have discontinued the Cardizem drip. I have ordered propranolol 80 mg 4 times a day, Tapazole 20 mg 4 times a day, and hydrocortisone 100 mg 3 times a day in the hopes that it will help inhibit the conversion of T3-T4. If we cannot get her heart rate under control with this high dose of oral propranolol, she will have to be sent to the ICU for an esmolol drip. We were able to get her thyroid levels under better control on that dose of Tapazole, so hopefully we will be able to get her symptoms under control with it again. Once she is stable, she will need evaluation for surgery for her goiter. Because of the high levels of Tapazole needed, radioactive iodine ablation will be less likely to be effective. We will continue her Eliquis. We will put her on an insulin sliding scale as we anticipate that the hydrocortisone will make her blood sugars elevated. - Time Anticipated Discharge Disposition: Tertiary Anticipated Discharge Timeframe: within 48 hours
[2020-10-14] MEDS: ATORVASTATIN CALCIUM 10 MG TABLET PO SCH (21:14)
--- NOTE | 2020-10-14 21:33 | EKG REPORT ---
SEVERITY:- ABNORMAL ECG - ATRIAL FIBRILLATION LEFT AXIS DEVIATION : Confirmed by: Amanda Diggs MD 14-Oct-2020 21:32:47
[2020-10-15] MEDS: DILTIAZEM HCL 60 MG TABLET PO SCH ×4 (00:01→17:52)
[2020-10-15] MEDS: PROPRANOLOL HCL 40 MG TABLET PO SCH ×3 (05:27→21:23)
[2020-10-15] MEDS: PANTOPRAZOLE SODIUM 40 MG TABLET.DR PO SCH (05:28)
[2020-10-15] MEDS: HYDROCORTISONE SOD SUCCINATE INJ/PF 100 MG/2 ML SDV IV SCH ×2 (05:28→17:51)
[2020-10-15] MEDS: INSULIN LISPRO 100 UNIT/ML 3 ML VIAL SUBCUT SCH ×4 (08:45→21:23)
[2020-10-15 10:01] LABS: ABSOLUTE LYMPHOCYTES (AUTO) 1.2 10^3/uL (0.5-4.7); ABSOLUTE MONOCYTES (AUTO) 0.9 10^3/uL (0.1-1.4); ABSOLUTE NEUT (AUTO) 10.5 10^3/uL (1.7-8.2); EOSINOPHILS % (AUTO) 0.1 % (0-6); HEMATOCRIT 35.7 % (36.0-47.0); HEMOGLOBIN 11.2 g/dL (12.0-15.5); LYMPHOCYTES % (AUTO) 9.8 % (13-45); MEAN CORPUSCULAR HEMOGLOBIN 25.6 pg (27.0-33.4); MEAN CORPUSCULAR HGB CONC 31.4 g/dL (32.0-36.0); MEAN CORPUSCULAR VOLUME 82 fl (80-97); MONOCYTES % (AUTO) 7.2 % (3-13); PLATELET COUNT 278 10^3/uL (150-450); RED BLOOD COUNT 4.38 10^6/uL (3.72-5.28); RED CELL DISTRIBUTION WIDTH 21.3 % (11.5-14.0); SEGMENTED NEUTROPHILS % (AUTO) 82.9 % (42-78); TOTAL CELLS COUNTED % (AUTO) 100 %; WHITE BLOOD COUNT 12.6 10^3/uL (4.0-10.5)
[2020-10-15 10:27] LABS: ALBUMIN 3.5 g/dL (3.5-5.0); ALKALINE PHOSPHATASE 186 U/L (38-126); ANION GAP 12 (5-19); ASPARTATE AMINO TRANSFERASE 133 U/L (14-36); BILIRUBIN,DIRECT 0.5 mg/dL (0.0-0.4); BILIRUBIN,TOTAL 0.7 mg/dL (0.2-1.3); BLOOD UREA NITROGEN 41 mg/dL (7-20); CARBON DIOXIDE 22 mmol/L (22-30); CHLORIDE 107 mmol/L (98-107); GLUCOSE 161 mg/dL (75-110); POTASSIUM 4.1 mmol/L (3.6-5.0); TOTAL PROTEIN 6.3 g/dL (6.3-8.2)
[2020-10-15] MEDS: METHIMAZOLE 5 MG TABLET PO SCH ×2 (10:35→17:53)
[2020-10-15] MEDS: ASPIRIN 81 MG TABLET, ENT COATED PO SCH (10:35)
[2020-10-15] MEDS: APIXABAN 5 MG TABLET PO SCH ×2 (10:35→17:52)
[2020-10-15] MEDS: MULTIVITAMIN TABLET PO SCH (10:35)
--- NOTE | 2020-10-15 10:49 | PDOC PROGRESS REPORT ---
Subjective Date:: 10/15/20 Subjective:: 65 year old female with a history of a toxic multinodular goiter with associated hyperthyroidism who was recently treated here for a thyroid storm, atrial fibrillation, qiw-buclajj-mkplzwphn diabetes mellitus, hyperlipidemia, hypertension, and obesity, who presents with persistent weakness and dyspnea with exertion. She also had a little bit of vaginal spotting. This lady has history of hyperthyroidism and follows up with an location director in [place] named Dr. Jasso, and was admitted here about 1 month ago with thyroid storm because her location director had taken her off of her Tapazole and beta-shweta. She had been off of it for several months and then wound up here and a thyroid storm. I am not sure why she was taken off of it. She is also not sure. At any rate, she wound up in the ICU on esmolol drip and wound up on large doses of beta-shweta and Tapazole to try to get her symptoms under control. She was transferred to [facility]. At some point, and I am not sure if this happened when she was transferred, she had a cardiac ablation for atrial fibrillation. She was told that it would not work if her hyperthyroidism was not addressed. When she was still in the ICU here, she had been seen by ENT but it seems that no follow-up was ever arranged for an outpatient basis. She says that ever since she went home from the ablation from [facility], she has had a lot of persistent weakness and dyspnea on exertion. She says she can feel her heart beating really fast whenever she puts her hand on her chest. She has an appointment with her location director on Sunday, but was unable to wait until then to be seen. Transvaginal ultrasound was done in the ER, but I suspect her spotting is likely due to her persistent hyperthyroidism. She has been on propranolol 80 mg twice a day and Tapazole 20 mg twice a day at home. Her TSH was undetectable and her free T3 was greater than 3. She was started on a Cardizem drip, but it is not controlling her rate, which it would not be expected to do in this situation. Her heart rate remains in the 120s to 140s. She is very sweaty. Her blood pressure is acceptable. 10/08/20-65 year old female with a history of a toxic multinodular goiter with associated hyperthyroidism who was recently treated here for a thyroid storm, atrial fibrillation, iiq-iwnlkhs-eeyqmpmrx diabetes mellitus, hyperlipidemia, hypertension, and obesity, who presents with persistent weakness and dyspnea with exertion. She also had a little bit of vaginal spotting. This lady has history of hyperthyroidism and follows up with an location director in [place] named Dr. Jasso, and was admitted here about 1 month ago with thyroid storm because her location director had taken her off of her Tapazole and beta-shweta. She had been off of it for several months and then wound up here and a thyroid storm. I am not sure why she was taken off of it. She is also not sure. At any rate, she wound up in the ICU on esmolol drip and wound up on large doses of beta-shweta and Tapazole to try to get her symptoms under control. She was transferred to [facility]. At some point, and I am not sure if this happened when she was transferred, she had a cardiac ablation for atrial fibrillation. She was told that it would not work if her hyperthyroidism was not addressed. When she was still in the ICU here, she had been seen by ENT but it seems that no follow-up was ever arranged for an outpatient basis. She says that ever since she went home from the ablation from [facility], she has had a lot of persistent weakness and dyspnea on exertion. She says she can feel her heart beating really fast whenever she puts her hand on her chest. She has an appointment with her location director on Sunday, but was unable to wait until then to be seen. Transvaginal ultrasound was done in the ER, but I suspect her spotting is likely due to her persistent hyperthyroidism. She has been on propranolol 80 mg twice a day and Tapazole 20 mg twice a day at home. Her TSH was undetectable and her free T3 was greater than 3. She was started on a Cardizem drip, but it is not controlling her rate, which it would not be ex pected to do in this situation. Her heart rate remains in the 120s to 140s. She is very sweaty. Her blood pressure is acceptable. The hospitalist Dr. Smith called requesting transfer to ICU due to tachycardia secondary to hyperthyroidism and unable to control her rate with propanolol. The patient arrived in ICU and will sart her on esmolol however, previous admission patient was not able to tolerate due to hypotension and the medication was not effective at controlling her heart rate. The patient required transfer to tertiary care facility last admission for same problem. I discussed my concern for the same sequel of events with the hospitalist and requested that he transfer her to a tertiary care center for location director services. The patient will be monitored in ICU for now. 20-HR still 140-170 range. No effect from Tapazole yet. Esmolol dropped BP. Inderal increased 10/11/20-HR still 140-170 range. No effect from Tapazole yet. Esmolol dropped BP. Inderal increased 10/01: Free T4 2.68. Out of bed to commode. Had telemedicine visit with her location director today. 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 Continues to be in atrial fibrillation with rapid ventricular response. Currently, heart rate 150s to 160s. 10/12/20-HR still 140-170 range. No effect from Tapazole yet. Esmolol dropped BP. Inderal increased 10/11: Free T4 2.68. Out of bed to commode. Had telemedicine visit with her location director today. 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 Continues to be in atrial fibrillation with rapid ventricular response. Currently, heart rate 150s to 160s. 10/12: Free T4 2.61. Sitting up at the side of the bed. Digoxin failed to provide effective rate control yesterday. Consequently, we started Cardizem. Started on Cardizem 30 mg p.o. every 6 hours in the interim for rate control. Heart rate 110s to 130, down from 150s to 160s. Patient reports that she has noticed significant improvement in exertional dyspnea with improved rate control. She is on methimazole 20 mg p.o. 4 times daily. She is also on propranolol 80 mg p.o. every 6 hours along with diltiazem 30 mg p.o. every 6 hours. 20-HR still 140-170 range. No effect from Tapazole yet. Esmolol dropped BP. Inderal increased 10/11: Free T4 2.68. Out of bed to commode. Had telemedicine visit with her location director today. 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 Continues to be in atrial fibrillation with rapid ventricular response. Currently, heart rate 150s to 160s. 10/12: Free T4 2.61. Sitting up at the side of the bed. Digoxin failed to pr ovide effective rate control yesterday. Consequently, we started Cardizem. Started on Cardizem 30 mg p.o. every 6 hours in the interim for rate control. Heart rate 110s to 130, down from 150s to 160s. Patient reports that she has noticed significant improvement in exertional dyspnea with improved rate control. She is on methimazole 20 mg p.o. 4 times daily. She is also on propranolol 80 mg p.o. every 6 hours along with diltiazem 30 mg p.o. every 6 hours. 10/13: Free T4 2.35. Sitting up at the bedside. In good spirits. Cardizem. To be more effective in achieving rate control, so her propranolol was reduced to 80 mg p.o. every 8 hours. Added Cardizem 30 mg p.o. every 6 hours yesterday. Resting heart rate [place]. [place] [address]. 65-year-old obese -[place] female was admitted to [facility] on 10/08/2020 after presenting with a recurrent episode of thyroid storm. She was admitted to the ICU for atrial fibrillation with rapid ventricul ar response (as high as 180s). 10/11: Free T4 2.68. Out of bed to [facility]. Had telemedicine visit with her location director today. 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 Continues to be in atrial fibrillation with rapid ventricular response. Currently, heart rate 150s to 160s. 10/12: Free T4 2.61. Sitting up at the side of the bed. Digoxin failed to provide effective rate control yesterday. Consequently, we started Cardizem. Started on Cardizem 30 mg p.o. every 6 hours in the interim for rate control. Heart rate 110s to 130, down from 150s to 160s. Patient reports that she has noticed significant improvement in exertional nitroglycerin. With improved rate control. She is on methimazole 20 mg p.o. 4 times daily. She is also on propranolol 80 mg p.o. every 6 hours along with diltiazem 30 mg p.o. every 6 hours. 10/13: Free T4 2.35. Sitting up at the bedside. In good spirits. Cardizem. To be more effective in achieving rate control, so her propranolol was reduced to 80 mg p.o. every 8 hours. Added Cardizem 30 mg p.o. every 6 hours yesterday. Resting heart rate seems to [place] [address]391. 10/14: Free T4 2.04. Sitting up in chair at bedside. In good spirits. Currently on Cardizem 60 mg p.o. every 6 hours, which has provided improvement in resting heart rate. Heart rate over the past 24 hours 60660. 10/14/20-patient is comfortably in the chair... Communicating well. Not in distress. Presently on Cardizem 60 mg p.o. every 6 hours. Heart rate is around 110. Plan is to move her to the medical floor today and to continue to monitor the heart rate, thyroid function tests and make arrangements for transfer to [place] tomorrow. Patient sees Dr. Pagan in [place]'s office phone number is [phone] as per the ICU attending physician recommendation is for the patient to go to [facility] for thyroidectomy. Admitted for several times with thyroid storm. 10/15/2020-patient is comfortably in the chair communicating well. Patient sister is at bedside. No questions no concerns expressed by the family. This morning heart rate in the 90s. Is to give a call to Dr. Jasso location director in [place]. Reason For Visit: AFIB WITH RVR,HYPERTHYROIDISM,VAGINAL SPOTTING Physical Exam Vital Signs: Temp Pulse Resp BP Pulse Ox 97.4 F 92 17 110/53 L 98 10/15/20 08:48 10/15/20 08:14 10/15/20 08:14 10/15/20 08:14 10/15/20 08:14 Intake & Output 10/14/20 10/15/20 10/16/20 06:59 06:59 06:59 Intake Total 270 Output Total 0 Balance 270 Weight 120.3 kg 117.1 kg General appearance: PRESENT: no acute distress, cooperative, well-developed Head exam: PRESENT: atraumatic Eye exam: PRESENT: PERRLA Mouth exam: PRESENT: moist, tongue midline Teeth exam: PRESENT: poor dentation Neck exam: ABSENT: carotid bruit, JVD, lymphadenopathy, thyromegaly Respiratory exam: PRESENT: decreased breath sounds Cardiovascular exam: PRESENT: RRR. ABSENT: diastolic murmur, rubs, systolic murmur GI/Abdominal exam: PRESENT: normal bowel sounds, soft. ABSENT: distended, guarding, mass, organolmegaly, rebound, tenderness Rectal exam: PRESENT: deferred Extremities exam: PRESENT: full ROM. ABSENT: calf tenderness, clubbing, pedal edema Neurological exam: PRESENT: alert, awake, oriented to person, oriented to place, oriented to time, oriented to situation, CN II-XII grossly intact. ABSENT: motor sensory deficit Psychiatric exam: PRESENT: appropriate affect, normal mood. ABSENT: homicidal ideation, suicidal ideation Results Laboratory Results: 10/15/20 09:16 10/15/20 09:16 10/15/20 10/15/20 09:16 09:16 WBC 12.6 H RBC 4.38 Hgb 11.2 L Hct 35.7 L MCV 82 MCH 25.6 L MCHC 31.4 L RDW 21.3 H Plt Count 278 Seg Neutrophils % 82.9 H Sodium 141.4 Potassium 4.1 Chloride 107 Carbon Dioxide 22 Anion Gap 12 BUN 41 H Creatinine 1.22 Est GFR ( Amer) 53 L Glucose 161 H Calcium 10.0 Magnesium 2.5 H Total Bilirubin 0.7 AST 133 H Alkaline Phosphatase 186 H Total Protein 6.3 Albumin 3.5 10/08/20 14:57 Troponin I < 0.012 Impressions: Transvaginal US 10/08/20 15:24 IMPRESSION: 1. Moderate amount of fluid in the posterior pelvic cul-de-sac which may be infectious or inflammatory fluid. 2. Diffuse thickening of the endometrial lining. This may represent endometrial hyperplasia, however malignancy is not excluded. Direct visualization and sampling is recommended. Assessment and Plan - Diagnosis (1) Atrial fibrillation with rapid ventricular response Is this a current diagnosis for this admission?: Yes Plan: * Continue Inderal 40 mg 3 times daily. * Increase Cardizem to 90 mg p.o. every 6 hours. * Continue anticoagulation. * * * 10/14/2020-patient is on Eliquis, plan is to continue the present management. * * 10/15/2020-to continue Eliquis at this time. Heart rate in the 90s patient is on Cardizem 90 mg p.o. every 6 hours. Patient is also on Inderal 40 mg 3 times a day. (2) Hyperthyroidism Is this a current diagnosis for this admission?: Yes Plan: * Continue Tapazole. * Continue Inderal 40 mg p.o. 3 times daily. * * 10/15/2020-to continue Tapazole, Inderal at this time. Latest free T4 is 2.04. TSH is less than 0.01. 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 * Continue Inderal. * Decrease Solu-Cortef 50 mg IV every 12 hours. * * 10/15/2020-patient admitted for thyroid stroma. To continue methimazole, Inderal, Solu-Cortef at this time. (4) CARLOS (acute kidney injury) Is this a current diagnosis for this admission?: Yes Plan: * Improving. Baseline creatinine ~ 1.0. * Monitor urine output. * Avoid nephrotoxic drugs. * Renal dosing of medications. (5) Goiter, dyshormonogenic Is this a current diagnosis for this admission?: Yes (6) Type 2 diabetes mellitus treated without insulin Is this a current diagnosis for this admission?: Yes Plan: Controlled. - Plan Summary Summary: Her vaginal spotting in her atrial fibrillation or due to her thyroid storm. Neither of these problems will resolve until her circulating thyroid hormone levels dropped down. Cardizem will not help in this situation due to the nature of the force driving atrial fibrillation. I have discontinued the Cardizem drip. I have ordered propranolol 80 mg 4 times a day, Tapazole 20 mg 4 times a day, and hydrocortisone 100 mg 3 times a day in the hopes that it will help inhibit the conversion of T3-T4. If we cannot get her heart rate under control with this high dose of oral propranolol, she will have to be sent to the ICU for an esmolol drip. We were able to get her thyroid levels under better control on that dose of Tapazole, so hopefully we will be able to get her symptoms under control with it again. Once she is stable, she will need evaluation for surgery for her goiter. Because of the high levels of Tapazole needed, radioactive iodine ablation will be less likely to be effective. We will continue her Eliquis. We will put her on an insulin sliding scale as we anticipate that the hydrocortisone will make her blood sugars elevated. - Time Anticipated Discharge Disposition: Tertiary Anticipated Discharge Timeframe: within 48 hours
[2020-10-15] MEDS: ATORVASTATIN CALCIUM 10 MG TABLET PO SCH (21:23)
[2020-10-16] MEDS: DILTIAZEM HCL 60 MG TABLET PO SCH ×4 (00:35→17:48)
[2020-10-16] MEDS: HYDROCORTISONE SOD SUCCINATE INJ/PF 100 MG/2 ML SDV IV SCH (05:23)
[2020-10-16] MEDS: PANTOPRAZOLE SODIUM 40 MG TABLET.DR PO SCH (05:23)
[2020-10-16] MEDS: PROPRANOLOL HCL 40 MG TABLET PO SCH ×3 (05:23→22:18)
[2020-10-16] MEDS: INSULIN LISPRO 100 UNIT/ML 3 ML VIAL SUBCUT SCH ×4 (07:57→22:20)
[2020-10-16] MEDS: METHIMAZOLE 5 MG TABLET PO SCH ×2 (09:31→17:48)
[2020-10-16] MEDS: ASPIRIN 81 MG TABLET, ENT COATED PO SCH (09:32)
[2020-10-16] MEDS: MULTIVITAMIN TABLET PO SCH (09:32)
[2020-10-16] MEDS: APIXABAN 5 MG TABLET PO SCH ×2 (09:32→17:48)
[2020-10-16] MEDS ORDERED: HYDROCORTISONE SOD SUCCINATE INJ/PF 100 MG/2 ML SDV IV SCH (10:00)
--- NOTE | 2020-10-16 10:57 | PDOC PROGRESS REPORT ---
Subjective Date:: 10/16/20 Subjective:: 65 year old female with a history of a toxic multinodular goiter with associated hyperthyroidism who was recently treated here for a thyroid storm, atrial fibrillation, nnh-vfozdkd-cnkijycze diabetes mellitus, hyperlipidemia, hypertension, and obesity, who presents with persistent weakness and dyspnea with exertion. She also had a little bit of vaginal spotting. This lady has history of hyperthyroidism and follows up with an research librarian in [place] named Dr. Jasso, and was admitted here about 1 month ago with thyroid storm because her research librarian had taken her off of her Tapazole and beta-shweta. She had been off of it for several months and then wound up here and a thyroid storm. I am not sure why she was taken off of it. She is also not sure. At any rate, she wound up in the ICU on esmolol drip and wound up on large doses of beta-shweta and Tapazole to try to get her symptoms under control. She was transferred to [facility]. At some point, and I am not sure if this happened when she was transferred, she had a cardiac ablation for atrial fibrillation. She was told that it would not work if her hyperthyroidism was not addressed. When she was still in the ICU here, she had been seen by ENT but it seems that no follow-up was ever arranged for an outpatient basis. She says that ever since she went home from the ablation from [facility], she has had a lot of persistent weakness and dyspnea on exertion. She says she can feel her heart beating really fast whenever she puts her hand on her chest. She has an appointment with her research librarian on Sunday, but was unable to wait until then to be seen. Transvaginal ultrasound was done in the ER, but I suspect her spotting is likely due to her persistent hyperthyroidism. She has been on propranolol 80 mg twice a day and Tapazole 20 mg twice a day at home. Her TSH was undetectable and her free T3 was greater than 3. She was started on a Cardizem drip, but it is not controlling her rate, which it would not be expected to do in this situation. Her heart rate remains in the 120s to 140s. She is very sweaty. Her blood pressure is acceptable. 10/08/20-65 year old female with a history of a toxic multinodular goiter with associated hyperthyroidism who was recently treated here for a thyroid storm, atrial fibrillation, mto-lvxhjxu-yrpspgelf diabetes mellitus, hyperlipidemia, hypertension, and obesity, who presents with persistent weakness and dyspnea with exertion. She also had a little bit of vaginal spotting. This lady has history of hyperthyroidism and follows up with an research librarian in [place] named Dr. Jasso, and was admitted here about 1 month ago with thyroid storm because her research librarian had taken her off of her Tapazole and beta-shweta. She had been off of it for several months and then wound up here and a thyroid storm. I am not sure why she was taken off of it. She is also not sure. At any rate, she wound up in the ICU on esmolol drip and wound up on large doses of beta-shweta and Tapazole to try to get her symptoms under control. She was transferred to [facility]. At some point, and I am not sure if this happened when she was transferred, she had a cardiac ablation for atrial fibrillation. She was told that it would not work if her hyperthyroidism was not addressed. When she was still in the ICU here, she had been seen by ENT but it seems that no follow-up was ever arranged for an outpatient basis. She says that ever since she went home from the ablation from [facility], she has had a lot of persistent weakness and dyspnea on exertion. She says she can feel her heart beating really fast whenever she puts her hand on her chest. She has an appointment with her research librarian on Sunday, but was unable to wait until then to be seen. Transvaginal ultrasound was done in the ER, but I suspect her spotting is likely due to her persistent hyperthyroidism. She has been on propranolol 80 mg twice a day and Tapazole 20 mg twice a day at home. Her TSH was undetectable and her free T3 was greater than 3. She was started on a Cardizem drip, but it is not controlling her rate, which it would not be ex pected to do in this situation. Her heart rate remains in the 120s to 140s. She is very sweaty. Her blood pressure is acceptable. The hospitalist Dr. Smith called requesting transfer to ICU due to tachycardia secondary to hyperthyroidism and unable to control her rate with propanolol. The patient arrived in ICU and will sart her on esmolol however, previous admission patient was not able to tolerate due to hypotension and the medication was not effective at controlling her heart rate. The patient required transfer to tertiary care facility last admission for same problem. I discussed my concern for the same sequel of events with the hospitalist and requested that he transfer her to a tertiary care center for research librarian services. The patient will be monitored in ICU for now. 20-HR still 140-170 range. No effect from Tapazole yet. Esmolol dropped BP. Inderal increased 10/11/20-HR still 140-170 range. No effect from Tapazole yet. Esmolol dropped BP. Inderal increased 10/01: Free T4 2.68. Out of bed to commode. Had telemedicine visit with her research librarian today. 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 Continues to be in atrial fibrillation with rapid ventricular response. Currently, heart rate 150s to 160s. 10/12/20-HR still 140-170 range. No effect from Tapazole yet. Esmolol dropped BP. Inderal increased 10/11: Free T4 2.68. Out of bed to commode. Had telemedicine visit with her research librarian today. 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 Continues to be in atrial fibrillation with rapid ventricular response. Currently, heart rate 150s to 160s. 10/12: Free T4 2.61. Sitting up at the side of the bed. Digoxin failed to provide effective rate control yesterday. Consequently, we started Cardizem. Started on Cardizem 30 mg p.o. every 6 hours in the interim for rate control. Heart rate 110s to 130, down from 150s to 160s. Patient reports that she has noticed significant improvement in exertional dyspnea with improved rate control. She is on methimazole 20 mg p.o. 4 times daily. She is also on propranolol 80 mg p.o. every 6 hours along with diltiazem 30 mg p.o. every 6 hours. 20-HR still 140-170 range. No effect from Tapazole yet. Esmolol dropped BP. Inderal increased 10/11: Free T4 2.68. Out of bed to commode. Had telemedicine visit with her research librarian today. 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 Continues to be in atrial fibrillation with rapid ventricular response. Currently, heart rate 150s to 160s. 10/12: Free T4 2.61. Sitting up at the side of the bed. Digoxin failed to pr ovide effective rate control yesterday. Consequently, we started Cardizem. Started on Cardizem 30 mg p.o. every 6 hours in the interim for rate control. Heart rate 110s to 130, down from 150s to 160s. Patient reports that she has noticed significant improvement in exertional dyspnea with improved rate control. She is on methimazole 20 mg p.o. 4 times daily. She is also on propranolol 80 mg p.o. every 6 hours along with diltiazem 30 mg p.o. every 6 hours. 10/13: Free T4 2.35. Sitting up at the bedside. In good spirits. Cardizem. To be more effective in achieving rate control, so her propranolol was reduced to 80 mg p.o. every 8 hours. Added Cardizem 30 mg p.o. every 6 hours yesterday. Resting heart rate [place] [address]. 65-year-old obese -[place] female was admitted to [facility] on 10/08/2020 after presenting with a recurrent episode of thyroid storm. She was admitted to the ICU for atrial fibrillation with rapid ventricul ar response (as high as 180s). 10/11: Free T4 2.68. Out of bed to [facility]. Had telemedicine visit with her research librarian today. 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 Continues to be in atrial fibrillation with rapid ventricular response. Currently, heart rate 150s to 160s. 10/12: Free T4 2.61. Sitting up at the side of the bed. Digoxin failed to provide effective rate control yesterday. Consequently, we started Cardizem. Started on Cardizem 30 mg p.o. every 6 hours in the interim for rate control. Heart rate 110s to 130, down from 150s to 160s. Patient reports that she has noticed significant improvement in exertional nitroglycerin. With improved rate control. She is on methimazole 20 mg p.o. 4 times daily. She is also on propranolol 80 mg p.o. every 6 hours along with diltiazem 30 mg p.o. every 6 hours. 10/13: Free T4 2.35. Sitting up at the bedside. In good spirits. Cardizem. To be more effective in achieving rate control, so her propranolol was reduced to 80 mg p.o. every 8 hours. Added Cardizem 30 mg p.o. every 6 hours yesterday. Resting heart [place] [address]. 10/14: Free T4 2.04. Sitting up in chair at bedside. In good spirits. Currently on Cardizem 60 mg p.o. every 6 hours, which has provided improvement in resting heart rate. Heart rate over the past 24 hours 22918. 10/14/20-patient is comfortably in the chair... Communicating well. Not in distress. Presently on Cardizem 60 mg p.o. every 6 hours. Heart rate is around 110. Plan is to move her to the medical floor today and to continue to monitor the heart rate, thyroid function tests and make arrangements for transfer to [place] tomorrow. Patient sees Dr. Pagan in [place]'s office phone number is [phone] as per the ICU attending physician recommendation is for the patient to go to [facility] for thyroidectomy. Admitted for several times with thyroid storm. 10/15/2020-patient is comfortably in the chair communicating well. Patient sister is at bedside. No questions no concerns expressed by the family. This morning heart rate in the 90s. Is to give a call to Dr. Jasso research librarian in [place]. 10/16/20-patient is comfortably in the bed sleeping. Woke up and communicating well. Explained to her that I spoke to her research librarian Dr. pagan and his recommendation is to discharge the patient home once he is stable and follow-up with him and also with the ENT as an outpatient. Patient got upset and she said she does not want to leave the hospital without a thyroidectomy. She wants to wait until Sunday and talk to Reason For Visit: AFIB WITH RVR,HYPERTHYROIDISM,VAGINAL SPOTTING Physical Exam Vital Signs: Temp Pulse Resp BP Pulse Ox 97.3 F 106 H 18 104/57 L 97 10/16/20 08:32 10/16/20 07:40 10/16/20 07:40 10/16/20 07:40 10/16/20 07:40 Intake & Output 10/15/20 10/16/20 10/17/20 06:59 06:59 06:59 Intake Total 270 2017 Output Total 0 Balance 270 2017 Weight 117.1 kg 118.1 kg General appearance: PRESENT: no acute distress, cooperative, well-developed Head exam: PRESENT: atraumatic Eye exam: PRESENT: PERRLA Ear exam: PRESENT: normal external ear exam Mouth exam: PRESENT: neck supple Teeth exam: PRESENT: poor dentation Neck exam: ABSENT: carotid bruit, JVD, lymphadenopathy, thyromegaly Respiratory exam: PRESENT: decreased breath sounds Cardiovascular exam: PRESENT: RRR, tachycardia. ABSENT: diastolic murmur, rubs, systolic murmur GI/Abdominal exam: PRESENT: normal bowel sounds, soft. ABSENT: distended, guarding, mass, organolmegaly, rebound, tenderness Rectal exam: PRESENT: deferred Extremities exam: PRESENT: full ROM. ABSENT: calf tenderness, clubbing, pedal edema Neurological exam: PRESENT: alert, awake, oriented to person, oriented to place, oriented to time, oriented to situation, CN II-XII grossly intact. ABSENT: motor sensory deficit Psychiatric exam: PRESENT: appropriate affect, normal mood. ABSENT: homicidal ideation, suicidal ideation Skin exam: PRESENT: dry, intact, warm. ABSENT: cyanosis, rash Results Laboratory Results: 10/15/20 09:16 10/15/20 09:16 10/08/20 14:57 Troponin I < 0.012 Impressions: Transvaginal US 10/08/20 15:24 IMPRESSION: 1. Moderate amount of fluid in the posterior pelvic cul-de-sac which may be infectious or inflammatory fluid. 2. Diffuse thickening of the endometrial lining. This may represent endometrial hyperplasia, however malignancy is not excluded. Direct visualization and sampling is recommended. Assessment and Plan - Diagnosis (1) Atrial fibrillation with rapid ventricular response Is this a current diagnosis for this admission?: Yes Plan: * Continue Inderal 40 mg 3 times daily. * Increase Cardizem to 90 mg p.o. every 6 hours. * Continue anticoagulation. * * * 10/14/2020-patient is on Eliquis, plan is to continue the present management. * * 10/15/2020-to continue Eliquis at this time. Heart rate in the 90s patient is on Cardizem 90 mg p.o. every 6 hours. Patient is also on Inderal 40 mg 3 times a day. * * * 10/16/2020-heart rate is around 100. To continue Cardizem 90 mg p.o. every 6 hours , she is on Eliquis. And is also receiving Inderal 40 mg 3 times a day. As per research librarian dr pagan recommendations Tapazole dose is decreased to 30 twice daily. (2) Hyperthyroidism Is this a current diagnosis for this admission?: Yes Plan: * Continue Tapazole. * Continue Inderal 40 mg p.o. 3 times daily. * * 10/15/2020-to continue Tapazole, Inderal at this time. Latest free T4 is 2.04. TSH is less than 0.01. * * 10/16/2020-to continue Tapazole 30 mg p.o. twice daily, Inderal 40 mg 3 times a day at this time. To repeat TSH, free T3 and T4 levels. 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 * Continue Inderal. * Decrease Solu-Cortef 50 mg IV every 12 hours. * * 10/15/2020-patient admitted for thyroid stroma. To continue methimazole, Inderal, Solu-Cortef at this time. * * * 10/16/2020-thyroid storm is resolved. To decrease Solu-Medrol to 40 mg daily. (4) CARLOS (acute kidney injury) Is this a current diagnosis for this admission?: Yes Plan: * Improving. Baseline creatinine ~ 1.0. * Monitor urine output. * Avoid nephrotoxic drugs. * Renal dosing of medications. (5) Goiter, dyshormonogenic Is this a current diagnosis for this admission?: Yes (6) Type 2 diabetes mellitus treated without insulin Is this a current diagnosis for this admission?: Yes Plan: Controlled. - Plan Summary Summary: Her vaginal spotting in her atrial fibrillation or due to her thyroid storm. Neither of these problems will resolve until her circulating thyroid hormone levels dropped down. Cardizem will not help in this situation due to the nature of the force driving atrial fibrillation. I have discontinued the Cardizem drip. I have ordered propranolol 80 mg 4 times a day, Tapazole 20 mg 4 times a day, and hydrocortisone 100 mg 3 times a day in the hopes that it will help inhibit the conversion of T3-T4. If we cannot get her heart rate under control with this high dose of oral propranolol, she will have to be sent to the ICU for an esmolol drip. We were able to get her thyroid levels under better control on that dose of Tapazole, so hopefully we will be able to get her symptoms under control with it again. Once she is stable, she will need evaluation for surgery for her goiter. Because of the high levels of Tapazole needed, radioactive iodine ablation will be less likely to be effective. We will continue her Eliquis. We will put her on an insulin sliding scale as we anticipate that the hydrocortisone will make her blood sugars elevated. - Time Anticipated Discharge Disposition: Home, Self Care Anticipated Discharge Timeframe: within 72 hours
[2020-10-16] MEDS: ATORVASTATIN CALCIUM 10 MG TABLET PO SCH (22:18)
[2020-10-17] MEDS: DILTIAZEM HCL 60 MG TABLET PO SCH ×4 (01:26→17:33)
[2020-10-17] MEDS: PROPRANOLOL HCL 40 MG TABLET PO SCH ×3 (06:09→21:48)
[2020-10-17] MEDS: PANTOPRAZOLE SODIUM 40 MG TABLET.DR PO SCH (06:09)
[2020-10-17 07:19] LABS: ABSOLUTE EOSINOPHILS # (AUTO) 0.1 10^3/uL (0.0-0.6); ABSOLUTE MONOCYTES (AUTO) 1.5 10^3/uL (0.1-1.4); EOSINOPHILS % (AUTO) 0.7 % (0-6); HEMATOCRIT 33.7 % (36.0-47.0); HEMOGLOBIN 10.8 g/dL (12.0-15.5); LYMPHOCYTES % (AUTO) 23.9 % (13-45); MEAN CORPUSCULAR VOLUME 81 fl (80-97); MONOCYTES % (AUTO) 11.5 % (3-13); PLATELET COUNT 220 10^3/uL (150-450); RED BLOOD COUNT 4.14 10^6/uL (3.72-5.28); SEGMENTED NEUTROPHILS % (AUTO) 63.9 % (42-78); TOTAL CELLS COUNTED % (AUTO) 100 %; WHITE BLOOD COUNT 12.6 10^3/uL (4.0-10.5)
[2020-10-17 07:48] LABS: ALBUMIN 3.3 g/dL (3.5-5.0); ALKALINE PHOSPHATASE 203 U/L (38-126); ANION GAP 9 (5-19); ASPARTATE AMINO TRANSFERASE 190 U/L (14-36); BILIRUBIN,DIRECT 0.4 mg/dL (0.0-0.4); BILIRUBIN,TOTAL 0.7 mg/dL (0.2-1.3); BLOOD UREA NITROGEN 31 mg/dL (7-20); CALCIUM 9.6 mg/dL (8.4-10.2); CARBON DIOXIDE 25 mmol/L (22-30); CHLORIDE 108 mmol/L (98-107); GLUCOSE 101 mg/dL (75-110); POTASSIUM 3.6 mmol/L (3.6-5.0); TOTAL PROTEIN 6.1 g/dL (6.3-8.2)
[2020-10-17 07:58] LABS: FREE T3 2.79 pg/mL (2.77-5.27); FREE T4 (FREE THYROXINE) 1.64 ng/dL (0.78-2.19)
[2020-10-17] MEDS: INSULIN LISPRO 100 UNIT/ML 3 ML VIAL SUBCUT SCH ×4 (08:10→21:47)
[2020-10-17 08:17] LABS: THYROID STIMULATING HORMONE < 0.01 uIU/mL (0.47-4.68)
--- NOTE | 2020-10-17 09:38 | PDOC PROGRESS REPORT ---
Subjective Date:: 10/17/20 Subjective:: 65 year old female with a history of a toxic multinodular goiter with associated hyperthyroidism who was recently treated here for a thyroid storm, atrial fibrillation, eft-hentkyu-fhicwcphu diabetes mellitus, hyperlipidemia, hypertension, and obesity, who presents with persistent weakness and dyspnea with exertion. She also had a little bit of vaginal spotting. This lady has history of hyperthyroidism and follows up with an delicate fabrics presser in [place] named Dr. Jasso, and was admitted here about 1 month ago with thyroid storm because her delicate fabrics presser had taken her off of her Tapazole and beta-shweta. She had been off of it for several months and then wound up here and a thyroid storm. I am not sure why she was taken off of it. She is also not sure. At any rate, she wound up in the ICU on esmolol drip and wound up on large doses of beta-shweta and Tapazole to try to get her symptoms under control. She was transferred to [facility]. At some point, and I am not sure if this happened when she was transferred, she had a cardiac ablation for atrial fibrillation. She was told that it would not work if her hyperthyroidism was not addressed. When she was still in the ICU here, she had been seen by ENT but it seems that no follow-up was ever arranged for an outpatient basis. She says that ever since she went home from the ablation from [facility], she has had a lot of persistent weakness and dyspnea on exertion. She says she can feel her heart beating really fast whenever she puts her hand on her chest. She has an appointment with her delicate fabrics presser on Sunday, but was unable to wait until then to be seen. Transvaginal ultrasound was done in the ER, but I suspect her spotting is likely due to her persistent hyperthyroidism. She has been on propranolol 80 mg twice a day and Tapazole 20 mg twice a day at home. Her TSH was undetectable and her free T3 was greater than 3. She was started on a Cardizem drip, but it is not controlling her rate, which it would not be expected to do in this situation. Her heart rate remains in the 120s to 140s. She is very sweaty. Her blood pressure is acceptable. 10/08/20-65 year old female with a history of a toxic multinodular goiter with associated hyperthyroidism who was recently treated here for a thyroid storm, atrial fibrillation, xki-bwgckyc-usgwqvpmr diabetes mellitus, hyperlipidemia, hypertension, and obesity, who presents with persistent weakness and dyspnea with exertion. She also had a little bit of vaginal spotting. This lady has history of hyperthyroidism and follows up with an delicate fabrics presser in [place] named Dr. Jasso, and was admitted here about 1 month ago with thyroid storm because her delicate fabrics presser had taken her off of her Tapazole and beta-shweta. She had been off of it for several months and then wound up here and a thyroid storm. I am not sure why she was taken off of it. She is also not sure. At any rate, she wound up in the ICU on esmolol drip and wound up on large doses of beta-shweta and Tapazole to try to get her symptoms under control. She was transferred to [facility]. At some point, and I am not sure if this happened when she was transferred, she had a cardiac ablation for atrial fibrillation. She was told that it would not work if her hyperthyroidism was not addressed. When she was still in the ICU here, she had been seen by ENT but it seems that no follow-up was ever arranged for an outpatient basis. She says that ever since she went home from the ablation from [facility], she has had a lot of persistent weakness and dyspnea on exertion. She says she can feel her heart beating really fast whenever she puts her hand on her chest. She has an appointment with her delicate fabrics presser on Sunday, but was unable to wait until then to be seen. Transvaginal ultrasound was done in the ER, but I suspect her spotting is likely due to her persistent hyperthyroidism. She has been on propranolol 80 mg twice a day and Tapazole 20 mg twice a day at home. Her TSH was undetectable and her free T3 was greater than 3. She was started on a Cardizem drip, but it is not controlling her rate, which it would not be ex pected to do in this situation. Her heart rate remains in the 120s to 140s. She is very sweaty. Her blood pressure is acceptable. The hospitalist Dr. Smith called requesting transfer to ICU due to tachycardia secondary to hyperthyroidism and unable to control her rate with propanolol. The patient arrived in ICU and will sart her on esmolol however, previous admission patient was not able to tolerate due to hypotension and the medication was not effective at controlling her heart rate. The patient required transfer to tertiary care facility last admission for same problem. I discussed my concern for the same sequel of events with the hospitalist and requested that he transfer her to a tertiary care center for delicate fabrics presser services. The patient will be monitored in ICU for now. 20-HR still 140-170 range. No effect from Tapazole yet. Esmolol dropped BP. Inderal increased 10/11/20-HR still 140-170 range. No effect from Tapazole yet. Esmolol dropped BP. Inderal increased 10/01: Free T4 2.68. Out of bed to commode. Had telemedicine visit with her delicate fabrics presser today. 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 Continues to be in atrial fibrillation with rapid ventricular response. Currently, heart rate 150s to 160s. 10/12/20-HR still 140-170 range. No effect from Tapazole yet. Esmolol dropped BP. Inderal increased 10/11: Free T4 2.68. Out of bed to commode. Had telemedicine visit with her delicate fabrics presser today. 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 Continues to be in atrial fibrillation with rapid ventricular response. Currently, heart rate 150s to 160s. 10/12: Free T4 2.61. Sitting up at the side of the bed. Digoxin failed to provide effective rate control yesterday. Consequently, we started Cardizem. Started on Cardizem 30 mg p.o. every 6 hours in the interim for rate control. Heart rate 110s to 130, down from 150s to 160s. Patient reports that she has noticed significant improvement in exertional dyspnea with improved rate control. She is on methimazole 20 mg p.o. 4 times daily. She is also on propranolol 80 mg p.o. every 6 hours along with diltiazem 30 mg p.o. every 6 hours. 20-HR still 140-170 range. No effect from Tapazole yet. Esmolol dropped BP. Inderal increased 10/11: Free T4 2.68. Out of bed to commode. Had telemedicine visit with her delicate fabrics presser today. 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 Continues to be in atrial fibrillation with rapid ventricular response. Currently, heart rate 150s to 160s. 10/12: Free T4 2.61. Sitting up at the side of the bed. Digoxin failed to pr ovide effective rate control yesterday. Consequently, we started Cardizem. Started on Cardizem 30 mg p.o. every 6 hours in the interim for rate control. Heart rate 110s to 130, down from 150s to 160s. Patient reports that she has noticed significant improvement in exertional dyspnea with improved rate control. She is on methimazole 20 mg p.o. 4 times daily. She is also on propranolol 80 mg p.o. every 6 hours along with diltiazem 30 mg p.o. every 6 hours. 10/13: Free T4 2.35. Sitting up at the bedside. In good spirits. Cardizem. To be more effective in achieving rate control, so her propranolol was reduced to 80 mg p.o. every 8 hours. Added Cardizem 30 mg p.o. every 6 hours yesterday. Resting heart rate [place] to [place]. [place] [address]. 65-year-old obese -[place] female was admitted to [facility] on 10/08/2020 after presenting with a recurrent episode of thyroid storm. She was admitted to the ICU for atrial fibrillation with rapid ventricul ar response (as high as 180s). 10/11: Free T4 2.68. Out of bed to [facility]. Had telemedicine visit with her delicate fabrics presser today. 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 Continues to be in atrial fibrillation with rapid ventricular response. Currently, heart rate 150s to 160s. 10/12: Free T4 2.61. Sitting up at the side of the bed. Digoxin failed to provide effective rate control yesterday. Consequently, we started Cardizem. Started on Cardizem 30 mg p.o. every 6 hours in the interim for rate control. Heart rate 110s to 130, down from 150s to 160s. Patient reports that she has noticed significant improvement in exertional nitroglycerin. With improved rate control. She is on methimazole 20 mg p.o. 4 times daily. She is also on propranolol 80 mg p.o. every 6 hours along with diltiazem 30 mg p.o. every 6 hours. 10/13: Free T4 2.35. Sitting up at the bedside. In good spirits. Cardizem. To be more effective in achieving rate control, so her propranolol was reduced to 80 mg p.o. every 8 hours. Added Cardizem 30 mg p.o. every 6 hours yesterday. Resting heart [place] [address]/5391. 10/14: Free T4 2.04. Sitting up in chair at bedside. In good spirits. Currently on Cardizem 60 mg p.o. every 6 hours, which has provided improvement in resting heart rate. Heart rate over the past 24 hours [id number]. 10/14/20-patient is comfortably in the chair... Communicating well. Not in distress. Presently on Cardizem 60 mg p.o. every 6 hours. Heart rate is around 110. Plan is to move her to the medical floor today and to continue to monitor the heart rate, thyroid function tests and make arrangements for transfer to [place] tomorrow. Patient sees Dr. Pagan in [place]'s office phone number is [phone] as per the ICU attending physician recommendation is for the patient to go to [facility] for thyroidectomy. Admitted for several times with thyroid storm. 10/15/2020-patient is comfortably in the chair communicating well. Patient sister is at bedside. No questions no concerns expressed by the family. This morning heart rate in the 90s. Is to give a call to Dr. Jasso delicate fabrics presser in [place]. 10/16/20-patient is comfortably in the bed sleeping. Woke up and communicating well. Explained to her that I spoke to her delicate fabrics presser Dr. pagan and his recommendation is to discharge the patient home once he is stable and follow-up with him and also with the ENT as an outpatient. Patient got upset and she said she does not want to leave the hospital without a thyroidectomy. She wants to wait until Sunday and talk to 10/17/2020-no acute events in the last 24 hours. Heart rate is around 96. Asymptomatic. Again patient expressing her wishes to have a thyroidectomy prior to discharge. Reason For Visit: AFIB WITH RVR,HYPERTHYROIDISM,VAGINAL SPOTTING Physical Exam Vital Signs: Temp Pulse Resp BP Pulse Ox 97.4 F 95 18 114/64 97 10/17/20 07:42 10/17/20 07:32 10/17/20 07:32 10/17/20 07:32 10/17/20 07:32 Intake & Output 10/16/20 10/17/20 10/18/20 06:59 06:59 06:59 Intake Total 2017 120 Output Total 250 Balance 2017 -130 Weight 118.1 kg 119.5 kg General appearance: PRESENT: no acute distress, cooperative, well-developed Head exam: PRESENT: atraumatic Eye exam: PRESENT: PERRLA Ear exam: PRESENT: normal external ear exam Neck exam: PRESENT: thyromegaly Respiratory exam: PRESENT: clear to auscultation randa. ABSENT: rales, rhonchi, wheezes Cardiovascular exam: PRESENT: RRR. ABSENT: diastolic murmur, rubs, systolic murmur GI/Abdominal exam: PRESENT: normal bowel sounds, soft. ABSENT: distended, guarding, mass, organolmegaly, rebound, tenderness Rectal exam: PRESENT: deferred Extremities exam: PRESENT: full ROM. ABSENT: calf tenderness, clubbing, pedal edema Neurological exam: PRESENT: alert, awake, oriented to person, oriented to place, oriented to time, oriented to situation, CN II-XII grossly intact. ABSENT: motor sensory deficit Psychiatric exam: PRESENT: appropriate affect, normal mood. ABSENT: homicidal ideation, suicidal ideation Results Laboratory Results: 10/17/20 06:07 10/17/20 06:07 10/17/20 10/17/20 10/17/20 06:07 06:07 06:07 WBC 12.6 H RBC 4.14 Hgb 10.8 L Hct 33.7 L MCV 81 MCH 26.0 L MCHC 32.0 RDW 21.0 H Plt Count 220 Seg Neutrophils % 63.9 Sodium 142.0 Potassium 3.6 Chloride 108 H Carbon Dioxide 25 Anion Gap 9 BUN 31 H Creatinine 1.04 Est GFR ( Amer) > 60 Glucose 101 Calcium 9.6 Magnesium 2.4 H Total Bilirubin 0.7 AST 190 H Alkaline Phosphatase 203 H Total Protein 6.1 L Albumin 3.3 L TSH < 0.01 L Free T4 1.64 Free T3 pg/mL 2.79 10/08/20 14:57 Troponin I < 0.012 Impressions: Transvaginal US 10/08/20 15:24 IMPRESSION: 1. Moderate amount of fluid in the posterior pelvic cul-de-sac which may be infectious or inflammatory fluid. 2. Diffuse thickening of the endometrial lining. This may represent endometrial hyperplasia, however malignancy is not excluded. Direct visualization and sampling is recommended. Assessment and Plan - Diagnosis (1) Atrial fibrillation with rapid ventricular response Is this a current diagnosis for this admission?: Yes Plan: * Continue Inderal 40 mg 3 times daily. * Increase Cardizem to 90 mg p.o. every 6 hours. * Continue anticoagulation. * * * 10/14/2020-patient is on Eliquis, plan is to continue the present management. * * 10/15/2020-to continue Eliquis at this time. Heart rate in the 90s patient is on Cardizem 90 mg p.o. every 6 hours. Patient is also on Inderal 40 mg 3 times a day. * * * 10/16/2020-heart rate is around 100. To continue Cardizem 90 mg p.o. every 6 hours , she is on Eliquis. And is also receiving Inderal 40 mg 3 times a day. As per delicate fabrics presser dr pagan recommendations Tapazole dose is decreased to 30 twice daily. * * * 10/17/2020-heart rate is around 96 rate controlled A. fib. To continue Eliquis, Inderal 40 mg p.o. 3 times daily, Cardizem 90 mg p.o. every 8 hours. Free T3-4 is 1.64, free T3 is 2.79. (2) Hyperthyroidism Is this a current diagnosis for this admission?: Yes Plan: * Continue Tapazole. * Continue Inderal 40 mg p.o. 3 times daily. * * 10/15/2020-to continue Tapazole, Inderal at this time. Latest free T4 is 2.04. TSH is less than 0.01. * * 10/16/2020-to continue Tapazole 30 mg p.o. twice daily, Inderal 40 mg 3 times a day at this time. To repeat TSH, free T3 and T4 levels. * * 10/17/2020-patient has history of hypothyroidism secondary to thyromegaly. To continue Tapazole 30 mg p.o. twice daily, Inderal 40 mg 3 times a day. She is also on Solu-Medrol 40 mg IV daily. Latest free T4 is 1.64, free T3 is 2.79. 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 * Continue Inderal. * Decrease Solu-Cortef 50 mg IV every 12 hours. * * 10/15/2020-patient admitted for thyroid stroma. To continue methimazole, Inderal, Solu-Cortef at this time. * * * 10/16/2020-thyroid storm is resolved. To decrease Solu-Medrol to 40 mg daily. * * 10/17/20-2 discontinue IV Solu-Medrol and to start on prednisone 20 mg p.o. twice daily from today. (4) CARLOS (acute kidney injury) Is this a current diagnosis for this admission?: Yes Plan: * Improving. Baseline creatinine ~ 1.0. * Monitor urine output. * Avoid nephrotoxic drugs. * Renal dosing of medications. (5) Goiter, dyshormonogenic Is this a current diagnosis for this admission?: Yes (6) Type 2 diabetes mellitus treated without insulin Is this a current diagnosis for this admission?: Yes Plan: Controlled. - Plan Summary Summary: Her vaginal spotting in her atrial fibrillation or due to her thyroid storm. Neither of these problems will resolve until her circulating thyroid hormone levels dropped down. Cardizem will not help in this situation due to the nature of the force driving atrial fibrillation. I have discontinued the Cardizem drip. I have ordered propranolol 80 mg 4 times a day, Tapazole 20 mg 4 times a day, and hydrocortisone 100 mg 3 times a day in the hopes that it will help inhibit the conversion of T3-T4. If we cannot get her heart rate under control with this high dose of oral propranolol, she will have to be sent to the ICU for an esmolol drip. We were able to get her thyroid levels under better control on that dose of Tapazole, so hopefully we will be able to get her symptoms under control with it again. Once she is stable, she will need evaluation for surgery for her goiter. Because of the high levels of Tapazole needed, radioactive iodine ablation will be less likely to be effective. We will continue her Eliquis. We will put her on an insulin sliding scale as we anticipate that the hydrocortisone will make her blood sugars elevated. - Time Anticipated Discharge Disposition: Home, Self Care Anticipated Discharge Timeframe: within 72 hours
[2020-10-17] MEDS: MULTIVITAMIN TABLET PO SCH (11:01)
[2020-10-17] MEDS: APIXABAN 5 MG TABLET PO SCH ×2 (11:01→17:34)
[2020-10-17] MEDS: PREDNISONE 20 MG TABLET PO SCH ×2 (11:01→17:34)
[2020-10-17] MEDS: METHIMAZOLE 5 MG TABLET PO SCH ×2 (11:01→17:34)
[2020-10-17] MEDS: ASPIRIN 81 MG TABLET, ENT COATED PO SCH (11:01)
[2020-10-17] MEDS: ATORVASTATIN CALCIUM 10 MG TABLET PO SCH (21:47)
[2020-10-18] MEDS: DILTIAZEM HCL 60 MG TABLET PO SCH ×5 (00:44→23:08)
[2020-10-18] MEDS: PANTOPRAZOLE SODIUM 40 MG TABLET.DR PO SCH (05:15)
[2020-10-18] MEDS: PROPRANOLOL HCL 40 MG TABLET PO SCH ×3 (05:15→21:21)
[2020-10-18 06:18] LABS: ABSOLUTE MONOCYTES (AUTO) 0.7 10^3/uL (0.1-1.4); ABSOLUTE NEUT (AUTO) 8.6 10^3/uL (1.7-8.2); BASOPHILS % (AUTO) 0.2 % (0-2); HEMATOCRIT 34.5 % (36.0-47.0); LYMPHOCYTES % (AUTO) 9.4 % (13-45); MEAN CORPUSCULAR VOLUME 81 fl (80-97); MONOCYTES % (AUTO) 6.9 % (3-13); PLATELET COUNT 230 10^3/uL (150-450); RED BLOOD COUNT 4.25 10^6/uL (3.72-5.28); RED CELL DISTRIBUTION WIDTH 21.5 % (11.5-14.0); SEGMENTED NEUTROPHILS % (AUTO) 83.5 % (42-78); TOTAL CELLS COUNTED % (AUTO) 100 %; WHITE BLOOD COUNT 10.3 10^3/uL (4.0-10.5)
[2020-10-18 06:43] LABS: ALBUMIN 3.4 g/dL (3.5-5.0); ALKALINE PHOSPHATASE 205 U/L (38-126); ANION GAP 8 (5-19); ASPARTATE AMINO TRANSFERASE 77 U/L (14-36); BILIRUBIN,DIRECT 0.3 mg/dL (0.0-0.4); BILIRUBIN,TOTAL 0.6 mg/dL (0.2-1.3); BLOOD UREA NITROGEN 30 mg/dL (7-20); CALCIUM 9.8 mg/dL (8.4-10.2); CARBON DIOXIDE 26 mmol/L (22-30); CHLORIDE 108 mmol/L (98-107); GLUCOSE 131 mg/dL (75-110); POTASSIUM 4.3 mmol/L (3.6-5.0)
[2020-10-18] MEDS: INSULIN LISPRO 100 UNIT/ML 3 ML VIAL SUBCUT SCH ×4 (08:33→21:20)
[2020-10-18] MEDS: PREDNISONE 20 MG TABLET PO SCH ×2 (09:24→17:39)
[2020-10-18] MEDS: APIXABAN 5 MG TABLET PO SCH ×2 (09:24→17:38)
[2020-10-18] MEDS: METHIMAZOLE 5 MG TABLET PO SCH ×2 (09:24→17:38)
[2020-10-18] MEDS: ASPIRIN 81 MG TABLET, ENT COATED PO SCH (09:24)
[2020-10-18] MEDS: MULTIVITAMIN TABLET PO SCH (09:24)
--- NOTE | 2020-10-18 11:38 | PDOC PROGRESS REPORT ---
Subjective Date:: 10/18/20 Subjective:: 65 year old female with a history of a toxic multinodular goiter with associated hyperthyroidism who was recently treated here for a thyroid storm, atrial fibrillation, yqc-wqmfhmk-uvpsdtqgd diabetes mellitus, hyperlipidemia, hypertension, and obesity, who presents with persistent weakness and dyspnea with exertion. She also had a little bit of vaginal spotting. This lady has history of hyperthyroidism and follows up with an ortho/prosthetic aide in [place] named Dr. Jasso, and was admitted here about 1 month ago with thyroid storm because her ortho/prosthetic aide had taken her off of her Tapazole and beta-shweta. She had been off of it for several months and then wound up here and a thyroid storm. I am not sure why she was taken off of it. She is also not sure. At any rate, she wound up in the ICU on esmolol drip and wound up on large doses of beta-shweta and Tapazole to try to get her symptoms under control. She was transferred to [facility]. At some point, and I am not sure if this happened when she was transferred, she had a cardiac ablation for atrial fibrillation. She was told that it would not work if her hyperthyroidism was not addressed. When she was still in the ICU here, she had been seen by ENT but it seems that no follow-up was ever arranged for an outpatient basis. She says that ever since she went home from the ablation from [facility], she has had a lot of persistent weakness and dyspnea on exertion. She says she can feel her heart beating really fast whenever she puts her hand on her chest. She has an appointment with her ortho/prosthetic aide on Sunday, but was unable to wait until then to be seen. Transvaginal ultrasound was done in the ER, but I suspect her spotting is likely due to her persistent hyperthyroidism. She has been on propranolol 80 mg twice a day and Tapazole 20 mg twice a day at home. Her TSH was undetectable and her free T3 was greater than 3. She was started on a Cardizem drip, but it is not controlling her rate, which it would not be expected to do in this situation. Her heart rate remains in the 120s to 140s. She is very sweaty. Her blood pressure is acceptable. 10/08/20-65 year old female with a history of a toxic multinodular goiter with associated hyperthyroidism who was recently treated here for a thyroid storm, atrial fibrillation, lmr-aojnpzu-bygybkxtf diabetes mellitus, hyperlipidemia, hypertension, and obesity, who presents with persistent weakness and dyspnea with exertion. She also had a little bit of vaginal spotting. This lady has history of hyperthyroidism and follows up with an ortho/prosthetic aide in [place] named Dr. Jasso, and was admitted here about 1 month ago with thyroid storm because her ortho/prosthetic aide had taken her off of her Tapazole and beta-shweta. She had been off of it for several months and then wound up here and a thyroid storm. I am not sure why she was taken off of it. She is also not sure. At any rate, she wound up in the ICU on esmolol drip and wound up on large doses of beta-shweta and Tapazole to try to get her symptoms under control. She was transferred to [facility]. At some point, and I am not sure if this happened when she was transferred, she had a cardiac ablation for atrial fibrillation. She was told that it would not work if her hyperthyroidism was not addressed. When she was still in the ICU here, she had been seen by ENT but it seems that no follow-up was ever arranged for an outpatient basis. She says that ever since she went home from the ablation from [facility], she has had a lot of persistent weakness and dyspnea on exertion. She says she can feel her heart beating really fast whenever she puts her hand on her chest. She has an appointment with her ortho/prosthetic aide on Sunday, but was unable to wait until then to be seen. Transvaginal ultrasound was done in the ER, but I suspect her spotting is likely due to her persistent hyperthyroidism. She has been on propranolol 80 mg twice a day and Tapazole 20 mg twice a day at home. Her TSH was undetectable and her free T3 was greater than 3. She was started on a Cardizem drip, but it is not controlling her rate, which it would not be ex pected to do in this situation. Her heart rate remains in the 120s to 140s. She is very sweaty. Her blood pressure is acceptable. The hospitalist Dr. Smith called requesting transfer to ICU due to tachycardia secondary to hyperthyroidism and unable to control her rate with propanolol. The patient arrived in ICU and will sart her on esmolol however, previous admission patient was not able to tolerate due to hypotension and the medication was not effective at controlling her heart rate. The patient required transfer to tertiary care facility last admission for same problem. I discussed my concern for the same sequel of events with the hospitalist and requested that he transfer her to a tertiary care center for ortho/prosthetic aide services. The patient will be monitored in ICU for now. 20-HR still 140-170 range. No effect from Tapazole yet. Esmolol dropped BP. Inderal increased 10/11/20-HR still 140-170 range. No effect from Tapazole yet. Esmolol dropped BP. Inderal increased 10/01: Free T4 2.68. Out of bed to commode. Had telemedicine visit with her ortho/prosthetic aide today. 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 Continues to be in atrial fibrillation with rapid ventricular response. Currently, heart rate 150s to 160s. 10/12/20-HR still 140-170 range. No effect from Tapazole yet. Esmolol dropped BP. Inderal increased 10/11: Free T4 2.68. Out of bed to commode. Had telemedicine visit with her ortho/prosthetic aide today. 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 Continues to be in atrial fibrillation with rapid ventricular response. Currently, heart rate 150s to 160s. 10/12: Free T4 2.61. Sitting up at the side of the bed. Digoxin failed to provide effective rate control yesterday. Consequently, we started Cardizem. Started on Cardizem 30 mg p.o. every 6 hours in the interim for rate control. Heart rate 110s to 130, down from 150s to 160s. Patient reports that she has noticed significant improvement in exertional dyspnea with improved rate control. She is on methimazole 20 mg p.o. 4 times daily. She is also on propranolol 80 mg p.o. every 6 hours along with diltiazem 30 mg p.o. every 6 hours. 20-HR still 140-170 range. No effect from Tapazole yet. Esmolol dropped BP. Inderal increased 10/11: Free T4 2.68. Out of bed to commode. Had telemedicine visit with her ortho/prosthetic aide today. 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 Continues to be in atrial fibrillation with rapid ventricular response. Currently, heart rate 150s to 160s. 10/12: Free T4 2.61. Sitting up at the side of the bed. Digoxin failed to pr ovide effective rate control yesterday. Consequently, we started Cardizem. Started on Cardizem 30 mg p.o. every 6 hours in the interim for rate control. Heart rate 110s to 130, down from 150s to 160s. Patient reports that she has noticed significant improvement in exertional dyspnea with improved rate control. She is on methimazole 20 mg p.o. 4 times daily. She is also on propranolol 80 mg p.o. every 6 hours along with diltiazem 30 mg p.o. every 6 hours. 10/13: Free T4 2.35. Sitting up at the bedside. In good spirits. Cardizem. To be more effective in achieving rate control, so her propranolol was reduced to 80 mg p.o. every 8 hours. Added Cardizem 30 mg p.o. every 6 hours yesterday. Resting heart rate seems to [place]. [place] [address]. 65-year-old obese -[place] female was admitted to [facility] on 10/08/2020 after presenting with a recurrent episode of thyroid storm. She was admitted to the ICU for atrial fibrillation with rapid ventricul ar response (as high as 180s). 10/11: Free T4 2.68. Out of bed to [facility]. Had telemedicine visit with her ortho/prosthetic aide today. 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 Continues to be in atrial fibrillation with rapid ventricular response. Currently, heart rate 150s to 160s. 10/12: Free T4 2.61. Sitting up at the side of the bed. Digoxin failed to provide effective rate control yesterday. Consequently, we started Cardizem. Started on Cardizem 30 mg p.o. every 6 hours in the interim for rate control. Heart rate 110s to 130, down from 150s to 160s. Patient reports that she has noticed significant improvement in exertional nitroglycerin. With improved rate control. She is on methimazole 20 mg p.o. 4 times daily. She is also on propranolol 80 mg p.o. every 6 hours along with diltiazem 30 mg p.o. every 6 hours. 10/13: Free T4 2.35. Sitting up at the bedside. In good spirits. Cardizem. To be more effective in achieving rate control, so her propranolol was reduced to 80 mg p.o. every 8 hours. Added Cardizem 30 mg p.o. every 6 hours yesterday. Resting heart [place] [address]. 10/14: Free T4 2.04. Sitting up in chair at bedside. In good spirits. Currently on Cardizem 60 mg p.o. every 6 hours, which has provided improvement in resting heart rate. Heart rate over the past 24 hours [address]. 10/14/20-patient is comfortably in the chair... Communicating well. Not in distress. Presently on Cardizem 60 mg p.o. every 6 hours. Heart rate is around 110. Plan is to move her to the medical floor today and to continue to monitor the heart rate, thyroid function tests and make arrangements for transfer to [place] tomorrow. Patient sees Dr. Pagan in [place]'s office phone number is [phone] as per the ICU attending physician recommendation is for the patient to go to [facility] for thyroidectomy. Admitted for several times with thyroid storm. 10/15/2020-patient is comfortably in the chair communicating well. Patient sister is at bedside. No questions no concerns expressed by the family. This morning heart rate in the 90s. Is to give a call to Dr. Jasso ortho/prosthetic aide in [place]. 10/16/20-patient is comfortably in the bed sleeping. Woke up and communicating well. Explained to her that I spoke to her ortho/prosthetic aide Dr. pagan and his recommendation is to discharge the patient home once he is stable and follow-up with him and also with the ENT as an outpatient. Patient got upset and she said she does not want to leave the hospital without a thyroidectomy. She wants to wait until Sunday and talk to 10/17/2020-no acute events in the last 24 hours. Heart rate is around 96. Asymptomatic. Again patient expressing her wishes to have a thyroidectomy prior to discharge. 10/18/2020-patient is doing well. No acute events in the last 24 hours. Heart rate is relatively controlled. Comfortably in the bed communicating well. She does not want to leave the hospital without thyroidectomy. I spoke to Dr. Curiel, he told me that he is going to call me back. Reason For Visit: AFIB WITH RVR,HYPERTHYROIDISM,VAGINAL SPOTTING Physical Exam Vital Signs: Temp Pulse Resp BP Pulse Ox 97.8 F 85 20 109/84 94 10/18/20 07:26 10/18/20 07:26 10/18/20 07:26 10/18/20 07:26 10/18/20 07:26 Intake & Output 10/17/20 10/18/20 10/19/20 06:59 06:59 06:59 Intake Total 120 1120 Output Total 250 300 Balance -130 820 Weight 119.5 kg 122.6 kg General appearance: PRESENT: no acute distress Head exam: PRESENT: atraumatic Eye exam: PRESENT: PERRLA Mouth exam: PRESENT: moist, tongue midline Teeth exam: PRESENT: poor dentation Neck exam: ABSENT: carotid bruit, JVD, lymphadenopathy, thyromegaly Respiratory exam: PRESENT: decreased breath sounds Cardiovascular exam: PRESENT: RRR. ABSENT: diastolic murmur, rubs, systolic murmur GI/Abdominal exam: PRESENT: normal bowel sounds, soft. ABSENT: distended, guarding, mass, organolmegaly, rebound, tenderness Rectal exam: PRESENT: deferred Extremities exam: PRESENT: full ROM. ABSENT: calf tenderness, clubbing, pedal edema Neurological exam: PRESENT: alert, awake, oriented to person, oriented to place, oriented to time, oriented to situation, CN II-XII grossly intact. ABSENT: motor sensory deficit Psychiatric exam: PRESENT: appropriate affect, normal mood. ABSENT: homicidal ideation, suicidal ideation Results Laboratory Results: 10/18/20 05:36 10/18/20 05:36 10/18/20 10/18/20 05:36 05:36 WBC 10.3 RBC 4.25 Hgb 11.0 L Hct 34.5 L MCV 81 MCH 26.0 L MCHC 32.0 RDW 21.5 H Plt Count 230 Seg Neutrophils % 83.5 H Sodium 141.9 Potassium 4.3 Chloride 108 H Carbon Dioxide 26 Anion Gap 8 BUN 30 H Creatinine 1.00 Est GFR ( Amer) > 60 Glucose 131 H Calcium 9.8 Magnesium 2.2 Total Bilirubin 0.6 AST 77 H Alkaline Phosphatase 205 H Total Protein 6.0 L Albumin 3.4 L 10/08/20 14:57 Troponin I < 0.012 Impressions: Transvaginal US 10/08/20 15:24 IMPRESSION: 1. Moderate amount of fluid in the posterior pelvic cul-de-sac which may be infectious or inflammatory fluid. 2. Diffuse thickening of the endometrial lining. This may represent endometrial hyperplasia, however malignancy is not excluded. Direct visualization and s ampling is recommended. Assessment and Plan - Diagnosis (1) Atrial fibrillation with rapid ventricular response Is this a current diagnosis for this admission?: Yes Plan: * Continue Inderal 40 mg 3 times daily. * Increase Cardizem to 90 mg p.o. every 6 hours. * Continue anticoagulation. * * * 10/14/2020-patient is on Eliquis, plan is to continue the present management. * * 10/15/2020-to continue Eliquis at this time. Heart rate in the 90s patient is on Cardizem 90 mg p.o. every 6 hours. Patient is also on Inderal 40 mg 3 times a day. * * * 10/16/2020-heart rate is around 100. To continue Cardizem 90 mg p.o. every 6 hours , she is on Eliquis. And is also receiving Inderal 40 mg 3 times a day. As per ortho/prosthetic aide dr pagan recommendations Tapazole dose is decreased to 30 twice daily. * * * 10/17/2020-heart rate is around 96 rate controlled A. fib. To continue Eliquis, Inderal 40 mg p.o. 3 times daily, Cardizem 90 mg p.o. every 8 hours. Free T3-4 is 1.64, free T3 is 2.79. * * 10/18/2020-no acute events in the last 24 hours. Afebrile. Heart rate is at 100. To continue Eliquis, Inderal 40 mg p.o. 3 times a day, Cardizem 90 mg every 8 hours. (2) Hyperthyroidism Is this a current diagnosis for this admission?: Yes Plan: * Continue Tapazole. * Continue Inderal 40 mg p.o. 3 times daily. * * 10/15/2020-to continue Tapazole, Inderal at this time. Latest free T4 is 2.04. TSH is less than 0.01. * * 10/16/2020-to continue Tapazole 30 mg p.o. twice daily, Inderal 40 mg 3 times a day at this time. To repeat TSH, free T3 and T4 levels. * * 10/17/2020-patient has history of hypothyroidism secondary to thyromegaly. To continue Tapazole 30 mg p.o. twice daily, Inderal 40 mg 3 times a day. She is also on Solu-Medrol 40 mg IV daily. Latest free T4 is 1.64, free T3 is 2.79. * * 10/18/2020-patient is presently on Tapazole 30 mg p.o. twice a day as per ortho/prosthetic aide recommendations, Inderal 40 mg 3 times a day, prednisone 20 mg p.o. twice daily. Consultation with ENT is requested. 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 * Continue Inderal. * Decrease Solu-Cortef 50 mg IV every 12 hours. * * 10/15/2020-patient admitted for thyroid stroma. To continue methimazole, Inderal, Solu-Cortef at this time. * * * 10/16/2020-thyroid storm is resolved. To decrease Solu-Medrol to 40 mg daily. * * 10/17/20-2 discontinue IV Solu-Medrol and to start on prednisone 20 mg p.o. twice daily from today. * * 10/18/2020-no acute events in the last 48 hours. Stable. To continue prednisone 20 mg p.o. twice a day at this time. (4) CARLOS (acute kidney injury) Is this a current diagnosis for this admission?: Yes Plan: * Improving. Baseline creatinine ~ 1.0. * Monitor urine output. * Avoid nephrotoxic drugs. * Renal dosing of medications. (5) Goiter, dyshormonogenic Is this a current diagnosis for this admission?: Yes (6) Type 2 diabetes mellitus treated without insulin Is this a current diagnosis for this admission?: Yes Plan: Controlled. - Plan Summary Summary: Her vaginal spotting in her atrial fibrillation or due to her thyroid storm. Neither of these problems will resolve until her circulating thyroid hormone levels dropped down. Cardizem will not help in this situation due to the nature of the force driving atrial fibrillation. I have discontinued the Cardizem drip. I have ordered propranolol 80 mg 4 times a day, Tapazole 20 mg 4 times a day, and hydrocortisone 100 mg 3 times a day in the hopes that it will help inhi bit the conversion of T3-T4. If we cannot get her heart rate under control with this high dose of oral propranolol, she will have to be sent to the ICU for an esmolol drip. We were able to get her thyroid levels under better control on that dose of Tapazole, so hopefully we will be able to get her symptoms under control with it again. Once she is stable, she will need evaluation for surgery for her goiter. Because of the high levels of Tapazole needed, radioactive iodine ablation will be less likely to be effective. We will continue her Eliquis. We will put her on an insulin sliding scale as we anticipate that the hydrocortisone will make her blood sugars elevated. - Time Anticipated Discharge Disposition: Home, Self Care Anticipated Discharge Timeframe: within 72 hours
[2020-10-18] MEDS: ATORVASTATIN CALCIUM 10 MG TABLET PO SCH (21:21)
[2020-10-19] MEDS: DILTIAZEM HCL 60 MG TABLET PO SCH ×4 (05:56→23:13)
[2020-10-19] MEDS: PANTOPRAZOLE SODIUM 40 MG TABLET.DR PO SCH (05:56)
[2020-10-19] MEDS: PROPRANOLOL HCL 40 MG TABLET PO SCH ×3 (05:56→23:12)
--- NOTE | 2020-10-19 09:04 | RADIOLOGY REPORT (SQ) ---
EXAM DESCRIPTION: CT SOFT TISSUE NECK WITH IMAGES COMPLETED DATE/TIME: 10/18/2020 6:49 pm REASON FOR STUDY: Thyroid goitre with mediastinal tissue around aort COMPARISON: 09/09/2020. TECHNIQUE: Post IV contrasted scanning from skull base through lung apices with review of bone, soft tissue and lung windows. Reconstructed coronal and sagittal MPR images reviewed. All images stored on PACS. All CT scanners at this facility use dose modulation, iterative reconstruction, and/or weight based d osing when appropriate to reduce radiation dose to as low as reasonably achievable (ALARA). [facility]: Dose Right [facility]: CareDose [facility]: Dose Right [facility]: Teradose 4D [facility]: [employer] CONTRAST TYPE AND DOSE: contrast/concentration: Isovue 350.00 mmol/ml; Total Contrast Delivered: 75. 0 ml; Total Saline Delivered: 32.1 ml RENAL FUNCTION: BUN 30 creatinine 1.0. RADIATION DOSE: . LIMITATIONS: None. FINDINGS: SKULL BASE: Intact. MAJOR SALIVARY GLANDS: No solid or cystic masses. No inflammatory changes. LYMPHADENOPATHY: No adenopathy. MUCOSAL MASSES OR ASYMMETRY: No mucosal masses or asymmetry. LARYNX/CORDS: No abnormal findings. VASCULAR STRUCTURES: The major vessels are patent. Incidental apparent origin of the left subclavian artery. LUNG APICES: Clear. BONES: Intact. THYROID: Again seen is heterogenous enlargement of the thyroid with multiple nodules. Substernal ext ension on the left side. PARANASAL SINUSES: Clear. OTHER: No other significant finding. IMPRESSION: MULTINODULAR GOITER WITH SUBSTERNAL EXTENSION ON THE LEFT. NO CHANGE COMPARED TO THE IN IOR STUDY, AUGUST 2020. NO OTHER SIGNIFICANT FINDING IN THE SOFT TISSUES OF THE NECK. TECHNICAL DOCUMENTATION: JOB ID: [id number] Quality ID # [id number]: Final reports with documentation of one or more dose reduction techniques (e.g., Au tomated exposure control, adjustment of the mA and/or kV according to patient size, use of iterative reconstruction technique) 2010 [employer]- All Rights Reserved Reading location - IP/workstation name: [email or web address]
[2020-10-19] MEDS: APIXABAN 5 MG TABLET PO SCH ×2 (10:14→18:13)
[2020-10-19] MEDS: MULTIVITAMIN TABLET PO SCH (10:14)
[2020-10-19] MEDS: METHIMAZOLE 5 MG TABLET PO SCH ×2 (10:14→18:07)
[2020-10-19] MEDS: PREDNISONE 20 MG TABLET PO SCH ×2 (10:14→18:05)
[2020-10-19] MEDS: INSULIN LISPRO 100 UNIT/ML 3 ML VIAL SUBCUT SCH ×4 (10:19→22:55)
[2020-10-19] MEDS: ASPIRIN 81 MG TABLET, ENT COATED PO SCH (10:19)
--- NOTE | 2020-10-19 12:11 | PDOC PROGRESS REPORT ---
Subjective Date:: 10/19/20 Subjective:: Patient is resting comfortably in the chair. No acute complaints. Reason For Visit: AFIB WITH RVR,HYPERTHYROIDISM,VAGINAL SPOTTING Physical Exam Vital Signs: Temp Pulse Resp BP Pulse Ox 98.1 F 85 18 112/70 99 10/19/20 08:00 10/19/20 08:00 10/19/20 08:00 10/19/20 08:00 10/19/20 08:00 Intake & Output 10/18/20 10/19/20 10/20/20 06:59 06:59 06:59 Intake Total 1120 960 Output Total 300 Balance 820 960 Weight 122.6 kg 121.2 kg General appearance: PRESENT: no acute distress, cooperative, morbidly obese Head exam: PRESENT: atraumatic, normocephalic Ear exam: PRESENT: normal external ear exam. ABSENT: bleeding, drainage Mouth exam: PRESENT: moist, tongue midline Neck exam: ABSENT: carotid bruit, JVD Respiratory exam: PRESENT: clear to auscultation randa, symmetrical, unlabored. ABSENT: rales, rhonchi, tachypnea, wheezes Cardiovascular exam: PRESENT: irregular rhythm GI/Abdominal exam: PRESENT: normal bowel sounds, soft. ABSENT: distended, guarding, tenderness Rectal exam: PRESENT: deferred Gentrourinary exam: ABSENT: indwelling catheter Extremities exam: PRESENT: +1 edema Neurological exam: PRESENT: alert, awake, oriented to person, oriented to place, oriented to time, oriented to situation, CN II-XII grossly intact. ABSENT: altered Psychiatric exam: PRESENT: appropriate affect. ABSENT: agitated, anxious Focused psych exam: ABSENT: delusional, paranoid, restlessness Skin exam: PRESENT: dry, normal color, warm. ABSENT: rash Results Laboratory Results: 10/18/20 05:36 10/18/20 05:36 10/08/20 14:57 Troponin I < 0.012 Impressions: Transvaginal US 10/08/20 15:24 IMPRESSION: 1. Moderate amount of fluid in the posterior pelvic cul-de-sac which may be infectious or inflammatory fluid. 2. Diffuse thickening of the endometrial lining. This may represent endometrial hyperplasia, however malignancy is not excluded. Direct visualization and sampling is recommended. Soft Tissue Neck CT 10/18/20 00:00 IMPRESSION: MULTINODULAR GOITER WITH SUBSTERNAL EXTENSION ON THE LEFT. NO CHANGE COMPARED TO THE PRIOR STUDY, AUGUST 2020. NO OTHER SIGNIFICANT FINDING IN THE SOFT TISSUES OF THE NECK. 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 Is this a current diagnosis for this admission?: Yes (5) CARLOS (acute kidney injury) Is this a current diagnosis for this admission?: Yes (6) Goiter, dyshormonogenic Is this a current diagnosis for this admission?: Yes (7) Abnormal AST and ALT Is this a current diagnosis for this admission?: Yes (8) Hyperglycemia due to type 2 diabetes mellitus Qualifiers: Diabetes mellitus snf insulin use: without long term acute care registered nurse use Qualified Code(s): E11.65 - Type 2 diabetes mellitus with hyperglycemia Is this a current diagnosis for this admission?: Yes - Plan Summary Summary: (1) Atrial fibrillation with rapid ventricular response Is this a current diagnosis for this admission?: Yes Plan: * Continue Inderal 40 mg 3 times daily. * Increase Cardizem to 90 mg p.o. every 6 hours. * Continue anticoagulation. * 10/14/2020-patient is on Eliquis, plan is to continue the present management. * 10/15/2020-to continue Eliquis at this time. Heart rate in the 90s patient is on Cardizem 90 mg p.o. every 6 hours. Patient is also on Inderal 40 mg 3 times a day. * 10/16/2020-heart rate is around 100. To continue Cardizem 90 mg p.o. every 6 hours , she is on Eliquis. And is also receiving Inderal 40 mg 3 times a day. As per perishable fruit inspector dr ruelas recommendations Tapazole dose is decreased to 30 twice daily. * 10/17/2020-heart rate is around 96 rate controlled A. fib. To continue Eliquis, Inderal 40 mg p.o. 3 times daily, Cardizem 90 mg p.o. every 8 hours. Free T3-4 is 1.64, free T3 is 2.79. * 10/18/2020-no acute events in the last 24 hours. Afebrile. Heart rate is at 100. To continue Eliquis, Inderal 40 mg p.o. 3 times a day, Cardizem 90 mg every 8 hours. (2) Hyperthyroidism Is this a current diagnosis for this admission?: Yes Plan: * Continue Tapazole. * Continue Inderal 40 mg p.o. 3 times daily. * 10/15/2020-to continue Tapazole, Inderal at this time. Latest free T4 is 2.04. TSH is less than 0.01. * 10/16/2020-to continue Tapazole 30 mg p.o. twice daily, Inderal 40 mg 3 times a day at this time. To repeat TSH, free T3 and T4 levels. 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 To continue Tapazole 30 mg p.o. twice daily, Inderal 40 mg 3 times a day. She is also on Solu-Medrol 40 mg IV daily. Latest free T4 is 1.64, free T3 is 2.79. * 10/18/2020-patient is presently on Tapazole 30 mg p.o. twice a day as per perishable fruit inspector recommendations, Inderal 40 mg 3 times a day, prednisone 20 mg p.o. twice daily. Consultation with ENT is requested. 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 * Continue Inderal. * Decrease Solu-Cortef 50 mg IV every 12 hours. * 10/15/2020-patient admitted for thyroid stroma. To continue methimazole, Inderal, Solu-Cortef at this time. * 10/16/2020-thyroid storm is resolved. To decrease Solu-Medrol to 40 mg daily. * 10/17/20-2 discontinue IV Solu-Medrol and to start on prednisone 20 mg p.o. twice daily from today. * 10/18/2020-no acute events in the last 48 hours. Stable. To continue prednisone 20 mg p.o. twice a day at this time. (4) CARLOS (acute kidney injury) Is this a current diagnosis for this admission?: Yes Plan: * Improving. Baseline creatinine ~ 1.0. * Monitor urine output. * Avoid nephrotoxic drugs. * Renal dosing of medications. (5) Goiter, dyshormonogenic Is this a current diagnosis for this admission?: Yes (6) Type 2 diabetes mellitus treated without insulin Is this a current diagnosis for this admission?: Yes Plan: Controlled. - Plan Summary Summary: Her vaginal spotting in her atrial fibrillation or due to her thyroid storm. Neither of these problems will resolve until her circulating thyroid hormone levels dropped down. Cardizem will not help in this situation due to the nature of the force driving atrial fibrillation. I have discontinued the Cardizem drip. I have ordered propranolol 80 mg 4 times a day, Tapazole 20 mg 4 times a day, and hydrocortisone 100 mg 3 times a day in the hopes that it will help inh ibit the conversion of T3-T4. If we cannot get her heart rate under control with this high dose of oral propranolol, she will have to be sent to the ICU for an esmolol drip. We were able to get her thyroid levels under better control on that dose of Tapazole, so hopefully we will be able to get her symptoms under control with it again. Once she is stable, she will need evaluation for surgery for her goiter. Because of the high levels of Tapazole needed, radioactive iodine ablation will be less likely to be effective. We will continue her Eliquis. We will put her on an insulin sliding scale as we anticipate that the hydrocortisone will make her blood sugars elevated. 10/19/2020 Atrial fibrillation with rapid ventricular response. Reasonable control with diltiazem 90 mg every 6 hours and propranolol 40 mg every 8 hours. Continue to monitor on telemetry Multinodular goiter with thyroid storm-continue cardiac meds as above. Also on Tapazole and prednisone. We will try and coordinate with [place] or [facility] regarding thyroidectomy. Acute kidney injury-resolved Diabetes mellitus-we will restart Metformin. Abnormal liver enzymes-transaminases spiked 2 days ago. Beginning to resolve. Unsure of the etiology. We will continue to monitor. - Time Time Spent with patient: 15-24 minutes Medications reviewed and adjusted accordingly: Yes Anticipated Discharge Disposition: Unknown Anticipated Discharge Timeframe: Unknown
[2020-10-19] MEDS: ATORVASTATIN CALCIUM 10 MG TABLET PO SCH (23:13)
[2020-10-20] MEDS: DILTIAZEM HCL 60 MG TABLET PO SCH ×4 (06:35→23:05)
[2020-10-20] MEDS: PANTOPRAZOLE SODIUM 40 MG TABLET.DR PO SCH (06:35)
[2020-10-20] MEDS: PROPRANOLOL HCL 40 MG TABLET PO SCH ×3 (06:36→23:06)
[2020-10-20 07:12] LABS: ABSOLUTE LYMPHOCYTES (AUTO) 1.1 10^3/uL (0.5-4.7); ABSOLUTE MONOCYTES (AUTO) 0.6 10^3/uL (0.1-1.4); ABSOLUTE NEUT (AUTO) 7.6 10^3/uL (1.7-8.2); BASOPHILS % (AUTO) 0.2 % (0-2); EOSINOPHILS % (AUTO) 0.1 % (0-6); HEMATOCRIT 33.8 % (36.0-47.0); LYMPHOCYTES % (AUTO) 11.8 % (13-45); MEAN CORPUSCULAR HEMOGLOBIN 26.4 pg (27.0-33.4); MEAN CORPUSCULAR HGB CONC 32.7 g/dL (32.0-36.0); MEAN CORPUSCULAR VOLUME 81 fl (80-97); MONOCYTES % (AUTO) 6.7 % (3-13); PLATELET COUNT 215 10^3/uL (150-450); RED BLOOD COUNT 4.18 10^6/uL (3.72-5.28); RED CELL DISTRIBUTION WIDTH 21.2 % (11.5-14.0); SEGMENTED NEUTROPHILS % (AUTO) 81.2 % (42-78); TOTAL CELLS COUNTED % (AUTO) 100 %; WHITE BLOOD COUNT 9.3 10^3/uL (4.0-10.5)
[2020-10-20 07:36] LABS: ALBUMIN 3.3 g/dL (3.5-5.0); ALKALINE PHOSPHATASE 225 U/L (38-126); ANION GAP 7 (5-19); ASPARTATE AMINO TRANSFERASE 87 U/L (14-36); BILIRUBIN,DIRECT 0.3 mg/dL (0.0-0.4); BILIRUBIN,TOTAL 0.7 mg/dL (0.2-1.3); BLOOD UREA NITROGEN 25 mg/dL (7-20); CALCIUM 9.7 mg/dL (8.4-10.2); CARBON DIOXIDE 25 mmol/L (22-30); CHLORIDE 109 mmol/L (98-107); GLUCOSE 120 mg/dL (75-110); POTASSIUM 4.7 mmol/L (3.6-5.0); TOTAL PROTEIN 5.9 g/dL (6.3-8.2)
[2020-10-20] MEDS: INSULIN LISPRO 100 UNIT/ML 3 ML VIAL SUBCUT SCH ×4 (08:00→23:07)
[2020-10-20] MEDS: METHIMAZOLE 5 MG TABLET PO SCH ×2 (09:42→17:27)
[2020-10-20] MEDS: APIXABAN 5 MG TABLET PO SCH ×2 (09:42→17:27)
[2020-10-20] MEDS: PREDNISONE 20 MG TABLET PO SCH ×2 (09:43→17:27)
[2020-10-20] MEDS: ASPIRIN 81 MG TABLET, ENT COATED PO SCH (09:43)
[2020-10-20] MEDS: MULTIVITAMIN TABLET PO SCH (09:43)
[2020-10-20] MEDS ORDERED: (PENDING PHARMACY ID) (Metformin Hcl [Metformin Hcl Er] 500 MG Tab.Er.24h) PO SCH (10:00)
--- NOTE | 2020-10-20 19:31 | PDOC PROGRESS REPORT ---
Subjective Date:: 10/20/20 Subjective:: Resting comfortably. Pulse still in the low 100s. Transaminases slightly worse today. Reason For Visit: AFIB WITH RVR,HYPERTHYROIDISM,VAGINAL SPOTTING Physical Exam Vital Signs: Temp Pulse Resp BP Pulse Ox 97.9 F 79 18 112/65 98 10/20/20 16:58 10/20/20 16:58 10/20/20 16:58 10/20/20 16:58 10/20/20 16:58 Intake & Output 10/19/20 10/20/20 10/21/20 06:59 06:59 06:59 Intake Total 960 1040 1780 Balance 960 1040 1780 Weight 121.2 kg 121.1 kg General appearance: PRESENT: no acute distress Head exam: PRESENT: atraumatic, normocephalic Ear exam: PRESENT: normal external ear exam. ABSENT: bleeding, drainage Respiratory exam: PRESENT: clear to auscultation randa, symmetrical, unlabored. ABSENT: rales, rhonchi, tachypnea, wheezes Cardiovascular exam: PRESENT: irregular rhythm GI/Abdominal exam: PRESENT: normal bowel sounds, soft. ABSENT: tenderness Musculoskeletal exam: PRESENT: ambulatory Neurological exam: PRESENT: alert, awake, oriented to person, oriented to place, oriented to time, oriented to situation, CN II-XII grossly intact. ABSENT: altered Psychiatric exam: PRESENT: appropriate affect. ABSENT: agitated, anxious Focused psych exam: ABSENT: delusional, paranoid, restlessness Results Laboratory Results: 10/20/20 06:40 10/20/20 06:40 10/20/20 10/20/20 06:40 06:40 WBC 9.3 RBC 4.18 Hgb 11.0 L Hct 33.8 L MCV 81 MCH 26.4 L MCHC 32.7 RDW 21.2 H Plt Count 215 Seg Neutrophils % 81.2 H Sodium 141.2 Potassium 4.7 Chloride 109 H Carbon Dioxide 25 Anion Gap 7 BUN 25 H Creatinine 0.93 Est GFR ( Amer) > 60 Glucose 120 H Calcium 9.7 Magnesium 2.0 Total Bilirubin 0.7 AST 87 H Alkaline Phosphatase 225 H Total Protein 5.9 L Albumin 3.3 L 10/08/20 14:57 Troponin I < 0.012 Impressions: Transvaginal US 10/08/20 15:24 IMPRESSION: 1. Moderate amount of fluid in the posterior pelvic cul-de-sac which may be infectious or inflammatory fluid. 2. Diffuse thickening of the endometrial lining. This may represent endometrial hyperplasia, however malignancy is not excluded. Direct visualization and sampling is recommended. Soft Tissue Neck CT 10/18/20 00:00 IMPRESSION: MULTINODULAR GOITER WITH SUBSTERNAL EXTENSION ON THE LEFT. NO CHANGE COMPARED TO THE PRIOR STUDY, AUGUST 2020. NO OTHER SIGNIFICANT FINDING IN THE SOFT TISSUES OF THE NECK. 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 Is this a current diagnosis for this admission?: Yes (5) CARLOS (acute kidney injury) Is this a current diagnosis for this admission?: Yes (6) Goiter, dyshormonogenic Is this a current diagnosis for this admission?: Yes (7) Abnormal AST and ALT Is this a current diagnosis for this admission?: Yes (8) Hyperglycemia due to type 2 diabetes mellitus Qualifiers: Diabetes mellitus care home insulin use: without care home use Qualified Code(s): E11.65 - Type 2 diabetes mellitus with hyperglycemia Is this a current diagnosis for this admission?: Yes - Plan Summary Summary: (1) Atrial fibrillation with rapid ventricular response Is this a current diagnosis for this admission?: Yes Plan: * Continue Inderal 40 mg 3 times daily. * Increase Cardizem to 90 mg p.o. every 6 hours. * Continue anticoagulation. * 10/14/2020-patient is on Eliquis, plan is to continue the present management. * 10/15/2020-to continue Eliquis at this time. Heart rate in the 90s patient is on Cardizem 90 mg p.o. every 6 hours. Patient is also on Inderal 40 mg 3 times a day. * 10/16/2020-heart rate is around 100. To continue Cardizem 90 mg p.o. every 6 hours , she is on Eliquis. And is also receiving Inderal 40 mg 3 times a day. As per central processing tech dr ruelas recommendations Tapazole dose is decreased to 30 twice daily. * 10/17/2020-heart rate is around 96 rate controlled A. fib. To continue Eliquis, Inderal 40 mg p.o. 3 times daily, Cardizem 90 mg p.o. every 8 hours. Free T3-4 is 1.64, free T3 is 2.79. * 10/18/2020-no acute events in the last 24 hours. Afebrile. Heart rate is at 100. To continue Eliquis, Inderal 40 mg p.o. 3 times a day, Cardizem 90 mg every 8 hours. (2) Hyperthyroidism Is this a current diagnosis for this admission?: Yes Plan: * Continue Tapazole. * Continue Inderal 40 mg p.o. 3 times daily. * 10/15/2020-to continue Tapazole, Inderal at this time. Latest free T4 is 2.04. TSH is less than 0.01. * 10/16/2020-to continue Tapazole 30 mg p.o. twice daily, Inderal 40 mg 3 times a day at this time. To repeat TSH, free T3 and T4 levels. 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 To continue Tapazole 30 mg p.o. twice daily, Inderal 40 mg 3 times a day. She is also on Solu-Medrol 40 mg IV daily. Latest free T4 is 1.64, free T3 is 2.79. * 10/18/2020-patient is presently on Tapazole 30 mg p.o. twice a day as per central processing tech recommendations, Inderal 40 mg 3 times a day, prednisone 20 mg p.o. twice daily. Consultation with ENT is requested. 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 * Continue Inderal. * Decrease Solu-Cortef 50 mg IV every 12 hours. * 10/15/2020-patient admitted for thyroid stroma. To continue methimazole, Inderal, Solu-Cortef at this time. * 10/16/2020-thyroid storm is resolved. To decrease Solu-Medrol to 40 mg daily. * 10/17/20-2 discontinue IV Solu-Medrol and to start on prednisone 20 mg p.o. twice daily from today. * 10/18/2020-no acute events in the last 48 hours. Stable. To continue prednisone 20 mg p.o. twice a day at this time. (4) CARLOS (acute kidney injury) Is this a current diagnosis for this admission?: Yes Plan: * Improving. Baseline creatinine ~ 1.0. * Monitor urine output. * Avoid nephrotoxic drugs. * Renal dosing of medications. (5) Goiter, dyshormonogenic Is this a current diagnosis for this admission?: Yes (6) Hyperglycemia due to DM type 2 Is this a current diagnosis for this admission?: Yes Plan: Controlled. (7) elevated transaminases - Plan Summary Summary: Her vaginal spotting in her atrial fibrillation or due to her thyroid storm. Neither of these problems will resolve until her circulating thyroid hormone levels dropped down. Cardizem will not help in this situation due to the nature of the force driving atrial fibrillation. I have discontinued the Cardizem drip. I have ordered propranolol 80 mg 4 times a day, Tapazole 20 mg 4 times a day, and hydrocortisone 100 mg 3 times a day in the hopes that it will help inhibit the conversion of T3-T4. If we cannot get her heart rate under control with this high dose of oral propranolol, she will have to be sent to the ICU for an esmolol drip. We were able to get her thyroid levels under better control on that dose of Tapazole, so hopefully we will be able to get her symptoms under control with it again. Once she is stable, she will need evaluation for surgery for her goiter. Because of the high levels of Tapazole needed, radioactive iodine ablation will be less likely to be effective. We will continue her Eliquis. We will put her on an insulin sliding scale as we anticipate that the hydrocortisone will make her blood sugars elevated. 10/19/2020 Atrial fibrillation with rapid ventricular response. Reasonable control with diltiazem 90 mg every 6 hours and propranolol 40 mg every 8 hours. Continue to monitor on telemetry Multinodular goiter with thyroid storm-continue cardiac meds as above. Also on Tapazole and prednisone. We will try and coordinate with [place] or [facility] regarding thyroidectomy. Acute kidney injury-resolved Diabetes mellitus-we will restart Metformin. Abnormal liver enzymes-transaminases spiked 2 days ago. Beginning to resolve. Unsure of the etiology. We will continue to monitor. 10/20/2020 Atrial fibrillation-still with pulse rate between 101-115 with occasional spikes to 130. I will increase the propranolol to 40 mg every 6 hours. Continue diltiazem at 90 mg every 6 hours. There is a low incidence but diltiazem and propranolol can elevate transaminases. Hyperthyroidism-currently on Tapazole 30 mg every 12 hours. Free T3 and free T4 are now normal. TSH still undetectable. We will continue to monitor. Tapazole can increase transaminases as well. Increased transaminases-we will need to monitor closely. This is likely secondary to medications. Will reach out to other facilities regarding transfer for complex thyroidectomy. Diabetes-back on Metformin reasonable control of blood glucose. Continue Accu-Cheks and sliding scale. CARLOS resolved - Time Time Spent with patient: 15-24 minutes Medications reviewed and adjusted accordingly: Yes Anticipated Discharge Disposition: Tertiary Anticipated Discharge Timeframe: when bed available
[2020-10-20] MEDS: ATORVASTATIN CALCIUM 10 MG TABLET PO SCH (23:05)
[2020-10-21] MEDS: PANTOPRAZOLE SODIUM 40 MG TABLET.DR PO SCH (06:25)
[2020-10-21] MEDS: DILTIAZEM HCL 60 MG TABLET PO SCH (06:25)
[2020-10-21] MEDS: PROPRANOLOL HCL 40 MG TABLET PO SCH ×4 (06:25→23:12)
[2020-10-21 07:20] LABS: ALBUMIN 3.6 g/dL (3.5-5.0); ALKALINE PHOSPHATASE 209 U/L (38-126); ANION GAP 6 (5-19); ASPARTATE AMINO TRANSFERASE 121 U/L (14-36); BILIRUBIN,DIRECT 0.4 mg/dL (0.0-0.4); BILIRUBIN,TOTAL 0.8 mg/dL (0.2-1.3); BLOOD UREA NITROGEN 22 mg/dL (7-20); CALCIUM 9.8 mg/dL (8.4-10.2); CARBON DIOXIDE 28 mmol/L (22-30); CHLORIDE 108 mmol/L (98-107); GLUCOSE 121 mg/dL (75-110); TOTAL PROTEIN 6.3 g/dL (6.3-8.2)
[2020-10-21] MEDS: INSULIN LISPRO 100 UNIT/ML 3 ML VIAL SUBCUT SCH ×4 (07:43→21:25)
[2020-10-21] MEDS: METHIMAZOLE 5 MG TABLET PO SCH ×2 (10:07→17:10)
[2020-10-21] MEDS: MULTIVITAMIN TABLET PO SCH (10:07)
[2020-10-21] MEDS: APIXABAN 5 MG TABLET PO SCH ×2 (10:07→17:10)
[2020-10-21] MEDS: PREDNISONE 20 MG TABLET PO SCH ×2 (10:07→17:10)
[2020-10-21] MEDS: ASPIRIN 81 MG TABLET, ENT COATED PO SCH (10:07)
[2020-10-21] MEDS ORDERED: ONDANSETRON HCL INJ/PF 4 MG/2 ML SDV IV PRN (11:30)
[2020-10-21] MEDS: DILTIAZEM HCL 90 MG TABLET PO SCH ×3 (13:39→23:12)
[2020-10-21] MEDS ORDERED: ACETAMINOPHEN 325 MG TABLET PO PRN (16:00)
[2020-10-21] MEDS ORDERED: SENNOSIDES/DOCUSATE 8.6-50 MG 1 EACH TABLET PO PRN (16:01)
--- NOTE | 2020-10-21 16:01 | PDOC PROGRESS REPORT ---
Subjective Date:: 10/21/20 Subjective:: Patient is resting comfortably in the chair. Her heart rate is overall improved but she still has pulse rate spikes above 110/min. Reason For Visit: AFIB WITH RVR,HYPERTHYROIDISM,VAGINAL SPOTTING Physical Exam Vital Signs: Temp Pulse Resp BP Pulse Ox 97.7 F 113 H 18 118/84 100 10/21/20 11:25 10/21/20 14:00 10/21/20 11:25 10/21/20 11:25 10/21/20 11:25 Intake & Output 10/20/20 10/21/20 10/22/20 06:59 06:59 06:59 Intake Total 1040 2260 360 Balance 1040 2260 360 Weight 121.1 kg 120.2 kg General appearance: PRESENT: no acute distress, morbidly obese, well-developed, well-nourished Head exam: PRESENT: atraumatic, normocephalic Ear exam: PRESENT: normal external ear exam. ABSENT: bleeding, drainage Mouth exam: PRESENT: moist, tongue midline Respiratory exam: PRESENT: clear to auscultation randa, symmetrical, unlabored. ABSENT: rales, rhonchi, tachypnea, wheezes Cardiovascular exam: PRESENT: irregular rhythm, tachycardia GI/Abdominal exam: PRESENT: normal bowel sounds, soft. ABSENT: distended, guarding, tenderness Rectal exam: PRESENT: deferred Extremities exam: ABSENT: pedal edema Musculoskeletal exam: PRESENT: ambulatory. ABSENT: deformity, dislocation Neurological exam: PRESENT: alert, awake, oriented to person, oriented to place, oriented to time, oriented to situation, CN II-XII grossly intact. ABSENT: altered Psychiatric exam: PRESENT: appropriate affect. ABSENT: agitated, anxious Focused psych exam: ABSENT: delusional, paranoid, restlessness Skin exam: PRESENT: dry, normal color, warm. ABSENT: rash Results Laboratory Results: 10/20/20 06:40 10/21/20 06:43 10/21/20 06:43 Sodium 141.8 Potassium 5.0 Chloride 108 H Carbon Dioxide 28 Anion Gap 6 BUN 22 H Creatinine 0.91 Est GFR ( Amer) > 60 Glucose 121 H Calcium 9.8 Total Bilirubin 0.8 AST 121 H Alkaline Phosphatase 209 H Total Protein 6.3 Albumin 3.6 10/08/20 14:57 Troponin I < 0.012 Impressions: Transvaginal US 10/08/20 15:24 IMPRESSION: 1. Moderate amount of fluid in the posterior pelvic cul-de-sac which may be infectious or inflammatory fluid. 2. Diffuse thickening of the endometrial lining. This may represent endometrial hyperplasia, however malignancy is not excluded. Direct visualization and sampling is recommended. Soft Tissue Neck CT 10/18/20 00:00 IMPRESSION: MULTINODULAR GOITER WITH SUBSTERNAL EXTENSION ON THE LEFT. NO CHANGE COMPARED TO THE PRIOR STUDY, AUGUST 2020. NO OTHER SIGNIFICANT FINDING IN THE SOFT TISSUES OF THE NECK. 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 Is this a current diagnosis for this admission?: Yes (5) CARLOS (acute kidney injury) Is this a current diagnosis for this admission?: Yes (6) Goiter, dyshormonogenic Is this a current diagnosis for this admission?: Yes (7) Abnormal AST and ALT Is this a current diagnosis for this admission?: Yes (8) Hyperglycemia due to type 2 diabetes mellitus Qualifiers: Diabetes mellitus snf insulin use: without continuous churn buttermaker use Qualified Code(s): E11.65 - Type 2 diabetes mellitus with hyperglycemia Is this a current diagnosis for this admission?: Yes - Plan Summary Summary: (1) Atrial fibrillation with rapid ventricular response Is this a current diagnosis for this admission?: Yes Plan: * Continue Inderal 40 mg 3 times daily. * Increase Cardizem to 90 mg p.o. every 6 hours. * Continue anticoagulation. * 10/14/2020-patient is on Eliquis, plan is to continue the present management. * 10/15/2020-to continue Eliquis at this time. Heart rate in the 90s patient is on Cardizem 90 mg p.o. every 6 hours. Patient is also on Inderal 40 mg 3 times a day. * 10/16/2020-heart rate is around 100. To continue Cardizem 90 mg p.o. every 6 hours , she is on Eliquis. And is also receiving Inderal 40 mg 3 times a day. As per review scheduling coordinator dr ruelas recommendations Tapazole dose is decreased to 30 twice daily. * 10/17/2020-heart rate is around 96 rate controlled A. fib. To continue Eliquis, Inderal 40 mg p.o. 3 times daily, Cardizem 90 mg p.o. every 8 hours. Free T3-4 is 1.64, free T3 is 2.79. * 10/18/2020-no acute events in the last 24 hours. Afebrile. Heart rate is at 100. To continue Eliquis, Inderal 40 mg p.o. 3 times a day, Cardizem 90 mg every 8 hours. (2) Hyperthyroidism Is this a current diagnosis for this admission?: Yes Plan: * Continue Tapazole. * Continue Inderal 40 mg p.o. 3 times daily. * 10/15/2020-to continue Tapazole, Inderal at this time. Latest free T4 is 2.04. TSH is less than 0.01. * 10/16/2020-to continue Tapazole 30 mg p.o. twice daily, Inderal 40 mg 3 times a day at this time. To repeat TSH, free T3 and T4 levels. 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 To continue Tapazole 30 mg p.o. twice daily, Inderal 40 mg 3 times a day. She is also on Solu-Medrol 40 mg IV daily. Latest free T4 is 1.64, free T3 is 2.79. * 10/18/2020-patient is presently on Tapazole 30 mg p.o. twice a day as per review scheduling coordinator recommendations, Inderal 40 mg 3 times a day, prednisone 20 mg p.o. twice daily. Consultation with ENT is requested. 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 * Continue Inderal. * Decrease Solu-Cortef 50 mg IV every 12 hours. * 10/15/2020-patient admitted for thyroid stroma. To continue methimazole, Inderal, Solu-Cortef at this time. * 10/16/2020-thyroid storm is resolved. To decrease Solu-Medrol to 40 mg daily. * 10/17/20-2 discontinue IV Solu-Medrol and to start on prednisone 20 mg p.o. twice daily from today. * 10/18/2020-no acute events in the last 48 hours. Stable. To continue prednisone 20 mg p.o. twice a day at this time. (4) CARLOS (acute kidney injury) Is this a current diagnosis for this admission?: Yes Plan: * Improving. Baseline creatinine ~ 1.0. * Monitor urine output. * Avoid nephrotoxic drugs. * Renal dosing of medications. (5) Goiter, dyshormonogenic Is this a current diagnosis for this admission?: Yes (6) Hyperglycemia due to DM type 2 Is this a current diagnosis for this admission?: Yes Plan: Controlled. (7) elevated transaminases - Plan Summary Summary: Her vaginal spotting in her atrial fibrillation or due to her thyroid storm. Neither of these problems will resolve until her circulating thyroid hormone levels dropped down. Cardizem will not help in this situation due to the nature of the force driving atrial fibrillation. I have discontinued the Cardizem drip. I have ordered propranolol 80 mg 4 times a day, Tapazole 20 mg 4 times a day, and hydrocortisone 100 mg 3 times a day in the hopes that it will help inhibit the conversion of T3-T4. If we cannot get her heart rate under control with this high dose of oral propranolol, she will have to be sent to the ICU for an esmolol drip. We were able to get her thyroid levels under better control on that dose of Tapazole, so hopefully we will be able to get her symptoms under control with it again. Once she is stable, she will need evaluation for surgery for her goiter. Because of the high levels of Tapazole needed, radioactive iod ine ablation will be less likely to be effective. We will continue her Eliquis. We will put her on an insulin sliding scale as we anticipate that the hydrocortisone will make her blood sugars elevated. 10/19/2020 Atrial fibrillation with rapid ventricular response. Reasonable control with diltiazem 90 mg every 6 hours and propranolol 40 mg every 8 hours. Continue to monitor on telemetry Multinodular goiter with thyroid storm-continue cardiac meds as above. Also on Tapazole and prednisone. We will try and coordinate with [place] or [facility] regarding thyroidectomy. Acute kidney injury-resolved Diabetes mellitus-we will restart Metformin. Abnormal liver enzymes-transaminases spiked 2 days ago. Beginning to resolve. Unsure of the etiology. We will continue to monitor. 10/20/2020 Atrial fibrillation-still with pulse rate between 101-115 with occasional spikes to 130. I will increase the propranolol to 40 mg every 6 hours. Continue diltiazem at 90 mg every 6 hours. There is a low incidence but diltiazem and propranolol can elevate transaminases. Hyperthyroidism-currently on Tapazole 30 mg every 12 hours. Free T3 and free T4 are now normal. TSH still undetectable. We will continue to monitor. Tapazole can increase transaminases as well. Increased transaminases-we will need to monitor closely. This is likely secondary to medications. Will reach out to other facilities regarding transfer for complex thyroidectomy. Diabetes-back on Metformin reasonable control of blood glucose. Continue Accu- Cheks and sliding scale. CARLOS resolved 10/21/2020 Slight improvement in pulse rate with the change of propranolol to 40 mg every 6 hours. We will continue the current dosing at this time Hypothyroidism/goiter-continue Tapazole 30 mg every 12 hours Increased transaminases-AST and ALT are up slightly. Alkaline phosphatase is actually slightly lower. We have decided to stop her statin therapy at this time and monitor transaminases. It is more likely the statin medication as opposed to the Tapazole, propranolol or diltiazem. Diabetes-continue Metformin, diabetic diet and Accu-Cheks with sliding scale Goiter-working on transfer to higher level of care that will be required due to the complexity of her goiter Acute kidney injury resolved - Time Time Spent with patient: 15-24 minutes Medications reviewed and adjusted accordingly: Yes Anticipated Discharge Disposition: Tertiary Anticipated Discharge Timeframe: Unknown
[2020-10-21] MEDS ORDERED: MAGNESIUM CITRATE 296 ML BOTTLE PO ONE (17:00)
[2020-10-21] MEDS: METFORMIN HCL 500 MG TABLET PO SCH (17:10)
[2020-10-21] MEDS: DOCUSATE SODIUM 100 MG CAPSULE PO SCH ×2 (17:10→17:15)
[2020-10-22] MEDS: DILTIAZEM HCL 90 MG TABLET PO SCH ×4 (05:16→23:00)
[2020-10-22] MEDS: PANTOPRAZOLE SODIUM 40 MG TABLET.DR PO SCH (05:17)
[2020-10-22] MEDS: PROPRANOLOL HCL 40 MG TABLET PO SCH ×4 (05:17→23:00)
[2020-10-22 06:31] LABS: HEMATOCRIT 34.9 % (36.0-47.0); HEMOGLOBIN 11.4 g/dL (12.0-15.5); MEAN CORPUSCULAR HEMOGLOBIN 26.2 pg (27.0-33.4); MEAN CORPUSCULAR HGB CONC 32.8 g/dL (32.0-36.0); MEAN CORPUSCULAR VOLUME 80 fl (80-97); PLATELET COUNT 197 10^3/uL (150-450); RED BLOOD COUNT 4.36 10^6/uL (3.72-5.28); RED CELL DISTRIBUTION WIDTH 21.6 % (11.5-14.0); WHITE BLOOD COUNT 9.4 10^3/uL (4.0-10.5)
[2020-10-22 06:55] LABS: ALBUMIN 3.4 g/dL (3.5-5.0); ALKALINE PHOSPHATASE 226 U/L (38-126); ANION GAP 5 (5-19); ASPARTATE AMINO TRANSFERASE 143 U/L (14-36); BILIRUBIN,DIRECT 0.4 mg/dL (0.0-0.4); BILIRUBIN,TOTAL 0.8 mg/dL (0.2-1.3); BLOOD UREA NITROGEN 25 mg/dL (7-20); CALCIUM 9.9 mg/dL (8.4-10.2); CARBON DIOXIDE 29 mmol/L (22-30); CHLORIDE 108 mmol/L (98-107); GLUCOSE 130 mg/dL (75-110); POTASSIUM 5.2 mmol/L (3.6-5.0)
[2020-10-22] MEDS: METFORMIN HCL 500 MG TABLET PO SCH ×2 (08:42→17:39)
[2020-10-22] MEDS: INSULIN LISPRO 100 UNIT/ML 3 ML VIAL SUBCUT SCH ×4 (08:43→23:01)
[2020-10-22] MEDS: DOCUSATE SODIUM 100 MG CAPSULE PO SCH ×2 (10:18→17:39)
[2020-10-22] MEDS: MULTIVITAMIN TABLET PO SCH (10:18)
[2020-10-22] MEDS: METHIMAZOLE 5 MG TABLET PO SCH ×2 (10:18→17:38)
[2020-10-22] MEDS: APIXABAN 5 MG TABLET PO SCH ×2 (10:18→17:39)
[2020-10-22] MEDS: ASPIRIN 81 MG TABLET, ENT COATED PO SCH (10:18)
[2020-10-22] MEDS: PREDNISONE 20 MG TABLET PO SCH ×2 (10:18→17:39)
--- NOTE | 2020-10-22 15:45 | PDOC PROGRESS REPORT ---
Subjective Date:: 10/22/20 Subjective:: Patient is resting in the chair. No new complaints. Heart rate has been improv ing. Reason For Visit: AFIB WITH RVR,HYPERTHYROIDISM,VAGINAL SPOTTING Physical Exam Vital Signs: Temp Pulse Resp BP Pulse Ox 97.5 F 62 19 125/81 98 10/22/20 11:38 10/22/20 11:38 10/22/20 11:38 10/22/20 11:38 10/22/20 11:38 Intake & Output 10/21/20 10/22/20 10/23/20 06:59 06:59 06:59 Intake Total 2260 1230 Balance 2260 1230 Weight 120.2 kg 120.5 kg General appearance: PRESENT: no acute distress, cooperative, morbidly obese, well-developed Head exam: PRESENT: atraumatic, normocephalic Eye exam: PRESENT: conjunctiva pink. ABSENT: scleral icterus Ear exam: PRESENT: normal external ear exam. ABSENT: bleeding, drainage Mouth exam: PRESENT: moist, tongue midline Neck exam: PRESENT: thyromegaly. ABSENT: carotid bruit, lymphadenopathy, tracheostomy Respiratory exam: PRESENT: clear to auscultation randa, symmetrical, unlabored. ABSENT: prolonged expiratory phas, rales, rhonchi, tachypnea, wheezes Cardiovascular exam: PRESENT: irregular rhythm. ABSENT: bradycardia, diastolic murmur, systolic murmur, tachycardia GI/Abdominal exam: PRESENT: normal bowel sounds, soft. ABSENT: tenderness Rectal exam: PRESENT: deferred Gentrourinary exam: ABSENT: indwelling catheter Neurological exam: PRESENT: alert, awake, oriented to person, oriented to place, oriented to time, oriented to situation, CN II-XII grossly intact. ABSENT: altered Psychiatric exam: PRESENT: appropriate affect, normal mood. ABSENT: agitated, anxious Focused psych exam: ABSENT: delusional, paranoid, restlessness Skin exam: PRESENT: dry, normal color, warm. ABSENT: rash Results Laboratory Results: 10/22/20 05:37 10/22/20 05:37 10/22/20 10/22/20 05:37 05:37 WBC 9.4 RBC 4.36 Hgb 11.4 L Hct 34.9 L MCV 80 MCH 26.2 L MCHC 32.8 RDW 21.6 H Plt Count 197 Sodium 142.4 Potassium 5.2 H Chloride 108 H Carbon Dioxide 29 Anion Gap 5 BUN 25 H Creatinine 1.04 Est GFR ( Amer) > 60 Glucose 130 H Calcium 9.9 Magnesium 2.3 Total Bilirubin 0.8 AST 143 H Alkaline Phosphatase 226 H Total Protein 6.0 L Albumin 3.4 L 10/08/20 14:57 Troponin I < 0.012 Impressions: Transvaginal US 10/08/20 15:24 IMPRESSION: 1. Moderate amount of fluid in the posterior pelvic cul-de-sac which may be infectious or inflammatory fluid. 2. Diffuse thickening of the endometrial lining. This may represent endometrial hyperplasia, however malignancy is not excluded. Direct visualization and sampling is recommended. Soft Tissue Neck CT 10/18/20 00:00 IMPRESSION: MULTINODULAR GOITER WITH SUBSTERNAL EXTENSION ON THE LEFT. NO CHANGE COMPARED TO THE PRIOR STUDY, AUGUST 2020. NO OTHER SIGNIFICANT FINDING IN THE SOFT TISSUES OF THE NECK. 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 Is this a current diagnosis for this admission?: Yes (5) CARLOS (acute kidney injury) Is this a current diagnosis for this admission?: Yes (6) Goiter, dyshormonogenic Is this a current diagnosis for this admission?: Yes (7) Abnormal AST and ALT Is this a current diagnosis for this admission?: Yes (8) Hyperglycemia due to type 2 diabetes mellitus Qualifiers: Diabetes mellitus group home insulin use: without group home use Qualified Code(s): E11.65 - Type 2 diabetes mellitus with hyperglycemia Is this a current diagnosis for this admission?: Yes (9) Constipation Qualifiers: Constipation type: unspecified constipation type Qualified Code(s): K59.00 - Constipation, unspecified Is this a current diagnosis for this admission?: Yes - Plan Summary Summary: (1) Atrial fibrillation with rapid ventricular response Is this a current diagnosis for this admission?: Yes Plan: * Continue Inderal 40 mg 3 times daily. * Increase Cardizem to 90 mg p.o. every 6 hours. * Continue anticoagulation. * 10/14/2020-patient is on Eliquis, plan is to continue the present management. * 10/15/2020-to continue Eliquis at this time. Heart rate in the 90s patient is on Cardizem 90 mg p.o. every 6 hours. Patient is also on Inderal 40 mg 3 times a day. * 10/16/2020-heart rate is around 100. To continue Cardizem 90 mg p.o. every 6 hours , she is on Eliquis. And is also receiving Inderal 40 mg 3 times a day. As per screw machine hand dr ruelas recommendations Tapazole dose is decreased to 30 twice daily. * 10/17/2020-heart rate is around 96 rate controlled A. fib. To continue Eliquis, Inderal 40 mg p.o. 3 times daily, Cardizem 90 mg p.o. every 8 hours. Free T3-4 is 1.64, free T3 is 2.79. * 10/18/2020-no acute events in the last 24 hours. Afebrile. Heart rate is at 100. To continue Eliquis, Inderal 40 mg p.o. 3 times a day, Cardizem 90 mg every 8 hours. (2) Hyperthyroidism Is this a current diagnosis for this admission?: Yes Plan: * Continue Tapazole. * Continue Inderal 40 mg p.o. 3 times daily. * 10/15/2020-to continue Tapazole, Inderal at this time. Latest free T4 is 2.04. TSH is less than 0.01. * 10/16/2020-to continue Tapazole 30 mg p.o. twice daily, Inderal 40 mg 3 times a day at this time. To repeat TSH, free T3 and T4 levels. 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 To continue Tapazole 30 mg p.o. twice daily, Inderal 40 mg 3 times a day. She is also on Solu-Medrol 40 mg IV daily. Latest free T4 is 1.64, free T3 is 2.79. * 10/18/2020-patient is presently on Tapazole 30 mg p.o. twice a day as per screw machine hand recommendations, Inderal 40 mg 3 times a day, prednisone 20 mg p.o. twice daily. Consultation with ENT is requested. 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 * Continue Inderal. * Decrease Solu-Cortef 50 mg IV every 12 hours. * 10/15/2020-patient admitted for thyroid stroma. To continue methimazole, Inderal, Solu-Cortef at this time. * 10/16/2020-thyroid storm is resolved. To decrease Solu-Medrol to 40 mg daily. * 10/17/20-2 discontinue IV Solu-Medrol and to start on prednisone 20 mg p.o. twice daily from today. * 10/18/2020-no acute events in the last 48 hours. Stable. To continue prednisone 20 mg p.o. twice a day at this time. (4) CARLOS (acute kidney injury) Is this a current diagnosis for this admission?: Yes Plan: * Improving. Baseline creatinine ~ 1.0. * Monitor urine output. * Avoid nephrotoxic drugs. * Renal dosing of medications. (5) Goiter, dyshormonogenic Is this a current diagnosis for this admission?: Yes (6) Hyperglycemia due to DM type 2 Is this a current diagnosis for this admission?: Yes Plan: Controlled. (7) elevated transaminases (8) Constipation - Plan Summary Summary: Her vaginal spotting in her atrial fibrillation or due to her thyroid storm. Neither of these problems will resolve until her circulating thyroid hormone levels dropped down. Cardizem will not help in this situation due to the nature of the force driving atrial fibrillation. I have discontinued the Cardizem drip. I have ordered propranolol 80 mg 4 times a day, Tapazole 20 mg 4 times a day, and hydrocortisone 100 mg 3 times a day in the hopes that it will help inhibit the conversion of T3-T4. If we cannot get her heart rate under control with this high dose of oral propranolol, she will have to be sent to the ICU for an esmolol drip. We were able to get her thyroid levels under better control on that dose of Tapazole, so hopefully we will be able to get her symptoms under control with it again. Once she is stable, she will need evaluation for surgery for her goiter. Because of the high levels of Tapazole needed, radioactive iodine ablation will be less likely to be effective. We will continue her Eliquis. We will put her on an insulin sliding scale as we anticipate that the hydrocortisone will make her blood sugars elevated. 10/19/2020 Atrial fibrillation with rapid ventricular response. Reasonable control with diltiazem 90 mg every 6 hours and propranolol 40 mg every 8 hours. Continue to monitor on telemetry Multinodular goiter with thyroid storm-continue cardiac meds as above. Also on Tapazole and prednisone. We will try and coordinate with [place] or [facility] regarding thyroidectomy. Acute kidney injury-resolved Diabetes mellitus-we will restart Metformin. Abnormal liver enzymes-transaminases spiked 2 days ago. Beginning to resolve. Unsure of the etiology. We will continue to monitor. 10/20/2020 Atrial fibrillation-still with pulse rate between 101-115 with occasional spikes to 130. I will increase the propranolol to 40 mg every 6 hours. Continue diltiazem at 90 mg every 6 hours. There is a low incidence but diltiazem and propranolol can elevate transaminases. Hyperthyroidism-currently on Tapazole 30 mg every 12 hours. Free T3 and free T4 are now normal. TSH still undetectable. We will continue to monitor. Tapazole can increase transaminases as well. Increased transaminases-we will need to monitor closely. This is likely secondary to medications. Will reach out to other facilities regarding transfer for complex thyroidectomy. Diabetes-back on Metformin reasonable control of blood glucose. Continue Accu- Cheks and sliding scale. CARLOS resolved 10/21/2020 Slight improvement in pulse rate with the change of propranolol to 40 mg every 6 hours. We will continue the current dosing at this time Hypothyroidism/goiter-continue Tapazole 30 mg every 12 hours Increased transaminases-AST and ALT are up slightly. Alkaline phosphatase is actually slightly lower. We have decided to stop her statin therapy at this time and monitor transaminases. It is more likely the statin medication as opposed to the Tapazole, propranolol or diltiazem. Diabetes-continue Metformin, diabetic diet and Accu-Cheks with sliding scale Goiter-working on transfer to higher level of care that will be required due to the complexity of her goiter Acute kidney injury resolved Complaining of constipation. Will give 1 bottle of citrate magnesia and start Colace and senna 10/22/2020 Medication dose change seems to be maturing as the patient's pulse rate has consistently been under 100 today. Continue current regimen. Hypothyroidism/goiter-continue Tapazole. Possibly consider decreasing with better rate control. Abnormal transaminases-still climbing slowly. Statin therapy discontinued. We will continue to monitor closely. Constipation-2 bowel movements with current regimen The CT scans show the thyroid gland extending under the sternum. Will discuss with tertiary care center regarding transfer and surgical intervention - Time Time Spent with patient: Less than 15 minutes Medications reviewed and adjusted accordingly: Yes Anticipated Discharge Disposition: Tertiary Anticipated Discharge Timeframe: Unknown
[2020-10-23 05:22] LABS: ALKALINE PHOSPHATASE 209 U/L (38-126); ANION GAP 5 (5-19); ASPARTATE AMINO TRANSFERASE 66 U/L (14-36); BILIRUBIN,DIRECT 0.3 mg/dL (0.0-0.4); BILIRUBIN,TOTAL 0.6 mg/dL (0.2-1.3); BLOOD UREA NITROGEN 27 mg/dL (7-20); CALCIUM 9.9 mg/dL (8.4-10.2); CARBON DIOXIDE 26 mmol/L (22-30); CHLORIDE 108 mmol/L (98-107); GLUCOSE 134 mg/dL (75-110); POTASSIUM 5.3 mmol/L (3.6-5.0); TOTAL PROTEIN 5.9 g/dL (6.3-8.2)
[2020-10-23 05:32] LABS: FREE T3 2.02 pg/mL (2.77-5.27); FREE T4 (FREE THYROXINE) 1.11 ng/dL (0.78-2.19)
[2020-10-23 05:33] LABS: ALBUMIN 3.4 g/dL (3.5-5.0)
[2020-10-23 05:37] LABS: C-REACTIVE PROTEIN < 5.0 mg/L (<10.0)
[2020-10-23 05:53] LABS: THYROID STIMULATING HORMONE < 0.01 uIU/mL (0.47-4.68)
[2020-10-23] MEDS: PROPRANOLOL HCL 40 MG TABLET PO SCH ×4 (07:13→23:00)
[2020-10-23] MEDS: DILTIAZEM HCL 90 MG TABLET PO SCH ×4 (07:13→23:01)
[2020-10-23] MEDS: PANTOPRAZOLE SODIUM 40 MG TABLET.DR PO SCH (07:14)
[2020-10-23] MEDS: INSULIN LISPRO 100 UNIT/ML 3 ML VIAL SUBCUT SCH ×4 (08:23→22:52)
[2020-10-23] MEDS: METFORMIN HCL 500 MG TABLET PO SCH ×2 (08:41→17:58)
[2020-10-23] MEDS: ASPIRIN 81 MG TABLET, ENT COATED PO SCH (10:03)
[2020-10-23] MEDS: MULTIVITAMIN TABLET PO SCH (10:03)
[2020-10-23] MEDS: PREDNISONE 20 MG TABLET PO SCH (10:03)
[2020-10-23] MEDS: DOCUSATE SODIUM 100 MG CAPSULE PO SCH ×2 (10:04→17:58)
[2020-10-23] MEDS: APIXABAN 5 MG TABLET PO SCH ×2 (10:04→17:58)
[2020-10-23] MEDS: METHIMAZOLE 5 MG TABLET PO SCH ×2 (10:04→22:53)
--- NOTE | 2020-10-23 16:26 | PDOC PROGRESS REPORT ---
Subjective Date:: 10/23/20 Subjective:: The patient is sitting in the chair watching the football game. She is quite comfortable. At rest her pulse tends to remain between 101 and 115. Her pulse occasionally drops into the 90s. Unfortunately with the least bit of activity her pulse will increase into the 120s and 130s. When this happens she reports that she gets very winded and needs to sit down. It takes 5 to 10 minutes for her to recover. She does remain on room air at that time. She has not notified staff of those instances and a pulse oximeter reading has not been obtained during an episode. Reason For Visit: AFIB WITH RVR,HYPERTHYROIDISM,VAGINAL SPOTTING Physical Exam Vital Signs: Temp Pulse Resp BP Pulse Ox 97.6 F 118 H 18 111/73 100 10/23/20 10:56 10/23/20 14:00 10/23/20 10:56 10/23/20 10:56 10/23/20 10:56 Intake & Output 10/22/20 10/23/20 10/24/20 06:59 06:59 06:59 Intake Total 1230 1660 Balance 1230 1660 Weight 120.5 kg 120.6 kg General appearance: PRESENT: no acute distress, cooperative, morbidly obese, well-developed, well-nourished Head exam: PRESENT: atraumatic, normocephalic Ear exam: PRESENT: normal external ear exam. ABSENT: bleeding, drainage Mouth exam: PRESENT: moist, tongue midline Neck exam: PRESENT: thyromegaly - Asymmetric with pronounced enlargement on the left side of her neck. ABSENT: carotid bruit, lymphadenopathy, tracheostomy Respiratory exam: PRESENT: clear to auscultation randa, symmetrical, unlabored. ABSENT: accessory muscle use, prolonged expiratory phas, rales, rhonchi, tachypnea, wheezes Cardiovascular exam: PRESENT: irregular rhythm, tachycardia GI/Abdominal exam: PRESENT: distended, normal bowel sounds, soft, other - Protuberant abdomen. ABSENT: guarding, tenderness Rectal exam: PRESENT: deferred Gentrourinary exam: ABSENT: indwelling catheter Extremities exam: ABSENT: pedal edema Musculoskeletal exam: PRESENT: ambulatory - Limited by shortness of breath, normal inspection. ABSENT: deformity, dislocation Neurological exam: PRESENT: alert, awake, oriented to person, oriented to place, oriented to time, oriented to situation, CN II-XII grossly intact. ABSENT: altered Psychiatric exam: PRESENT: appropriate affect. ABSENT: agitated, anxious Focused psych exam: ABSENT: delusional, paranoid, restlessness Skin exam: PRESENT: dry, normal color, warm. ABSENT: rash Results Laboratory Results: 10/22/20 05:37 10/23/20 04:05 10/23/20 10/23/20 04:05 04:05 Sodium 139.2 Potassium 5.3 H Chloride 108 H Carbon Dioxide 26 Anion Gap 5 BUN 27 H Creatinine 0.97 Est GFR ( Amer) > 60 Glucose 134 H Calcium 9.9 Total Bilirubin 0.6 GGT 400 H AST 66 H Alkaline Phosphatase 209 H C-Reactive Protein < 5.0 Total Protein 5.9 L Albumin 3.4 L TSH < 0.01 L Free T4 1.11 Free T3 pg/mL 2.02 L 10/08/20 14:57 Troponin I < 0.012 Impressions: Transvaginal US 10/08/20 15:24 IMPRESSION: 1. Moderate amount of fluid in the posterior pelvic cul-de-sac which may be infectious or inflammatory fluid. 2. Diffuse thickening of the endometrial lining. This may represent endometrial hyperplasia, however malignancy is not excluded. Direct visualization and sampling is recommended. Soft Tissue Neck CT 10/18/20 00:00 IMPRESSION: MULTINODULAR GOITER WITH SUBSTERNAL EXTENSION ON THE LEFT. NO CHANGE COMPARED TO THE PRIOR STUDY, AUGUST 2020. NO OTHER SIGNIFICANT FINDING IN THE SOFT TISSUES OF THE NECK. 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 Is this a current diagnosis for this admission?: Yes (5) CARLOS (acute kidney injury) Is this a current diagnosis for this admission?: Yes (6) Goiter, dyshormonogenic Is this a current diagnosis for this admission?: Yes (7) Abnormal AST and ALT Is this a current diagnosis for this admission?: Yes (8) Hyperglycemia due to type 2 diabetes mellitus Qualifiers: Diabetes mellitus sales associate key holder insulin use: without sales associate key holder use Qualified Code(s): E11.65 - Type 2 diabetes mellitus with hyperglycemia Is this a current diagnosis for this admission?: Yes (9) Constipation Qualifiers: Constipation type: unspecified constipation type Qualified Code(s): K59.00 - Constipation, unspecified Is this a current diagnosis for this admission?: Yes - Plan Summary Summary: (1) Atrial fibrillation with rapid ventricular response Is this a current diagnosis for this admission?: Yes Plan: * Continue Inderal 40 mg 3 times daily. * Increase Cardizem to 90 mg p.o. every 6 hours. * Continue anticoagulation. * 10/14/2020-patient is on Eliquis, plan is to continue the present management. * 10/15/2020-to continue Eliquis at this time. Heart rate in the 90s patient is on Cardizem 90 mg p.o. every 6 hours. Patient is also on Inderal 40 mg 3 times a day. * 10/16/2020-heart rate is around 100. To continue Cardizem 90 mg p.o. every 6 hours , she is on Eliquis. And is also receiving Inderal 40 mg 3 times a day. As per senior qa automation engineer dr ruelas recommendations Tapazole dose is decreased to 30 twice daily. * 10/17/2020-heart rate is around 96 rate controlled A. fib. To continue Eliquis, Inderal 40 mg p.o. 3 times daily, Cardizem 90 mg p.o. every 8 hours. Free T3-4 is 1.64, free T3 is 2.79. * 10/18/2020-no acute events in the last 24 hours. Afebrile. Heart rate is at 100. To continue Eliquis, Inderal 40 mg p.o. 3 times a day, Cardizem 90 mg every 8 hours. (2) Hyperthyroidism Is this a current diagnosis for this admission?: Yes Plan: * Continue Tapazole. * Continue Inderal 40 mg p.o. 3 times daily. * 10/15/2020-to continue Tapazole, Inderal at this time. Latest free T4 is 2.04. TSH is less than 0.01. * 10/16/2020-to continue Tapazole 30 mg p.o. twice daily, Inderal 40 mg 3 times a day at this time. To repeat TSH, free T3 and T4 levels. 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 To continue Tapazole 30 mg p.o. twice daily, Inderal 40 mg 3 times a day. She is also on Solu-Medrol 40 mg IV daily. Latest free T4 is 1.64, free T3 is 2.79. * 10/18/2020-patient is presently on Tapazole 30 mg p.o. twice a day as per senior qa automation engineer recommendations, Inderal 40 mg 3 times a day, prednisone 20 mg p.o. twice daily. Consultation with ENT is requested. 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 * Continue Inderal. * Decrease Solu-Cortef 50 mg IV every 12 hours. * 10/15/2020-patient admitted for thyroid stroma. To continue methimazole, Inderal, Solu-Cortef at this time. * 10/16/2020-thyroid storm is resolved. To decrease Solu-Medrol to 40 mg daily. * 10/17/20-2 discontinue IV Solu-Medrol and to start on prednisone 20 mg p.o. twice daily from today. * 10/18/2020-no acute events in the last 48 hours. Stable. To continue prednisone 20 mg p.o. twice a day at this time. (4) CARLOS (acute kidney injury) Is this a current diagnosis for this admission?: Yes Plan: * Improving. Baseline creatinine ~ 1.0. * Monitor urine output. * Avoid nephrotoxic drugs. * Renal dosing of medications. (5) Goiter, dyshormonogenic Is this a current diagnosis for this admission?: Yes (6) Hyperglycemia due to DM type 2 Is this a current diagnosis for this admission?: Yes Plan: Controlled. (7) elevated transaminases (8) Constipation - Plan Summary Summary: Her vaginal spotting in her atrial fibrillation or due to her thyroid storm. Neither of these problems will resolve until her circulating thyroid hormone levels dropped down. Cardizem will not help in this situation due to the nature of the force driving atrial fibrillation. I have discontinued the Cardizem drip. I have ordered propranolol 80 mg 4 times a day, Tapazole 20 mg 4 times a day, and hydrocortisone 100 mg 3 times a day in the hopes that it will help inhibit the conversion of T3-T4. If we cannot get her heart rate under control with this high dose of oral propranolol, she will have to be sent to the ICU for an esmolol drip. We were able to get her thyroid levels under better control on that dose of Tapazole, so hopefully we will be able to get her symptoms under control with it again. Once she is stable, she will need evaluation for surgery for her goiter. Because of the high levels of Tapazole needed, radioactive iodine ablation will be less likely to be effective. We will continue her Eliquis. We will put her on an insulin sliding scale as we anticipate that the hydrocortisone will make her blood sugars elevated. 10/19/2020 Atrial fibrillation with rapid ventricular response. Reasonable control with diltiazem 90 mg every 6 hours and propranolol 40 mg every 8 hours. Continue to monitor on telemetry Multinodular goiter with thyroid storm-continue cardiac meds as above. Also on Tapazole and prednisone. We will try and coordinate with [facility] or [facility] regarding thyroidectomy. Acute kidney injury-resolved Diabetes mellitus-we will restart Metformin. Abnormal liver enzymes-transaminases spiked 2 days ago. Beginning to resolve. Unsure of the etiology. We will continue to monitor. 10/20/2020 Atrial fibrillation-still with pulse rate between 101-115 with occasional spikes to 130. I will increase the propranolol to 40 mg every 6 hours. Continue diltiazem at 90 mg every 6 hours. There is a low incidence but diltiazem and propranolol can elevate transaminases. Hyperthyroidism-currently on Tapazole 30 mg every 12 hours. Free T3 and free T4 are now normal. TSH still undetectable. We will continue to monitor. Tapazole can increase transaminases as well. Increased transaminases-we will need to monitor closely. This is likely secondary to medications. Will reach out to other facilities regarding transfer for complex thyroidectomy. Diabetes-back on Metformin reasonable control of blood glucose. Continue Accu- Cheks and sliding scale. CARLOS resolved 10/21/2020 Slight improvement in pulse rate with the change of propranolol to 40 mg every 6 hours. We will continue the current dosing at this time Hypothyroidism/goiter-continue Tapazole 30 mg every 12 hours Increased transaminases-AST and ALT are up slightly. Alkaline phosphatase is actually slightly lower. We have decided to stop her statin therapy at this time and monitor transaminases. It is more likely the statin medication as opposed to the Tapazole, propranolol or diltiazem. Diabetes-continue Metformin, diabetic diet and Accu-Cheks with sliding scale Goiter-working on transfer to higher level of care that will be required due to the complexity of her goiter Acute kidney injury resolved Complaining of constipation. Will give 1 bottle of citrate magnesia and start Colace and senna 10/22/2020 Medication dose change seems to be maturing as the patient's pulse rate has consistently been under 100 today. Continue current regimen. Hypothyroidism/goiter-continue Tapazole. Possibly consider decreasing with better rate control. Abnormal transaminases-still climbing slowly. Statin therapy discontinued. We will continue to monitor closely. Constipation-2 bowel movements with current regimen The CT scans show the thyroid gland extending under the sternum. Will discuss with tertiary care center regarding transfer and surgical intervention 10/23/2020 Atrial fibrillation with rapid ventricular response-currently on propranolol 40 mg every 6 hours and diltiazem 90 mg every 6 hours. Her heart rate still cannot stay below 100 for any significant amount time. With limited activity will increase above 115 to approximately 125 or so. Her systolic blood pressures remain above 100 for the most part. Her map has been in the 70s and 80s for the most part. She denies any chest discomfort. She does remain on Eliquis for anticoagulation. Hyperthyroidism secondary to multinodular goiter-despite aggressive medication regimen including the propranolol and Cardizem as well as Tapazole 30 mg twice daily we still do not have good control of the patient's pulse. At last check her TSH was less than 0.01. Free T3 was 2.02 with the labs lower limit normal of 2.77. Free T4 was 1.11 with our upper limit normal of 2.19. Initially it was greater than 3. The maximum free T3 level was 3.87 with the normal range of 2.77-5.27. The TSH was always less than 0.01 Elevated transaminases-we stopped the statin therapy 2 days ago and now the transaminases are improving. Diabetes mellitus type 2-on Metformin 500 mg twice daily she has good control of her sugars. Sliding scale is available if needed. - Time Time Spent with patient: 15-24 minutes Medications reviewed and adjusted accordingly: Yes Anticipated Discharge Disposition: Tertiary Anticipated Discharge Timeframe: when bed available
[2020-10-24] MEDS: PROPRANOLOL HCL 40 MG TABLET PO SCH ×2 (05:28→12:40)
[2020-10-24] MEDS: DILTIAZEM HCL 90 MG TABLET PO SCH ×2 (05:28→12:40)
[2020-10-24] MEDS: PANTOPRAZOLE SODIUM 40 MG TABLET.DR PO SCH (05:28)
[2020-10-24] MEDS: METHIMAZOLE 5 MG TABLET PO SCH ×3 (05:28→22:16)
[2020-10-24] MEDS: INSULIN LISPRO 100 UNIT/ML 3 ML VIAL SUBCUT SCH ×4 (08:20→22:32)
[2020-10-24] MEDS: METFORMIN HCL 500 MG TABLET PO SCH ×2 (09:05→17:35)
[2020-10-24] MEDS: MULTIVITAMIN TABLET PO SCH (09:06)
[2020-10-24] MEDS: DOCUSATE SODIUM 100 MG CAPSULE PO SCH ×2 (09:06→17:35)
[2020-10-24] MEDS: APIXABAN 5 MG TABLET PO SCH ×2 (09:06→17:35)
[2020-10-24] MEDS: ASPIRIN 81 MG TABLET, ENT COATED PO SCH (09:06)
[2020-10-24 11:20] LABS: HEMATOCRIT 33.6 % (36.0-47.0); HEMOGLOBIN 10.9 g/dL (12.0-15.5); MEAN CORPUSCULAR HEMOGLOBIN 26.4 pg (27.0-33.4); MEAN CORPUSCULAR HGB CONC 32.5 g/dL (32.0-36.0); MEAN CORPUSCULAR VOLUME 81 fl (80-97); PLATELET COUNT 210 10^3/uL (150-450); RED BLOOD COUNT 4.13 10^6/uL (3.72-5.28); RED CELL DISTRIBUTION WIDTH 21.1 % (11.5-14.0); WHITE BLOOD COUNT 9.7 10^3/uL (4.0-10.5)
[2020-10-24 11:41] LABS: ALBUMIN 3.2 g/dL (3.5-5.0); ALKALINE PHOSPHATASE 171 U/L (38-126); ASPARTATE AMINO TRANSFERASE 47 U/L (14-36); BILIRUBIN,DIRECT 0.2 mg/dL (0.0-0.4); BILIRUBIN,TOTAL 0.8 mg/dL (0.2-1.3); BLOOD UREA NITROGEN 28 mg/dL (7-20); GLUCOSE 95 mg/dL (75-110); POTASSIUM 4.7 mmol/L (3.6-5.0); TOTAL PROTEIN 5.8 g/dL (6.3-8.2)
[2020-10-24 11:46] LABS: CARBON DIOXIDE 30 mmol/L (22-30); CHLORIDE 106 mmol/L (98-107)
[2020-10-24 11:49] LABS: ANION GAP 3 (5-19)
[2020-10-24] MEDS ORDERED: PROPRANOLOL HCL 10 MG TABLET PO SCH (14:00)
--- NOTE | 2020-10-24 14:46 | PDOC PROGRESS REPORT ---
Subjective Date:: 10/24/20 Subjective:: Comfortable without complaint except frustrated by the lack of bed availability at tertiary care institutions Reason For Visit: AFIB WITH RVR,HYPERTHYROIDISM,VAGINAL SPOTTING Physical Exam Vital Signs: Temp Pulse Resp BP Pulse Ox 97.4 F 130 H 18 136/69 H 98 10/24/20 13:40 10/24/20 13:40 10/24/20 13:40 10/24/20 13:40 10/24/20 13:40 Intake & Output 10/23/20 10/24/20 10/25/20 06:59 06:59 06:59 Intake Total 1660 1100 Balance 1660 1100 Weight 120.6 kg 123.7 kg General appearance: PRESENT: no acute distress Head exam: PRESENT: atraumatic, normocephalic Respiratory exam: PRESENT: clear to auscultation randa, symmetrical, unlabored. ABSENT: prolonged expiratory phas, rales, rhonchi, tachypnea, wheezes Cardiovascular exam: PRESENT: irregular rhythm GI/Abdominal exam: PRESENT: normal bowel sounds, soft. ABSENT: tenderness Rectal exam: PRESENT: deferred Gentrourinary exam: ABSENT: indwelling catheter Neurological exam: PRESENT: alert, awake, oriented to person, oriented to place, oriented to time, oriented to situation, CN II-XII grossly intact. ABSENT: altered Psychiatric exam: PRESENT: appropriate affect. ABSENT: agitated, anxious Focused psych exam: ABSENT: delusional, paranoid, restlessness Results Laboratory Results: 10/24/20 10:46 10/24/20 10:46 10/24/20 10/24/20 10:46 10:46 WBC 9.7 RBC 4.13 Hgb 10.9 L Hct 33.6 L MCV 81 MCH 26.4 L MCHC 32.5 RDW 21.1 H Plt Count 210 Sodium 138.7 Potassium 4.7 Chloride 106 Carbon Dioxide 30 Anion Gap 3 L BUN 28 H Creatinine 0.93 Est GFR ( Amer) > 60 Glucose 95 Calcium 10.0 Magnesium 2.0 Total Bilirubin 0.8 AST 47 H Alkaline Phosphatase 171 H Total Protein 5.8 L Albumin 3.2 L 10/08/20 14:57 Troponin I < 0.012 Impressions: Transvaginal US 10/08/20 15:24 IMPRESSION: 1. Moderate amount of fluid in the posterior pelvic cul-de-sac which may be infectious or inflammatory fluid. 2. Diffuse thickening of the endometrial lining. This may represent endometrial hyperplasia, however malignancy is not excluded. Direct visualization and sampling is recommended. Soft Tissue Neck CT 10/18/20 00:00 IMPRESSION: MULTINODULAR GOITER WITH SUBSTERNAL EXTENSION ON THE LEFT. NO CHANGE COMPARED TO THE PRIOR STUDY, AUGUST 2020. NO OTHER SIGNIFICANT FINDING IN THE SOFT TISSUES OF THE NECK. 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 Is this a current diagnosis for this admission?: Yes (5) CARLOS (acute kidney injury) Is this a current diagnosis for this admission?: Yes (6) Goiter, dyshormonogenic Is this a current diagnosis for this admission?: Yes (7) Abnormal AST and ALT Is this a current diagnosis for this admission?: Yes (8) Hyperglycemia due to type 2 diabetes mellitus Qualifiers: Diabetes mellitus fdc insulin use: without terminal clerk use Qualified Code(s): E11.65 - Type 2 diabetes mellitus with hyperglycemia Is this a current diagnosis for this admission?: Yes (9) Constipation Qualifiers: Constipation type: unspecified constipation type Qualified Code(s): K59.00 - Constipation, unspecified Is this a current diagnosis for this admission?: Yes - Plan Summary Summary: (1) Atrial fibrillation with rapid ventricular response Is this a current diagnosis for this admission?: Yes Plan: * Continue Inderal 40 mg 3 times daily. * Increase Cardizem to 90 mg p.o. every 6 hours. * Continue anticoagulation. * 10/14/2020-patient is on Eliquis, plan is to continue the present management. * 10/15/2020-to continue Eliquis at this time. Heart rate in the 90s patient is on Cardizem 90 mg p.o. every 6 hours. Patient is also on Inderal 40 mg 3 times a day. * 10/16/2020-heart rate is around 100. To continue Cardizem 90 mg p.o. every 6 hours , she is on Eliquis. And is also receiving Inderal 40 mg 3 times a day. As per musculoskeletal physiotherapist dr ruelas recommendations Tapazole dose is decreased to 30 twice daily. * 10/17/2020-heart rate is around 96 rate controlled A. fib. To continue Eliquis, Inderal 40 mg p.o. 3 times daily, Cardizem 90 mg p.o. every 8 hours. Free T3-4 is 1.64, free T3 is 2.79. * 10/18/2020-no acute events in the last 24 hours. Afebrile. Heart rate is at 100. To continue Eliquis, Inderal 40 mg p.o. 3 times a day, Cardizem 90 mg every 8 hours. (2) Hyperthyroidism Is this a current diagnosis for this admission?: Yes Plan: * Continue Tapazole. * Continue Inderal 40 mg p.o. 3 times daily. * 10/15/2020-to continue Tapazole, Inderal at this time. Latest free T4 is 2.04. TSH is less than 0.01. * 10/16/2020-to continue Tapazole 30 mg p.o. twice daily, Inderal 40 mg 3 times a day at this time. To repeat TSH, free T3 and T4 levels. 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 To continue Tapazole 30 mg p.o. twice daily, Inderal 40 mg 3 times a day. She is also on Solu-Medrol 40 mg IV daily. Latest free T4 is 1.64, free T3 is 2.79. * 10/18/2020-patient is presently on Tapazole 30 mg p.o. twice a day as per end ocrinologist recommendations, Inderal 40 mg 3 times a day, prednisone 20 mg p.o. twice daily. Consultation with ENT is requested. 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 * Continue Inderal. * Decrease Solu-Cortef 50 mg IV every 12 hours. * 10/15/2020-patient admitted for thyroid stroma. To continue methimazole, Inderal, Solu-Cortef at this time. * 10/16/2020-thyroid storm is resolved. To decrease Solu-Medrol to 40 mg daily. * 10/17/20-2 discontinue IV Solu-Medrol and to start on prednisone 20 mg p.o. twice daily from today. * 10/18/2020-no acute events in the last 48 hours. Stable. To continue prednisone 20 mg p.o. twice a day at this time. (4) CARLOS (acute kidney injury) Is this a current diagnosis for this admission?: Yes Plan: * Improving. Baseline creatinine ~ 1.0. * Monitor urine output. * Avoid nephrotoxic drugs. * Renal dosing of medications. (5) Goiter, dyshormonogenic Is this a current diagnosis for this admission?: Yes (6) Hyperglycemia due to DM type 2 Is this a current diagnosis for this admission?: Yes Plan: Controlled. (7) elevated transaminases (8) Constipation - Plan Summary Summary: Her vaginal spotting in her atrial fibrillation or due to her thyroid storm. Neither of these problems will resolve until her circulating thyroid hormone levels dropped down. Cardizem will not help in this situation due to the nature of the force driving atrial fibrillation. I have discontinued the Cardizem drip. I have ordered propranolol 80 mg 4 times a day, Tapazole 20 mg 4 times a day, and hydrocortisone 100 mg 3 times a day in the hopes that it will help inhibit the conversion of T3-T4. If we cannot get her heart rate under control with this high dose of oral propranolol, she will have to be sent to the ICU for an esmolol drip. We were able to get her thyroid levels under better control on that dose of Tapazole, so hopefully we will be able to get her symptoms under control with it again. Once she is stable, she will need evaluation for surgery for her goiter. Because of the high levels of Tapazole needed, radioactive iodine ablation will be less likely to be effective. We will continue her Eliquis. We will put her on an insulin sliding scale as we anticipate that the hydrocortisone will make her blood sugars elevated. 10/19/2020 Atrial fibrillation with rapid ventricular response. Reasonable control with diltiazem 90 mg every 6 hours and propranolol 40 mg every 8 hours. Continue to monitor on telemetry Multinodular goiter with thyroid storm-continue cardiac meds as above. Also on Tapazole and prednisone. We will try and coordinate with [facility] or [facility] regarding thyroidectomy. Acute kidney injury-resolved Diabetes mellitus-we will restart Metformin. Abnormal liver enzymes-transaminases spiked 2 days ago. Beginning to resolve. Unsure of the etiology. We will continue to monitor. 10/20/2020 Atrial fibrillation-still with pulse rate between 101-115 with occasional spikes to 130. I will increase the propranolol to 40 mg every 6 hours. Continue diltiazem at 90 mg every 6 hours. There is a low incidence but diltiazem and propranolol can elevate transaminases. Hyperthyroidism-currently on Tapazole 30 mg every 12 hours. Free T3 and free T4 are now normal. TSH still undetectable. We will continue to monitor. Tapazole can increase transaminases as well. Increased transaminases-we will need to monitor closely. This is likely secondary to medications. Will reach out to other facilities regarding transfer for complex thyroidectomy. Diabetes-back on Metformin reasonable control of blood glucose. Continue Accu- Cheks and sliding scale. CARLOS resolved 10/21/2020 Slight improvement in pulse rate with the change of propranolol to 40 mg every 6 hours. We will continue the current dosing at this time Hypothyroidism/goiter-continue Tapazole 30 mg every 12 hours Increased transaminases-AST and ALT are up slightly. Alkaline phosphatase is actually slightly lower. We have decided to stop her statin therapy at this time and monitor transaminases. It is more likely the statin medication as opposed to the Tapazole, propranolol or diltiazem. Diabetes-continue Metformin, diabetic diet and Accu-Cheks with sliding scale Goiter-working on transfer to higher level of care that will be required due to the complexity of her goiter Acute kidney injury resolved Complaining of constipation. Will give 1 bottle of citrate magnesia and start Colace and senna 10/22/2020 Medication dose change seems to be maturing as the patient's pulse rate has consistently been under 100 today. Continue current regimen. Hypothyroidism/goiter-continue Tapazole. Possibly consider decreasing with better rate control. Abnormal transaminases-still climbing slowly. Statin therapy discontinued. We will continue to monitor closely. Constipation-2 bowel movements with current regimen The CT scans show the thyroid gland extending under the sternum. Will discuss with tertiary care center regarding transfer and surgical intervention 10/23/2020 Atrial fibrillation with rapid ventricular response-currently on propranolol 40 mg every 6 hours and diltiazem 90 mg every 6 hours. Her heart rate still cannot stay below 100 for any significant amount time. With limited activity will increase above 115 to approximately 125 or so. Her systolic blood pressures remain above 100 for the most part. Her map has been in the 70s and 80s for the most part. She denies any chest discomfort. She does remain on Eliquis for anticoagulation. Hyperthyroidism secondary to multinodular goiter-despite aggressive medication regimen including the propranolol and Cardizem as well as Tapazole 30 mg twice daily we still do not have good control of the patient's pulse. At last check her TSH was less than 0.01. Free T3 was 2.02 with the labs lower limit normal of 2.77. Free T4 was 1.11 with our upper limit normal of 2.19. Initially it was greater than 3. The maximum free T3 level was 3.87 with the normal range of 2.77-5.27. The TSH was always less than 0.01 Elevated transaminases-we stopped the statin therapy 2 days ago and now the transaminases are improving. Diabetes mellitus type 2-on Metformin 500 mg twice daily she has good control of her sugars. Sliding scale is available if needed. 10/24/2020 Spoke with otolaryngology at [facility]. Recommendation is since the patient is fairly stable discharge and schedule outpatient visit. I called [facility] this morning and they are still not accepting patients. Yesterday when I spoke to [facility] they were needing taking patients names. I will continue to call and if unsuccessful get her set up for an outpatient visit with head and neck surgery for subsequent thyroidectomy. Transaminases are improving and should normalize within the next 4 to 5 days. Anemia-hemoglobin is trickling down slightly. Patient reports that she is still spotting. On ultrasound she had an thickened endometrial stripe but no worrisome lesions. Continue to monitor lab work. Continue to monitor on telemetry. I have adjusted her medications to try and get her on every 8 hour dosing so it is only 3 times a day instead of 4 times a day. This will work for the Tapa zole, propranolol and diltiazem. - Time Time Spent with patient: 15-24 minutes Medications reviewed and adjusted accordingly: Yes Anticipated Discharge Disposition: Tertiary Anticipated Discharge Timeframe: Unknown
[2020-10-24] MEDS: DILTIAZEM HCL 120 MG CAP.SR.24H PO SCH ×2 (15:04→22:16)
[2020-10-24] MEDS: PROPRANOLOL HCL 20 MG TABLET PO SCH ×2 (15:04→22:15)
[2020-10-25] MEDS: METHIMAZOLE 5 MG TABLET PO SCH ×3 (06:17→21:38)
[2020-10-25] MEDS: DILTIAZEM HCL 120 MG CAP.SR.24H PO SCH ×3 (06:18→21:39)
[2020-10-25] MEDS: PANTOPRAZOLE SODIUM 40 MG TABLET.DR PO SCH (06:19)
[2020-10-25] MEDS: PROPRANOLOL HCL 20 MG TABLET PO SCH ×3 (06:24→21:38)
[2020-10-25] MEDS: INSULIN LISPRO 100 UNIT/ML 3 ML VIAL SUBCUT SCH ×4 (07:49→21:38)
[2020-10-25] MEDS: DOCUSATE SODIUM 100 MG CAPSULE PO SCH ×2 (09:09→17:35)
[2020-10-25] MEDS: APIXABAN 5 MG TABLET PO SCH ×2 (09:09→17:35)
[2020-10-25] MEDS: ASPIRIN 81 MG TABLET, ENT COATED PO SCH (09:09)
[2020-10-25] MEDS: MULTIVITAMIN TABLET PO SCH (09:09)
[2020-10-25] MEDS: METFORMIN HCL 500 MG TABLET PO SCH ×2 (09:09→17:35)
--- NOTE | 2020-10-25 16:40 | PDOC PROGRESS REPORT ---
Subjective Date:: 10/25/20 Subjective:: Patient is resting comfortably. I greeted her several times verbally. She was sleeping soundly. I did not shake her further. Reason For Visit: AFIB WITH RVR,HYPERTHYROIDISM,VAGINAL SPOTTING Physical Exam Vital Signs: Temp Pulse Resp BP Pulse Ox 98.6 F 105 H 18 119/98 H 98 10/25/20 15:52 10/25/20 15:52 10/25/20 15:52 10/25/20 15:52 10/25/20 15:52 Intake & Output 10/24/20 10/25/20 10/26/20 06:59 06:59 06:59 Intake Total 1100 2614 570 Balance 1100 2614 570 Weight 123.7 kg 123.5 kg 123.5 kg General appearance: PRESENT: no acute distress Respiratory exam: PRESENT: clear to auscultation randa - Anteriorly, symmetrical, unlabored. ABSENT: rales, rhonchi, tachypnea, wheezes Cardiovascular exam: PRESENT: irregular rhythm GI/Abdominal exam: PRESENT: normal bowel sounds, soft. ABSENT: distended, tenderness Rectal exam: PRESENT: deferred Extremities exam: ABSENT: pedal edema Neurological exam: ABSENT: awake Results Laboratory Results: 10/24/20 10:46 10/24/20 10:46 10/08/20 14:57 Troponin I < 0.012 Impressions: Transvaginal US 10/08/20 15:24 IMPRESSION: 1. Moderate amount of fluid in the posterior pelvic cul-de-sac which may be infectious or inflammatory fluid. 2. Diffuse thickening of the endometrial lining. This may represent endometrial hyperplasia, however malignancy is not excluded. Direct visualization and sampling is recommended. Soft Tissue Neck CT 10/18/20 00:00 IMPRESSION: MULTINODULAR GOITER WITH SUBSTERNAL EXTENSION ON THE LEFT. NO WHIT NGE COMPARED TO THE PRIOR STUDY, AUGUST 2020. NO OTHER SIGNIFICANT FINDING IN THE SOFT TISSUES OF THE NECK. 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 Is this a current diagnosis for this admission?: Yes (5) CARLOS (acute kidney injury) Is this a current diagnosis for this admission?: Yes (6) Goiter, dyshormonogenic Is this a current diagnosis for this admission?: Yes (7) Abnormal AST and ALT Is this a current diagnosis for this admission?: Yes (8) Hyperglycemia due to type 2 diabetes mellitus Qualifiers: Diabetes mellitus equipment operator intermodal yard insulin use: without long-term use Qualified Code(s): E11.65 - Type 2 diabetes mellitus with hyperglycemia Is this a current diagnosis for this admission?: Yes (9) Constipation Qualifiers: Constipation type: unspecified constipation type Qualified Code(s): K59.00 - Constipation, unspecified Is this a current diagnosis for this admission?: Yes - Plan Summary Summary: (1) Atrial fibrillation with rapid ventricular response Is this a current diagnosis for this admission?: Yes Plan: * Continue Inderal 40 mg 3 times daily. * Increase Cardizem to 90 mg p.o. every 6 hours. * Continue anticoagulation. * 10/14/2020-patient is on Eliquis, plan is to continue the present management. * 10/15/2020-to continue Eliquis at this time. Heart rate in the 90s patient is on Cardizem 90 mg p.o. every 6 hours. Patient is also on Inderal 40 mg 3 times a day. * 10/16/2020-heart rate is around 100. To continue Cardizem 90 mg p.o. every 6 hours , she is on Eliquis. And is also receiving Inderal 40 mg 3 times a day. As per mri special procedures technologist dr ruelas recommendations Tapazole dose is decreased to 30 twice daily. * 10/17/2020-heart rate is around 96 rate controlled A. fib. To continue Eliquis, Inderal 40 mg p.o. 3 times daily, Cardizem 90 mg p.o. every 8 hours. Free T3-4 is 1.64, free T3 is 2.79. * 10/18/2020-no acute events in the last 24 hours. Afebrile. Heart rate is at 100. To continue Eliquis, Inderal 40 mg p.o. 3 times a day, Cardizem 90 mg every 8 hours. (2) Hyperthyroidism Is this a current diagnosis for this admission?: Yes Plan: * Continue Tapazole. * Continue Inderal 40 mg p.o. 3 times daily. * 10/15/2020-to continue Tapazole, Inderal at this time. Latest free T4 is 2.04. TSH is less than 0.01. * 10/16/2020-to continue Tapazole 30 mg p.o. twice daily, Inderal 40 mg 3 times a day at this time. To repeat TSH, free T3 and T4 levels. 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 To continue Tapazole 30 mg p.o. twice daily, Inderal 40 mg 3 times a day. She is also on Solu-Medrol 40 mg IV daily. Latest free T4 is 1.64, free T3 is 2.79. * 10/18/2020-patient is presently on Tapazole 30 mg p.o. twice a day as per mri special procedures technologist recommendations, Inderal 40 mg 3 times a day, prednisone 20 mg p.o. twice daily. Consultation with ENT is requested. 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 * Continue Inderal. * Decrease Solu-Cortef 50 mg IV every 12 hours. * 10/15/2020-patient admitted for thyroid stroma. To continue methimazole, Inderal, Solu-Cortef at this time. * 10/16/2020-thyroid storm is resolved. To decrease Solu-Medrol to 40 mg daily. * 10/17/20-2 discontinue IV Solu-Medrol and to start on prednisone 20 mg p.o. twice daily from today. * 10/18/2020-no acute events in the last 48 hours. Stable. To continue prednisone 20 mg p.o. twice a day at this time. (4) CARLOS (acute kidney injury) Is this a current diagnosis for this admission?: Yes Plan: * Improving. Baseline creatinine ~ 1.0. * Monitor urine output. * Avoid nephrotoxic drugs. * Renal dosing of medications. (5) Goiter, dyshormonogenic Is this a current diagnosis for this admission?: Yes (6) Hyperglycemia due to DM type 2 Is this a current diagnosis for this admission?: Yes Plan: Controlled. (7) elevated transaminases (8) Constipation - Plan Summary Summary: Her vaginal spotting in her atrial fibrillation or due to her thyroid storm. Neither of these problems will resolve until her circulating thyroid hormone levels dropped down. Cardizem will not help in this situation due to the nature of the force driving atrial fibrillation. I have discontinued the Cardizem drip. I have ordered propranolol 80 mg 4 times a day, Tapazole 20 mg 4 times a day, and hydrocortisone 100 mg 3 times a day in the hopes that it will help inhibit the conversion of T3-T4. If we cannot get her heart rate under control with this high dose of oral propranolol, she will have to be sent to the ICU for an esmolol drip. We were able to get her thyroid levels under better control on that dose of Tapazole, so hopefully we will be able to get her symptoms under control with it again. Once she is stable, she will need evaluation for surgery for her goiter. Because of the high levels of Tapazole needed, radioactive iodine ablation will be less likely to be effective. We will continue her Eliquis. We will put her on an insulin sliding scale as we anticipate that the hydrocortisone will make her blood sugars elevated. 10/19/2020 Atrial fibrillation with rapid ventricular response. Reasonable control with diltiazem 90 mg every 6 hours and propranolol 40 mg every 8 hours. Continue to monitor on telemetry Multinodular goiter with thyroid storm-continue cardiac meds as above. Also on Tapazole and prednisone. We will try and coordinate with [facility] or [facility] regarding thyroidectomy. Acute kidney injury-resolved Diabetes mellitus-we will restart Metformin. Abnormal liver enzymes-transaminases spiked 2 days ago. Beginning to resolve. Unsure of the etiology. We will continue to monitor. 10/20/2020 Atrial fibrillation-still with pulse rate between 101-115 with occasional spikes to 130. I will increase the propranolol to 40 mg every 6 hours. Continue diltiazem at 90 mg every 6 hours. There is a low incidence but diltiazem and p ropranolol can elevate transaminases. Hyperthyroidism-currently on Tapazole 30 mg every 12 hours. Free T3 and free T4 are now normal. TSH still undetectable. We will continue to monitor. Tapazole can increase transaminases as well. Increased transaminases-we will need to monitor closely. This is likely secondary to medications. Will reach out to other facilities regarding transfer for complex thyroidectomy. Diabetes-back on Metformin reasonable control of blood glucose. Continue Accu-Cheks and sliding scale. CARLOS resolved 10/21/2020 Slight improvement in pulse rate with the change of propranolol to 40 mg every 6 hours. We will continue the current dosing at this time Hypothyroidism/goiter-continue Tapazole 30 mg every 12 hours Increased transaminases-AST and ALT are up slightly. Alkaline phosphatase is actually slightly lower. We have decided to stop her statin therapy at this time and monitor transaminases. It is more likely the statin medication as opposed to the Tapazole, propranolol or diltiazem. Diabetes-continue Metformin, diabetic diet and Accu-Cheks with sliding scale Goiter-working on transfer to higher level of care that will be required due to the complexity of her goiter Acute kidney injury resolved Complaining of constipation. Will give 1 bottle of citrate magnesia and start Colace and senna 10/22/2020 Medication dose change seems to be maturing as the patient's pulse rate has consistently been under 100 today. Continue current regimen. Hypothyroidism/goiter-continue Tapazole. Possibly consider decreasing with better rate control. Abnormal transaminases-still climbing slowly. Statin therapy discontinued. We will continue to monitor closely. Constipation-2 bowel movements with current regimen The CT scans show the thyroid gland extending under the sternum. Will discuss with tertiary care center regarding transfer and surgical intervention 10/23/2020 Atrial fibrillation with rapid ventricular response-currently on propranolol 40 mg every 6 hours and diltiazem 90 mg every 6 hours. Her heart rate still cannot stay below 100 for any significant amount time. With limited activity will increase above 115 to approximately 125 or so. Her systolic blood pressures remain above 100 for the most part. Her map has been in the 70s and 80s for the most part. She denies any chest discomfort. She does remain on Eliquis for anticoagulation. Hyperthyroidism secondary to multinodular goiter-despite aggressive medication regimen including the propranolol and Cardizem as well as Tapazole 30 mg twice daily we still do not have good control of the patient's pulse. At last check her TSH was less than 0.01. Free T3 was 2.02 with the labs lower limit normal of 2.77. Free T4 was 1.11 with our upper limit normal of 2.19. Initially it was greater than 3. The maximum free T3 level was 3.87 with the normal range of 2.77-5.27. The TSH was always less than 0.01 Elevated transaminases-we stopped the statin therapy 2 days ago and now the t ransaminases are improving. Diabetes mellitus type 2-on Metformin 500 mg twice daily she has good control of her sugars. Sliding scale is available if needed. 10/24/2020 Spoke with otolaryngology at [facility]. Recommendation is since the patient is fairly stable discharge and schedule outpatient visit. I called [facility] this morning and they are still not accepting patients. Yesterday when I spoke to [facility] they were needing taking patients names. I will continue to call and if unsuccessful get her set up for an outpatient visit with head and neck surgery for subsequent thyroidectomy. Transaminases are improving and should normalize within the next 4 to 5 days. Anemia-hemoglobin is trickling down slightly. Patient reports that she is still spotting. On ultrasound she had an thickened endometrial stripe but no worrisome lesions. Continue to monitor lab work. Continue to monitor on telemetry. I have adjusted her medications to try and get her on every 8 hour dosing so it is only 3 times a day instead of 4 times a day. This will work for the Tapazole, propranolol and diltiazem. 10/25/2020 The change to diltiazem extended release 120 mg 3 times a day as well as propranolol 60 mg 3 times a day seems to be working. Her Tapazole is now 15 mg 3 times a day as well. The every 8 hour dosing of all 3 medications should help with compliance. She is still in atrial fibrillation on telemetry but has not had any complaints of chest pain or shortness of breath. She has not been lightheaded. Her blood pressure has remained stable. Based on my discussion with Dr. Machado on Sunday we reached out to the [facility] head and neck surgery clinic. They requested a referral and would not schedule appointment. Our pulling unit operator did reach out to Dr. Machado and he was extremely helpful and spoke with the head and neck surgery clinic and we were able to get the patient an appointment on November 02. The patient's thyrotoxicosis is stable. If she remains on her current medication she should be stable at home until the appointment. I did push all of the films to [facility]. I asked our pulling unit operator to send copies of all of the x-ray reports as well as my last progress note. I am helpful to help expedite treatment for this pleasant lady who has been struggling with this for several months. I will send her new prescriptions to her pharmacy in anticipation of discharge tomorrow. - Time Time Spent with patient: 15-24 minutes Medications reviewed and adjusted accordingly: Yes Anticipated Discharge Disposition: Home with Home Health Anticipated Discharge Timeframe: within 24 hours
[2020-10-26] MEDS: METHIMAZOLE 5 MG TABLET PO SCH ×2 (05:18→14:03)
[2020-10-26] MEDS: PANTOPRAZOLE SODIUM 40 MG TABLET.DR PO SCH (05:18)
[2020-10-26] MEDS: DILTIAZEM HCL 120 MG CAP.SR.24H PO SCH ×2 (05:18→14:03)
[2020-10-26] MEDS: PROPRANOLOL HCL 20 MG TABLET PO SCH (05:18)
[2020-10-26] MEDS: INSULIN LISPRO 100 UNIT/ML 3 ML VIAL SUBCUT SCH ×2 (07:42→12:42)
[2020-10-26] MEDS: APIXABAN 5 MG TABLET PO SCH (09:32)
[2020-10-26] MEDS: MULTIVITAMIN TABLET PO SCH (09:32)
[2020-10-26] MEDS: ASPIRIN 81 MG TABLET, ENT COATED PO SCH (09:32)
[2020-10-26] MEDS: METFORMIN HCL 500 MG TABLET PO SCH (09:32)
[2020-10-26] MEDS: DOCUSATE SODIUM 100 MG CAPSULE PO SCH (09:32)
[2020-10-26 10:54] VITALS: BP 93/68
[2020-10-26] MEDS ORDERED: PROPRANOLOL HCL 40 MG TABLET PO ONE (12:00)
[2020-10-26] MEDS ORDERED: PROPRANOLOL HCL 40 MG TABLET PO SCH (14:00)
--- NOTE | 2020-10-26 20:32 | PDOC DISCHARGE SUMMARY ---
Impression - Admit/DC Date/PCP Admission Date/Primary Care Provider: 10/08/20 19:19 Discharge Date: 10/26/20 - Discharge Diagnosis (1) CARLOS (acute kidney injury) Is this a current diagnosis for this admission?: Yes (2) Abnormal AST and ALT Is this a current diagnosis for this admission?: Yes (3) Atrial fibrillation with rapid ventricular response Is this a current diagnosis for this admission?: Yes (4) Dyspnea Is this a current diagnosis for this admission?: Yes (5) Goiter, dyshormonogenic Is this a current diagnosis for this admission?: Yes (6) Hyperglycemia due to type 2 diabetes mellitus Is this a current diagnosis for this admission?: Yes (7) Hyperthyroidism Is this a current diagnosis for this admission?: Yes (8) Longstanding persistent atrial fibrillation Is this a current diagnosis for this admission?: Yes (9) Mass in neck Is this a current diagnosis for this admission?: Yes (10) Thyroid storm Is this a current diagnosis for this admission?: Yes (11) Toxic multinodular goiter Is this a current diagnosis for this admission?: Yes (12) Vaginal spotting Is this a current diagnosis for this admission?: Yes - Assessment Summary: From initial H&P: "TERE BEAN is a 65 year old female with a history of a toxic multinodular goiter with associated hyperthyroidism who was recently treat ed here for a thyroid storm, atrial fibrillation, [id number] diabetes mellitus, hyperlipidemia, hypertension, and obesity, who presented with persistent weakness and dyspnea with exertion. She also had vaginal spotting. This lady has history of hyperthyroidism and follows up with an testing director in [place] named Dr. Jasso, and was admitted here about 1 month ago with thyroid storm because her testing director had taken her off of her Tapazole and beta-shweta. She had been off of it for several months and then wound up here and a thyroid storm. I am not sure why she was taken off of it. She is also not sure. At any rate, she wound up in the ICU on esmolol drip and wound up on large doses of beta-shweta and Tapazole to try to get her symptoms under control. She was transferred to [facility]. At some point, and I am not sure if this happened when she was transferred, she had a cardiac ablation for atrial fibrillation. She was told that it would not work if her hyperthyroidism was not addressed. When she was still in the ICU here, she had been seen by ENT but it seems that no follow-up was ever arranged for an outpatient basis. She says that ever since she went home from the ablation from [facility], she has had a lot of persistent weakness and dyspnea on exertion. She says she can feel her heart beating really fast whenever she puts her hand on her chest. She has an appointment with her testing director on Sunday, but was unable to wait until then to be seen. Transvaginal ultrasound was done in the ER, but I suspect her spotting is likely due to her persistent hyperthyroidism. She has been on propranolol 80 mg twice a day and Tapazole 20 mg twice a day at home. Her TSH was undetectable and her free T3 was greater than 3. She was started on a Cardizem drip, but it is not controlling her rate, which it would not be expected to do in this situation. Her heart rate remains in the 120s to 140s." She was admitted with AFRVR due to thyroid storm on 10/08/2020. HR was not controlled with dilt drip so she was transferred to the ICU for esmolol drip instead. Unfortunately, she could not tolerate this due to hypotension. It took several days of medication adjustments in the ICU for rate control. Transfer to tertiary care facility was attempted multiple times, to no avail. She finally transferred out of the ICU on 10/14/2020 on oral medications. Medications were continually titrated to achieve a HR <110. She remained in atrial fibrillation on discharge, although with rate control. We were able to reach out to [facility] head and neck surgery clinic and got her an appointment on November 02. The patient's thyrotoxicosis is stable. If she remains on her current medication she should be stable at home until the appointment. Labs and imaging studies have been sent to [facility] in preparation for her upcoming appointment. She has an testing director in [place] as well. She will need very close outpatient follow up to address the underlying cause of her thyroid storm, otherwise this will be a recurring issue. This was discussed at length with patient and her daughter, and they are understanding. - Additional Information Resuscitation Status: Full Code Discharge Diet: Cardiac Discharge Activity: Activity As Tolerated Referrals: [facility] [Other] - 11/03/20 3:00 pm SERGIO HAYNES PA-C [PHYSICIAN CLOTH INSPECTOR] - 11/02/20 12:45 pm Prescriptions: Diltiazem HCl [Cardizem Cd 120 mg Capsule] 120 mg PO Q8 15 Days #45 cap.sr.24h Propranolol HCl 60 mg PO Q8 15 Days #45 tablet Methimazole [Tapazole 5 mg Tablet] 15 mg PO Q8 15 Days #135 tablet Home Medications: Aspirin [Ecotrin 81 mg EC Tablet] 81 mg PO DAILY 08/21/19 Atorvastatin Calcium [Lipitor 10 mg Tablet] 10 mg PO QHS 08/21/19 Metformin HCl [Metformin HCl ER] 500 mg PO BID 08/21/19 Multivitamin [Multiple Vitamins] 1 tab PO DAILY 09/07/20 Apixaban [Eliquis 5 mg Tablet] 5 mg PO BID 10/08/20 Diltiazem HCl [Cardizem Cd 120 mg Capsule] 120 mg PO Q8 15 Days #45 cap.sr.24h 10/25/20 Docusate Sodium [Colace 100 mg Capsule] 100 mg PO BID capsule 10/25/20 Methimazole [Tapazole 5 mg Tablet] 15 mg PO Q8 15 Days #135 tablet 10/25/20 Propranolol HCl 60 mg PO Q8 15 Days #45 tablet 10/25/20 Sennosides/Docusate 8.6-50 mg [Senna Plus Tablet] 1 each PO BIDP PRN tablet 10/25/20 History of Present Illiness History of Present Illness: TERE BEAN is a 65 year old female Physical Exam Vital Signs: Temp Pulse Resp BP Pulse Ox 97.6 F 82 19 93/68 L 97 10/26/20 10:53 10/26/20 10:53 10/26/20 10:53 10/26/20 10:53 10/26/20 10:53 Intake & Output 10/25/20 10/26/20 10/27/20 06:59 06:59 06:59 Intake Total 2614 1020 Balance 2614 1020 Weight 123.5 kg 120.5 kg Results Laboratory Results: WBC 9.7 10^3/uL (4.0-10.5) 10/24/20 10:46 RBC 4.13 10^6/uL (3.72-5.28) 10/24/20 10:46 Hgb 10.9 g/dL (12.0-15.5) L 10/24/20 10:46 Hct 33.6 % (36.0-47.0) L 10/24/20 10:46 MCV 81 fl (80-97) 10/24/20 10:46 MCH 26.4 pg (27.0-33.4) L 10/24/20 10:46 MCHC 32.5 g/dL (32.0-36.0) 10/24/20 10:46 RDW 21.1 % (11.5-14.0) H 10/24/20 10:46 Plt Count 210 10^3/uL (150-450) 10/24/20 10:46 Lymph % (Auto) 11.8 % (13-45) L 10/20/20 06:40 Republic % (Auto) 6.7 % (3-13) 10/20/20 06:40 Eos % (Auto) 0.1 % (0-6) 10/20/20 06:40 Baso % (Auto) 0.2 % (0-2) 10/20/20 06:40 Absolute Neuts (auto) 7.6 10^3/uL (1.7-8.2) 10/20/20 06:40 Absolute Lymphs (auto) 1.1 10^3/uL (0.5-4.7) 10/20/20 06:40 Absolute Monos (auto) 0.6 10^3/uL (0.1-1.4) 10/20/20 06:40 Absolute Eos (auto) 0.0 10^3/uL (0.0-0.6) 10/20/20 06:40 Absolute Basos (auto) 0.0 10^3/uL (0.0-0.2) 10/20/20 06:40 Seg Neutrophils % 81.2 % (42-78) H 10/20/20 06:40 PT 23.4 SEC (11.4-15.4) H 10/08/20 14:57 INR 2.08 10/08/20 14:57 Sodium 138.7 mmol/L (137-145) 10/24/20 10:46 Potassium 4.7 mmol/L (3.6-5.0) 10/24/20 10:46 Chloride 106 mmol/L (98-107) 10/24/20 10:46 Carbon Dioxide 30 mmol/L (22-30) 10/24/20 10:46 Anion Gap 3 (5-19) L 10/24/20 10:46 BUN 28 mg/dL (7-20) H 10/24/20 10:46 Creatinine 0.93 mg/dL (0.52-1.25) 10/24/20 10:46 Est GFR ( Amer) > 60 (>60) 10/24/20 10:46 Est GFR (MDRD) Non-Af > 60 (>60) 10/24/20 10:46 Glucose 95 mg/dL (75-110) 10/24/20 10:46 POC Glucose 92 mg/dL (70-110) 10/26/20 12:13 Calcium 10.0 mg/dL (8.4-10.2) 10/24/20 10:46 Phosphorus 2.9 mg/dL (2.5-4.5) 10/14/20 04:22 Magnesium 2.0 mg/dL (1.6-2.3) 10/24/20 10:46 Total Bilirubin 0.8 mg/dL (0.2-1.3) 10/24/20 10:46 Direct Bilirubin 0.2 mg/dL (0.0-0.4) 10/24/20 10:46 Neonat Total Bilirubin Not Reportable 10/24/20 10:46 Neonat Direct Bilirubin Not Reportable 10/24/20 10:46 Neonat Indirect Bili Not Reportable 10/24/20 10:46 GGT 400 U/L (8-78) H 10/23/20 04:05 AST 47 U/L (14-36) H 10/24/20 10:46 ALT 370 U/L (<35) H 10/24/20 10:46 Alkaline Phosphatase 171 U/L (38-126) H 10/24/20 10:46 Troponin I < 0.012 ng/mL 10/08/20 14:57 C-Reactive Protein < 5.0 mg/L (<10.0) 10/23/20 04:05 Total Protein 5.8 g/dL (6.3-8.2) L 10/24/20 10:46 Albumin 3.2 g/dL (3.5-5.0) L 10/24/20 10:46 TSH < 0.01 uIU/mL (0.47-4.68) L 10/23/20 04:05 Free T4 1.11 ng/dL (0.78-2.19) 10/23/20 04:05 Free T3 pg/mL 2.02 pg/mL (2.77-5.27) L 10/23/20 04:05 TSH Receptor Ab 1.85 IU/L (0.00-1.75) H 10/23/20 04:05 10/08/20 14:57 Troponin I < 0.012 Impressions: Transvaginal US 10/08/20 15:24 IMPRESSION: 1. Moderate amount of fluid in the posterior pelvic cul-de-sac which may be infectious or inflammatory fluid. 2. Diffuse thickening of the endometrial lining. This may represent endometrial hyperplasia, however malignancy is not excluded. Direct visualization and sampling is recommended. Soft Tissue Neck CT 10/18/20 00:00 IMPRESSION: MULTINODULAR GOITER WITH SUBSTERNAL EXTENSION ON THE LEFT. NO CHANGE COMPARED TO THE PRIOR STUDY, AUGUST 2020. NO OTHER SIGNIFICANT FINDING IN THE SOFT TISSUES OF THE NECK. Stroke Is this a Stroke Patient?: No Acute Heart Failure Is this a Heart Failure Patient?: No
== END 2020-10-26 14:30 | disposition home or self-care (01) | DRG 308 ==
LOC: ER 14:11 → EH 19:19 → 3S 21:14 → ICU 10-09 01:14 → 5 10-14 16:14
PROVIDERS: ADMIT Anesthesiology; ATTEND Hospitalist
DX: I48.11 Longstanding persistent atrial fibrillation (principal); E05.21 Thyrotoxicosis with toxic multinodular goiter with thyrotoxic crisis or storm; N17.9 Acute kidney failure, unspecified; E78.5 Hyperlipidemia, unspecified; I10 Essential (primary) hypertension; E66.9 Obesity, unspecified; N93.8 Other specified abnormal uterine and vaginal bleeding; Z79.84 Long term (current) use of oral hypoglycemic drugs; Z79.899 Other long term (current) drug therapy; R00.0 Tachycardia, unspecified; Z79.01 Long term (current) use of anticoagulants; K59.00 Constipation, unspecified; E11.65 Type 2 diabetes mellitus with hyperglycemia; R74.01 Elevation of levels of liver transaminase levels; Z90.49 Acquired absence of other specified parts of digestive tract
CPT/HCPCS: 36415; 70491; 76830; 80048; 80053; 80076; 82962; 82977; 83519; 83735; 84100; 84439; 84443; 84481; 84484; 85025; 85027; 85610; 86140; 93005; 93010; 99222; 99285; 99291; J1160; J1720; J1815; J3490; J7120; J7512